=== PATIENT | male | born 1935 | race Caucasian/White ===

== ENCOUNTER 2017-05-13 08:59 | Outpatient (RCR) | payer MEDICARE, SELFPAY ==
[2017-04-30 11:07] LABS: Prothrombin Time (Protime)PT. 29.9 SECONDS (11.7-14.9)
[2017-05-07 09:01] LABS: International Normalized Ratio 4.1; Prothrombin Time (Protime)PT. 38.1 SECONDS (11.7-14.9)
[2017-05-13 09:30] LABS: Prothrombin Time (Protime)PT. 21.8 SECONDS (11.7-14.9)
== END 2017-05-13 09:15 | disposition home or self-care (01) ==
LOC: LAB 08:59
PROVIDERS: Family Provider Family Medicine; PCP Family Medicine; Visit Provider Internal Medicine Cardiovascular Disease
DX: I48.1 Persistent atrial fibrillation (principal); Z79.01 Long term (current) use of anticoagulants
CPT/HCPCS: 36415; 85610

== ENCOUNTER 2017-06-10 09:00 | Outpatient (RCR) | payer MEDICARE, SELFPAY ==
[2017-04-10 10:53] VITALS: BP 90/60; BMI 31.3
[2017-06-03 11:17] LABS: International Normalized Ratio 3.2; Prothrombin Time (Protime)PT. 31.6 SECONDS (11.7-14.9)
[2017-06-10 09:57] LABS: International Normalized Ratio 2.9; Prothrombin Time (Protime)PT. 28.9 SECONDS (11.7-14.9)
== END 2017-06-10 09:30 | disposition home or self-care (01) ==
LOC: LAB 09:00
PROVIDERS: Family Provider Family Medicine; PCP Family Medicine; Visit Provider Internal Medicine Cardiovascular Disease
DX: I48.91 Unspecified atrial fibrillation (principal); Z79.01 Long term (current) use of anticoagulants
CPT/HCPCS: 36415; 85610

== ENCOUNTER 2017-07-14 08:25 | Outpatient (RCR) | payer MEDICARE, SELFPAY ==
[2017-06-26 08:25] LABS: International Normalized Ratio 2.2; Prothrombin Time (Protime)PT. 24.8 SECONDS (11.7-14.9)
[2017-07-14 09:22] LABS: International Normalized Ratio 2.9; Prothrombin Time (Protime)PT. 30.6 SECONDS (11.7-14.9)
[2017-07-14 09:46] LABS: AST(SGOT) 29 U/L (15-37); Alanine Aminotransfer ALT/SGPT 25 U/L (16-61); Albumin, Serum 3.7 g/dL (3.2-5.0); Alkaline Phosphatase 117 U/L (45-117); Bilirubin, Direct 0.31 mg/dL (0.00-0.30); Cholesterol 137 mg/dL (200); Globulin 3.6 g/dL (2.2-4.2); High Density Lipoprotein 51 mg/dL; Protein, Total 7.3 g/dL (6.4-8.2); Triglycerides 113 mg/dL; Very Low Density Lipoprotein 23 mg/dL (5-40)
== END 2017-07-14 09:00 | disposition home or self-care (01) ==
LOC: LAB 08:25
PROVIDERS: Physician Assistant Medical; Family Provider Family Medicine; PCP Family Medicine; Visit Provider Internal Medicine Cardiovascular Disease
DX: I48.91 Unspecified atrial fibrillation (principal); Z79.01 Long term (current) use of anticoagulants; E78.5 Hyperlipidemia, unspecified; Z79.899 Other long term (current) drug therapy
CPT/HCPCS: 36415; 80061; 80076; 85610

== ENCOUNTER 2017-08-11 08:18 | Outpatient (RCR) | payer MEDICARE, SELFPAY ==
[2017-08-11 09:19] LABS: International Normalized Ratio 2.2; Prothrombin Time (Protime)PT. 24.2 SECONDS (11.7-14.9)
== END 2017-08-11 09:00 | disposition home or self-care (01) ==
LOC: LAB 08:18
PROVIDERS: Family Provider Family Medicine; PCP Family Medicine; Visit Provider Internal Medicine Cardiovascular Disease
DX: I48.91 Unspecified atrial fibrillation (principal); Z79.01 Long term (current) use of anticoagulants
CPT/HCPCS: 36415; 85610

== ENCOUNTER → 2017-08-20 11:54 | Outpatient (CLI) | payer MEDICARE, SELFPAY ==
--- NOTE | 2017-08-20 13:54 | NEURO ---
NCS and/or EMG Patient Report Ordering Doctor: Juan F Rich DATE OF SERVICE: 08/20/17 Roshan Ramos is an 81-year-old male presents for electrodiagnostic testing of the right lower limb. He has numbness and tingling between the hip and the knee. He also reports numbness in the right foot. Electrodiagnostic findings: Absent right common peroneal and tibial motor responses. Prolonged H reflex noted on the right side and unobtainable on the left side. Prolonged right superficial peroneal latency is noted. Absent right sural response. On needle EMG, all muscles tested in the right lower limb showed no evidence of denervation with normal motor unit action potentials. Electrodiagnostic impression: This is an abnormal study in the right lower limb. 1. Electrodiagnostic findings show unobtainable motor responses as well as an absent right sural response. 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 No isolated nerve lesion can be determined. Additionally, there is no electrodiagnostic evidence for lumbosacral radiculopathy. If there are any further questions, please do not hesitate to contact me.
== END ==
PROVIDERS: Family Provider Family Medicine; PCP Family Medicine; Visit Provider Nurse Practitioner Family
DX: G57.91 Unspecified mononeuropathy of right lower limb (principal)
CPT/HCPCS: 95886; 95909

== ENCOUNTER 2017-09-16 08:17 | Outpatient (RCR) | payer MEDICARE, SELFPAY ==
[2017-09-16 09:38] LABS: International Normalized Ratio 2.3; Prothrombin Time (Protime)PT. 25.1 SECONDS (11.7-14.9)
== END 2017-09-16 09:00 | disposition home or self-care (01) ==
LOC: LAB 08:17
PROVIDERS: Family Provider Family Medicine; PCP Family Medicine; Visit Provider Internal Medicine Cardiovascular Disease
DX: I48.91 Unspecified atrial fibrillation (principal); Z79.01 Long term (current) use of anticoagulants
CPT/HCPCS: 36415; 85610

== ENCOUNTER 2017-10-23 09:11 | Outpatient (RCR) | payer MEDICARE, SELFPAY ==
[2017-10-17 09:32] LABS: International Normalized Ratio 2.7; Prothrombin Time (Protime)PT. 28.5 SECONDS (11.7-14.9)
[2017-10-23 10:25] LABS: International Normalized Ratio 1.4; Prothrombin Time (Protime)PT. 17.3 SECONDS (11.7-14.9)
== END 2017-10-23 10:00 | disposition home or self-care (01) ==
LOC: LAB 09:11
PROVIDERS: Family Provider Family Medicine; PCP Family Medicine; Visit Provider Internal Medicine Cardiovascular Disease
DX: I48.91 Unspecified atrial fibrillation (principal); Z79.01 Long term (current) use of anticoagulants
CPT/HCPCS: 36415; 85610

== ENCOUNTER 2017-11-13 08:05 | Outpatient (RCR) | payer MEDICARE, SELFPAY ==
[2017-10-30 09:52] LABS: International Normalized Ratio 2.2; Prothrombin Time (Protime)PT. 24.2 SECONDS (11.7-14.9)
[2017-11-13 08:55] LABS: International Normalized Ratio 1.7; Prothrombin Time (Protime)PT. 19.7 SECONDS (11.7-14.9)
== END 2017-11-25 20:00 | disposition home or self-care (01) ==
LOC: LAB 08:05
PROVIDERS: Family Provider Family Medicine; PCP Family Medicine; Visit Provider Internal Medicine Cardiovascular Disease
DX: I48.91 Unspecified atrial fibrillation (principal); Z79.01 Long term (current) use of anticoagulants
CPT/HCPCS: 36415; 85610

== ENCOUNTER 2017-11-27 08:39 | Outpatient (RCR) | payer MEDICARE, SELFPAY ==
[2017-11-27 09:15] LABS: International Normalized Ratio 2.2; Prothrombin Time (Protime)PT. 24.6 SECONDS (11.7-14.9)
== END 2017-12-29 08:17 | disposition home or self-care (01) ==
LOC: LAB 08:39
PROVIDERS: Family Provider Family Medicine; PCP Family Medicine; Visit Provider Internal Medicine Cardiovascular Disease
DX: I48.91 Unspecified atrial fibrillation (principal); Z79.01 Long term (current) use of anticoagulants
CPT/HCPCS: 36415; 85610

== ENCOUNTER 2017-12-30 08:18 | Outpatient (RCR) | payer MEDICARE, SELFPAY ==
[2017-12-30 09:17] LABS: AST(SGOT) 26 U/L (15-37); Alanine Aminotransfer ALT/SGPT 28 U/L (16-61); Albumin, Serum 3.7 g/dL (3.2-5.0); Alkaline Phosphatase 103 U/L (45-117); Bilirubin, Direct 0.23 mg/dL (0.00-0.30); Cholesterol 164 mg/dL (200); Globulin 3.7 g/dL (2.2-4.2); High Density Lipoprotein 51 mg/dL; Protein, Total 7.4 g/dL (6.4-8.2); Triglycerides 127 mg/dL; Very Low Density Lipoprotein 25 mg/dL (5-40)
[2017-12-30 09:29] LABS: Prothrombin Time (Protime)PT. 22.4 SECONDS (11.7-14.9)
== END 2017-12-30 09:00 | disposition home or self-care (01) ==
LOC: LAB 08:18
PROVIDERS: Physician Assistant Medical; Family Provider Family Medicine; PCP Family Medicine; Visit Provider Internal Medicine Cardiovascular Disease
DX: I48.91 Unspecified atrial fibrillation (principal); E78.5 Hyperlipidemia, unspecified; Z79.01 Long term (current) use of anticoagulants; Z79.899 Other long term (current) drug therapy
CPT/HCPCS: 36415; 80061; 80076; 85610

== ENCOUNTER 2018-02-09 08:54 | Outpatient (RCR) | payer MEDICARE, SELFPAY ==
[2018-02-09 10:28] LABS: International Normalized Ratio 2.5; Prothrombin Time (Protime)PT. 27.3 SECONDS (11.7-14.9)
== END 2018-02-09 10:00 | disposition home or self-care (01) ==
LOC: LAB 08:54
PROVIDERS: Family Provider Family Medicine; PCP Family Medicine; Referring Provider Internal Medicine Cardiovascular Disease; Visit Provider Internal Medicine Cardiovascular Disease
DX: I48.91 Unspecified atrial fibrillation (principal); Z79.01 Long term (current) use of anticoagulants
CPT/HCPCS: 36415; 85610

== ENCOUNTER 2018-02-23 12:02 | Outpatient (RCR) | payer MEDICARE, SELFPAY ==
[2018-02-23 12:47] VITALS: BP 113/67; PULSE 75; RESP 16; TEMP 36.2; O2SAT 99; BMI 29.5
[2018-02-23 13:19] VITALS: BMI 29.5
--- NOTE | 2018-02-23 13:47 | PCM.WC.HP ---
(1) Pressure ulcer of left buttock, stage 3 Status: Chronic Current Visit: Yes Code(s): L89.323 - Pressure ulcer of left buttock, stage 3 (2) Gout Status: Chronic Current Visit: No Code(s): M10.9 - Gout, unspecified (3) Dilated cardiomyopathy Status: Chronic Current Visit: No Code(s): I42.0 - Dilated cardiomyopathy (4) Atherosclerotic heart disease of [place] coronary artery without angina pectoris Status: Chronic Current Visit: No Qualifiers: Code(s): I25.10 - Atherosclerotic heart disease of [place] coronary artery without angina pectoris Comment: Stent to Mid PDA and mid posterolateral branch of RCA 08/21/2005 @ [facility] per Dr. Sánchez (5) FPC current use of anticoagulant Status: Chronic Current Visit: No Code(s): Z79.01 - FPC (current) use of anticoagulants (6) Atrial fibrillation Status: Chronic Current Visit: No Qualifiers: Code(s): I48.91 - Unspecified atrial fibrillation (7) Benign hypertension Status: Chronic Current Visit: No Code(s): I10 - Essential (primary) hypertension (8) HLD (hyperlipidemia) Status: Chronic Current Visit: No Qualifiers: Code(s): E78.5 - Hyperlipidemia, unspecified (9) Pacemaker Status: Chronic Current Visit: No Code(s): Z95.0 - Presence of cardiac pacemaker Comment: Pacemaker implant November 2001; 05/02/08 Generator change of pacemaker; (10) S/P PTCA (percutaneous transluminal coronary angioplasty) Status: Chronic Current Visit: No Code(s): Z98.61 - Coronary angioplasty status Comment: Stent to Mid PDA and mid posterolateral branch of RCA 08/21/2005 @ [facility] per Dr. Sánchez (11) Cardiomyopathy, ischemic Status: Chronic Current Visit: No Code(s): I25.5 - Ischemic cardiomyopathy (12) ICD (implantable cardioverter-defibrillator), biventricular, in situ Status: Chronic Current Visit: No Code(s): Z95.810 - Presence of automatic (implantable) cardiac defibrillator Comment: Pacemaker Implant November 2001; Generator change of pacemaker 05/02/08; ICD gen change 09/15/14; (13) Degenerative joint disease of knee Status: Chronic Current Visit: No Code(s): M17.10 - Unilateral primary osteoarthritis, unspecified knee History of Present Illness Date of Service: 02/23/18 Chief Complaint: Stage III pressure ulceration of the left buttock History of Wound: Is an 82-year-old male who is generally functional and ambulatory, though with multiple pre-existing medical problems. The patient presents with a stage III pressure ulceration on the left buttock. He states it has been present for approximately 7 months. It is painful. He has been under the care of several other physicians in regard to this ulceration, and is currently using Silvadene topically. The patient is active, but uses a lift chair for assistance, due to degenerative joint disease of his knees. The lift chair itself is not well cushioned, and the patient feels as though this is the cause of his ulceration, either due to friction forces or pressure. Though painful, the patient has had no history of bleeding or infection at the site. He is continent of stool and urine. Past Medical History Past Medical History: Chronic Problems (Last Reviewed 07/22/17 @ 10:22 by Иван Guzman MD) Pressure ulcer of left buttock, stage 3 (Chronic) Gout (Chronic) Degenerative joint disease of knee (Chronic) Dilated cardiomyopathy (Chronic) Palpitations (Chronic) Atherosclerotic heart disease of [place] coronary artery without angina pectoris (Chronic) Stent to Mid PDA and mid posterolateral branch of RCA 08/21/2005 @ [facility] per Dr. 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 Sánchez Cardiomyopathy, ischemic (Chronic) ICD (implantable cardioverter-defibrillator), biventricular, in situ (Chronic) Pacemaker Implant November 2001; Generator change of pacemaker 05/02/08; ICD gen change 09/15/14; Past Medical History: Patient has a history of diabetes mellitus, hypertension, atrial fibrillation, hyperlipidemia, and gout. Also has a history of coronary artery disease, and has previously undergone placement of a pacemaker/defibrillator. Patient denies a history of other, pulmonary disease, renal disease, and thyroid disease. Surgical History: angioplasty, - - Biventricular ICD. 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 He also has had bilateral cataract surgery. Allergies/Adverse Reactions: Allergies rofecoxib [From Vioxx] Adverse Reaction (Verified 01/21/18 09:39) Other Home Medications: Ambulatory Orders Medication Instructions Recorded Aspirin [Aspirin, Baby] 81 mg PO DAILY@0800 12/02/13 Metformin HCl [Glucophage] 500 mg PO BIDCM 12/02/13 Allopurinol [Zyloprim] 100 mg PO DAILYCM 08/17/14 Nitroglycerin [Nitrostat] 0.4 mg SUBLINGUAL Q5M PRN #1 bottle 07/04/16 furosemide 40 mg tablet 40 mg PO DAILY #90 tab 04/10/17 carvedilol 6.25 mg tablet 6.25 mg PO BID 07/22/17 ramipril 2.5 mg capsule 2.5 mg PO QDAY #90 cap 07/22/17 simvastatin 40 mg tablet 40 mg PO QODAY #45 tab 10/24/17 warfarin 2 mg tablet 2 mg PO .COMPLEX #130 tab 01/06/18 warfarin 2.5 mg tablet 2.5 mg PO .COMPLEX #52 tab 01/06/18 - Family History Maternal Family History: Family History (Last Reviewed 07/22/17 @ 10:22 by Иван Guzman MD) Father Parkinsons disease Mother Heart disease Valvular heart disease No pertinent history Social History: 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 He denies use of alcohol and tobacco products. He is . Lives: Spouse/ Significant Other Smoking Status: Never smoker Tobacco Use: Non-smoker Alcohol: None Drugs: None Review of Systems Constitutional: Denies: Chills, Fever, Weight Change Eyes: Denies: Pain, Vision Change HEENT: Denies: Difficulty Hearing, Difficulty Swallowing, Sinus Congestion Cardiovascular: Denies: Chest Pain, Palpitations Respiratory: Denies: Cough, Shortness of Breath Gastrointestinal: Denies: Diarrhea, Nausea, Vomiting Genitourinary: Denies: Dysuria, Hematuria Endocrine: Denies: Heat/ Cold Intolerance, Polydipsia, Polyuria Hematologic/ Lymphatic: Denies: Easy Bruising, Easy Bleeding - Physical Exam Vital Signs Temp Pulse Resp BP Pulse Ox 97.1 F L 75 16 113/67 99 02/23/18 12:47 02/23/18 12:47 02/23/18 12:47 02/23/18 12:47 02/23/18 12:47 General: Alert, Oriented x3, Cooperative, No apparent distress, Well developed, Well nourished HEENT: Atraumatic, PERRLA, EOMI, Normocephalic Oral: Moist Mucosa, No Gingival or Mucosal Lesions/ Ulcerations Neck: Supple, No JVD, Negative Carotid Bruits, Negative Hepatojugular Reflux, No Nodes, No Nuchal Rigidity, Trachea Midline Lungs: Clear to auscultation, Normal air movement, No rhonchi, No wheeze, No rales Cardiovascular: Regular rate, Regular Rhythm, Normal S1, Normal S2, No murmurs Abdomen: Soft, Non Tender, Non-Distended Extremities: No clubbing, No cyanosis, No edema, No Calf Tenderness, - - The patient's left hand is absent, having been previously amputated at the level of the wrist. Skin: No rashes, - - Ulcerations noted on the left buttock. The base of the ulceration is somewhat fibrous. There is a small amount of bioburden. There is no sign of infection or cellulitis. Dimensions are documented elsewhere. Ulcer margins are reasonably well beveled. The ulceration appears to extend into the subcutaneous tissue. Wound Measurements and Assessment WC - Nurse 1 - General Ulcer Measurement Start: 02/23/18 12:44 Freq: Status: Active Protocol: Activity Type Activity Date Activity User E-Sign Co-Sign Detail Recorded Client Recorded Date Recorded By Document 02/23/18 13:34 OR [id number] 02/23/18 13:37 OR 02/23/18 13:34 Wound Center Nurse 1 [Ulcer Assessment] #1 left upper buttock -Combined with other wound No -Current Size (cm) - Length 1 -Current Size (cm) - Width 0.6 -Current Size (cm) - Depth 0.1 -Total Square Cm 0.6 -Date of Last Picture (Recall this 02/23/18 field) -Photo Taken Yes -Epithelialization Small 1-33% -Tunneling No -Undermining/Tunneling No -Circular Undermining No -Exudate Amt None Present (0 %) -Wound Margin Distinct, Outline Attached -Granulation Amt Medium (34-66%) -Granulation Quality Pale Finzel -Necrosis Amt Medium (34-66%) -Necrotic Tissue Type Adherent Slough -Texture (Nora-wound Skin Appearance) Assessed -Moisture (Nora-wound Skin Appearance Assessed ) Maceration -Color (Nora-wound Skin Appearance) Assessed -Temperature (Nora-wound Skin No Abnormality Appearance) (Pt Warm) -Tenderness on Palpation (Nora-wound No Skin Appearance) -Ulcer Cleansing Rinsed/ Irrigated with Saline -Foul Odor after Cleansing No -Anesthetic Used 5% Lidocaine Gel WC - Nurse 2 - General Ulcer CM Notes Start: 02/23/18 12:44 Freq: Status: Active Protocol: Activity Type Activity Date Activity User E-Sign Co-Sign Detail Recorded Client Recorded Date Recorded By Document 02/23/18 13:34 DV [id number] 02/23/18 13:43 DV 02/23/18 13:34 Wound Center Nurse 2 [Procedure/Treatment] #1 LEFT BUTTOCK -Time 13:35 -Correct Patient Yes -Correct Side, Site, Position Yes -Correct Procedure Yes -Procedure Performed Yes -Type of Procedure Debridement -Clinical Debridement Subcutaneous -Post Debridement Size (cm) - Length 1.0 -Post Debridement Size (cm) - Width 0.8 -Post Debridement Size (cm) - Depth 0.2 -Total Square Cm 0.80 -Wound/Ulcer Outcome Not Healed -Ulcer Cleansing Rinsed/ Irrigated with Saline -Foul Odor after Cleansing No -Bioengineered Tissue No -Bleeding Controlled with Pressure -Treatment Response Procedure Tolerated Well [See Physician Procedure note for Specifics] Pain Scale: 0-10 Numeric [Pain] -Is Patient Pain Free? Yes Musculoskeletal: No Muscle Wasting Neurological: Cranial nerves II-XII grossly intact, Neuro grossly intact Psych/Mental Status: Normal Affect, Appropriate, Alert and oriented to time, place, person, mood and affect Debridement Note Post-Debridement Measurements/Treatment WC - Nurse 2 - General Ulcer CM Notes Start: 02/23/18 12:44 Freq: Status: Active Protocol: Activity Type Activity Date Activity User E-Sign Co-Sign Detail Recorded Client Recorded Date Recorded By Document 02/23/18 13:34 DV [id number] 02/23/18 13:43 DV 02/23/18 13:34 Wound Center Nurse 2 #1 LEFT BUTTOCK -Time 13:35 -Correct Patient Yes -Correct Side, Site, Position Yes -Correct Procedure Yes -Procedure Performed Yes -Type of Procedure Debridement -Clinical Debridement Subcutaneous -Post Debridement Size (cm) - Length 1.0 -Post Debridement Size (cm) - Width 0.8 -Post Debridement Size (cm) - Depth 0.2 -Total Square Cm 0.80 -Wound/Ulcer Outcome Not Healed -Ulcer Cleansing Rinsed/ Irrigated with Saline -Foul Odor after Cleansing No -Bioengineered Tissue No -Bleeding Controlled with Pressure -Treatment Response Procedure Tolerated Well Pain Scale: 0-10 Numeric Is Patient Pain Free? Yes Laterality: Left - Rec Type of Debridement: Excisional debridement Anesthesia Used: 4% Lidocaine Solution Depth: Down to and including healthy tissue, in the subcutaneous layer Percentage of wound debrided: 100 Instrument Used: 7mm curette Severity: Fat Layer Exposed Amount of bleeding with debridement: Mild Bleeding Controlled with: Compression and gauze Patient tolerated procedure well Assessment/Plan Active Problems (Last Reviewed 07/22/17 @ 10:22 by Иван Guzman MD) Pressure ulcer of left buttock, stage 3 (Chronic) Assessment: This is an 82-year-old male who presents with a pressure ulceration of the left buttock. It has been present for approximately 7 months. It appears related to either pressure or friction forces. Patient uses a lift chair, suspected to be the cause of his presenting manifestations. He is, in general, active and functional. The pressure ulceration appears to represent a stage III ulceration. Plan: Offloading measures are to be initiated. A lengthy discussion has been undertaken with the patient as to the appropriate measures to be employed. He is to reposition himself frequently. He is to avoid pressure to the area. An effort will be made to obtain a Roho cushion or other similar offloading cushion. Optimization of the patient's diabetes mellitus is a goal. Optimal nutrition has also been recommended. We will obtain routine diagnostic laboratory studies, including a CBC, conference of metabolic profile, serum prealbumin, and hemoglobin A1c. Patient is to return in 1 week for reassessment. We will initiate the use of collagenase Santyl topically on a daily basis. Patient is to be instructed in its appropriate use. The patient's is to assist the patient in daily dressing changes. The patient is not a smoker. Influenza vaccine was not administered today. Patient weighs 230 pounds. He stands 6 feet 2 inches tall. His BMI is 29.5, which places him in an overweight category. Weight loss has been recommended, and collaboration with his primary care physician has been recommended.
--- NOTE | 2018-02-23 13:51 | HP.PCM_ITS ---
(1) Pressure ulcer of left buttock, stage 3 Status: Chronic Current Visit: Yes Code(s): L89.323 - Pressure ulcer of left buttock, stage 3 (2) Gout Status: Chronic Current Visit: No Code(s): M10.9 - Gout, unspecified (3) Dilated cardiomyopathy Status: Chronic Current Visit: No Code(s): I42.0 - Dilated cardiomyopathy (4) Atherosclerotic heart disease of [place] coronary artery without angina pectoris Status: Chronic Current Visit: No Qualifiers: Code(s): I25.10 - Atherosclerotic heart disease of [place] coronary artery without angina pectoris Comment: Stent to Mid PDA and mid posterolateral branch of RCA 08/21/2005 @ [facility] per Dr. Sánchez (5) care home current use of anticoagulant Status: Chronic Current Visit: No Code(s): Z79.01 - care home (current) use of anticoagulants (6) Atrial fibrillation Status: Chronic Current Visit: No Qualifiers: Code(s): I48.91 - Unspecified atrial fibrillation (7) Benign hypertension Status: Chronic Current Visit: No Code(s): I10 - Essential (primary) hypertension (8) HLD (hyperlipidemia) Status: Chronic Current Visit: No Qualifiers: Code(s): E78.5 - Hyperlipidemia, unspecified (9) Pacemaker Status: Chronic Current Visit: No Code(s): Z95.0 - Presence of cardiac pacemaker Comment: Pacemaker implant November 2001; 05/02/08 Generator change of pacemaker; (10) S/P PTCA (percutaneous transluminal coronary angioplasty) Status: Chronic Current Visit: No Code(s): Z98.61 - Coronary angioplasty status Comment: Stent to Mid PDA and mid posterolateral branch of RCA 08/21/2005 @ [facility] per Dr. Sánchez (11) Cardiomyopathy, ischemic Status: Chronic Current Visit: No Code(s): I25.5 - Ischemic cardiomyopathy (12) ICD (implantable cardioverter-defibrillator), biventricular, in situ Status: Chronic Current Visit: No Code(s): Z95.810 - Presence of automatic (implantable) cardiac defibrillator Comment: Pacemaker Implant November 2001; Generator change of pacemaker 05/02/08; ICD gen change 09/15/14; (13) Degenerative joint disease of knee Status: Chronic Current Visit: No Code(s): M17.10 - Unilateral primary osteoarthritis, unspecified knee History of Present Illness Date of Service: 02/23/18 Chief Complaint: Stage III pressure ulceration of the left buttock History of Wound: Is an 82-year-old male who is generally functional and ambulatory, though with multiple pre-existing medical problems. The patient presents with a stage III pressure ulceration on the left buttock. He states it has been present for approximately 7 months. It is painful. He has been under the care of several other physicians in regard to this ulceration, and is currently using Silvadene topically. The patient is active, but uses a lift chair for assistance, due to degenerative joint disease of his knees. The lift chair itself is not well cushioned, and the patient feels as though this is the cause of his ulceration, either due to friction forces or pressure. Though painful, the patient has had no history of bleeding or infection at the site. He is continent of stool and urine. Past Medical History Past Medical History: Chronic Problems (Last Reviewed 07/22/17 @ 10:22 by Иван Guzman MD) Pressure ulcer of left buttock, stage 3 (Chronic) Gout (Chronic) Degenerative joint disease of knee (Chronic) Dilated cardiomyopathy (Chronic) Palpitations (Chronic) Atherosclerotic heart disease of [place] coronary artery without angina pectoris (Chronic) Stent to Mid PDA and mid posterolateral branch of RCA 08/21/2005 @ [facility] per Dr. 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 Sánchez Cardiomyopathy, ischemic (Chronic) ICD (implantable cardioverter-defibrillator), biventricular, in situ (Chronic) Pacemaker Implant November 2001; Generator change of pacemaker 05/02/08; ICD gen change 09/15/14; Past Medical History: Patient has a history of diabetes mellitus, hypertension, atrial fibrillation, hyperlipidemia, and gout. Also has a history of coronary artery disease, and has previously undergone placement of a pacemaker/defibrillator. Patient denies a history of other, pulmonary disease, renal disease, and thyroid disease. Surgical History: angioplasty, - - Biventricular ICD. 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 He also has had bilateral cataract surgery. Allergies/Adverse Reactions: Allergies rofecoxib [From Vioxx] Adverse Reaction (Verified 01/21/18 09:39) Other Home Medications: Ambulatory Orders Medication Instructions Recorded Aspirin [Aspirin, Baby] 81 mg PO DAILY@0800 12/02/13 Metformin HCl [Glucophage] 500 mg PO BIDCM 12/02/13 Allopurinol [Zyloprim] 100 mg PO DAILYCM 08/17/14 Nitroglycerin [Nitrostat] 0.4 mg SUBLINGUAL Q5M PRN #1 bottle 07/04/16 furosemide 40 mg tablet 40 mg PO DAILY #90 tab 04/10/17 carvedilol 6.25 mg tablet 6.25 mg PO BID 07/22/17 ramipril 2.5 mg capsule 2.5 mg PO QDAY #90 cap 07/22/17 simvastatin 40 mg tablet 40 mg PO QODAY #45 tab 10/24/17 warfarin 2 mg tablet 2 mg PO .COMPLEX #130 tab 01/06/18 warfarin 2.5 mg tablet 2.5 mg PO .COMPLEX #52 tab 01/06/18 - Family History Maternal Family History: Family History (Last Reviewed 07/22/17 @ 10:22 by Иван Guzman MD) Father Parkinsons disease Mother Heart disease Valvular heart disease No pertinent history Social History: 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 He denies use of alcohol and tobacco products. He is . Lives: Spouse/ Significant Other Smoking Status: Never smoker Tobacco Use: Non-smoker Alcohol: None Drugs: None Review of Systems Constitutional: Denies: Chills, Fever, Weight Change Eyes: Denies: Pain, Vision Change HEENT: Denies: Difficulty Hearing, Difficulty Swallowing, Sinus Congestion Cardiovascular: Denies: Chest Pain, Palpitations Respiratory: Denies: Cough, Shortness of Breath Gastrointestinal: Denies: Diarrhea, Nausea, Vomiting Genitourinary: Denies: Dysuria, Hematuria Endocrine: Denies: Heat/ Cold Intolerance, Polydipsia, Polyuria Hematologic/ Lymphatic: Denies: Easy Bruising, Easy Bleeding - Physical Exam Vital Signs Temp Pulse Resp BP Pulse Ox 97.1 F L 75 16 113/67 99 02/23/18 12:47 02/23/18 12:47 02/23/18 12:47 02/23/18 12:47 02/23/18 12:47 General: Alert, Oriented x3, Cooperative, No apparent distress, Well developed, Well nourished HEENT: Atraumatic, PERRLA, EOMI, Normocephalic Oral: Moist Mucosa, No Gingival or Mucosal Lesions/ Ulcerations Neck: Supple, No JVD, Negative Carotid Bruits, Negative Hepatojugular Reflux, No Nodes, No Nuchal Rigidity, Trachea Midline Lungs: Clear to auscultation, Normal air movement, No rhonchi, No wheeze, No rales Cardiovascular: Regular rate, Regular Rhythm, Normal S1, Normal S2, No murmurs Abdomen: Soft, Non Tender, Non-Distended Extremities: No clubbing, No cyanosis, No edema, No Calf Tenderness, - - The patient's left hand is absent, having been previously amputated at the level of the wrist. Skin: No rashes, - - Ulcerations noted on the left buttock. The base of the ulceration is somewhat fibrous. There is a small amount of bioburden. There is no sign of infection or cellulitis. Dimensions are documented elsewhere. Ulcer margins are reasonably well beveled. The ulceration appears to extend into the subcutaneous tissue. Wound Measurements and Assessment WC - Nurse 1 - General Ulcer Measurement Start: 02/23/18 12:44 Freq: Status: Active Protocol: Activity Type Activity Date Activity User E-Sign Co-Sign Detail Recorded Client Recorded Date Recorded By Document 02/23/18 13:34 MS [id number] 02/23/18 13:37 MS 02/23/18 13:34 Wound Center Nurse 1 [Ulcer Assessment] #1 left upper buttock -Combined with other wound No -Current Size (cm) - Length 1 -Current Size (cm) - Width 0.6 -Current Size (cm) - Depth 0.1 -Total Square Cm 0.6 -Date of Last Picture (Recall this 02/23/18 field) -Photo Taken Yes -Epithelialization Small 1-33% -Tunneling No -Undermining/Tunneling No -Circular Undermining No -Exudate Amt None Present (0 %) -Wound Margin Distinct, Outline Attached -Granulation Amt Medium (34-66%) -Granulation Quality Pale [place] -Necrosis Amt Medium (34-66%) -Necrotic Tissue Type Adherent Slough -Texture (Nora-wound Skin Appearance) Assessed -Moisture (Nora-wound Skin Appearance Assessed ) Maceration -Color (Nora-wound Skin Appearance) Assessed -Temperature (Nora-wound Skin No Abnormality Appearance) (Pt Warm) -Tenderness on Palpation (Nora-wound No Skin Appearance) -Ulcer Cleansing Rinsed/ Irrigated with Saline -Foul Odor after Cleansing No -Anesthetic Used 5% Lidocaine Gel WC - Nurse 2 - General Ulcer CM Notes Start: 02/23/18 12:44 Freq: Status: Active Protocol: Activity Type Activity Date Activity User E-Sign Co-Sign Detail Recorded Client Recorded Date Recorded By Document 02/23/18 13:34 DV [id number] 02/23/18 13:43 DV 02/23/18 13:34 Wound Center Nurse 2 [Procedure/Treatment] #1 LEFT BUTTOCK -Time 13:35 -Correct Patient Yes -Correct Side, Site, Position Yes -Correct Procedure Yes -Procedure Performed Yes -Type of Procedure Debridement -Clinical Debridement Subcutaneous -Post Debridement Size (cm) - Length 1.0 -Post Debridement Size (cm) - Width 0.8 -Post Debridement Size (cm) - Depth 0.2 -Total Square Cm 0.80 -Wound/Ulcer Outcome Not Healed -Ulcer Cleansing Rinsed/ Irrigated with Saline -Foul Odor after Cleansing No -Bioengineered Tissue No -Bleeding Controlled with Pressure -Treatment Response Procedure Tolerated Well [See Physician Procedure note for Specifics] Pain Scale: 0-10 Numeric [Pain] -Is Patient Pain Free? Yes Musculoskeletal: No Muscle Wasting Neurological: Cranial nerves II-XII grossly intact, Neuro grossly intact Psych/Mental Status: Normal Affect, Appropriate, Alert and oriented to time, place, person, mood and affect Debridement Note Post-Debridement Measurements/Treatment WC - Nurse 2 - General Ulcer CM Notes Start: 02/23/18 12:44 Freq: Status: Active Protocol: Activity Type Activity Date Activity User E-Sign Co-Sign Detail Recorded Client Recorded Date Recorded By Document 02/23/18 13:34 DV [id number] 02/23/18 13:43 DV 02/23/18 13:34 Wound Center Nurse 2 #1 LEFT BUTTOCK -Time 13:35 -Correct Patient Yes -Correct Side, Site, Position Yes -Correct Procedure Yes -Procedure Performed Yes -Type of Procedure Debridement -Clinical Debridement Subcutaneous -Post Debridement Size (cm) - Length 1.0 -Post Debridement Size (cm) - Width 0.8 -Post Debridement Size (cm) - Depth 0.2 -Total Square Cm 0.80 -Wound/Ulcer Outcome Not Healed -Ulcer Cleansing Rinsed/ Irrigated with Saline -Foul Odor after Cleansing No -Bioengineered Tissue No -Bleeding Controlled with Pressure -Treatment Response Procedure Tolerated Well Pain Scale: 0-10 Numeric Is Patient Pain Free? Yes Laterality: Left - Rec Type of Debridement: Excisional debridement Anesthesia Used: 4% Lidocaine Solution Depth: Down to and including healthy tissue, in the subcutaneous layer Percentage of wound debrided: 100 Instrument Used: 7mm curette Severity: Fat Layer Exposed Amount of bleeding with debridement: Mild Bleeding Controlled with: Compression and gauze Patient tolerated procedure well Assessment/Plan Active Problems (Last Reviewed 07/22/17 @ 10:22 by Иван Guzman MD) Pressure ulcer of left buttock, stage 3 (Chronic) Assessment: This is an 82-year-old male who presents with a pressure ulceration of the left buttock. It has been present for approximately 7 months. It appears related to either pressure or friction forces. Patient uses a lift chair, suspected to be the cause of his presenting manifestations. He is, in general, active and functional. The pressure ulceration appears to represent a stage III ulceration. Plan: Offloading measures are to be initiated. A lengthy discussion has been undertaken with the patient as to the appropriate measures to be employed. He is to reposition himself frequently. He is to avoid pressure to the area. An effort will be made to obtain a Roho cushion or other similar offloading cushion. Optimization of the patient's diabetes mellitus is a goal. Optimal nutrition has also been recommended. We will obtain routine diagnostic laboratory studies, including a CBC, conference of metabolic profile, serum prealbumin, and hemoglobin A1c. Patient is to return in 1 week for reassessment. We will initiate the use of collagenase Santyl topically on a daily basis. Patient is to be instructed in its appropriate use. The patient's is to assist the patient in daily dressing changes. The patient is not a smoker. Influenza vaccine was not administered today. Patient weighs 230 pounds. He stands 6 feet 2 inches tall. His BMI is 29.5, which places him in an overweight category. Weight loss has been recommended, and collaboration with his primary care physician has been recommended.
[2018-02-23 13:56] VITALS: BMI 29.5
[2018-02-23 16:02] LABS: Hemoglobin 14.3 g/dl (13.0-16.5); Mean Corp Hgb Conc 33.3 g/gl (32-36); Mean Corpuscular Hgb 32.1 pg (27.0-32.0); Mean Corpuscular Volume 96.4 fL (80-94); Mean Platelet Vol. 11.3 fl (6.2-12.0); Platelet Count 160 K/mm3 (150-450); RBC Distribution Width CV 13.8 % (11.6-14.6); RBC Distribution Width SD 47.1 fl (35.1-43.9); Red Blood Count 4.46 M/mm3 (4.6-6.2); White Blood Count 5.8 K/mm3 (4.4-11.0)
[2018-02-23 16:08] LABS: Scan Indicated on CBC? Y/N NO
[2018-02-23 16:33] LABS: Hemoglobin A1c 6.4 % (4.2-6.3)
[2018-02-23 16:34] LABS: AST(SGOT) 22 U/L (15-37); Alanine Aminotransfer ALT/SGPT 26 U/L (16-61); Albumin, Serum 3.8 g/dL (3.2-5.0); Alkaline Phosphatase 120 U/L (45-117); Anion Gap 9 (5-15); BUN 27 mg/dL (7-18); BUN/Creat Ratio 23.9 RATIO (10-20); Calcium,Total 9.1 mg/dL (8.5-10.1); Chloride 103 mmol/L (98-107); Creatinine, Serum 1.13 mg/dL (0.70-1.30); EST Glomerular Filtration Rate 66 mL/min (>60); Est Glom Filt Rate - Afr Amer 80 mL/min (>60); Estimated Creatinine Clearance 57.59 ml/min; Globulin 3.9 g/dL (2.2-4.2); Glucose 105 mg/dL (74-106); Potassium 3.9 mmol/L (3.5-5.1); Prealbumin 26.1 mg/dL (20.0-40.0); Protein, Total 7.7 g/dL (6.4-8.2); Sodium Level 143 mmol/L (136-145)
== END 2018-02-25 23:59 ==
LOC: WC 12:02
PROVIDERS: Family Provider Family Medicine; PCP Family Medicine; Visit Provider Surgery
DX: E11.622 Type 2 diabetes mellitus with other skin ulcer (principal); L89.323 Pressure ulcer of left buttock, stage 3; M10.9 Gout, unspecified; I25.10 Atherosclerotic heart disease of native coronary artery without angina pectoris; I42.0 Dilated cardiomyopathy; Z79.01 Long term (current) use of anticoagulants; I48.2 Chronic atrial fibrillation; I10 Essential (primary) hypertension; E78.5 Hyperlipidemia, unspecified; Z95.5 Presence of coronary angioplasty implant and graft; M17.10 Unilateral primary osteoarthritis, unspecified knee; I25.5 Ischemic cardiomyopathy; Z95.810 Presence of automatic (implantable) cardiac defibrillator; Z79.84 Long term (current) use of oral hypoglycemic drugs; Z79.899 Other long term (current) drug therapy; Z79.82 Long term (current) use of aspirin
CPT/HCPCS: 11042; 80053; 83036; 84134; 85027; 99213; G0463

== ENCOUNTER → 2018-03-13 10:52 | Outpatient (CLI) | payer MEDICARE, SELFPAY ==
[2018-03-13 12:50] LABS: AST(SGOT) 27 U/L (15-37); Alanine Aminotransfer ALT/SGPT 28 U/L (16-61); Albumin, Serum 3.8 g/dL (3.2-5.0); Alkaline Phosphatase 127 U/L (45-117); Anion Gap 8 (5-15); BUN 23 mg/dL (7-18); BUN/Creat Ratio 23.2 RATIO (10-20); Bilirubin, Direct 0.29 mg/dL (0.00-0.30); Calcium,Total 8.5 mg/dL (8.5-10.1); Chloride 104 mmol/L (98-107); Cholesterol 152 mg/dL (200); Creatinine, Serum 0.99 mg/dL (0.70-1.30); EST Glomerular Filtration Rate 77 mL/min (>60); Est Glom Filt Rate - Afr Amer 93 mL/min (>60); Globulin 3.3 g/dL (2.2-4.2); Glucose 120 mg/dL (74-106); High Density Lipoprotein 51 mg/dL; PSA,Total - Annual Screen 4.44 ng/mL (0.00-4.00); Potassium 4.3 mmol/L (3.5-5.1); Protein, Total 7.1 g/dL (6.4-8.2); Sodium Level 142 mmol/L (136-145); Triglycerides 120 mg/dL; Very Low Density Lipoprotein 24 mg/dL (5-40)
== END ==
PROVIDERS: Family Provider Family Medicine; PCP Family Medicine; Referring Provider Family Medicine; Visit Provider Family Medicine
DX: Z00.00 Encounter for general adult medical examination without abnormal findings (principal); E11.9 Type 2 diabetes mellitus without complications; Z12.5 Encounter for screening for malignant neoplasm of prostate
CPT/HCPCS: 36415; 80048; 80061; 80076; 84153; G0103

== ENCOUNTER 2018-03-16 09:31 | Outpatient (RCR) | payer MEDICARE, SELFPAY ==
[2018-03-16 10:29] LABS: International Normalized Ratio 2.9; Prothrombin Time (Protime)PT. 30.8 SECONDS (11.7-14.9)
== END 2018-03-27 09:02 | disposition home or self-care (01) ==
LOC: LAB 09:31
PROVIDERS: Family Provider Family Medicine; PCP Family Medicine; Referring Provider Internal Medicine Cardiovascular Disease; Visit Provider Internal Medicine Cardiovascular Disease
DX: I48.91 Unspecified atrial fibrillation (principal); Z79.01 Long term (current) use of anticoagulants
CPT/HCPCS: 36415; 85610

== ENCOUNTER 2018-03-23 12:00 | Outpatient (RCR) | payer MEDICARE, SELFPAY ==
[2018-02-26 02:15] VITALS: BP 113/67; PULSE 75; RESP 16; TEMP 36.2; O2SAT 99
[2018-03-02 14:48] VITALS: BP 107/70; PULSE 83; RESP 16; TEMP 36.1
--- NOTE | 2018-03-02 15:09 | PCM.WC.HP ---
(1) Pressure ulcer of left buttock, stage 3 Status: Chronic Current Visit: Yes Code(s): L89.323 - Pressure ulcer of left buttock, stage 3 (2) Gout Status: Chronic Current Visit: No Code(s): M10.9 - Gout, unspecified (3) Degenerative joint disease of knee Status: Chronic Current Visit: No Code(s): M17.10 - Unilateral primary osteoarthritis, unspecified knee (4) Dilated cardiomyopathy Status: Chronic Current Visit: No Code(s): I42.0 - Dilated cardiomyopathy (5) Atrial flutter Status: Acute Current Visit: No Code(s): I48.92 - Unspecified atrial flutter (6) Sick sinus syndrome Status: Acute Current Visit: No Code(s): I49.5 - Sick sinus syndrome (7) Palpitations Status: Chronic Current Visit: No Code(s): R00.2 - Palpitations (8) Atherosclerotic heart disease of [place] coronary artery without angina pectoris Status: Chronic Current Visit: No Qualifiers: Code(s): I25.10 - Atherosclerotic heart disease of [place] coronary artery without angina pectoris Comment: Stent to Mid PDA and mid posterolateral branch of RCA 08/21/2005 @ [facility] per Dr. Sánchez (9) History of sick sinus syndrome Status: Chronic Current Visit: No Code(s): Z86.79 - Personal history of other diseases of the circulatory system (10) residential current use of anticoagulant Status: Chronic Current Visit: No Code(s): Z79.01 - residential (current) use of anticoagulants (11) Abnormal stress test Status: Ruled-out Current Visit: No (12) Atrial fibrillation Status: Chronic Current Visit: No Qualifiers: Code(s): I48.91 - Unspecified atrial fibrillation (13) Benign hypertension Status: Chronic Current Visit: No Code(s): I10 - Essential (primary) hypertension (14) Type II diabetes mellitus Status: Chronic Current Visit: No Qualifiers: Code(s): E11.9 - Type 2 diabetes mellitus without complications (15) HLD (hyperlipidemia) Status: Chronic Current Visit: No Qualifiers: Code(s): E78.5 - Hyperlipidemia, unspecified (16) Obesity Status: Chronic Current Visit: No Code(s): E66.9 - Obesity, unspecified (17) Chest pain Status: Resolved Current Visit: No Qualifiers: Code(s): R07.9 - Chest pain, unspecified (18) Pacemaker Status: Chronic Current Visit: No Code(s): Z95.0 - Presence of cardiac pacemaker Comment: Pacemaker implant November 2001; 05/02/08 Generator change of pacemaker; (19) S/P PTCA (percutaneous transluminal coronary angioplasty) Status: Chronic Current Visit: No Code(s): Z98.61 - Coronary angioplasty status Comment: Stent to Mid PDA and mid posterolateral branch of RCA 08/21/2005 @ [facility] per Dr. Sánchez (20) Cardiomyopathy, ischemic Status: Chronic Current Visit: No Code(s): I25.5 - Ischemic cardiomyopathy (21) ICD (implantable cardioverter-defibrillator), biventricular, in situ Status: Chronic Current Visit: No Code(s): Z95.810 - Presence of automatic (implantable) cardiac defibrillator Comment: Pacemaker Implant November 2001; Generator change of pacemaker 05/02/08; ICD gen change 09/15/14; History of Present Illness Chief Complaint: Stage III pressure ulceration of the left buttock History of Wound: Is an 82-year-old male who is generally functional and ambulatory, though with multiple pre-existing medical problems. The patient presented with a stage III pressure ulceration on the left buttock. He stated it had been present for approximately 7 months. It is painful. He has been under the care of several other physicians in regard to this ulceration, and is currently using Silvadene topically. The patient is active, but uses a lift chair for assistance, due to degenerative joint disease of his knees. The lift chair itself is not well cushioned, and the patient feels as though this is the cause of his ulceration, either due to friction forces or pressure. Though painful, the patient has had no history of bleeding or infection at the site. He is continent of stool and urine. Past Medical History Past Medical History: Chronic Problems (Last Reviewed 07/22/17 @ 10:22 by Иван Guzman MD) Pressure ulcer of left buttock, stage 3 (Chronic) Gout (Chronic) Degenerative joint disease of knee (Chronic) Dilated cardiomyopathy (Chronic) Palpitations (Chronic) Atherosclerotic heart disease of [place] coronary artery without angina pectoris (Chronic) Stent to Mid PDA and mid posterolateral branch of RCA 08/21/2005 @ [facility] per Dr. 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 Sánchez Cardiomyopathy, ischemic (Chronic) ICD (implantable cardioverter-defibrillator), biventricular, in situ (Chronic) Pacemaker Implant November 2001; Generator change of pacemaker 05/02/08; ICD gen change 09/15/14; Surgical History: angioplasty, - - Biventricular ICD. 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 He also has had bilateral cataract surgery. Allergies/Adverse Reactions: Allergies rofecoxib [From Vioxx] Adverse Reaction (Verified 01/21/18 09:39) Other Home Medications: Ambulatory Orders Medication Instructions Recorded Aspirin [Aspirin, Baby] 81 mg PO DAILY@0800 12/02/13 Metformin HCl [Glucophage] 500 mg PO BIDCM 12/02/13 Allopurinol [Zyloprim] 100 mg PO DAILYCM 08/17/14 Nitroglycerin [Nitrostat] 0.4 mg SUBLINGUAL Q5M PRN #1 bottle 07/04/16 carvedilol 6.25 mg tablet 6.25 mg PO BID 07/22/17 ramipril 2.5 mg capsule 2.5 mg PO QDAY #90 cap 07/22/17 simvastatin 40 mg tablet 40 mg PO QODAY #45 tab 10/24/17 warfarin 2 mg tablet 2 mg PO .COMPLEX #130 tab 01/06/18 warfarin 2.5 mg tablet 2.5 mg PO .COMPLEX #52 tab 01/06/18 Furosemide [Lasix] 20 mg PO DAILY 02/23/18 - Family History Maternal Family History: Family History (Last Reviewed 07/22/17 @ 10:22 by Иван Guzman MD) Father Parkinsons disease Mother Heart disease Valvular heart disease No pertinent history Smoking Status: Never smoker Tobacco Use: Non-smoker Review of Systems Constitutional: Denies: Chills, Fever, Weight Change Eyes: Denies: Pain, Vision Change HEENT: Denies: Difficulty Hearing, Difficulty Swallowing, Sinus Congestion Cardiovascular: Denies: Chest Pain, Palpitations Respiratory: Denies: Cough, Shortness of Breath Gastrointestinal: Denies: Diarrhea, Nausea, Vomiting Genitourinary: Denies: Dysuria, Hematuria Endocrine: Denies: Heat/ Cold Intolerance, Polydipsia, Polyuria Hematologic/ Lymphatic: Denies: Easy Bruising, Easy Bleeding - Physical Exam Vital Signs Temp Pulse Resp BP Pulse Ox 96.9 F L 83 16 107/70 99 03/02/18 14:48 03/02/18 14:48 03/02/18 14:48 03/02/18 14:48 02/26/18 02:15 General: Alert, Oriented x3, Cooperative, No apparent distress, Well developed, Well nourished HEENT: Atraumatic, PERRLA, EOMI, Normocephalic Oral: Moist Mucosa Neck: No JVD Lungs: Normal air movement Abdomen: Non-Distended Extremities: No clubbing, No cyanosis, No edema, No Calf Tenderness Skin: No rashes, - - Stage III pressure ulceration is present on the patient's right buttock. Dimensions are documented elsewhere. There is no sign of infection or cellulitis. There is a mild amount of bioburden. Wound Measurements and Assessment WC - Nurse 1 - General Ulcer Measurement Start: 03/02/18 14:48 Freq: Status: Active Protocol: Activity Type Activity Date Activity User E-Sign Co-Sign Detail Recorded Client Recorded Date Recorded By Document 03/02/18 14:48 [id number] 03/02/18 14:50 HERMINIO 03/02/18 14:48 Wound Center Nurse 1 [Ulcer Assessment] #1 LEFT BUTTOCK -Combined with other wound No -Current Size (cm) - Length 1.0 -Current Size (cm) - Width 0.8 -Current Size (cm) - Depth 0.2 -Total Square Cm 0.80 -Photo Taken No -Epithelialization Small 1-33% -Tunneling No -Undermining/Tunneling No -Circular Undermining No -Exudate Amt Small (1-33%) -Exudate Type Serosanguineous -Wound Margin Distinct, Outline Attached -Granulation Amt Small (1-33%) -Granulation Quality Pale [place] -Slough/Fibrin Yes -Necrosis Amt Large (67-100%) -Necrotic Tissue Type Adherent Slough -Texture (Nora-wound Skin Appearance) Assessed Scarring -Moisture (Nora-wound Skin Appearance No Abnormality ) Assessed -Color (Nora-wound Skin Appearance) No Abnormality Assessed -Temperature (Nora-wound Skin No Abnormality Appearance) (Pt Warm) -Tenderness on Palpation (Nora-wound No Skin Appearance) -Ulcer Cleansing Rinsed/ Irrigated with Saline -Foul Odor after Cleansing No -Anesthetic Used 4% Lidocaine Solution Neurological: Cranial nerves II-XII grossly intact, Neuro grossly intact Psych/Mental Status: Normal Affect, Appropriate, Alert and oriented to time, place, person, mood and affect Debridement Note Laterality: Right - Stage III buttock ulceration Type of Debridement: Excisional debridement Anesthesia Used: 5% Lidocaine Gel Depth: Down to and including healthy tissue, in the subcutaneous layer Percentage of wound debrided: 100 Instrument Used: 3mm curette Severity: Fat Layer Exposed Amount of bleeding with debridement: Mild Bleeding Controlled with: Compression and gauze Patient tolerated procedure well Assessment/Plan Active Problems (Last Reviewed 07/22/17 @ 10:22 by Иван Guzman MD) Pressure ulcer of left buttock, stage 3 (Chronic) Assessment: This is an 82-year-old male who presented with a pressure ulceration of the left buttock. It had been present for approximately 7 months. It appears related to either pressure or friction forces. Patient uses a lift chair, suspected to be the cause of his presenting manifestations. He is, in general, active and functional. The pressure ulceration appears to represent a stage III ulceration. Patient has undergone a battery of diagnostic laboratory tests, with results as follows: Hemoglobin A1c 6.4, glucose 105, BUN 27, creatinine 1.13, total protein 7.7, serum albumin 3.8, calcium 9.1, AST 22, alkaline phosphatase 120, ALT 26, sodium 143, potassium 3.9, chloride 103, serum prealbumin 26.1, white blood count 5.8, hemoglobin 14.3, hematocrit 43.0, platelets 160,000. Plan: Offloading measures are to be continued. A lengthy discussion has been undertaken with the patient as to the appropriate measures to be employed. He is to reposition himself frequently. He is to avoid pressure to the area. An effort will be made to obtain an offloading cushion. Optimization of the patient's diabetes mellitus is a goal. Maintaining optimal nutrition has also been recommended. We will continue the use of collagenase Santyl topically on a daily basis. OptiFoam will be used as a means of further offloading and protecting the area. Patient is to return in 1 week for reassessment. The patient's is to assist the patient in daily dressing changes. The patient is not a smoker. Influenza vaccine was not administered today. Patient weighs 230 pounds. He stands 6 feet 2 inches tall. His BMI is 29.5, which places him in an overweight category. Weight loss has been recommended, and collaboration with his primary care physician has been recommended.
--- NOTE | 2018-03-02 15:14 | HP.PCM_ITS ---
(1) Pressure ulcer of left buttock, stage 3 Status: Chronic Current Visit: Yes Code(s): L89.323 - Pressure ulcer of left buttock, stage 3 (2) Gout Status: Chronic Current Visit: No Code(s): M10.9 - Gout, unspecified (3) Degenerative joint disease of knee Status: Chronic Current Visit: No Code(s): M17.10 - Unilateral primary osteoarthritis, unspecified knee (4) Dilated cardiomyopathy Status: Chronic Current Visit: No Code(s): I42.0 - Dilated cardiomyopathy (5) Atrial flutter Status: Acute Current Visit: No Code(s): I48.92 - Unspecified atrial flutter (6) Sick sinus syndrome Status: Acute Current Visit: No Code(s): I49.5 - Sick sinus syndrome (7) Palpitations Status: Chronic Current Visit: No Code(s): R00.2 - Palpitations (8) Atherosclerotic heart disease of [place] coronary artery without angina pectoris Status: Chronic Current Visit: No Qualifiers: Code(s): I25.10 - Atherosclerotic heart disease of [place] coronary artery without angina pectoris Comment: Stent to Mid PDA and mid posterolateral branch of RCA 08/21/2005 @ [facility] per Dr. Sánchez (9) History of sick sinus syndrome Status: Chronic Current Visit: No Code(s): Z86.79 - Personal history of other diseases of the circulatory system (10) long-term current use of anticoagulant Status: Chronic Current Visit: No Code(s): Z79.01 - long-term (current) use of anticoagulants (11) Abnormal stress test Status: Ruled-out Current Visit: No (12) Atrial fibrillation Status: Chronic Current Visit: No Qualifiers: Code(s): I48.91 - Unspecified atrial fibrillation (13) Benign hypertension Status: Chronic Current Visit: No Code(s): I10 - Essential (primary) hypertension (14) Type II diabetes mellitus Status: Chronic Current Visit: No Qualifiers: Code(s): E11.9 - Type 2 diabetes mellitus without complications (15) HLD (hyperlipidemia) Status: Chronic Current Visit: No Qualifiers: Code(s): E78.5 - Hyperlipidemia, unspecified (16) Obesity Status: Chronic Current Visit: No Code(s): E66.9 - Obesity, unspecified (17) Chest pain Status: Resolved Current Visit: No Qualifiers: Code(s): R07.9 - Chest pain, unspecified (18) Pacemaker Status: Chronic Current Visit: No Code(s): Z95.0 - Presence of cardiac pacemaker Comment: Pacemaker implant November 2001; 05/02/08 Generator change of pacemaker; (19) S/P PTCA (percutaneous transluminal coronary angioplasty) Status: Chronic Current Visit: No Code(s): Z98.61 - Coronary angioplasty status Comment: Stent to Mid PDA and mid posterolateral branch of RCA 08/21/2005 @ [facility] per Dr. Sánchez (20) Cardiomyopathy, ischemic Status: Chronic Current Visit: No Code(s): I25.5 - Ischemic cardiomyopathy (21) ICD (implantable cardioverter-defibrillator), biventricular, in situ Status: Chronic Current Visit: No Code(s): Z95.810 - Presence of automatic (implantable) cardiac defibrillator Comment: Pacemaker Implant November 2001; Generator change of pacemaker 05/02/08; ICD gen change 09/15/14; History of Present Illness Chief Complaint: Stage III pressure ulceration of the left buttock History of Wound: Is an 82-year-old male who is generally functional and ambulatory, though with multiple pre-existing medical problems. The patient presented with a stage III pressure ulceration on the left buttock. He stated it had been present for approximately 7 months. It is painful. He has been under the care of several other physicians in regard to this ulceration, and is currently using Silvadene topically. The patient is active, but uses a lift chair for assistance, due to degenerative joint disease of his knees. The lift chair itself is not well cushioned, and the patient feels as though this is the cause of his ulceration, either due to friction forces or pressure. Though painful, the patient has had no history of bleeding or infection at the site. He is continent of stool and urine. Past Medical History Past Medical History: Chronic Problems (Last Reviewed 07/22/17 @ 10:22 by Иван Guzman MD) Pressure ulcer of left buttock, stage 3 (Chronic) Gout (Chronic) Degenerative joint disease of knee (Chronic) Dilated cardiomyopathy (Chronic) Palpitations (Chronic) Atherosclerotic heart disease of [place] coronary artery without angina pectoris (Chronic) Stent to Mid PDA and mid posterolateral branch of RCA 08/21/2005 @ [facility] per Dr. 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 Sánchez Cardiomyopathy, ischemic (Chronic) ICD (implantable cardioverter-defibrillator), biventricular, in situ (Chronic) Pacemaker Implant November 2001; Generator change of pacemaker 05/02/08; ICD gen change 09/15/14; Surgical History: angioplasty, - - Biventricular ICD. 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 He also has had bilateral cataract surgery. Allergies/Adverse Reactions: Allergies rofecoxib [From Vioxx] Adverse Reaction (Verified 01/21/18 09:39) Other Home Medications: Ambulatory Orders Medication Instructions Recorded Aspirin [Aspirin, Baby] 81 mg PO DAILY@0800 12/02/13 Metformin HCl [Glucophage] 500 mg PO BIDCM 12/02/13 Allopurinol [Zyloprim] 100 mg PO DAILYCM 08/17/14 Nitroglycerin [Nitrostat] 0.4 mg SUBLINGUAL Q5M PRN #1 bottle 07/04/16 carvedilol 6.25 mg tablet 6.25 mg PO BID 07/22/17 ramipril 2.5 mg capsule 2.5 mg PO QDAY #90 cap 07/22/17 simvastatin 40 mg tablet 40 mg PO QODAY #45 tab 10/24/17 warfarin 2 mg tablet 2 mg PO .COMPLEX #130 tab 01/06/18 warfarin 2.5 mg tablet 2.5 mg PO .COMPLEX #52 tab 01/06/18 Furosemide [Lasix] 20 mg PO DAILY 02/23/18 - Family History Maternal Family History: Family History (Last Reviewed 07/22/17 @ 10:22 by Иван Guzman MD) Father Parkinsons disease Mother Heart disease Valvular heart disease No pertinent history Smoking Status: Never smoker Tobacco Use: Non-smoker Review of Systems Constitutional: Denies: Chills, Fever, Weight Change Eyes: Denies: Pain, Vision Change HEENT: Denies: Difficulty Hearing, Difficulty Swallowing, Sinus Congestion Cardiovascular: Denies: Chest Pain, Palpitations Respiratory: Denies: Cough, Shortness of Breath Gastrointestinal: Denies: Diarrhea, Nausea, Vomiting Genitourinary: Denies: Dysuria, Hematuria Endocrine: Denies: Heat/ Cold Intolerance, Polydipsia, Polyuria Hematologic/ Lymphatic: Denies: Easy Bruising, Easy Bleeding - Physical Exam Vital Signs Temp Pulse Resp BP Pulse Ox 96.9 F L 83 16 107/70 99 03/02/18 14:48 03/02/18 14:48 03/02/18 14:48 03/02/18 14:48 02/26/18 02:15 General: Alert, Oriented x3, Cooperative, No apparent distress, Well developed, Well nourished HEENT: Atraumatic, PERRLA, EOMI, Normocephalic Oral: Moist Mucosa Neck: No JVD Lungs: Normal air movement Abdomen: Non-Distended Extremities: No clubbing, No cyanosis, No edema, No Calf Tenderness Skin: No rashes, - - Stage III pressure ulceration is present on the patient's right buttock. Dimensions are documented elsewhere. There is no sign of infection or cellulitis. There is a mild amount of bioburden. Wound Measurements and Assessment WC - Nurse 1 - General Ulcer Measurement Start: 03/02/18 14:48 Freq: Status: Active Protocol: Activity Type Activity Date Activity User E-Sign Co-Sign Detail Recorded Client Recorded Date Recorded By Document 03/02/18 14:48 [id number] 03/02/18 14:50 HERMINIO 03/02/18 14:48 Wound Center Nurse 1 [Ulcer Assessment] #1 LEFT BUTTOCK -Combined with other wound No -Current Size (cm) - Length 1.0 -Current Size (cm) - Width 0.8 -Current Size (cm) - Depth 0.2 -Total Square Cm 0.80 -Photo Taken No -Epithelialization Small 1-33% -Tunneling No -Undermining/Tunneling No -Circular Undermining No -Exudate Amt Small (1-33%) -Exudate Type Serosanguineous -Wound Margin Distinct, Outline Attached -Granulation Amt Small (1-33%) -Granulation Quality Pale [place] -Slough/Fibrin Yes -Necrosis Amt Large (67-100%) -Necrotic Tissue Type Adherent Slough -Texture (Nora-wound Skin Appearance) Assessed Scarring -Moisture (Nora-wound Skin Appearance No Abnormality ) Assessed -Color (Nora-wound Skin Appearance) No Abnormality Assessed -Temperature (Nora-wound Skin No Abnormality Appearance) (Pt Warm) -Tenderness on Palpation (Nora-wound No Skin Appearance) -Ulcer Cleansing Rinsed/ Irrigated with Saline -Foul Odor after Cleansing No -Anesthetic Used 4% Lidocaine Solution Neurological: Cranial nerves II-XII grossly intact, Neuro grossly intact Psych/Mental Status: Normal Affect, Appropriate, Alert and oriented to time, place, person, mood and affect Debridement Note Laterality: Right - Stage III buttock ulceration Type of Debridement: Excisional debridement Anesthesia Used: 5% Lidocaine Gel Depth: Down to and including healthy tissue, in the subcutaneous layer Percentage of wound debrided: 100 Instrument Used: 3mm curette Severity: Fat Layer Exposed Amount of bleeding with debridement: Mild Bleeding Controlled with: Compression and gauze Patient tolerated procedure well Assessment/Plan Active Problems (Last Reviewed 07/22/17 @ 10:22 by Иван Guzman MD) Pressure ulcer of left buttock, stage 3 (Chronic) Assessment: This is an 82-year-old male who presented with a pressure ulceration of the left buttock. It had been present for approximately 7 months. It appears related to either pressure or friction forces. Patient uses a lift chair, suspected to be the cause of his presenting manifestations. He is, in general, active and functional. The pressure ulceration appears to represent a stage III ulceration. Patient has undergone a battery of diagnostic laboratory tests, with results as follows: Hemoglobin A1c 6.4, glucose 105, BUN 27, creatinine 1.13, total protein 7.7, serum albumin 3.8, calcium 9.1, AST 22, alkaline phosphatase 120, ALT 26, sodium 143, potassium 3.9, chloride 103, serum prealbumin 26.1, white blood count 5.8, hemoglobin 14.3, hematocrit 43.0, platelets 160,000. Plan: Offloading measures are to be continued. A lengthy discussion has been undertaken with the patient as to the appropriate measures to be employed. He is to reposition himself frequently. He is to avoid pressure to the area. An effort will be made to obtain an offloading cushion. Optimization of the patient's diabetes mellitus is a goal. Maintaining optimal nutrition has also been recommended. We will continue the use of collagenase Santyl topically on a daily basis. OptiFoam will be used as a means of further offloading and protecting the area. Patient is to return in 1 week for reassessment. The patient's is to assist the patient in daily dressing changes. The patient is not a smoker. Influenza vaccine was not administered today. Patient weighs 230 pounds. He stands 6 feet 2 inches tall. His BMI is 29.5, which places him in an overweight category. Weight loss has been recommended, and collaboration with his primary care physician has been recommended.
[2018-03-09 13:06] VITALS: BP 133/83; PULSE 76; RESP 18; TEMP 35.9
--- NOTE | 2018-03-09 13:37 | PCM.WC.HP ---
(1) Pressure ulcer of left buttock, stage 3 Status: Chronic Current Visit: Yes Code(s): L89.323 - Pressure ulcer of left buttock, stage 3 (2) Gout Status: Chronic Current Visit: No Code(s): M10.9 - Gout, unspecified (3) Degenerative joint disease of knee Status: Chronic Current Visit: No Code(s): M17.10 - Unilateral primary osteoarthritis, unspecified knee (4) Dilated cardiomyopathy Status: Chronic Current Visit: No Code(s): I42.0 - Dilated cardiomyopathy (5) Atrial flutter Status: Acute Current Visit: No Code(s): I48.92 - Unspecified atrial flutter (6) Sick sinus syndrome Status: Acute Current Visit: No Code(s): I49.5 - Sick sinus syndrome (7) Palpitations Status: Chronic Current Visit: No Code(s): R00.2 - Palpitations (8) Atherosclerotic heart disease of [place] coronary artery without angina pectoris Status: Chronic Current Visit: No Qualifiers: Code(s): I25.10 - Atherosclerotic heart disease of [place] coronary artery without angina pectoris Comment: Stent to Mid PDA and mid posterolateral branch of RCA 08/21/2005 @ [facility] per Dr. 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 (11) Atrial fibrillation Status: Chronic Current Visit: No Qualifiers: Code(s): I48.91 - Unspecified atrial fibrillation (12) Benign hypertension Status: Chronic Current Visit: No Code(s): I10 - Essential (primary) hypertension (13) Type II diabetes mellitus Status: Chronic Current Visit: No Qualifiers: Code(s): E11.9 - Type 2 diabetes mellitus without complications (14) HLD (hyperlipidemia) Status: Chronic Current Visit: No Qualifiers: Code(s): E78.5 - Hyperlipidemia, unspecified (15) Obesity Status: Chronic Current Visit: No Code(s): E66.9 - Obesity, unspecified (16) Pacemaker Status: Chronic Current Visit: No Code(s): Z95.0 - Presence of cardiac pacemaker Comment: Pacemaker implant November 2001; 05/02/08 Generator change of pacemaker; (17) S/P PTCA (percutaneous transluminal coronary angioplasty) Status: Chronic Current Visit: No Code(s): Z98.61 - Coronary angioplasty status Comment: Stent to Mid PDA and mid posterolateral branch of RCA 08/21/2005 @ [facility] per Dr. Sánchez (18) Cardiomyopathy, ischemic Status: Chronic Current Visit: No Code(s): I25.5 - Ischemic cardiomyopathy (19) ICD (implantable cardioverter-defibrillator), biventricular, in situ Status: Chronic Current Visit: No Code(s): Z95.810 - Presence of automatic (implantable) cardiac defibrillator Comment: Pacemaker Implant November 2001; Generator change of pacemaker 05/02/08; ICD gen change 09/15/14; History of Present Illness Chief Complaint: Stage III pressure ulceration of the left buttock History of Wound: This is an 82-year-old male who is generally functional and ambulatory, though with multiple pre-existing medical problems. The patient presented with a stage III pressure ulceration on the left buttock. He stated it had been present for approximately 7 months. It is painful. He has been under the care of several other physicians in regard to this ulceration, and had been using Silvadene topically. The patient is active, but uses a lift chair for assistance, due to degenerative joint disease of his knees. The lift chair itself is not well cushioned, and the patient feels as though this is the cause of his ulceration, either due to friction forces or pressure. Though painful, the patient has had no history of bleeding or infection at the site. He is continent of stool and urine. Past Medical History Past Medical History: Chronic Problems (Last Reviewed 07/22/17 @ 10:22 by Иван Guzman MD) Pressure ulcer of left buttock, stage 3 (Chronic) Gout (Chronic) Degenerative joint disease of knee (Chronic) Dilated cardiomyopathy (Chronic) Palpitations (Chronic) Atherosclerotic heart disease of [place] coronary artery without angina pectoris (Chronic) Stent to Mid PDA and mid posterolateral branch of RCA 08/21/2005 @ [facility] per Dr. 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 Sánchez Cardiomyopathy, ischemic (Chronic) ICD (implantable cardioverter-defibrillator), biventricular, in situ (Chronic) Pacemaker Implant November 2001; Generator change of pacemaker 05/02/08; ICD gen change 09/15/14; Surgical History: angioplasty, - - Biventricular ICD. 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 He also has had bilateral cataract surgery. Allergies/Adverse Reactions: Allergies rofecoxib [From Vioxx] Adverse Reaction (Verified 01/21/18 09:39) Other Home Medications: Ambulatory Orders Medication Instructions Recorded Aspirin [Aspirin, Baby] 81 mg PO DAILY@0800 12/02/13 Metformin HCl [Glucophage] 500 mg PO BIDCM 12/02/13 Allopurinol [Zyloprim] 100 mg PO DAILYCM 08/17/14 Nitroglycerin [Nitrostat] 0.4 mg SUBLINGUAL Q5M PRN #1 bottle 07/04/16 carvedilol 6.25 mg tablet 6.25 mg PO BID 07/22/17 ramipril 2.5 mg capsule 2.5 mg PO QDAY #90 cap 07/22/17 simvastatin 40 mg tablet 40 mg PO QODAY #45 tab 10/24/17 warfarin 2 mg tablet 2 mg PO .COMPLEX #130 tab 01/06/18 warfarin 2.5 mg tablet 2.5 mg PO .COMPLEX #52 tab 01/06/18 Furosemide [Lasix] 20 mg PO DAILY 02/23/18 - Family History Maternal Family History: Family History (Last Reviewed 07/22/17 @ 10:22 by Иван Guzman MD) Father Parkinsons disease Mother Heart disease Valvular heart disease No pertinent history Smoking Status: Never smoker Tobacco Use: Non-smoker Review of Systems Constitutional: Denies: Chills, Fever, Weight Change Eyes: Denies: Pain, Vision Change HEENT: Denies: Difficulty Hearing, Difficulty Swallowing, Sinus Congestion Cardiovascular: Denies: Chest Pain, Palpitations Respiratory: Denies: Cough, Shortness of Breath Gastrointestinal: Denies: Diarrhea, Nausea, Vomiting Genitourinary: Denies: Dysuria, Hematuria Endocrine: Denies: Heat/ Cold Intolerance, Polydipsia, Polyuria Hematologic/ Lymphatic: Denies: Easy Bruising, Easy Bleeding - Physical Exam Vital Signs Temp Pulse Resp BP Pulse Ox 96.7 F L 76 18 133/83 H 99 03/09/18 13:06 03/09/18 13:06 03/09/18 13:06 03/09/18 13:06 02/26/18 02:15 General: Alert, Oriented x3, Cooperative, No apparent distress, Well developed, Well nourished HEENT: Atraumatic, PERRLA, EOMI, Normocephalic Oral: Moist Mucosa Neck: No JVD Lungs: Normal air movement Abdomen: Non-Distended Extremities: No clubbing, No cyanosis, No edema, No Calf Tenderness Skin: No rashes, - - The pressure ulceration of the left buttock is significantly improved. Dimensions have diminished. Current dimensions are documented elsewhere. There is no sign of infection or cellulitis. There is a small amount of bioburden. There is evidence of peripheral epithelialization. Wound Measurements and Assessment WC - Nurse 1 - General Ulcer Measurement Start: 03/02/18 14:48 Freq: Status: Active Protocol: Activity Type Activity Date Activity User E-Sign Co-Sign Detail Recorded Client Recorded Date Recorded By Document 03/09/18 13:06 [id number] 03/09/18 13:11 DL 03/09/18 13:06 Wound Center Nurse 1 [Ulcer Assessment] #1 LEFT BUTTOCK -Current Size (cm) - Length 0.3 -Current Size (cm) - Width 0.2 -Current Size (cm) - Depth 0.1 -Total Square Cm 0.06 -Photo Taken No -Exudate Amt None Present (0 %) -Wound Margin Distinct, Outline Attached -Granulation Amt None Present (0 %) -Necrosis Amt Small (1-33%) -Necrotic Tissue Type Eschar -Structure Exposed N/A -Texture (Nora-wound Skin Appearance) Scarring -Moisture (Nora-wound Skin Appearance Dry/Scaly ) -Color (Nora-wound Skin Appearance) Rubor -Temperature (Nora-wound Skin No Abnormality Appearance) (Pt Warm) -Tenderness on Palpation (Nora-wound No Skin Appearance) -Ulcer Cleansing Rinsed/ Irrigated with Saline -Foul Odor after Cleansing No -Anesthetic Used 4% Lidocaine Solution Neurological: Cranial nerves II-XII grossly intact, Neuro grossly intact Psych/Mental Status: Normal Affect, Appropriate, Alert and oriented to time, place, person, mood and affect Debridement Note Laterality: Left - Buttock Type of Debridement: Excisional debridement Anesthesia Used: 5% Lidocaine Gel Depth: Down to and including healthy tissue, in the subcutaneous layer Percentage of wound debrided: 100 Instrument Used: 3mm curette Severity: Fat Layer Exposed Amount of bleeding with debridement: Mild Bleeding Controlled with: Compression and gauze Patient tolerated procedure well Assessment/Plan Active Problems (Last Reviewed 07/22/17 @ 10:22 by Иван Guzman MD) Pressure ulcer of left buttock, stage 3 (Chronic) Assessment: This is an 82-year-old male who presented with a pressure ulceration of the left buttock. It had been present for approximately 7 months. It appears related to either pressure or friction forces. Patient uses a lift chair, suspected to be the cause of his presenting manifestations. He is, in general, active and functional. The pressure ulceration appears to represent a stage III ulceration. The patient has undergone a battery of diagnostic laboratory tests, with results as follows: Hemoglobin A1c 6.4, glucose 105, BUN 27, creatinine 1.13, total protein 7.7, serum albumin 3.8, calcium 9.1, AST 22, alkaline phosphatase 120, ALT 26, sodium 143, potassium 3.9, chloride 103, serum prealbumin 26.1, white blood count 5.8, hemoglobin 14.3, hematocrit 43.0, platelets 160,000. Plan: Offloading measures are to be continued. A lengthy discussion has been undertaken with the patient as to the appropriate measures to be employed. He is to reposition himself frequently. He is to avoid pressure to the area. An effort will be made to obtain an offloading cushion. Optimization of the patient's diabetes mellitus is a goal. Maintaining optimal nutrition has also been recommended. We will implement the use of collagen hydrogel topically, which will be applied on a daily basis. OptiFoam will be used as a means of further offloading and protecting the area. Patient is to return in 2 weeks for reassessment. The patient's is to assist the patient in daily dressing changes. The patient is not a smoker. Influenza vaccine was not administered today. Patient weighs 230 pounds. He stands 6 feet 2 inches tall. His BMI is 29.5, which places him in an overweight category. Weight loss has been recommended, and collaboration with his primary care physician has been recommended.
--- NOTE | 2018-03-09 13:42 | HP.PCM_ITS ---
(1) Pressure ulcer of left buttock, stage 3 Status: Chronic Current Visit: Yes Code(s): L89.323 - Pressure ulcer of left buttock, stage 3 (2) Gout Status: Chronic Current Visit: No Code(s): M10.9 - Gout, unspecified (3) Degenerative joint disease of knee Status: Chronic Current Visit: No Code(s): M17.10 - Unilateral primary osteoarthritis, unspecified knee (4) Dilated cardiomyopathy Status: Chronic Current Visit: No Code(s): I42.0 - Dilated cardiomyopathy (5) Atrial flutter Status: Acute Current Visit: No Code(s): I48.92 - Unspecified atrial flutter (6) Sick sinus syndrome Status: Acute Current Visit: No Code(s): I49.5 - Sick sinus syndrome (7) Palpitations Status: Chronic Current Visit: No Code(s): R00.2 - Palpitations (8) Atherosclerotic heart disease of [place] coronary artery without angina pectoris Status: Chronic Current Visit: No Qualifiers: Code(s): I25.10 - Atherosclerotic heart disease of [place] coronary artery without angina pectoris Comment: Stent to Mid PDA and mid posterolateral branch of RCA 08/21/2005 @ [facility] per Dr. 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 (11) Atrial fibrillation Status: Chronic Current Visit: No Qualifiers: Code(s): I48.91 - Unspecified atrial fibrillation (12) Benign hypertension Status: Chronic Current Visit: No Code(s): I10 - Essential (primary) hypertension (13) Type II diabetes mellitus Status: Chronic Current Visit: No Qualifiers: Code(s): E11.9 - Type 2 diabetes mellitus without complications (14) HLD (hyperlipidemia) Status: Chronic Current Visit: No Qualifiers: Code(s): E78.5 - Hyperlipidemia, unspecified (15) Obesity Status: Chronic Current Visit: No Code(s): E66.9 - Obesity, unspecified (16) Pacemaker Status: Chronic Current Visit: No Code(s): Z95.0 - Presence of cardiac pacemaker Comment: Pacemaker implant November 2001; 05/02/08 Generator change of pacemaker; (17) S/P PTCA (percutaneous transluminal coronary angioplasty) Status: Chronic Current Visit: No Code(s): Z98.61 - Coronary angioplasty status Comment: Stent to Mid PDA and mid posterolateral branch of RCA 08/21/2005 @ [facility] per Dr. Sánchez (18) Cardiomyopathy, ischemic Status: Chronic Current Visit: No Code(s): I25.5 - Ischemic cardiomyopathy (19) ICD (implantable cardioverter-defibrillator), biventricular, in situ Status: Chronic Current Visit: No Code(s): Z95.810 - Presence of automatic (implantable) cardiac defibrillator Comment: Pacemaker Implant November 2001; Generator change of pacemaker 05/02/08; ICD gen change 09/15/14; History of Present Illness Chief Complaint: Stage III pressure ulceration of the left buttock History of Wound: This is an 82-year-old male who is generally functional and ambulatory, though with multiple pre-existing medical problems. The patient presented with a stage III pressure ulceration on the left buttock. He stated it had been present for approximately 7 months. It is painful. He has been under the care of several other physicians in regard to this ulceration, and had been using Silvadene topically. The patient is active, but uses a lift chair for assistance, due to degenerative joint disease of his knees. The lift chair itself is not well cushioned, and the patient feels as though this is the cause of his ulceration, either due to friction forces or pressure. Though painful, the patient has had no history of bleeding or infection at the site. He is continent of stool and urine. Past Medical History Past Medical History: Chronic Problems (Last Reviewed 07/22/17 @ 10:22 by Иван Guzman MD) Pressure ulcer of left buttock, stage 3 (Chronic) Gout (Chronic) Degenerative joint disease of knee (Chronic) Dilated cardiomyopathy (Chronic) Palpitations (Chronic) Atherosclerotic heart disease of [place] coronary artery without angina pectoris (Chronic) Stent to Mid PDA and mid posterolateral branch of RCA 08/21/2005 @ [facility] per Dr. 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 Sánchez Cardiomyopathy, ischemic (Chronic) ICD (implantable cardioverter-defibrillator), biventricular, in situ (Chronic) Pacemaker Implant November 2001; Generator change of pacemaker 05/02/08; ICD gen change 09/15/14; Surgical History: angioplasty, - - Biventricular ICD. 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 He also has had bilateral cataract surgery. Allergies/Adverse Reactions: Allergies rofecoxib [From Vioxx] Adverse Reaction (Verified 01/21/18 09:39) Other Home Medications: Ambulatory Orders Medication Instructions Recorded Aspirin [Aspirin, Baby] 81 mg PO DAILY@0800 12/02/13 Metformin HCl [Glucophage] 500 mg PO BIDCM 12/02/13 Allopurinol [Zyloprim] 100 mg PO DAILYCM 08/17/14 Nitroglycerin [Nitrostat] 0.4 mg SUBLINGUAL Q5M PRN #1 bottle 07/04/16 carvedilol 6.25 mg tablet 6.25 mg PO BID 07/22/17 ramipril 2.5 mg capsule 2.5 mg PO QDAY #90 cap 07/22/17 simvastatin 40 mg tablet 40 mg PO QODAY #45 tab 10/24/17 warfarin 2 mg tablet 2 mg PO .COMPLEX #130 tab 01/06/18 warfarin 2.5 mg tablet 2.5 mg PO .COMPLEX #52 tab 01/06/18 Furosemide [Lasix] 20 mg PO DAILY 02/23/18 - Family History Maternal Family History: Family History (Last Reviewed 07/22/17 @ 10:22 by Иван Guzman MD) Father Parkinsons disease Mother Heart disease Valvular heart disease No pertinent history Smoking Status: Never smoker Tobacco Use: Non-smoker Review of Systems Constitutional: Denies: Chills, Fever, Weight Change Eyes: Denies: Pain, Vision Change HEENT: Denies: Difficulty Hearing, Difficulty Swallowing, Sinus Congestion Cardiovascular: Denies: Chest Pain, Palpitations Respiratory: Denies: Cough, Shortness of Breath Gastrointestinal: Denies: Diarrhea, Nausea, Vomiting Genitourinary: Denies: Dysuria, Hematuria Endocrine: Denies: Heat/ Cold Intolerance, Polydipsia, Polyuria Hematologic/ Lymphatic: Denies: Easy Bruising, Easy Bleeding - Physical Exam Vital Signs Temp Pulse Resp BP Pulse Ox 96.7 F L 76 18 133/83 H 99 03/09/18 13:06 03/09/18 13:06 03/09/18 13:06 03/09/18 13:06 02/26/18 02:15 General: Alert, Oriented x3, Cooperative, No apparent distress, Well developed, Well nourished HEENT: Atraumatic, PERRLA, EOMI, Normocephalic Oral: Moist Mucosa Neck: No JVD Lungs: Normal air movement Abdomen: Non-Distended Extremities: No clubbing, No cyanosis, No edema, No Calf Tenderness Skin: No rashes, - - The pressure ulceration of the left buttock is significantly improved. Dimensions have diminished. Current dimensions are documented elsewhere. There is no sign of infection or cellulitis. There is a small amount of bioburden. There is evidence of peripheral epithelialization. Wound Measurements and Assessment WC - Nurse 1 - General Ulcer Measurement Start: 03/02/18 14:48 Freq: Status: Active Protocol: Activity Type Activity Date Activity User E-Sign Co-Sign Detail Recorded Client Recorded Date Recorded By Document 03/09/18 13:06 [id number] 03/09/18 13:11 DL 03/09/18 13:06 Wound Center Nurse 1 [Ulcer Assessment] #1 LEFT BUTTOCK -Current Size (cm) - Length 0.3 -Current Size (cm) - Width 0.2 -Current Size (cm) - Depth 0.1 -Total Square Cm 0.06 -Photo Taken No -Exudate Amt None Present (0 %) -Wound Margin Distinct, Outline Attached -Granulation Amt None Present (0 %) -Necrosis Amt Small (1-33%) -Necrotic Tissue Type Eschar -Structure Exposed N/A -Texture (Nora-wound Skin Appearance) Scarring -Moisture (Nora-wound Skin Appearance Dry/Scaly ) -Color (Nora-wound Skin Appearance) Rubor -Temperature (Nora-wound Skin No Abnormality Appearance) (Pt Warm) -Tenderness on Palpation (Nora-wound No Skin Appearance) -Ulcer Cleansing Rinsed/ Irrigated with Saline -Foul Odor after Cleansing No -Anesthetic Used 4% Lidocaine Solution Neurological: Cranial nerves II-XII grossly intact, Neuro grossly intact Psych/Mental Status: Normal Affect, Appropriate, Alert and oriented to time, place, person, mood and affect Debridement Note Laterality: Left - Buttock Type of Debridement: Excisional debridement Anesthesia Used: 5% Lidocaine Gel Depth: Down to and including healthy tissue, in the subcutaneous layer Percentage of wound debrided: 100 Instrument Used: 3mm curette Severity: Fat Layer Exposed Amount of bleeding with debridement: Mild Bleeding Controlled with: Compression and gauze Patient tolerated procedure well Assessment/Plan Active Problems (Last Reviewed 07/22/17 @ 10:22 by Иван Guzman MD) Pressure ulcer of left buttock, stage 3 (Chronic) Assessment: This is an 82-year-old male who presented with a pressure ulceration of the left buttock. It had been present for approximately 7 months. It appears related to either pressure or friction forces. Patient uses a lift chair, suspected to be the cause of his presenting manifestations. [facility] and functional. The pressure ulceration appears to represent a stage III ulceration. The patient has undergone a battery of diagnostic laboratory tests, with results as follows: Hemoglobin A1c 6.4, glucose 105, BUN 27, creatinine 1.13, total protein 7.7, serum albumin 3.8, calcium 9.1, AST 22, alkaline phosphatase 120, ALT 26, sodium 143, potassium 3.9, chloride 103, serum prealbumin 26.1, white blood count 5.8, hemoglobin 14.3, hematocrit 43.0, platelets 160,000. Plan: Offloading measures are to be continued. A lengthy discussion has been undertaken with the patient as to the appropriate measures to be employed. He is to reposition himself frequently. He is to avoid pressure to the area. An effort will be made to obtain an offloading cushion. Optimization of the patient's diabetes mellitus is a goal. Maintaining optimal nutrition has also been recommended. We will implement the use of collagen hydrogel topically, which will be applied on a daily basis. OptiFoam will be used as a means of further offloading and protecting the area. Patient is to return in 2 weeks for reassessment. The patient's is to assist the patient in daily dressing changes. The patient is not a smoker. Influenza vaccine was not administered today. Patient weighs 230 pounds. He stands 6 feet 2 inches tall. His BMI is 29.5, which places him in an overweight category. Weight loss has been recommended, and collaboration with his primary care physician has been recommended.
[2018-03-23 12:51] VITALS: BP 114/68; PULSE 112; RESP 18; TEMP 37
--- NOTE | 2018-03-23 13:03 | PCM.WC.HP ---
(1) Pressure ulcer of left buttock, stage 3 Status: Chronic Current Visit: Yes Code(s): L89.323 - Pressure ulcer of left buttock, stage 3 (2) Gout Status: Chronic Current Visit: No Code(s): M10.9 - Gout, unspecified (3) Degenerative joint disease of knee Status: Chronic Current Visit: No Code(s): M17.10 - Unilateral primary osteoarthritis, unspecified knee (4) Dilated cardiomyopathy Status: Chronic Current Visit: No Code(s): I42.0 - Dilated cardiomyopathy (5) Atrial flutter Status: Acute Current Visit: No Code(s): I48.92 - Unspecified atrial flutter (6) Sick sinus syndrome Status: Acute Current Visit: No Code(s): I49.5 - Sick sinus syndrome (7) Palpitations Status: Chronic Current Visit: No Code(s): R00.2 - Palpitations (8) Atherosclerotic heart disease of [place] coronary artery without angina pectoris Status: Chronic Current Visit: No Qualifiers: Code(s): I25.10 - Atherosclerotic heart disease of [place] coronary artery without angina pectoris Comment: Stent to Mid PDA and mid posterolateral branch of RCA 08/21/2005 @ [facility] per Dr. Sánchez (9) History of sick sinus syndrome Status: Chronic Current Visit: No Code(s): Z86.79 - Personal history of other diseases of the circulatory system (10) care home current use of anticoagulant Status: Chronic Current Visit: No Code(s): Z79.01 - care home (current) use of anticoagulants (11) Atrial fibrillation Status: Chronic Current Visit: No Qualifiers: Code(s): I48.91 - Unspecified atrial fibrillation (12) Benign hypertension Status: Chronic Current Visit: No Code(s): I10 - Essential (primary) hypertension (13) Type II diabetes mellitus Status: Chronic Current Visit: No Qualifiers: Code(s): E11.9 - Type 2 diabetes mellitus without complications (14) HLD (hyperlipidemia) Status: Chronic Current Visit: No Qualifiers: Code(s): E78.5 - Hyperlipidemia, unspecified (15) Obesity Status: Chronic Current Visit: No Code(s): E66.9 - Obesity, unspecified (16) Pacemaker Status: Chronic Current Visit: No Code(s): Z95.0 - Presence of cardiac pacemaker Comment: Pacemaker implant November 2001; 05/02/08 Generator change of pacemaker; (17) S/P PTCA (percutaneous transluminal coronary angioplasty) Status: Chronic Current Visit: No Code(s): Z98.61 - Coronary angioplasty status Comment: Stent to Mid PDA and mid posterolateral branch of RCA 08/21/2005 @ [facility] per Dr. Sánchez (18) Cardiomyopathy, ischemic Status: Chronic Current Visit: No Code(s): I25.5 - Ischemic cardiomyopathy (19) ICD (implantable cardioverter-defibrillator), biventricular, in situ Status: Chronic Current Visit: No Code(s): Z95.810 - Presence of automatic (implantable) cardiac defibrillator Comment: Pacemaker Implant November 2001; Generator change of pacemaker 05/02/08; ICD gen change 09/15/14; History of Present Illness Chief Complaint: Stage III pressure ulceration of the left buttock History of Wound: This is an 82-year-old male who is generally functional and ambulatory, though with multiple pre-existing medical problems. The patient presented with a stage III pressure ulceration on the left buttock. He stated it had been present for approximately 7 months. It is painful. He has been under the care of several other physicians in regard to this ulceration, and had been using Silvadene topically. The patient is active, but uses a lift chair for assistance, due to degenerative joint disease of his knees. The lift chair itself is not well cushioned, and the patient feels as though this is the cause of his ulceration, either due to friction forces or pressure. Though painful, the patient has had no history of bleeding or infection at the site. He is continent of stool and urine. Past Medical History Past Medical History: Chronic Problems (Last Reviewed 07/22/17 @ 10:22 by Иван Guzman MD) Pressure ulcer of left buttock, stage 3 (Chronic) Gout (Chronic) Degenerative joint disease of knee (Chronic) Dilated cardiomyopathy (Chronic) Palpitations (Chronic) Atherosclerotic heart disease of [place] coronary artery without angina pectoris (Chronic) Stent to Mid PDA and mid posterolateral branch of RCA 08/21/2005 @ [facility] per Dr. 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 Sánchez Cardiomyopathy, ischemic (Chronic) ICD (implantable cardioverter-defibrillator), biventricular, in situ (Chronic) Pacemaker Implant November 2001; Generator change of pacemaker 05/02/08; ICD gen change 09/15/14; Surgical History: angioplasty, - - Biventricular ICD. 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 He also has had bilateral cataract surgery. Allergies/Adverse Reactions: Allergies rofecoxib [From Vioxx] Adverse Reaction (Verified 01/21/18 09:39) Other Home Medications: Ambulatory Orders Medication Instructions Recorded Aspirin [Aspirin, Baby] 81 mg PO DAILY@0800 12/02/13 Metformin HCl [Glucophage] 500 mg PO BIDCM 12/02/13 Allopurinol [Zyloprim] 100 mg PO DAILYCM 08/17/14 Nitroglycerin [Nitrostat] 0.4 mg SUBLINGUAL Q5M PRN #1 bottle 07/04/16 carvedilol 6.25 mg tablet 6.25 mg PO BID 07/22/17 ramipril 2.5 mg capsule 2.5 mg PO QDAY #90 cap 07/22/17 simvastatin 40 mg tablet 40 mg PO QODAY #45 tab 10/24/17 warfarin 2 mg tablet 2 mg PO .COMPLEX #130 tab 01/06/18 warfarin 2.5 mg tablet 2.5 mg PO .COMPLEX #52 tab 01/06/18 Furosemide [Lasix] 20 mg PO DAILY 02/23/18 - Family History Maternal Family History: Family History (Last Reviewed 07/22/17 @ 10:22 by Иван Guzman MD) Father Parkinsons disease Mother Heart disease Valvular heart disease No pertinent history Smoking Status: Never smoker Tobacco Use: Non-smoker Review of Systems Constitutional: Denies: Chills, Fever, Weight Change Eyes: Denies: Pain, Vision Change HEENT: Denies: Difficulty Hearing, Difficulty Swallowing, Sinus Congestion Cardiovascular: Denies: Chest Pain, Palpitations Respiratory: Denies: Cough, Shortness of Breath Gastrointestinal: Denies: Diarrhea, Nausea, Vomiting Genitourinary: Denies: Dysuria, Hematuria Endocrine: Denies: Heat/ Cold Intolerance, Polydipsia, Polyuria Hematologic/ Lymphatic: Denies: Easy Bruising, Easy Bleeding - Physical Exam Vital Signs Temp Pulse Resp BP Pulse Ox 98.6 F 112 H 18 114/68 99 03/23/18 12:51 03/23/18 12:51 03/23/18 12:51 03/23/18 12:51 02/26/18 02:15 General: Alert, Oriented x3, Cooperative, No apparent distress, Well developed, Well nourished HEENT: Atraumatic, PERRLA, EOMI, Normocephalic Oral: Moist Mucosa Neck: No JVD Lungs: Normal air movement Abdomen: Non-Distended Extremities: No clubbing, No cyanosis, No edema, No Calf Tenderness Skin: No rashes, No breakdown, - - The pressure ulceration of the left buttock is now completely healed and epithelialized. There is no sign of infection or cellulitis. Wound Measurements and Assessment WC - Nurse 1 - General Ulcer Measurement Start: 03/02/18 14:48 Freq: Status: Active Protocol: Activity Type Activity Date Activity User E-Sign Co-Sign Detail Recorded Client Recorded Date Recorded By Document 03/23/18 12:51 DV [id number] 03/23/18 12:59 DV 03/23/18 12:51 Wound Center Nurse 1 [Ulcer Assessment] #1 LEFT BUTTOCK -Combined with other wound No -Current Size (cm) - Length 0.1 -Current Size (cm) - Width 0.1 -Current Size (cm) - Depth 0.1 -Total Square Cm 0.01 -Photo Taken No -Epithelialization None Present -Tunneling No -Undermining/Tunneling No -Circular Undermining No -Classification - Thickness Full Thickness without Exposed Support Structure -Exudate Amt None Present (0 %) -Wound Margin Flat & Intact -Granulation Amt None Present (0 %) -Granulation Quality N/A -Slough/Fibrin Yes -Necrosis Amt None Present (0 %) -Necrotic Tissue Type Adherent Slough -Structure Exposed None/Limited to Skin Breakdown -Texture (Nora-wound Skin Appearance) No Abnormality Assessed -Moisture (Nora-wound Skin Appearance No Abnormality ) Assessed -Color (Nora-wound Skin Appearance) No Abnormality Assessed -Temperature (Nora-wound Skin No Abnormality Appearance) (Pt Warm) -Tenderness on Palpation (Nora-wound No Skin Appearance) -Ulcer Cleansing Rinsed/ Irrigated with Saline -Foul Odor after Cleansing No -Anesthetic Used 5% Lidocaine Gel Neurological: Cranial nerves II-XII grossly intact, Neuro grossly intact Psych/Mental Status: Normal Affect, Appropriate, Alert and oriented to time, place, person, mood and affect Debridement Note Post-Debridement Measurements/Treatment WC - Nurse 2 - General Ulcer CM Notes Start: 03/02/18 14:48 Freq: Status: Active Protocol: Activity Type Activity Date Activity User E-Sign Co-Sign Detail Recorded Client Recorded Date Recorded By Document 03/09/18 13:34 DV [id number] 03/09/18 13:37 DV 03/09/18 13:34 Wound Center Nurse 2 #1 LEFT BUTTOCK -Time 13:35 -Correct Patient Yes -Correct Side, Site, Position Yes -Correct Procedure Yes -Procedure Performed Yes -Type of Procedure Debridement -Clinical Debridement Subcutaneous -Post Debridement Size (cm) - Length 0.2 -Post Debridement Size (cm) - Width 0.1 -Post Debridement Size (cm) - Depth 0.1 -Total Square Cm 0.02 -Wound/Ulcer Outcome Not Healed -Ulcer Cleansing Rinsed/ Irrigated with Saline -Foul Odor after Cleansing No -Bioengineered Tissue No -Bleeding Controlled with Pressure -Treatment Response Procedure Tolerated Well Pain Scale: 0-10 Numeric Is Patient Pain Free? Yes No debridement was completed today Assessment/Plan Active Problems (Last Reviewed 07/22/17 @ 10:22 by Иван Guzman MD) Pressure ulcer of left buttock, stage 3 (Chronic) Assessment: This is an 82-year-old male who presented with a pressure ulceration of the left buttock. It had been present for approximately 7 months. It appears related to either pressure or friction forces. Patient uses a lift chair, suspected to be the cause of his presenting manifestations. He is, in general, active and functional. The pressure ulceration appears to represent a stage III ulceration. The patient has undergone a battery of diagnostic laboratory tests, with results as follows: Hemoglobin A1c 6.4, glucose 105, BUN 27, creatinine 1.13, total protein 7.7, serum albumin 3.8, calcium 9.1, AST 22, alkaline phosphatase 120, ALT 26, sodium 143, potassium 3.9, chloride 103, serum prealbumin 26.1, white blood count 5.8, hemoglobin 14.3, hematocrit 43.0, platelets 160,000. Plan: The ulceration of the left buttock is now completely healed and epithelialized. The patient is to be discharged. Offloading measures are to be continued. A lengthy discussion has been undertaken with the patient as to the appropriate measures to be employed. He is to reposition himself frequently. He is to avoid pressure to the area. The use of an offloading cushion is to be continued. Optimization of the patient's diabetes mellitus is a goal. Maintaining optimal nutrition has also been recommended. Patient will follow-up henceforth on an as-needed basis. The patient is not a smoker. Influenza vaccine was not administered today. Patient weighs 230 pounds. He stands 6 feet 2 inches tall. His BMI is 29.5, which places him in an overweight category. Weight loss has been recommended, and collaboration with his primary care physician has been recommended.
--- NOTE | 2018-03-23 13:06 | HP.PCM_ITS ---
(1) Pressure ulcer of left buttock, stage 3 Status: Chronic Current Visit: Yes Code(s): L89.323 - Pressure ulcer of left buttock, stage 3 (2) Gout Status: Chronic Current Visit: No Code(s): M10.9 - Gout, unspecified (3) Degenerative joint disease of knee Status: Chronic Current Visit: No Code(s): M17.10 - Unilateral primary osteoarthritis, unspecified knee (4) Dilated cardiomyopathy Status: Chronic Current Visit: No Code(s): I42.0 - Dilated cardiomyopathy (5) Atrial flutter Status: Acute Current Visit: No Code(s): I48.92 - Unspecified atrial flutter (6) Sick sinus syndrome Status: Acute Current Visit: No Code(s): I49.5 - Sick sinus syndrome (7) Palpitations Status: Chronic Current Visit: No Code(s): R00.2 - Palpitations (8) Atherosclerotic heart disease of [place] coronary artery without angina pectoris Status: Chronic Current Visit: No Qualifiers: Code(s): I25.10 - Atherosclerotic heart disease of [place] coronary artery without angina pectoris Comment: Stent to Mid PDA and mid posterolateral branch of RCA 08/21/2005 @ [facility] per Dr. Sánchez (9) History of sick sinus syndrome Status: Chronic Current Visit: No Code(s): Z86.79 - Personal history of other diseases of the circulatory system (10) alf current use of anticoagulant Status: Chronic Current Visit: No Code(s): Z79.01 - alf (current) use of anticoagulants (11) Atrial fibrillation Status: Chronic Current Visit: No Qualifiers: Code(s): I48.91 - Unspecified atrial fibrillation (12) Benign hypertension Status: Chronic Current Visit: No Code(s): I10 - Essential (primary) hypertension (13) Type II diabetes mellitus Status: Chronic Current Visit: No Qualifiers: Code(s): E11.9 - Type 2 diabetes mellitus without complications (14) HLD (hyperlipidemia) Status: Chronic Current Visit: No Qualifiers: Code(s): E78.5 - Hyperlipidemia, unspecified (15) Obesity Status: Chronic Current Visit: No Code(s): E66.9 - Obesity, unspecified (16) Pacemaker Status: Chronic Current Visit: No Code(s): Z95.0 - Presence of cardiac pacemaker Comment: Pacemaker implant November 2001; 05/02/08 Generator change of pacemaker; (17) S/P PTCA (percutaneous transluminal coronary angioplasty) Status: Chronic Current Visit: No Code(s): Z98.61 - Coronary angioplasty status Comment: Stent to Mid PDA and mid posterolateral branch of RCA 08/21/2005 @ [facility] per Dr. Sánchez (18) Cardiomyopathy, ischemic Status: Chronic Current Visit: No Code(s): I25.5 - Ischemic cardiomyopathy (19) ICD (implantable cardioverter-defibrillator), biventricular, in situ Status: Chronic Current Visit: No Code(s): Z95.810 - Presence of automatic (implantable) cardiac defibrillator Comment: Pacemaker Implant November 2001; Generator change of pacemaker 05/02/08; ICD gen change 09/15/14; History of Present Illness Chief Complaint: Stage III pressure ulceration of the left buttock History of Wound: This is an 82-year-old male who is generally functional and ambulatory, though with multiple pre-existing medical problems. The patient presented with a stage III pressure ulceration on the left buttock. He stated it had been present for approximately 7 months. It is painful. He has been under the care of several other physicians in regard to this ulceration, and had been using Silvadene topically. The patient is active, but uses a lift chair for assistance, due to degenerative joint disease of his knees. The lift chair itself is not well cushioned, and the patient feels as though this is the cause of his ulceration, either due to friction forces or pressure. Though painful, the patient has had no history of bleeding or infection at the site. He is continent of stool and urine. Past Medical History Past Medical History: Chronic Problems (Last Reviewed 07/22/17 @ 10:22 by Иван Guzman MD) Pressure ulcer of left buttock, stage 3 (Chronic) Gout (Chronic) Degenerative joint disease of knee (Chronic) Dilated cardiomyopathy (Chronic) Palpitations (Chronic) Atherosclerotic heart disease of [place] coronary artery without angina pectoris (Chronic) Stent to Mid PDA and mid posterolateral branch of RCA 08/21/2005 @ [facility] per Dr. 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 Sánchez Cardiomyopathy, ischemic (Chronic) ICD (implantable cardioverter-defibrillator), biventricular, in situ (Chronic) Pacemaker Implant November 2001; Generator change of pacemaker 05/02/08; ICD gen change 09/15/14; Surgical History: angioplasty, - - Biventricular ICD. 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 He also has had bilateral cataract surgery. Allergies/Adverse Reactions: Allergies rofecoxib [From Vioxx] Adverse Reaction (Verified 01/21/18 09:39) Other Home Medications: Ambulatory Orders Medication Instructions Recorded Aspirin [Aspirin, Baby] 81 mg PO DAILY@0800 12/02/13 Metformin HCl [Glucophage] 500 mg PO BIDCM 12/02/13 Allopurinol [Zyloprim] 100 mg PO DAILYCM 08/17/14 Nitroglycerin [Nitrostat] 0.4 mg SUBLINGUAL Q5M PRN #1 bottle 07/04/16 carvedilol 6.25 mg tablet 6.25 mg PO BID 07/22/17 ramipril 2.5 mg capsule 2.5 mg PO QDAY #90 cap 07/22/17 simvastatin 40 mg tablet 40 mg PO QODAY #45 tab 10/24/17 warfarin 2 mg tablet 2 mg PO .COMPLEX #130 tab 01/06/18 warfarin 2.5 mg tablet 2.5 mg PO .COMPLEX #52 tab 01/06/18 Furosemide [Lasix] 20 mg PO DAILY 02/23/18 - Family History Maternal Family History: Family History (Last Reviewed 07/22/17 @ 10:22 by Иван Guzman MD) Father Parkinsons disease Mother Heart disease Valvular heart disease No pertinent history Smoking Status: Never smoker Tobacco Use: Non-smoker Review of Systems Constitutional: Denies: Chills, Fever, Weight Change Eyes: Denies: Pain, Vision Change HEENT: Denies: Difficulty Hearing, Difficulty Swallowing, Sinus Congestion Cardiovascular: Denies: Chest Pain, Palpitations Respiratory: Denies: Cough, Shortness of Breath Gastrointestinal: Denies: Diarrhea, Nausea, Vomiting Genitourinary: Denies: Dysuria, Hematuria Endocrine: Denies: Heat/ Cold Intolerance, Polydipsia, Polyuria Hematologic/ Lymphatic: Denies: Easy Bruising, Easy Bleeding - Physical Exam Vital Signs Temp Pulse Resp BP Pulse Ox 98.6 F 112 H 18 114/68 99 03/23/18 12:51 03/23/18 12:51 03/23/18 12:51 03/23/18 12:51 02/26/18 02:15 General: Alert, Oriented x3, Cooperative, No apparent distress, Well developed, Well nourished HEENT: Atraumatic, PERRLA, EOMI, Normocephalic Oral: Moist Mucosa Neck: No JVD Lungs: Normal air movement Abdomen: Non-Distended Extremities: No clubbing, No cyanosis, No edema, No Calf Tenderness Skin: No rashes, No breakdown, - - The pressure ulceration of the left buttock is now completely healed and epithelialized. There is no sign of infection or cellulitis. Wound Measurements and Assessment WC - Nurse 1 - General Ulcer Measurement Start: 03/02/18 14:48 Freq: Status: Active Protocol: Activity Type Activity Date Activity User E-Sign Co-Sign Detail Recorded Client Recorded Date Recorded By Document 03/23/18 12:51 DV [id number] 03/23/18 12:59 DV 03/23/18 12:51 Wound Center Nurse 1 [Ulcer Assessment] #1 LEFT BUTTOCK -Combined with other wound No -Current Size (cm) - Length 0.1 -Current Size (cm) - Width 0.1 -Current Size (cm) - Depth 0.1 -Total Square Cm 0.01 -Photo Taken No -Epithelialization None Present -Tunneling No -Undermining/Tunneling No -Circular Undermining No -Classification - Thickness Full Thickness without Exposed Support Structure -Exudate Amt None Present (0 %) -Wound Margin Flat & Intact -Granulation Amt None Present (0 %) -Granulation Quality N/A -Slough/Fibrin Yes -Necrosis Amt None Present (0 %) -Necrotic Tissue Type Adherent Slough -Structure Exposed None/Limited to Skin Breakdown -Texture (Nora-wound Skin Appearance) No Abnormality Assessed -Moisture (Nora-wound Skin Appearance No Abnormality ) Assessed -Color (Nora-wound Skin Appearance) No Abnormality Assessed -Temperature (Nora-wound Skin No Abnormality Appearance) (Pt Warm) -Tenderness on Palpation (Nora-wound No Skin Appearance) -Ulcer Cleansing Rinsed/ Irrigated with Saline -Foul Odor after Cleansing No -Anesthetic Used 5% Lidocaine Gel Neurological: Cranial nerves II-XII grossly intact, Neuro grossly intact Psych/Mental Status: Normal Affect, Appropriate, Alert and oriented to time, place, person, mood and affect Debridement Note Post-Debridement Measurements/Treatment WC - Nurse 2 - General Ulcer CM Notes Start: 03/02/18 14:48 Freq: Status: Active Protocol: Activity Type Activity Date Activity User E-Sign Co-Sign Detail Recorded Client Recorded Date Recorded By Document 03/09/18 13:34 DV [id number] 03/09/18 13:37 DV 03/09/18 13:34 Wound Center Nurse 2 #1 LEFT BUTTOCK -Time 13:35 -Correct Patient Yes -Correct Side, Site, Position Yes -Correct Procedure Yes -Procedure Performed Yes -Type of Procedure Debridement -Clinical Debridement Subcutaneous -Post Debridement Size (cm) - Length 0.2 -Post Debridement Size (cm) - Width 0.1 -Post Debridement Size (cm) - Depth 0.1 -Total Square Cm 0.02 -Wound/Ulcer Outcome Not Healed -Ulcer Cleansing Rinsed/ Irrigated with Saline -Foul Odor after Cleansing No -Bioengineered Tissue No -Bleeding Controlled with Pressure -Treatment Response Procedure Tolerated Well Pain Scale: 0-10 Numeric Is Patient Pain Free? Yes No debridement was completed today Assessment/Plan Active Problems (Last Reviewed 07/22/17 @ 10:22 by Иван Guzman MD) Pressure ulcer of left buttock, stage 3 (Chronic) Assessment: This is an 82-year-old male who presented with a pressure ulceration of the left buttock. It had been present for approximately 7 months. It appears related to either pressure or friction forces. Patient uses a lift chair, suspected to be the cause of his presenting manifestations. He is, in general, active and functional. The pressure ulceration appears to represent a stage III ulceration. The patient has undergone a battery of diagnostic laboratory tests, with results as follows: Hemoglobin A1c 6.4, glucose 105, BUN 27, creatinine 1.13, total protein 7.7, serum albumin 3.8, calcium 9.1, AST 22, alkaline phosphatase 120, ALT 26, sodium 143, potassium 3.9, chloride 103, serum prealbumin 26.1, white blood count 5.8, hemoglobin 14.3, hematocrit 43.0, platelets 160,000. Plan: The ulceration of the left buttock is now completely healed and epithelialized. The patient is to be discharged. Offloading measures are to be continued. A lengthy discussion has been undertaken with the patient as to the appropriate measures to be employed. He is to reposition himself frequently. He is to avoid pressure to the area. The use of an offloading cushion is to be continued. Optimization of the patient's diabetes mellitus is a goal. Maintaining optimal nutrition has also been recommended. Patient will follow-up henceforth on an as-needed basis. The patient is not a smoker. Influenza vaccine was not administered today. Patient weighs 230 pounds. He stands 6 feet 2 inches tall. His BMI is 29.5, which places him in an overweight category. Weight loss has been recommended, and collaboration with his primary care physician has been recommended.
== END 2018-03-27 23:59 ==
LOC: WC 12:00
PROVIDERS: Family Provider Family Medicine; PCP Family Medicine; Visit Provider Surgery
DX: E11.622 Type 2 diabetes mellitus with other skin ulcer (principal); L89.323 Pressure ulcer of left buttock, stage 3; I25.5 Ischemic cardiomyopathy; Z95.5 Presence of coronary angioplasty implant and graft; I48.2 Chronic atrial fibrillation; E78.5 Hyperlipidemia, unspecified; I10 Essential (primary) hypertension; I25.10 Atherosclerotic heart disease of native coronary artery without angina pectoris; Z79.01 Long term (current) use of anticoagulants; M17.10 Unilateral primary osteoarthritis, unspecified knee; Z79.899 Other long term (current) drug therapy; Z79.84 Long term (current) use of oral hypoglycemic drugs; Z79.82 Long term (current) use of aspirin; Z95.810 Presence of automatic (implantable) cardiac defibrillator; I42.0 Dilated cardiomyopathy
CPT/HCPCS: 11042; 99213; G0463

== ENCOUNTER 2018-06-01 10:25 | Outpatient (RCR) | payer MEDICARE, SELFPAY ==
[2018-06-01 11:18] LABS: International Normalized Ratio 2.9; Prothrombin Time (Protime)PT. 30.6 SECONDS (11.7-14.9)
== END 2018-06-25 13:13 | disposition home or self-care (01) ==
LOC: LAB 10:25
PROVIDERS: Family Provider Family Medicine; PCP Family Medicine; Referring Provider Internal Medicine Cardiovascular Disease; Visit Provider Internal Medicine Cardiovascular Disease
DX: I49.5 Sick sinus syndrome (principal); I48.91 Unspecified atrial fibrillation; Z79.01 Long term (current) use of anticoagulants
CPT/HCPCS: 36415; 85610

== ENCOUNTER 2018-07-04 01:02 | Emergency (ER) | payer MEDICARE, SELFPAY ==
[2018-07-04 01:03] VITALS: BP 154/73; PULSE 69; RESP 16; TEMP 36.1; O2SAT 100; BMI 31.1
[2018-07-04 01:12] VITALS: BP 154/73; PULSE 70; RESP 13; O2SAT 98
[2018-07-04 02:35] LABS: International Normalized Ratio 3.1; Prothrombin Time (Protime)PT. 31.9 SECONDS (11.7-14.9)
--- NOTE | 2018-07-04 03:08 | ED.VISSUMM ---
- ER Visit Summary Date of Service: 07/04/18 Chief Complaint: Nosebleed History of Present Illness: The patient is a 82 M who presents with epistaxis. He began to bleed from the right nostril 3 hours before presentation. He tried holding pressure but was unable to control it. He is on warfarin for atrial fibrillation. His last INR was checked on June 15 and was 2.9 per the patient. He denies any chest pain shortness of breath lightheadedness dizziness. He did note that he took an Advil as well yesterday for knee pain. Physical Examination: Afebrile vitals unremarkable There is a tissue or cotton in the right nostril this was read removed and a large clot came with it he has mild active bleeding coming from the anterior nasal septum from some irritated mucosa he does not appear to have any posterior bleed Test Results: INR 3.1 Emergency Department Course and Treatment: Anterior 5.5 cm Rhino Rocket type packing placed and hemostasis achieved. Patient will follow up with ENT or return here for packing removal and was discharged home. Treatment Plan: [] Disposition: Discharge Impression: Epistaxis Anterior nasal packing This note was generated with [employer] dictation software. It may contain incorrect words, spelling, and punctuation that were not noted in review of the chart prior to signing ED Disposition - Plan for ED Patient: Referrals: Gurjit Salomon MD [Primary Care Provider] -
--- NOTE | 2018-07-04 03:09 | ED.DEP ---
ED Disposition - Plan for ED Patient: Instructions: Nosebleed Referrals: Gurjit Salomon MD [Primary Care Provider] - Taye Varma MD [STAFF PHYSICIAN] -
[2018-07-04 03:25] VITALS: BP 118/74; PULSE 72; RESP 22; O2SAT 99
--- NOTE | 2018-07-04 03:28 | ED.RN ---
THIS NURSE REVIEWED D/C INSTRUCTIONS WITH PT. PT VERBALIZED UNDERSTANDING OF INSTRUCTIONS. PT DENIES FURTHER NEEDS OR QUESTIONS AT THIS TIME. PT AMBULATES FROM ROOM ON OWN WITHOUT ASSISTANCE FROM STAFF
== END 2018-07-04 03:29 | disposition home or self-care (01) ==
PROVIDERS: Emergency Provider Emergency Medicine; Family Provider Family Medicine; PCP Family Medicine
DX: R04.0 Epistaxis (principal); I48.91 Unspecified atrial fibrillation; E11.9 Type 2 diabetes mellitus without complications; I10 Essential (primary) hypertension; E78.00 Pure hypercholesterolemia, unspecified; Z79.01 Long term (current) use of anticoagulants
CPT/HCPCS: 30901; 85610; 99282

== ENCOUNTER 2018-07-22 09:30 | Outpatient (RCR) | payer MEDICARE, SELFPAY ==
[2018-07-13 11:16] LABS: International Normalized Ratio 1.3; Prothrombin Time (Protime)PT. 15.9 SECONDS (11.7-14.9)
[2018-07-17 09:41] LABS: AST(SGOT) 19 U/L (15-37); Alanine Aminotransfer ALT/SGPT 20 U/L (16-61); Albumin, Serum 3.5 g/dL (3.2-5.0); Alkaline Phosphatase 129 U/L (45-117); Cholesterol 139 mg/dL (200); Globulin 3.7 g/dL (2.2-4.2); High Density Lipoprotein 47 mg/dL; Protein, Total 7.2 g/dL (6.4-8.2); Triglycerides 114 mg/dL; Very Low Density Lipoprotein 23 mg/dL (5-40)
[2018-07-17 09:42] LABS: International Normalized Ratio 1.2; Prothrombin Time (Protime)PT. 15.2 SECONDS (11.7-14.9)
[2018-07-22 11:12] LABS: International Normalized Ratio 1.5; Prothrombin Time (Protime)PT. 17.7 SECONDS (11.7-14.9)
== END 2018-07-24 09:18 | disposition home or self-care (01) ==
LOC: LAB 09:30
PROVIDERS: Physician Assistant Medical; Family Provider Family Medicine; PCP Family Medicine; Referring Provider Internal Medicine Cardiovascular Disease; Visit Provider Internal Medicine Cardiovascular Disease
DX: I49.5 Sick sinus syndrome (principal); I48.91 Unspecified atrial fibrillation; R00.2 Palpitations; I48.92 Unspecified atrial flutter; E78.5 Hyperlipidemia, unspecified; Z79.01 Long term (current) use of anticoagulants
CPT/HCPCS: 36415; 80061; 80076; 85610

== ENCOUNTER 2018-08-13 07:51 | Emergency (ER) | payer MEDICARE, SELFPAY ==
[2018-08-13 07:51] VITALS: BP 152/73; PULSE 70; RESP 20; TEMP 36.6; O2SAT 97; BMI 31.1
--- NOTE | 2018-08-13 07:54 | EKG12_ITS ---
Test Reason : GEN ILLNESS Blood Pressure : / mmHG Vent. Rate : 070 BPM Atrial Rate : 070 BPM P-R Int : 000 ms QRS Dur : 192 ms QT Int : 500 ms P-R-T Axes : 000 244 053 degrees QTc Int : 540 ms Ventricular-paced rhythm Biventricular pacemaker detected Abnormal ECG Confirmed by IVAN HARMAN, BONIFACIO ([id number]), editor & co founder FITO MADRIGAL ([id number]) on 08/17/2018 10:21:47 AM Referred By: Иван Guzman Confirmed By:BONIFACIO LOVE MD
--- NOTE | 2018-08-13 07:54 | RAD_ITS ---
STUDY: X-RAY CHEST REASON FOR EXAM: Male, 82 years old. Chest pain. Dizziness. TECHNIQUE: Single AP portable view of the chest. COMPARISON: Comparison is made with prior study dated March 27, 2017. FINDINGS: EKG electrodes are seen. The lungs are clear and expanded. There is no demonstrated pleural abnormality. There is mild cardiac enlargement. A left-sided dual-chamber pacemaker is present. Normal mediastinum and kole. Normal visualized pulmonary arteries. There is atherosclerotic calcification of the aortic arch with tortuosity. There are diffuse degenerative changes of the visualized thoracic spine. There is degenerative osteoarthritis of the bilateral shoulders. There is no demonstrated abnormality of the visualized soft tissue structures of the upper abdomen. RAD/Chest 1 View (Portable) IMPRESSION: Mild cardiomegaly. Electronically Signed: Spencer Montero, at 8:09 EDT , Service support ,
[2018-08-13 08:07] LABS: Absolute Lymphocyte Count 1.76 X10^3/ul (0.83-4.51); Absolute Neutrophil Count 4.1 X10^3/uL (2.0-7.7); Basophil# 0.02 X10^3/uL; Basophil% 0.3 % (0-1); Eosinophil# 0.31 X10^3/uL; Eosinophils% 4.5 % (0-5); Hematocrit 43.2 % (40-54); Hemoglobin 14.3 g/dl (13.0-16.5); Lymphocyte # 1.76 X10^3/ul (4.0); Lymphocyte % 25.6 % (19-41); Mean Corp Hgb Conc 33.1 g/gl (32-36); Mean Corpuscular Volume 93.7 fL (80-94); Mean Platelet Vol. 10.7 fl (6.2-12.0); Monocyte# 0.73 X10^3/uL; Monocyte% 10.6 % (0-10); Neutrophil # 4.05 X10^3/uL (2.7-7.7); Neutrophil % 58.9 % (47-70); Platelet Count 148 K/mm3 (150-450); RBC Distribution Width SD 46.3 fl (35.1-43.9); Red Blood Count 4.61 M/mm3 (4.6-6.2); White Blood Count 6.9 K/mm3 (4.4-11.0)
[2018-08-13 08:09] LABS: POSITIVE COUNT NO; POSITIVE DIFFERENTIAL NO; POSITIVE MORPHOLOGY NO
--- NOTE | 2018-08-13 08:10 | CT_ITS ---
STUDY: CT BRAIN WITHOUT CONTRAST REASON FOR EXAM: Male, 82 years old. Dizziness and headaches and vomiting. RADIATION DOSAGE (If Supplied By Facility): CTDIvol = ( 44.99 ) mGy, DLP = ( 846.73 ) mGycm TECHNIQUE: Transaxial CT imaging of the brain was performed without administration of intravenous contrast material. Individualized dose optimization techniques were used for this CT. COMPARISON: No relevant priors. FINDINGS: Normal soft tissue structures. Normal calvarium. There is mild cerebral atrophy with widening of the extra-axial spaces and ventricular dilatation. There are areas of decreased attenuation within the white matter tracts of the supratentorial brain, consistent with microvascular disease changes. There are small punctate calcifications of the basal ganglia which are seen in the aging brain as a normal variant. Normal brainstem. Normal cerebellum. There is no intracranial hemorrhage. There are no findings of an acute ischemic infarction. Atherosclerotic calcification of the vertebral arteries and cavernous portions of the internal carotid arteries bilaterally. Normal visualized paranasal sinuses. CT/Brain/Head without Contrast IMPRESSION: Chronic involutional changes of the brain. Electronically Signed: Spencer Montero, at 9:09 EDT , Service support ,
--- NOTE | 2018-08-13 08:11 | ED.VISSUMM ---
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 George at 9:00 today he came to the emergency room for evaluation. His review of systems are all otherwise unremarkable normal bowel bladder habits no fever no cough no exposures no new meds, His symptoms are resolved he has no complaints he is interested in keeping his 9:00 appointment with his engagement director Physical Examination: [] 170/80 afebrile resting complaint bed General, no distress resting comfortably HEENT is generally unremarkable The neck is supple no adenopathy Cardiovascular, regular rate and rhythm Lungs, clear bilateral Abdomen, soft nontender Extremities, no clubbing cyanosis or edema Neurologic, awake alert answering questions appropriately moving all 4 extremities cranial nerves are normal speech normal vision is normal, NIH 0 cannot reproduce his sense of dizziness with head movement there is no nystagmus Test Results: [] Emergency Department Course and Treatment: [] Patient did vomit once in CAT scan with immediate relief and flat he is back from CAT scan he has no symptoms again of any kind, no dizziness chest pain abdominal pain, screening labs and head CT are unremarkable EKG shows a paced rhythm, I discussed inpatient versus outpatient meds with the patient given all the above and the lack of clear etiology and the fact that he may have an underlying occult condition causing all the above, he did not wish to consider admission he wanted to go home he did agree to walk around the emergency department he took p.o. fluids and with ambulation and taking p.o. fluids he felt fine with no vomiting we spoke with Dr. Guzman who is happy to see him for scheduled appointment today and will be discharged to follow-up Dr. Guzman, his outpatient providers and return for change in symptoms Treatment Plan: [] Disposition: [] Stable declined admission Impression: [] intermittent dizziness with vomiting etiology unclear This note was generated with [employer] dictation software. It may contain incorrect words, spelling, and punctuation that were not noted in review of the chart prior to signing ED Disposition - Plan for ED Patient: Referrals: Gurjit Salomon MD [Primary Care Provider] -
[2018-08-13 08:14] VITALS: O2SAT 96
[2018-08-13 08:27] LABS: Lipase 105 U/L (73-393)
[2018-08-13 08:31] LABS: Anion Gap 6 (5-15); BUN 26 mg/dL (7-18); BUN/Creat Ratio 21.7 RATIO (10-20); Calcium,Total 8.9 mg/dL (8.5-10.1); Chloride 104 mmol/L (98-107); EST Glomerular Filtration Rate 61 mL/min (>60); Est Glom Filt Rate - Afr Amer 74 mL/min (>60); Estimated Creatinine Clearance 54.23 ml/min; Glucose 140 mg/dL (74-106); Potassium 4.4 mmol/L (3.5-5.1); Sodium Level 140 mmol/L (136-145)
[2018-08-13] MEDS: Ondansetron 4 MG/2 ML Vial IV (08:36)
[2018-08-13 08:37] LABS: AST(SGOT) 20 U/L (15-37); Alanine Aminotransfer ALT/SGPT 19 U/L (16-61); Albumin, Serum 3.7 g/dL (3.2-5.0); Alkaline Phosphatase 131 U/L (45-117); Bilirubin, Direct 0.27 mg/dL (0.00-0.30); Globulin 3.5 g/dL (2.2-4.2); Protein, Total 7.2 g/dL (6.4-8.2)
[2018-08-13 10:00] LABS: BNP,B-Type NATRIURETIC PEPTIDE 148.6 pg/mL (0-100)
[2018-08-13 10:34] VITALS: PULSE 70; RESP 22; O2SAT 93
[2018-08-13 10:46] VITALS: BP 131/66; PULSE 70; RESP 53; O2SAT 95
[2018-08-13 10:54] VITALS: BP 131/66; PULSE 70; RESP 16; O2SAT 92
--- NOTE | 2018-08-13 10:56 | ED.DEP ---
ED Disposition - Plan for ED Patient: Instructions: ED Dizziness [facility] Referrals: Gurjit Salomon MD [Primary Care Provider] -
== END 2018-08-13 11:20 | disposition home or self-care (01) ==
PROVIDERS: Emergency Provider Emergency Medicine; Family Provider Family Medicine; PCP Family Medicine
DX: R42 Dizziness and giddiness (principal); R11.10 Vomiting, unspecified; Z95.0 Presence of cardiac pacemaker; E11.9 Type 2 diabetes mellitus without complications; Z89.112 Acquired absence of left hand
CPT/HCPCS: 70450; 71045; 80048; 80076; 83690; 83880; 84484; 85025; 93005; 96374; 99285; A4216; J2405

== ENCOUNTER 2018-08-17 10:28 | Outpatient (RCR) | payer MEDICARE, SELFPAY ==
[2018-07-28 11:07] LABS: International Normalized Ratio 1.9; Prothrombin Time (Protime)PT. 21.6 SECONDS (11.7-14.9)
[2018-08-10 09:06] LABS: International Normalized Ratio 1.7; Prothrombin Time (Protime)PT. 20.1 SECONDS (11.7-14.9)
[2018-08-17 10:55] LABS: International Normalized Ratio 1.8
== END 2018-08-25 16:00 | disposition home or self-care (01) ==
LOC: LAB 10:28
PROVIDERS: Family Provider Family Medicine; PCP Family Medicine; Referring Provider Internal Medicine Cardiovascular Disease; Visit Provider Internal Medicine Cardiovascular Disease
DX: I49.5 Sick sinus syndrome (principal); I48.92 Unspecified atrial flutter; I48.91 Unspecified atrial fibrillation; R00.2 Palpitations; Z79.01 Long term (current) use of anticoagulants
CPT/HCPCS: 36415; 85610

== ENCOUNTER 2018-09-14 08:27 | Outpatient (RCR) | payer MEDICARE, SELFPAY ==
[2018-08-26 11:21] VITALS: BMI 31.1
[2018-08-31 12:31] LABS: International Normalized Ratio 1.8; Prothrombin Time (Protime)PT. 20.8 SECONDS (11.7-14.9)
[2018-09-14 10:04] LABS: International Normalized Ratio 2.1; Prothrombin Time (Protime)PT. 23.5 SECONDS (11.7-14.9)
== END 2018-09-26 07:26 | disposition home or self-care (01) ==
LOC: LAB 08:27
PROVIDERS: Family Provider Family Medicine; PCP Family Medicine; Referring Provider Internal Medicine Cardiovascular Disease; Visit Provider Internal Medicine Cardiovascular Disease
DX: I49.5 Sick sinus syndrome (principal); I48.92 Unspecified atrial flutter; I48.91 Unspecified atrial fibrillation; R00.2 Palpitations; Z79.01 Long term (current) use of anticoagulants
CPT/HCPCS: 36415; 85610

== ENCOUNTER 2018-10-12 08:15 | Outpatient (RCR) | payer MEDICARE, SELFPAY ==
[2018-09-15 09:26] VITALS: BMI 30.7
[2018-10-12 08:58] LABS: International Normalized Ratio 1.7
== END 2018-10-12 09:00 | disposition home or self-care (01) ==
LOC: LAB 08:15
PROVIDERS: Family Provider Family Medicine; PCP Family Medicine; Referring Provider Internal Medicine Cardiovascular Disease; Visit Provider Internal Medicine Cardiovascular Disease
DX: I49.5 Sick sinus syndrome (principal); I48.92 Unspecified atrial flutter; I48.91 Unspecified atrial fibrillation; R00.2 Palpitations; Z79.01 Long term (current) use of anticoagulants
CPT/HCPCS: 36415; 85610

== ENCOUNTER 2018-11-09 08:19 | Outpatient (RCR) | payer MEDICARE, SELFPAY ==
[2018-09-15 09:26] VITALS: BMI 30.7
[2018-10-26 09:07] LABS: Prothrombin Time (Protime)PT. 22.2 SECONDS (11.7-14.9)
[2018-11-09 08:59] LABS: International Normalized Ratio 2.1; Prothrombin Time (Protime)PT. 23.1 SECONDS (11.7-14.9)
== END 2018-11-25 17:27 | disposition home or self-care (01) ==
LOC: LAB 08:19
PROVIDERS: Family Provider Family Medicine; PCP Family Medicine; Referring Provider Internal Medicine Cardiovascular Disease; Visit Provider Internal Medicine Cardiovascular Disease
DX: I49.5 Sick sinus syndrome (principal); I48.92 Unspecified atrial flutter; I48.91 Unspecified atrial fibrillation; R00.2 Palpitations; Z79.01 Long term (current) use of anticoagulants
CPT/HCPCS: 36415; 85610

== ENCOUNTER 2018-12-14 09:02 | Outpatient (RCR) | payer MEDICARE, SELFPAY ==
[2018-09-15 09:26] VITALS: BMI 30.7
[2018-11-26 09:57] LABS: International Normalized Ratio 1.9; Prothrombin Time (Protime)PT. 21.7 SECONDS (11.7-14.9)
[2018-12-14 10:08] LABS: Prothrombin Time (Protime)PT. 22.5 SECONDS (11.7-14.9)
== END 2018-12-26 07:36 | disposition home or self-care (01) ==
LOC: LAB 09:02
PROVIDERS: Family Provider Family Medicine; PCP Family Medicine; Referring Provider Internal Medicine Cardiovascular Disease; Visit Provider Internal Medicine Cardiovascular Disease
DX: I49.5 Sick sinus syndrome (principal); I48.92 Unspecified atrial flutter; I48.91 Unspecified atrial fibrillation; R00.2 Palpitations; Z79.01 Long term (current) use of anticoagulants
CPT/HCPCS: 36415; 85610

== ENCOUNTER 2019-01-11 08:44 | Outpatient (RCR) | payer MEDICARE, SELFPAY ==
[2018-09-15 09:26] VITALS: BMI 30.7
[2019-01-11 10:11] LABS: Prothrombin Time (Protime)PT. 22.6 SECONDS (11.7-14.9)
== END 2019-01-11 10:00 | disposition home or self-care (01) ==
LOC: LAB 08:44
PROVIDERS: Family Provider Family Medicine; PCP Family Medicine; Referring Provider Internal Medicine Cardiovascular Disease; Visit Provider Internal Medicine Cardiovascular Disease
DX: I49.5 Sick sinus syndrome (principal); I48.92 Unspecified atrial flutter; I48.91 Unspecified atrial fibrillation; R00.2 Palpitations; Z79.01 Long term (current) use of anticoagulants
CPT/HCPCS: 36415; 85610

== ENCOUNTER 2019-03-02 09:08 | Outpatient (RCR) | payer MEDICARE, SELFPAY ==
[2018-09-15 09:26] VITALS: BMI 30.7
[2019-03-02 09:45] LABS: International Normalized Ratio 1.8; Prothrombin Time (Protime)PT. 21.2 SECONDS (11.7-14.9)
[2019-03-02 10:03] LABS: AST(SGOT) 20 U/L (15-37); Alanine Aminotransfer ALT/SGPT 22 U/L (16-61); Albumin, Serum 3.8 g/dL (3.2-5.0); Alkaline Phosphatase 118 U/L (45-117); Bilirubin, Direct 0.31 mg/dL (0.00-0.30); Cholesterol 137 mg/dL (200); Globulin 3.6 g/dL (2.2-4.2); High Density Lipoprotein 56 mg/dL; Protein, Total 7.4 g/dL (6.4-8.2); Triglycerides 98 mg/dL; Very Low Density Lipoprotein 20 mg/dL (5-40)
== END 2019-03-02 18:00 | disposition home or self-care (01) ==
LOC: LAB 09:08
PROVIDERS: Family Provider Family Medicine; PCP Family Medicine; Referring Provider Internal Medicine Cardiovascular Disease; Visit Provider Internal Medicine Cardiovascular Disease
DX: I48.92 Unspecified atrial flutter (principal); I49.5 Sick sinus syndrome; I48.91 Unspecified atrial fibrillation; R00.2 Palpitations; Z79.01 Long term (current) use of anticoagulants; I25.10 Atherosclerotic heart disease of native coronary artery without angina pectoris; E78.5 Hyperlipidemia, unspecified
CPT/HCPCS: 36415; 80061; 80076; 85610

== ENCOUNTER → 2019-03-04 09:23 | Outpatient (CLI) | payer MEDICARE, SELFPAY ==
[2018-09-15 09:26] VITALS: BMI 30.7
[2019-03-04 11:07] LABS: Anion Gap 9 (5-15); BUN 26 mg/dL (7-18); BUN/Creat Ratio 24.3 RATIO (10-20); Calcium,Total 8.8 mg/dL (8.5-10.1); Chloride 106 mmol/L (98-107); Cholesterol 134 mg/dL (200); Creatinine, Serum 1.07 mg/dL (0.70-1.30); EST Glomerular Filtration Rate 70 mL/min (>60); Est Glom Filt Rate - Afr Amer 85 mL/min (>60); Glucose 117 mg/dL (74-106); High Density Lipoprotein 54 mg/dL; Potassium 4.4 mmol/L (3.5-5.1); Sodium Level 142 mmol/L (136-145); Triglycerides 99 mg/dL; Very Low Density Lipoprotein 20 mg/dL (5-40)
== END ==
PROVIDERS: Family Provider Family Medicine; PCP Family Medicine; Referring Provider Family Medicine; Visit Provider Family Medicine
DX: I10 Essential (primary) hypertension (principal); E11.9 Type 2 diabetes mellitus without complications
CPT/HCPCS: 36415; 80048; 80061

== ENCOUNTER 2019-03-30 08:47 | Outpatient (RCR) | payer MEDICARE, SELFPAY ==
[2019-03-09 11:48] VITALS: BMI 31.0
[2019-03-30 09:29] LABS: International Normalized Ratio 2.5; Prothrombin Time (Protime)PT. 27.4 SECONDS (11.7-14.9)
== END 2019-03-30 18:00 | disposition home or self-care (01) ==
LOC: LAB 08:47
PROVIDERS: Family Provider Family Medicine; PCP Family Medicine; Referring Provider Internal Medicine Cardiovascular Disease; Visit Provider Internal Medicine Cardiovascular Disease
DX: I48.92 Unspecified atrial flutter (principal); I49.5 Sick sinus syndrome; I48.91 Unspecified atrial fibrillation; R00.2 Palpitations; Z79.01 Long term (current) use of anticoagulants; I25.10 Atherosclerotic heart disease of native coronary artery without angina pectoris
CPT/HCPCS: 36415; 85610

== ENCOUNTER 2019-04-29 08:54 | Outpatient (RCR) | payer MEDICARE, SELFPAY ==
[2019-03-09 11:48] VITALS: BMI 31.0
[2019-04-29 10:12] LABS: International Normalized Ratio 2.1; Prothrombin Time (Protime)PT. 23.6 SECONDS (11.7-14.9)
== END 2019-04-29 18:00 | disposition home or self-care (01) ==
LOC: LAB 08:54
PROVIDERS: Family Provider Family Medicine; PCP Family Medicine; Referring Provider Internal Medicine Cardiovascular Disease; Visit Provider Internal Medicine Cardiovascular Disease
DX: I48.92 Unspecified atrial flutter (principal); I49.5 Sick sinus syndrome; I48.91 Unspecified atrial fibrillation; R00.2 Palpitations; Z79.01 Long term (current) use of anticoagulants; I25.10 Atherosclerotic heart disease of native coronary artery without angina pectoris
CPT/HCPCS: 36415; 85610

== ENCOUNTER 2019-05-14 08:55 | Emergency (ER) | payer MEDICARE, SELFPAY ==
[2019-03-09 11:48] VITALS: BMI 31.0
[2019-05-14 08:56] VITALS: BP 138/71; PULSE 70; RESP 18; TEMP 36.5; O2SAT 96; BMI 33.1
--- NOTE | 2019-05-14 09:04 | CT_ITS ---
STUDY: CT BRAIN WITHOUT CONTRAST REASON FOR EXAM: Male, 83 years old. FALL RADIATION DOSAGE (If Supplied By Facility): CTDIvol = ( 44.99 ) mGy, DLP = ( 880.47 ) mGycm TECHNIQUE: Transaxial CT imaging of the brain was performed without administration of intravenous contrast material. Individualized dose optimization techniques were used for this CT. COMPARISON: Comparison is made with prior study dated August 13, 2018. FINDINGS: Normal soft tissue structures. Normal calvarium. There is mild cerebral atrophy with widening of the extra-axial spaces and ventricular dilatation. There are areas of decreased attenuation within the white matter tracts of the supratentorial brain, consistent with microvascular disease changes. There are small punctate calcifications of the basal ganglia which are seen in the aging brain as a normal variant. Normal brainstem. There is mild cerebellar atrophy. There is no intracranial hemorrhage. There are no findings of an acute ischemic infarction. Atherosclerotic calcification of the vertebral arteries and cavernous portions of the internal carotid arteries bilaterally. Normal visualized paranasal sinuses. CT/Brain/Head without Contrast IMPRESSION: Chronic involutional changes of the brain. Electronically Signed: Spencer Montero, at 9:55 EST , Service support ,
--- NOTE | 2019-05-14 09:05 | CT_ITS ---
STUDY: CT CERVICAL SPINE WITHOUT CONTRAST REASON FOR EXAM: Male, 83 years old. FALL RADIATION DOSAGE (If Supplied By Facility): CTDIvol = ( 23.84 ) mGy, DLP = ( 582.03 ) mGycm TECHNIQUE: High resolution transaxial imaging was performed without contrast material. Sagittal and coronal images were reconstructed. Individualized dose optimization techniques were used for this CT. COMPARISON: None FINDINGS: Normal craniovertebral junction. There are degenerative changes of the anterior atlantoaxial articulation. Normal odontoid process. There is straightening of the normal cervical lordosis. Normal vertebral bodies and posterior osseous elements. C2-3: Normal endplates. Normal disc height and morphology. Normal central canal and intervertebral neuroforamina. C3-4: Normal endplates. Normal disc height and morphology. Normal central canal and intervertebral neuroforamina. C4-5: Normal endplates. Normal disc height and morphology. Normal central canal and intervertebral neuroforamina. C5-6: Mild degree of disc space narrowing. Anterior spondylosis. Uncovertebral arthrosis. Moderate degree of bilateral neural foraminal stenosis worse on the right side. C6-7: Mild to moderate degree of disc space narrowing and spondylosis. Uncovertebral arthrosis. Mild degree of bilateral neural foraminal stenosis. C7-T1: Normal endplates. Normal disc height and morphology. Normal central canal and intervertebral neuroforamina. Atherosclerotic calcific plaques seen within the vertebral arteries as well as the carotid bifurcations bilaterally. CT/Spine Cervical without Contras IMPRESSION: Multilevel degenerative changes, as described above. Electronically Signed: Spencer Montero, at 9:57 EST , Service support ,
[2019-05-14 09:56] LABS: International Normalized Ratio 2.6; Prothrombin Time (Protime)PT. 27.5 SECONDS (11.7-14.9)
[2019-05-14] MEDS: Diphth,Pertuss(Acell),Tet Vac 0.5 ML Vial IM (10:15)
--- NOTE | 2019-05-14 10:18 | ED.VIS.GEN ---
History of Present Illness Chief Complaint: Fall Informant: Patient Onset: Today Current Severity: Mild Maximum Severity: Moderate Narrative: Patient presents after mechanical fall. He was walking into a local store and tripped on the rug, falling face forward onto the floor. He has a laceration to his forehead and some abrasions to both arms. He denies loss of consciousness. He is on Coumadin. 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 (7) Paroxysmal atrial fibrillation Status: Chronic (8) Paroxysmal atrial flutter Status: Chronic (9) Secondary pulmonary arterial hypertension Status: Chronic (10) Sick sinus syndrome Status: Chronic (11) History of coronary artery stent placement Status: Resolved Comment: PCI-RAQUEL-Mid RPDA and mid PLB w/ 2.5 x 12 mm Taxus x 2 08/21/2005 Past Medical History - Allergies and Home Meds Allergies/Adverse Reactions: Allergies rofecoxib [From Vioxx] Adverse Reaction (Verified 05/14/19 08:55) Other Primary Care Physician: Gurjit Salomon MD [Primary Care Provider] - Prior records reviewed: Yes Surgical History: angioplasty, - - Biventricular ICD. 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 He also has had bilateral cataract surgery. Lives: Spouse/ Significant Other Smoking Status: Never smoker - Family History Maternal Family History: Family History (Last Reviewed 03/09/19 @ 14:04 by Иван Guzman MD) Father Parkinsons disease Mother Heart disease Valvular heart disease Family History: Reports: No pertinent history Review of Systems General: Denies: Chills, Fever Eyes: Denies: Visual changes - bilaterally ENT: Denies: Bilateral ear pain Cardiovascular: Denies: Chest pain Respiratory: Denies: Dyspnea, Cough Gastrointestinal: Denies: Abdominal pain, Nausea, Vomiting Musculoskeletal: Denies: Extremity Pain Skin: Reports: Wounds Neurological: Reports: Headache Allergy: Denies: Uticaria Physical Exam Vital Signs/Narrative: Vital Signs Temp Pulse Resp BP Pulse Ox 05/14/19 08:56 97.7 F L 70 18 138/71 H 96 Inital Vital Signs reviewed: Yes General: Well nourished, Well developed Head: Normocephalic, - - Inverted Y-shaped laceration to the anterior forehead measuring approximately 2 cm in length. Mild bleeding noted. Eyes: Perrl, EOMI ENT: Moist mucous membranes Neck: - - No C-spine tenderness on palpation. Cardiovascular: Regular rate, Regular rhythm Respiratory: No distress, CTA bilaterally Abdomen: Soft, Nontender Extremities: - - Right forearm examination reveals 2 skin tears measuring approximately 2 cm in diameter. Left forearm reveals a 2 cm oblong skin tear near the elbow. There is a 1 cm linear skin tear near the left wrist. Skin: - - Skin changes as noted above. Neurological: Alert, Oriented x3, Normal Strength, Normal Sensation Psychological: Normal affect Diagnostic/Tx/Re-eval Impressions Brain CT 05/14/19 09:04 IMPRESSION: Chronic involutional changes of the brain. Electronically Signed: Spencer Montero, at 9:55 EST , Service support , Cervical Spine CT 05/14/19 09:05 IMPRESSION: Multilevel degenerative changes, as described above. Electronically Signed: Spencer Montero, at 9:57 EST , Service support , 05/14/19 09:04 CT Head [Brain/Head without Contrast] [CT] Stat 05/14/19 09:05 CT Cervical [Spine Cervical without Contras] [CT] Stat Laboratory Results 05/14/19 09:35 PT 27.5 H INR 2.6 - Medical Decision Making Tetanus update is provided. Tylenol was ordered for mild headache. Wounds are cleansed and dressed. Forehead laceration is anesthetized with 2 cc of 1% lidocaine. A total of 4 simple interrupted sutures are placed with 6-0 nylon. Bleeding is well controlled. Procedures - Lacerations No standard instances Length: 0.79 in Depth: Skin Shape: Y shaped Laceration repair: Lidocaine, Local Number of Sutures/Yessy: 4 - 6-0 nylon Suture Information: Simple ED Disposition - Plan for ED Patient: Disposition: Home or Assisted Living Diagnosis: Forehead laceration, Fall Instructions: FALL, Mechanical, LACERATION, Face (Suture or Tape) Referrals: Gurjit Salomon MD [Primary Care Provider] - 7 Days for suture removal
[2019-05-14] MEDS: Acetaminophen 325 MG Tablet 650 MG PO (10:20)
[2019-05-14 10:32] VITALS: BP 141/84; PULSE 70; RESP 18; O2SAT 97
== END 2019-05-14 10:34 | disposition home or self-care (01) ==
PROVIDERS: Emergency Provider Emergency Medicine; PCP Family Medicine
DX: S01.81XA Laceration without foreign body of other part of head, initial encounter (principal); W18.09XA Striking against other object with subsequent fall, initial encounter; Y93.01 Activity, walking, marching and hiking; Y92.512 Supermarket, store or market as the place of occurrence of the external cause; Y99.9 Unspecified external cause status; E78.5 Hyperlipidemia, unspecified; I10 Essential (primary) hypertension; I25.10 Atherosclerotic heart disease of native coronary artery without angina pectoris; I27.21 Secondary pulmonary arterial hypertension; I25.5 Ischemic cardiomyopathy; I48.0 Paroxysmal atrial fibrillation; Z79.01 Long term (current) use of anticoagulants; Z82.49 Family history of ischemic heart disease and other diseases of the circulatory system; Z95.5 Presence of coronary angioplasty implant and graft; Z95.810 Presence of automatic (implantable) cardiac defibrillator; Z23 Encounter for immunization
CPT/HCPCS: 12011; 70450; 72125; 85610; 90471; 90715; 99285

== ENCOUNTER 2019-06-01 08:57 | Outpatient (RCR) | payer MEDICARE, SELFPAY ==
[2019-06-01 10:57] LABS: International Normalized Ratio 2.3; Prothrombin Time (Protime)PT. 25.4 SECONDS (11.7-14.9)
== END 2019-06-01 18:00 | disposition home or self-care (01) ==
LOC: LAB 08:57
PROVIDERS: Family Provider Family Medicine; PCP Family Medicine; Referring Provider Internal Medicine Cardiovascular Disease; Visit Provider Internal Medicine Cardiovascular Disease
DX: I48.0 Paroxysmal atrial fibrillation (principal); I48.92 Unspecified atrial flutter; Z79.01 Long term (current) use of anticoagulants
CPT/HCPCS: 36415; 85610

== ENCOUNTER 2019-06-29 08:43 | Outpatient (RCR) | payer MEDICARE, SELFPAY ==
[2019-06-29 09:30] LABS: International Normalized Ratio 1.9; Prothrombin Time (Protime)PT. 21.8 SECONDS (11.7-14.9)
== END 2019-06-29 18:00 | disposition home or self-care (01) ==
LOC: LAB 08:43
PROVIDERS: Family Provider Family Medicine; PCP Family Medicine; Referring Provider Internal Medicine Cardiovascular Disease; Visit Provider Internal Medicine Cardiovascular Disease
DX: I48.0 Paroxysmal atrial fibrillation (principal); I48.92 Unspecified atrial flutter; Z79.01 Long term (current) use of anticoagulants
CPT/HCPCS: 36415; 85610

== ENCOUNTER 2019-08-02 07:51 | Outpatient (RCR) | payer MEDICARE, SELFPAY ==
[2019-08-02 08:18] LABS: International Normalized Ratio 1.9; Prothrombin Time (Protime)PT. 21.5 SECONDS (11.7-14.9)
== END 2019-08-26 18:00 | disposition home or self-care (01) ==
LOC: LAB 07:51
PROVIDERS: Family Provider Family Medicine; PCP Family Medicine; Referring Provider Internal Medicine Cardiovascular Disease; Visit Provider Internal Medicine Cardiovascular Disease
DX: I48.0 Paroxysmal atrial fibrillation (principal); I48.92 Unspecified atrial flutter; Z79.01 Long term (current) use of anticoagulants
CPT/HCPCS: 36415; 85610

== ENCOUNTER 2019-08-27 07:57 | Outpatient (RCR) | payer MEDICARE, SELFPAY ==
[2019-08-27 08:32] LABS: International Normalized Ratio 2.4; Prothrombin Time (Protime)PT. 25.4 SECONDS (11.7-14.9)
[2019-08-27 08:48] LABS: AST(SGOT) 24 U/L (15-37); Alanine Aminotransfer ALT/SGPT 25 U/L (16-61); Albumin, Serum 3.7 g/dL (3.2-5.0); Alkaline Phosphatase 114 U/L (45-117); Bilirubin, Direct 0.25 mg/dL (0.00-0.30); Cholesterol 157 mg/dL (200); Globulin 3.6 g/dL (2.2-4.2); High Density Lipoprotein 58 mg/dL; Protein, Total 7.3 g/dL (6.4-8.2); Triglycerides 116 mg/dL; Very Low Density Lipoprotein 23 mg/dL (5-40)
== END 2019-08-27 18:00 | disposition home or self-care (01) ==
LOC: LAB 07:57
PROVIDERS: Family Provider Family Medicine; PCP Family Medicine; Referring Provider Internal Medicine Cardiovascular Disease; Visit Provider Internal Medicine Cardiovascular Disease
DX: I48.0 Paroxysmal atrial fibrillation (principal); I48.92 Unspecified atrial flutter; Z79.01 Long term (current) use of anticoagulants; E78.00 Pure hypercholesterolemia, unspecified
CPT/HCPCS: 36415; 80061; 80076; 85610

== ENCOUNTER 2019-09-28 08:02 | Outpatient (RCR) | payer MEDICARE, SELFPAY ==
[2019-09-08 09:22] VITALS: BMI 33.1
[2019-09-28 08:41] LABS: International Normalized Ratio 2.2; Prothrombin Time (Protime)PT. 24.3 SECONDS (11.7-14.9)
== END 2019-09-28 18:00 | disposition home or self-care (01) ==
LOC: LAB 08:02
PROVIDERS: Family Provider Family Medicine; PCP Family Medicine; Referring Provider Internal Medicine Cardiovascular Disease; Visit Provider Internal Medicine Cardiovascular Disease
DX: I48.0 Paroxysmal atrial fibrillation (principal); I48.92 Unspecified atrial flutter; Z79.01 Long term (current) use of anticoagulants
CPT/HCPCS: 36415; 85610

== ENCOUNTER 2019-11-02 09:01 | Outpatient (RCR) | payer MEDICARE, SELFPAY ==
[2019-09-08 09:22] VITALS: BMI 33.1
[2019-11-02 09:45] LABS: International Normalized Ratio 2.6
== END 2019-11-02 18:00 | disposition home or self-care (01) ==
LOC: LAB 09:01
PROVIDERS: Family Provider Family Medicine; PCP Family Medicine; Referring Provider Internal Medicine Cardiovascular Disease; Visit Provider Internal Medicine Cardiovascular Disease
DX: I48.0 Paroxysmal atrial fibrillation (principal); I48.92 Unspecified atrial flutter; Z79.01 Long term (current) use of anticoagulants
CPT/HCPCS: 36415; 85610

== ENCOUNTER 2019-11-30 09:06 | Outpatient (RCR) | payer MEDICARE, SELFPAY ==
[2019-09-08 09:22] VITALS: BMI 33.1
[2019-11-30 10:17] LABS: International Normalized Ratio 2.4; Prothrombin Time (Protime)PT. 25.9 SECONDS (11.7-14.9)
== END 2019-12-27 18:00 | disposition home or self-care (01) ==
LOC: LAB 09:06
PROVIDERS: Family Provider Family Medicine; PCP Family Medicine; Referring Provider Internal Medicine Cardiovascular Disease; Visit Provider Internal Medicine Cardiovascular Disease
DX: I48.0 Paroxysmal atrial fibrillation (principal); I48.92 Unspecified atrial flutter; Z79.01 Long term (current) use of anticoagulants
CPT/HCPCS: 36415; 85610

== ENCOUNTER 2019-12-30 08:16 | Outpatient (RCR) | payer MEDICARE, SELFPAY ==
[2019-09-08 09:22] VITALS: BMI 33.1
[2019-12-30 09:08] LABS: International Normalized Ratio 2.6; Prothrombin Time (Protime)PT. 27.7 SECONDS (11.7-14.9)
== END 2019-12-30 18:00 | disposition home or self-care (01) ==
LOC: LAB 08:16
PROVIDERS: Family Provider Family Medicine; PCP Family Medicine; Referring Provider Internal Medicine Cardiovascular Disease; Visit Provider Internal Medicine Cardiovascular Disease
DX: I48.0 Paroxysmal atrial fibrillation (principal); I48.92 Unspecified atrial flutter; Z79.01 Long term (current) use of anticoagulants
CPT/HCPCS: 36415; 85610

== ENCOUNTER 2020-01-19 17:39 | Emergency (ER) | payer MEDICARE, SELFPAY ==
[2019-09-08 09:22] VITALS: BMI 33.1
[2020-01-19 17:41] VITALS: BP 109/68; PULSE 64; RESP 18; TEMP 36.2; O2SAT 98; BMI 28.8
--- NOTE | 2020-01-19 18:04 | ED.DCSUM_ITS ---
History of Present Illness Chief Complaint: Laceration Narrative: This patient is an 84-year-old male who presents with a skin tear to his left wrist. He caught it while closing the tailgate on a car. He is on warfarin for atrial fibrillation. He applied a dressing and has tried a few dressing changes today but continues to bleed and saturate the dressings. He denies pain. He has no other complaints. This occurred at about 9 AM about 9 hours before presentation here. Past Medical History - Allergies and Home Meds Allergies/Adverse Reactions: Allergies rofecoxib [From Vioxx] Adverse Reaction (Verified 01/19/20 17:43) Other Primary Care Physician: Gurjit Salomon MD [Primary Care Provider] - Past Medical History: - - Coronary artery disease, hypertension, atrial fibrill ation Surgical History: angioplasty, - - Biventricular ICD. 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 He also has had bilateral cataract surgery. Smoking Status: Never smoker - Family History Maternal Family History: Family History (Last Reviewed 09/08/19 @ 09:19 by Doron Hatch NP, [employer]) Father Parkinsons disease Mother Heart disease Valvular heart disease Family History: Reports: No pertinent history Review of Systems All systems negative except as indicated General: Denies: Fever Eyes: Denies: Visual changes - bilaterally Cardiovascular: Denies: Chest pain Respiratory: Denies: Dyspnea Gastrointestinal: Denies: Vomiting, Diarrhea Skin: Reports: - - Left wrist skin tear. Denies: Rash Neurological: Denies: Headache Physical Exam Vital Signs/Narrative: Vital Signs Temp Pulse Resp BP Pulse Ox 01/19/20 17:41 97.1 F L 64 18 109/68 98 General: Well nourished Head: Normocephalic Eyes: EOMI ENT: Moist mucous membranes Neck: Supple Cardiovascular: Regular rate Respiratory: No distress Extremities: - - Evidence of prior left hand amputation. There is a skin tear at the left wrist which continues to ooze and bleed no pulsatile bleeding Skin: Normal color Neurological: Alert Psychological: Normal affect Diagnostic/Tx/Re-eval - Medical Decision Making Surgifoam dressing was applied. We will check INR. INR is 2.4. On reevaluation dressing is saturated but does not obviously show continued bleeding. This dressing was taken down to check the wound. Patient still has some mild oozing. Repeat dressing was applied. Patient advised to monitor his symptoms I advised that we can to continue to watch this however he does not have significant bleeding distal some mild oozing. He would prefer to go home. He understands return for new or worsening symptoms. All questions answered at bedside. Patient discharged. ED Disposition - Plan for ED Patient: Disposition: Home or Assisted Living Diagnosis: Skin tear Instructions: ED AVULSION LACERATION Referrals: Gurjit Salomon MD [Primary Care Provider] -
[2020-01-19 19:08] LABS: International Normalized Ratio 2.4; Prothrombin Time (Protime)PT. 25.9 SECONDS (11.7-14.9)
[2020-01-19 20:09] VITALS: RESP 18
== END 2020-01-19 20:10 | disposition home or self-care (01) ==
PROVIDERS: Emergency Provider Emergency Medicine; PCP Family Medicine
DX: S61.512A Laceration without foreign body of left wrist, initial encounter (principal); V48.4XXA Person boarding or alighting a car injured in noncollision transport accident, initial encounter; Y93.9 Activity, unspecified; Y92.89 Other specified places as the place of occurrence of the external cause; Y99.9 Unspecified external cause status; I48.91 Unspecified atrial fibrillation; I10 Essential (primary) hypertension; I25.10 Atherosclerotic heart disease of native coronary artery without angina pectoris; Z82.49 Family history of ischemic heart disease and other diseases of the circulatory system; Z79.01 Long term (current) use of anticoagulants
CPT/HCPCS: 85610; 99282

== ENCOUNTER 2020-02-07 10:47 | Outpatient (RCR) | payer MEDICARE, SELFPAY ==
[2020-02-02 10:14] LABS: International Normalized Ratio 1.7; Prothrombin Time (Protime)PT. 19.4 SECONDS (11.7-14.9)
[2020-02-07 12:37] LABS: International Normalized Ratio 1.9; Prothrombin Time (Protime)PT. 21.6 SECONDS (11.7-14.9)
== END 2020-02-07 18:00 | disposition home or self-care (01) ==
LOC: LAB 10:47
PROVIDERS: Family Provider Family Medicine; PCP Family Medicine; Referring Provider Internal Medicine Cardiovascular Disease; Visit Provider Internal Medicine Cardiovascular Disease
DX: I48.0 Paroxysmal atrial fibrillation (principal); I48.92 Unspecified atrial flutter; Z79.01 Long term (current) use of anticoagulants
CPT/HCPCS: 36415; 85610

== ENCOUNTER 2020-03-21 13:47 | Outpatient (RCR) | payer MEDICARE, SELFPAY ==
[2020-02-28 09:34] LABS: AST(SGOT) 20 U/L (15-37); Alanine Aminotransfer ALT/SGPT 19 U/L (16-61); Albumin, Serum 3.7 g/dL (3.2-5.0); Alkaline Phosphatase 120 U/L (45-117); Bilirubin, Direct 0.27 mg/dL (0.00-0.30); Cholesterol 145 mg/dL (200); Globulin 3.9 g/dL (2.2-4.2); High Density Lipoprotein 61 mg/dL; Protein, Total 7.6 g/dL (6.4-8.2); Triglycerides 106 mg/dL; Very Low Density Lipoprotein 21 mg/dL (5-40)
[2020-02-28 09:37] LABS: International Normalized Ratio 2.2; Prothrombin Time (Protime)PT. 24.3 SECONDS (11.7-14.9)
[2020-02-28 15:59] LABS: Anion Gap 8 (5-15); BUN 26 mg/dL (7-18); BUN/Creat Ratio 21.7 RATIO (10-20); Calcium,Total 8.8 mg/dL (8.5-10.1); Chloride 103 mmol/L (98-107); EST Glomerular Filtration Rate 61 mL/min (>60); Est Glom Filt Rate - Afr Amer 74 mL/min (>60); Glucose 117 mg/dL (74-106); PSA,Total - Annual Screen 6.56 ng/mL (0.00-4.00); Potassium 3.9 mmol/L (3.5-5.1); Sodium Level 140 mmol/L (136-145)
[2020-03-21 14:08] LABS: International Normalized Ratio 2.1; Prothrombin Time (Protime)PT. 22.8 SECONDS (11.7-14.9)
== END 2020-03-21 18:00 | disposition home or self-care (01) ==
LOC: LAB 13:47
PROVIDERS: Family Provider Family Medicine; PCP Family Medicine; Referring Provider Internal Medicine Cardiovascular Disease; Visit Provider Internal Medicine Cardiovascular Disease
DX: I48.0 Paroxysmal atrial fibrillation (principal); I48.92 Unspecified atrial flutter; Z79.01 Long term (current) use of anticoagulants; N40.0 Benign prostatic hyperplasia without lower urinary tract symptoms; E78.00 Pure hypercholesterolemia, unspecified; I10 Essential (primary) hypertension; Z12.5 Encounter for screening for malignant neoplasm of prostate
CPT/HCPCS: 36415; 80048; 80061; 80076; 84153; 85610; G0103

== ENCOUNTER → 2020-04-03 08:41 | Outpatient (CLI) | payer MEDICARE, SELFPAY ==
[2020-03-21 15:01] VITALS: BMI 29.1
--- NOTE | 2020-04-03 08:46 | ECHOCS_ITS ---
Reason For Study: Afib/Flutter Procedure This was a 2D Doppler, Color Flow transthoracic echocardiogram. The study was technically difficult. Contrast injection was performed. Exam performed in department. Left Ventricle Normal LV size. The estimated ejection fraction is 35 %. Moderate segmental systolic dysfunction (see wall motion). Stage 2 diastolic dysfunction. Basal anteroseptal: Normal. Mid-anteroseptal : Normal. The rest of the wall segments are hypokinetic. [place] : Severely Hypokinetic. Right Ventricle Normal RV size. ICD or pacer leads identified within the right ventricle. Normal systolic function. Atria The left atrium is severely enlarged. The right atrium is moderately enlarged. Mitral Valve Mild (1+) eccentric mitral valve insufficiency. Tricuspid Valve Normal tricuspid valve. Mild tricuspid valve insufficiency. Pulmonary artery systolic pressure is 34 mmHg. Aortic Valve Trisinus/trileaflet aortic valve. Moderate focal aortic valve calcification. Mild (1+) eccentric aortic valve insufficiency. Pulmonic Valve Normal pulmonic valve. Mild (1+) pulmonic valve insufficiency. Great Vessels Normal aortic root. The pulmonary artery is normal size. Normal inferior vena cava. Pericardium/Pleural No pericardial effusion. Medication 22 gauge I.V. with prn adaptor inserted into right arm. Diluted definity 4ml given slow IV push to enhance endocardial definition. MMode/2D Measurements & Calculations LVIDd: 5.7 cm IVSd: 1.2 cm LVOT diam: 2.5 cm LVIDs: 4.1 cm LVPWd: 1.0 cm FS: 27.9 % LVOT area: 5.0 cm2 Ao root diam: 3.9 cm LAV(MOD-bp): 130.9 ml Aortic Valve Planimetry: 2.0 cm2 LA dimension: 5.1 cm LAV(MOD-bp) Indexed: 57.9 ml/m2 LAV(MOD-sp2): 100.1 ml LAV(MOD-sp4): 160.8 ml LA A4 area: 38.8 cm2 RA A4 area: 24.1 cm2 Time Measurements MV dec time: 0.22 sec Doppler Measurements & Calculations MV E max miguelito: 56.3 cm/sec Lat Peak E' Miguelito: 4.1 cm/sec Med Peak E' Miguelito: 6.2 cm/sec MV A max miguelito: 29.4 cm/sec E/E' lat: 13.7 E/E' med: 9.1 MV E/A: 1.9 MV V2 max: 58.9 cm/sec MV P1/2t max miguelito: 59.5 cm/sec Ao V2 max: 209.4 cm/sec MV max P.4 mmHg MV P1/2t: 103.3 msec Ao max P.6 mmHg MV V2 mean: 28.5 cm/sec MV dec slope: 168.8 cm/sec2 Ao V2 mean: 148.6 cm/sec MV mean P.39 mmHg Ao mean P.0 mmHg MV V2 VTI: 17.9 cm MVA(P1/2t): 2.1 cm2 Ao V2 VTI: 42.6 cm MVA(VTI): 4.2 cm2 ALVARO(I,D): 1.8 cm2 ALVARO(V,D): 1.9 cm2 AI max miguelito: 370.0 cm/sec LV V1 max: 79.2 cm/sec SV(LVOT): 76.1 ml AI max P.8 mmHg LV V1 max P.5 mmHg AI dec slope: 133.6 cm/sec2 LV V1 mean P.2 mmHg AI P1/2t: 811.3 msec LV V1 mean: 51.0 cm/sec LV V1 VTI: 15.2 cm PA V2 max: 71.3 cm/sec TR max miguelito: 269.2 cm/sec TR max P.0 mmHg Interpretation Summary Normal LV size. The estimated ejection fraction is 35 %. Moderate segmental systolic dysfunction (see wall motion). Stage 2 diastolic dysfunction. The left atrium is severely enlarged. Pulmonary artery systolic pressure is 34 mmHg. Contrast injection was performed. Compared to prior study, there is no significant change. Ordering Physician: Иван Guzman Referring Physician: Gurjit Salomon Performed By: Yinka Zimmer RCS
== END ==
PROVIDERS: PCP Family Medicine; Referring Provider Internal Medicine Cardiovascular Disease; Visit Provider Internal Medicine Cardiovascular Disease
DX: I25.10 Atherosclerotic heart disease of native coronary artery without angina pectoris (principal); I48.91 Unspecified atrial fibrillation; I48.92 Unspecified atrial flutter
CPT/HCPCS: 93306; Q9957; A4216; C8929

== ENCOUNTER 2020-05-01 08:20 | Outpatient (RCR) | payer MEDICARE, SELFPAY ==
[2020-03-21 15:01] VITALS: BMI 29.1
[2020-05-01 09:53] LABS: International Normalized Ratio 2.2; Prothrombin Time (Protime)PT. 23.6 SECONDS (11.7-14.9)
== END 2020-05-01 18:00 | disposition home or self-care (01) ==
LOC: LAB 08:20
PROVIDERS: Family Provider Family Medicine; PCP Family Medicine; Referring Provider Internal Medicine Cardiovascular Disease; Visit Provider Internal Medicine Cardiovascular Disease
DX: I48.0 Paroxysmal atrial fibrillation (principal); I48.92 Unspecified atrial flutter; Z79.01 Long term (current) use of anticoagulants
CPT/HCPCS: 36415; 85610

== ENCOUNTER 2020-05-02 04:32 | Emergency (ER) | payer MEDICARE, SELFPAY ==
[2020-03-21 15:01] VITALS: BMI 29.1
[2020-05-02 04:33] VITALS: BP 151/92; PULSE 66; RESP 16; TEMP 36.1; O2SAT 100; BMI 28.2
--- NOTE | 2020-05-02 04:41 | CT_ITS ---
HISTORY: RT BACK PAIN/CONSTIPATION. Hx of pacemaker/defibrillator, heart stents, afib, HLD, HTN and diabetes ADDITIONAL HISTORY: None provided. EXAMINATION/TECHNIQUE: CT Abdomen And Pelvis W/O Contrast Injection Enteric contrast was not given. Number of images including paperwork: [phone]. A radiation dose optimization technique was used for this scan. COMPARISON: None FINDINGS: Evaluation of the abdominopelvic organs is limited in the absence of contrast. LOWER THORAX: Enlarged heart. Cardiac device leads partially visible. Coronary calcification. Trace left pleural fluid. Right lower lobe granuloma. Mild basilar atelectasis. LIVER: No concerning focal lesion. GALLBLADDER: No radiopaque calculi. BILE DUCTS: No significant biliary dilatation. SPLEEN: Unremarkable. PANCREAS: Atrophic with multiple small calcifications. ADRENAL GLANDS: Unremarkable. KIDNEYS/URETERS: Bilateral renal cysts for which no follow-up is warranted per consensus guidelines. BOWEL: No bowel obstruction. No significant bowel wall thickening. No localized inflammation. Moderate amount of colonic stool. Duodenal diverticulum. APPENDIX: No evidence of appendicitis. FREE FLUID: No significant free fluid. FREE AIR: None. LYMPH NODES: No pathologic appearing adenopathy. PERITONEUM, RETROPERITONEUM AND MESENTERY: Otherwise unremarkable. VASCULATURE: Atherosclerotic calcification. Ectatic and renal abdominal aorta, 2.8 cm. 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 No evidence of rupture. ABDOMINAL WALL: Unremarkable. PELVIS: Unremarkable bladder. Enlarged prostate. OSSEOUS AND SOFT TISSUE STRUCTURES: No acute skeletal findings. Degenerative changes. CT/Abdomen/Pelvis without Cont IMPRESSION: No acute abdominopelvic abnormality. Chronic pancreatitis. Additional findings above. Individualized dose optimization techniques were used for this CT. at 0534 Reported and signed by: Kerri Valencia MD Electronically Signed: Kerri Valencia MD at 5:34 EST Tel , Service support ,
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
[2020-05-02 05:02] LABS: Absolute Lymphocyte Count 1.57 X10^3/uL (0.83-4.51); Absolute Neutrophil Count 4.1 X10^3/uL (2.0-7.7); Basophil# 0.03 X10^3/uL; Basophil% 0.5 % (0-1); Eosinophil# 0.27 X10^3/uL; Eosinophils% 4.1 % (0-5); Hematocrit 40.8 % (40-54); Hemoglobin 12.8 g/dL (13.0-16.5); Lymphocyte # 1.57 X10^3/ul (4.0); Lymphocyte % 23.9 % (19-41); Mean Corp Hgb Conc 31.4 g/dL (32-36); Mean Corpuscular Hgb 30.1 pg (27.0-32.0); Mean Platelet Vol. 10.8 fl (6.2-12.0); Monocyte% 9.1 % (0-10); NRBC Flagged by Analyzer 0 % (0-5); Neutrophil # 4.08 X10^3/uL (2.7-7.7); Neutrophil % 62.2 % (47-70); Platelet Count 134 K/mm3 (150-450); RBC Distribution Width CV 14.4 % (11.6-14.6); RBC Distribution Width SD 51.2 fl (35.1-43.9); Red Blood Count 4.25 M/mm3 (4.6-6.2); White Blood Count 6.6 K/mm3 (4.4-11.0)
[2020-05-02] MEDS: Ondansetron 4 MG/2 ML Vial IV (05:04)
[2020-05-02] MEDS: 0.9% Normal Saline 1,000 ML 1000 ML IV (05:04)
[2020-05-02] MEDS: Morphine 4 MG/ML Syringe IV (05:06)
[2020-05-02 05:19] LABS: ALB/GLOB Ratio 1.1 RATIO (0.9-2.4); AST(SGOT) 22 U/L (15-37); Alanine Aminotransfer ALT/SGPT 22 U/L (16-61); Albumin, Serum 3.8 g/dL (3.2-5.0); Alkaline Phosphatase 114 U/L (45-117); Anion Gap 6 (5-15); BUN 29 mg/dL (7-18); BUN/Creat Ratio 25.4 RATIO (10-20); Calcium,Total 8.8 mg/dL (8.5-10.1); Chloride 104 mmol/L (98-107); Creatinine, Serum 1.14 mg/dL (0.70-1.30); EST Glomerular Filtration Rate 65 mL/min (>60); Est Glom Filt Rate - Afr Amer 78 mL/min (>60); Estimated Creatinine Clearance 55.08 ml/min; Globulin 3.4 g/dL (2.2-4.2); Glucose 121 mg/dL (74-106); Lipase 90 U/L (73-393); Potassium 4.1 mmol/L (3.5-5.1); Protein, Total 7.2 g/dL (6.4-8.2); Sodium Level 141 mmol/L (136-145)
[2020-05-02 05:23] LABS: Lactic Acid 1.2 mmol/L (0.4-1.9)
[2020-05-02 06:05] VITALS: BP 112/65; PULSE 71; RESP 16; O2SAT 100
== END 2020-05-02 06:06 ==
PROVIDERS: Emergency Provider Emergency Medicine; PCP Family Medicine
DX: K59.00 Constipation, unspecified (principal); M54.9 Dorsalgia, unspecified; E11.9 Type 2 diabetes mellitus without complications; E78.5 Hyperlipidemia, unspecified; I10 Essential (primary) hypertension; I48.91 Unspecified atrial fibrillation; Z82.49 Family history of ischemic heart disease and other diseases of the circulatory system; Z95.0 Presence of cardiac pacemaker; Z95.5 Presence of coronary angioplasty implant and graft
CPT/HCPCS: 74176; 80053; 83605; 83690; 85025; J7030; A4216; J2405

== ENCOUNTER 2020-05-02 09:38 | Observation (INO) | payer MEDICARE, SELFPAY ==
[2020-05-02] VITALS (7 sets, daily range): BP systolic 115–136; BP diastolic 51–81; PULSE 70–79; RESP 17–24; TEMP 36.6–36.9; O2SAT 93–98; BMI 28.2; BMI 30.3; BMI 29.7; BMI 29.8
--- NOTE | 2020-05-02 10:00 | CT_ITS ---
STUDY: CT BRAIN WITHOUT CONTRAST REASON FOR EXAM: Male, 84 years old. FALL. HEAD INJURY, ON THINNERS. WEAKNESS. PT STATES RIGHT LEG KEEPS GIVING OUT. RADIATION DOSAGE (If Supplied By Facility): CTDIvol = ( 44.99 ) mGy, DLP = ( 846.73 ) mGycm TECHNIQUE: Transaxial CT imaging of the brain was performed without administration of intravenous contrast material. Individualized dose optimization techniques were used for this CT. COMPARISON: 05/14/2019 FINDINGS: Normal soft tissue structures. Normal calvarium. There is mild cerebral atrophy with widening of the extra-axial spaces and ventricular dilatation. There are areas of decreased attenuation within the white matter tracts of the supratentorial brain, consistent with microvascular disease changes. Normal basal ganglia and thalami. Normal brainstem. Normal cerebellum. There is no intracranial hemorrhage. There are no findings of an acute ischemic infarction. Normal visualized paranasal sinuses. CT/Brain/Head without Contrast IMPRESSION: Chronic involutional changes of the brain. Electronically Signed: Darien Fam MD at 11:11 EST Tel , Service support ,
--- NOTE | 2020-05-02 10:00 | EKG12_ITS ---
Test Reason : FALL Blood Pressure : / mmHG Vent. Rate : 073 BPM Atrial Rate : 057 BPM P-R Int : 000 ms QRS Dur : 196 ms QT Int : 512 ms P-R-T Axes : 000 238 058 degrees QTc Int : 564 ms Ventricular-paced rhythm with frequent Premature ventricular complexes Biventricular pacemaker detected Abnormal ECG Confirmed by IVAN HARMAN, BONIFACIO ([id number]), editorial project manager FITO MADRIGAL ([id number]) on 05/03/2020 9:34:04 AM Referred By: RUI Confirmed By:BONIFACIO LOVE MD
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
--- NOTE | 2020-05-02 10:01 | RAD_ITS ---
STUDY: X-RAY - RIGHT HAND REASON FOR EXAM: Male, 84 years old. fall, 5th digit pain TECHNIQUE: 3 view(s) of the hand. COMPARISON: None. FINDINGS: There is joint space narrowing of the radiocarpal articulation consistent with degenerative arthrosis. Normal distal radioulnar joint. Normal visualized carpal bones. Normal carpal articulations Normal carpometacarpal articulation of the thumb. Normal second through fifth carpometacarpal joints. Normal metacarpi. Normal metacarpophalangeal joint of the thumb. Normal interphalangeal joint of the thumb. Normal proximal and distal phalanges of the thumb. Normal metacarpophalangeal joints of the second through fifth fingers. Posterior dislocation of the fifth distal interphalangeal joint. Normal phalanges of the second through fifth fingers. The soft tissue structures are unremarkable. RAD/Hand Min 3 Views IMPRESSION: Posterior dislocation of the fifth distal interphalangeal joint. No obvious fracture. Electronically Signed: Darien Fam MD at 11:14 EST Tel , Service support ,
--- NOTE | 2020-05-02 10:01 | RAD_ITS ---
STUDY: X-RAY - LEFT WRIST REASON FOR EXAM: Male, 84 years old. left wrist pain after fall TECHNIQUE: 3 view(s) of the wrist were obtained. COMPARISON: None. FINDINGS: Normal visualized distal radius and ulna. Normal radiocarpal articulation. Normal distal radioulnar articulation. Normal carpal bones. Normal carpal articulations. Status post amputation of the hand.. The soft tissue structures are unremarkable. RAD/Wrist min 3 Views IMPRESSION: No acute fracture or dislocation. Electronically Signed: Darien Fam MD at 11:14 EST Tel , Service support ,
[2020-05-02 10:35] LABS: Absolute Lymphocyte Count 1.29 X10^3/uL (0.83-4.51); Absolute Neutrophil Count 4.6 X10^3/uL (2.0-7.7); Basophil# 0.03 X10^3/uL; Basophil% 0.5 % (0-1); Eosinophil# 0.15 X10^3/uL; Eosinophils% 2.3 % (0-5); Hematocrit 37.3 % (40-54); Hemoglobin 11.9 g/dL (13.0-16.5); Lymphocyte # 1.29 X10^3/ul (4.0); Lymphocyte % 19.5 % (19-41); Mean Corp Hgb Conc 31.9 g/dL (32-36); Mean Corpuscular Hgb 30.6 pg (27.0-32.0); Mean Corpuscular Volume 95.9 fL (80-94); Mean Platelet Vol. 11.2 fl (6.2-12.0); Monocyte# 0.53 X10^3/uL; NRBC Flagged by Analyzer 0 % (0-5); Neutrophil # 4.59 X10^3/uL (2.7-7.7); Neutrophil % 69.4 % (47-70); POSITIVE COUNT YES; Platelet Count 125 K/mm3 (150-450); RBC Distribution Width CV 14.5 % (11.6-14.6); RBC Distribution Width SD 50.3 fl (35.1-43.9); Red Blood Count 3.89 M/mm3 (4.6-6.2); White Blood Count 6.6 K/mm3 (4.4-11.0)
[2020-05-02 10:47] LABS: AST(SGOT) 23 U/L (15-37); Alanine Aminotransfer ALT/SGPT 21 U/L (16-61); Albumin, Serum 3.5 g/dL (3.2-5.0); Alkaline Phosphatase 95 U/L (45-117); Anion Gap 6 (5-15); BUN 27 mg/dL (7-18); BUN/Creat Ratio 22.5 RATIO (10-20); Calcium,Total 8.7 mg/dL (8.5-10.1); Chloride 106 mmol/L (98-107); EST Glomerular Filtration Rate 61 mL/min (>60); Est Glom Filt Rate - Afr Amer 74 mL/min (>60); Estimated Creatinine Clearance 52.33 ml/min; Globulin 3.4 g/dL (2.2-4.2); Glucose 142 mg/dL (74-106); International Normalized Ratio 1.9; Potassium 4.4 mmol/L (3.5-5.1); Protein, Total 6.9 g/dL (6.4-8.2); Prothrombin Time (Protime)PT. 21.5 SECONDS (11.7-14.9); Sodium Level 141 mmol/L (136-145)
--- NOTE | 2020-05-02 10:50 | RAD_ITS ---
STUDY: X-RAY CHEST REASON FOR EXAM: Male, 84 years old. weakness, fall at home TECHNIQUE: Single AP portable view of the chest. COMPARISON: 08/13/2018 FINDINGS: Left subclavian triple lead AICD which is unchanged. The lungs are clear and expanded. There is no demonstrated pleural abnormality. There is moderate cardiac enlargement. Normal mediastinum and kole. Normal visualized pulmonary arteries. Normal visualized aortic arch and descending thoracic aorta. Normal visualized thoracic spine. Healed fracture the right clavicle. There is no demonstrated abnormality of the visualized soft tissue structures of the upper abdomen. RAD/Chest 1 View (Portable) IMPRESSION: No active disease. Electronically Signed: Darien Fam MD at 11:14 EST Tel , Service support ,
[2020-05-02 11:42] LABS: Mucous, Urine 0 SEEN /hpf (<or=2+); Red Blood Cells-Urine 0 SEEN /hpf (0-5)
[2020-05-02 11:46] LABS: Color, Urine Yellow (Yellow); Glucose, Dipstick Normal (Normal); Ketone-Dipstick Negative (Negative); Leukocyte Esterase-Dipstick 500 /ul (Negative); Nitrite-Dipstick Negative (Negative); Occult Blood-Urine 25 /ul (Negative); Protein-Dipstick Negative (Negative); Specific Gravity, Urine 1.015 (1.002-1.030); Urine Bilirubin Dipstick Negative (Negative); Urine Clarity Sl. Cloudy (Clear); Urine Urobilinogen 1 mg/dl (Normal)
[2020-05-02 11:55] LABS: Bacteria 3+ /hpf (None Seen); Squamous Epithelial Cells - UA 0-5 SEEN /hpf (0-5); White Blood Cells 50-100 SEEN /hpf (0-5)
[2020-05-02] MEDS: Ceftriaxone 1 GM/50 ML BAG IV (12:42)
[2020-05-02] MEDS: Lidocaine 1% (20 ml mdv) 20 ML Vial 10 ML INFILT (13:21)
--- NOTE | 2020-05-02 13:25 | RAD_ITS ---
STUDY: X-RAY - RIGHT HAND REASON FOR EXAM: Male, 84 years old. post reduction TECHNIQUE: 3 view(s) of the hand. COMPARISON: 05/02/2020 FINDINGS: There is joint space narrowing of the radiocarpal articulation consistent with degenerative arthrosis. Normal distal radioulnar joint. Normal visualized carpal bones. Normal carpal articulations Normal carpometacarpal articulation of the thumb. Normal second through fifth carpometacarpal joints. Normal metacarpi. Normal metacarpophalangeal joint of the thumb. Normal interphalangeal joint of the thumb. Normal proximal and distal phalanges of the thumb. Normal metacarpophalangeal joints of the second through fifth fingers. Interval relocation of the fifth distal interphalangeal joint. No obvious fracture. Normal phalanges of the second through fifth fingers. The soft tissue structures are unremarkable. RAD/Hand Min 3 Views IMPRESSION: Interval relocation of the fifth distal interphalangeal joint. No obvious fracture Electronically Signed: Darien Fam MD at 13:44 EST Tel , Service support ,
--- NOTE | 2020-05-02 14:11 | NURSING ---
MED SURG OBS WEAKNESS, UTI DAVE
--- NOTE | 2020-05-02 14:19 | NURSING ---
MED SURG WEAKNESS, UTI OBS DAVE
--- NOTE | 2020-05-02 14:41 | HP.PCM_ITS ---
Problem List (1) Failure to thrive Status: Acute (2) Effusion, right knee Status: Acute (3) Back pain Status: Acute (4) Constipation Status: Acute (5) Biventricular ICD (implantable cardioverter-defibrillator) in place Status: Chronic Comment: Pacemaker Implant November 2001; Generator change of pacemaker 05/02/09; ICD gen change 09/15/14; (6) Atherosclerotic heart disease of [place] coronary artery without angina pectoris Status: Chronic Qualifiers: [place] vs. transplanted heart: [place] heart Qualified Code(s): I25.10 - Atherosclerotic heart disease of [place] coronary artery without angina pectoris (7) History of coronary artery stent placement Status: Resolved Comment: PCI-RAQUEL-Mid RPDA and mid RPLB w/ 2.5 x 12 mm Taxus x 2 08/21/2005 (8) Cardiomyopathy, ischemic Status: Chronic (9) Sick sinus syndrome Status: Chronic (10) Secondary pulmonary arterial hypertension Status: Chronic (11) Longstanding persistent atrial fibrillation Status: Chronic (12) Paroxysmal atrial flutter Status: Chronic (13) Essential (primary) hypertension Status: Chronic (14) HLD (hyperlipidemia) Status: Chronic Qualifiers: Hyperlipidemia type: unspecified Qualified Code(s): E78.5 - Hyperlipidemia, unspecified (15) [facility] current use of anticoagulant Status: Chronic History of Present Illness Date of Admission: 05/02/20 Chief Complaint: falls The patient is a 84 year old M presented earlier today with constipation and back pain that been ongoing for 4 to 5 days. Patient's earlier course was unremarkable and sent home as his back pain had resolved. Patient advised to take MiraLAX. Patient only returned after falling. Patient landed on his hand and dislocated his distal fifth interphalangeal joint. This was subsequently reduced by the emergency room physician. Patient states that his right leg is just weaker than his left. Is wearing a compression sleeve on his right knee. He denies any trauma to his legs. Patient was noted to have an effusion on his leg which she states is new. He states he does have a history of gout. [] Past Medical History Past Medical History (Chronic Problems): Chronic Problems (Last Reviewed 03/21/20 @ 15:[address] 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 Иван Guzman MD) Atherosclerotic heart disease of [place] coronary artery without angina pectoris (Chronic) I25.10 Cardiomyopathy, ischemic (Chronic) I25.5 Sick sinus syndrome (Chronic) I49.5 Secondary pulmonary arterial hypertension (Chronic) I27.21 Longstanding persistent atrial fibrillation (Chronic) I48.11 Paroxysmal atrial flutter (Chronic) I48.92 Essential (primary) hypertension (Chronic) I10 HLD (hyperlipidemia) (Chronic) E78.5 Gout M10.9 Type 2 diabetes mellitus E11.9 Syncope and collapse R55 Palpitations (Inactive) R00.2 Paroxysmal atrial fibrillation (Inactive) I48.0 Allergies rofecoxib [From Vioxx] Adverse Reaction (Verified 05/02/20 09:39) Other Home Medications: Ambulatory Orders Medication Instructions Recorded Aspirin [Aspirin, Baby] 81 mg PO DAILY@0800 12/02/13 metFORMIN HCl [Glucophage] 500 mg PO BIDCM 12/02/13 Nitroglycerin (INPATIENT USE) 0.4 mg SUBLINGUAL Q5M PRN #1 bottle 07/04/16 [Nitrostat] simvastatin 40 mg tablet 40 mg PO QODAY #45 tab 02/29/20 carvedilol 6.25 mg tablet 6.25 mg PO BID #180 tab 03/21/20 furosemide 40 mg tablet 40 mg PO DAILY #90 tab 03/21/20 ramipril 2.5 mg capsule 2.5 mg PO DAILY cap 03/21/20 tamsulosin 0.4 mg capsule 0.4 mg PO DAILY cap 03/21/20 Polyethylene Glycol 3350 [Miralax] 17 gm PO DAILY #5 packet 05/02/20 Warfarin Sodium 3 mg PO SA 05/02/20 Warfarin Sodium 4 mg PO SUMOTUWETHFR 05/02/20 Surgical History: Surgical History (Last Reviewed 03/21/20 @ 15:[address] Иван Guzman MD) Biventricular ICD (implantable cardioverter-defibrillator) in place (Chronic) Onset Date: 09/15/14 Z95.810 Pacemaker Implant November 2001; Generator change of pacemaker 05/02/09; ICD gen change 09/15/14; History of coronary artery stent placement (Resolved) Onset Date: 08/20/05 Z95.5 PCI-RAQUEL-Mid RPDA and mid RPLB w/ 2.5 x 12 mm Taxus x 2 08/21/2005 History of left heart catheterization Onset Date: 07/04/16 Z98.890 History of permanent cardiac pacemaker placement Onset Date: 2001 Z95.0 Surgical History: angioplasty, pacemaker implantation, - - Biventricular ICD. 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 He also has had bilateral cataract surgery. Lives: Spouse/ Significant Other Smoking Status: Never smoker Alcohol: None Drugs: None - *Family History Maternal Family History: Family History (Last Reviewed 03/21/20 @ 15:[address] Иван Guzman MD) Father Parkinsons disease Mother Heart disease Valvular heart disease History Items: No pertinent history Review of Systems Constitutional: Denies: Anorexia, Chills, Fever, Night Sweats Eyes: Denies: Blurred vision, Drainage HEENT: Denies: Head Aches, Sinus Congestion, Sinus Drainage Cardiovascular: Denies: Chest Pain, Palpitations Respiratory: Denies: Cough, Shortness of breath at rest, Sputum production Gastrointestinal: Denies: Abdominal Pain, Nausea, Vomiting Genitourinary: Denies: Dysuria Musculoskeletal: Denies: Joint Pain, Joint Tenderness Skin: Denies: Rash, Wounds Neurological: Denies: Numbness, Tingling, Focal weakness Psychiatric: Denies: Anxiety, Depression Hematologic/ Lymphatic: Denies: Easy Bruising, Easy Bleeding, Hx of blood clot Comment: All review of systems were negative except as mentioned above in the history of present illness and the other review of systems. VTE Information - Inpt Only VTE Present on Admission: No VTE Mechan Device Prophylaxis: None VTE Pharm Prophylaxis ordered?: No - Physical Exam Vitals/I&O's: Vital Signs Temp Pulse Resp BP Pulse Ox 36.6 C 72 24 H 128/76 H 98 05/02/20 09:40 05/02/20 12:37 05/02/20 12:37 05/02/20 12:37 05/02/20 09:40 Oxygen Delivery Method Room Air Weight: 107.3 kg Body Mass Index (BMI) 30.3 Intake and Output for Last 24 Hours 04/30/20 05/01/20 05/02/20 23:59 23:59 23:59 Intake Total 550 / 550 Balance 550 / 550 General: Alert, Cooperative, No apparent distress HEENT: Atraumatic, Normocephalic Oral: Moist Mucosa, No Gingival or Mucosal Lesions/ Ulcerations Neck: No Nodes, Thyroid Normal Size and Texture Lungs: Clear to auscultation, Normal air movement, No rhonchi, No wheeze, No rales Cardiovascular: Regular rate, Regular Rhythm, Normal S1, Normal S2, No murmurs Abdomen: Bowel Sounds Present, Soft, Non Tender, Non-Distended, No Hepato- splenomegaly Extremities: - - Right knee effusion slightly tender but not warm nor erythematous. Skin: No rashes, No breakdown Psych/Mental Status: Normal Affect, Appropriate Laboratory Results 05/02/20 10:10: WBC 6.6, RBC 3.89 L, Hgb 11.9 L, Hct 37.3 L, MCV 95.9 H, MCH 30.6, MCHC 31.9 L, RDW Std Deviation 50.3 H, RDW Coeff of [place] 14.5, Plt Count 125 L, MPV 11.2, Immature Gran % (Auto) 0.300, Neut % (Auto) 69.4, Lymph % (Auto) 19.5, [place] % (Auto) 8.0, Eos % (Auto) 2.3, Baso % (Auto) 0.5, Absolute Neuts (auto) 4.6, Absolute Lymphs (auto) 1.29, Nucleated RBC % 0 05/02/20 10:10: Sodium 141, Potassium 4.4, Chloride 106, Carbon Dioxide 29.0, Anion Gap 6, BUN 27 H, Creatinine 1.20, Estim Creat Clear Calc 52.33, Est GFR (MDRD) Af Amer 74, Est GFR (MDRD) Non-Af 61, BUN/Creatinine Ratio 22.5 H, Glucose 142 H, Calcium 8.7, Total Bilirubin 0.60, AST 23, ALT 21, Alkaline Phosphatase 95, Troponin I < 0.015, Total Protein 6.9, Albumin 3.5, Globulin 3.4, Albumin/Globulin Ratio 1.0 05/02/20 10:10: PT 21.5 H, INR 1.9 05/02/20 11:30: Urine Color Yellow, Urine Clarity Sl. Cloudy, Urine pH 6.0, Ur Specific [place] 1.015, Urine Protein Negative, Urine Glucose (UA) Normal, Urine Ketones Negative, Urine Occult Blood 25 H, Urine Nitrite Negative, Urine Bilirubin Negative, Urine Urobilinogen 1 H, Ur Leukocyte Esterase 500 H, Urine RBC 0 SEEN, Urine WBC 50-100 SEEN, Ur Squamous Epith Cells 0-5 SEEN, Urine Bacteria 3+, Urine Mucus 0 SEEN Assessment/Plan All Active Problems (Last Reviewed 03/21/20 @ 15:[address] Иван Guzman MD) Back pain (Acute) Constipation (Acute) Failure to thrive (Acute) Effusion, right knee (Acute) History of coronary artery stent placement (Resolved 08/20/05) Abnormal stress test (Resolved) Chest pain (Resolved) 1. Failure to thrive: Likely due to the patient's right knee effusion. Patient has baseline poor performance status which she does not easily get around well with a walker when he is feeling well. Plan is for PT OT evaluate alex and possible longterm facility upon discharge. This was expressed to the patient and he is understanding. 2. Right knee effusion: Mild effusion. It is not hot nor warm so the suspicion for septic arthritis is very low and will initiate treatment with prednisone in case this is gout. Will hold off on his aspirin and warfarin in case his knee does get worse where he would require an arthrocentesis but hopefully with medication and time that that would get better. 3. Atrial fibrillation: Continue with carvedilol. Warfarin on hold in case patient would require an arthrocentesis. 4. Diabetes mellitus type 2: Continue with Metformin. Sliding scale insulin. Blood sugars may become more uncontrolled while on the prednisone. 5. VTE prophylaxis: Low risk as patient is observation status at this time. OBSV E&M: [id number] Initial observation care L2
[2020-05-02] MEDS: predniSONE 20 MG Tablet 40 MG PO (16:36)
[2020-05-02 17:25] LABS: Bedside Glucose 127 mg/dL (70-110)
[2020-05-02] MEDS: metFORMIN HCl 500 MG Tablet PO (17:32)
[2020-05-02] MEDS: Carvedilol 6.25 MG Tablet PO (17:32)
[2020-05-02] MEDS: Atorvastatin Calcium 20 MG Tablet PO (21:38)
[2020-05-03 03:40] VITALS: BP 97/54; PULSE 68; RESP 18; TEMP 36.6; O2SAT 94
[2020-05-03 05:44] LABS: International Normalized Ratio 1.8; Prothrombin Time (Protime)PT. 20.3 SECONDS (11.7-14.9)
[2020-05-03 06:56] LABS: Bedside Glucose 144 mg/dL (70-110)
[2020-05-03 08:50] VITALS: BP 124/58; PULSE 69; RESP 18; TEMP 36.6; O2SAT 98
[2020-05-03] MEDS: Ramipril 2.5 MG Capsule PO (08:54)
[2020-05-03] MEDS: Furosemide 40 MG Tablet PO ×2 (08:54)
[2020-05-03] MEDS: Carvedilol 6.25 MG Tablet PO ×2 (08:54→17:51)
[2020-05-03] MEDS: Polyethylene Glycol 3350 17 GM PACKET PO (08:54)
[2020-05-03] MEDS: metFORMIN HCl 500 MG Tablet PO ×2 (08:54→17:51)
[2020-05-03] MEDS: predniSONE 20 MG Tablet 40 MG PO (09:43)
[2020-05-03] MEDS: Tamsulosin HCl 0.4 MG Capsule PO (09:43)
--- NOTE | 2020-05-03 11:30 | CASEMGMT ---
Addendum entered by Mary Lea 05/03/20 11:54: A list of local SNF's was offered to patient and his , but they declined. Mary HORVATH Original Note: Physician said patient's was asking about TCU. SW called Ayaka on referral line and she would have a bed for patient. SW went to patient's room. Introduced self and role at [facility]. They said if patient cannot go home then they would prefer TCU. SW told them TCU would have a bed for patient, but we would need to wait on insurance approval. Mary HORVATH
[2020-05-03 11:47] VITALS: O2SAT 98
[2020-05-03 12:01] LABS: Bedside Glucose 125 mg/dL (70-110)
--- NOTE | 2020-05-03 12:19 | TREXTCA.CO_ITS ---
- Diet 05/02/20 15:28 Diet: Cardiac - Heart Healthy Food consistency:: Regular Liquid Consistency:: Regular/Thin - Routine Orders/Code Status Enema Type: Fle[place] Enema Frequency: Daily PRN Suppository Type: Dulcolax 10mg Suppository Frequency: Daily PRN Routine Lab Work: - - Follow urine culture sensitivities at TCU Code Status: Full Code - Suggestions for Active Care Change Position every (hours): 2 Times a day to sit in chair: 3 - Therapies Physical Therapy: Eval and Treat Occupational Therapy: Eval and Treat - Problem/Diagnosis (1) Failure to thrive Status: Acute (2) Effusion, right knee Status: Acute (3) Biventricular ICD (implantable cardioverter-defibrillator) in place Status: Chronic Comment: Pacemaker Implant November 2001; Generator change of pacemaker 05/02/09; ICD gen change 09/15/14; (4) Atherosclerotic heart disease of [place] coronary artery without angina pectoris Status: Chronic (5) History of coronary artery stent placement Status: Resolved Comment: PCI-RAQUEL-Mid RPDA and mid RPLB w/ 2.5 x 12 mm Taxus x 2 08/21/2005 (6) Cardiomyopathy, ischemic Status: Chronic (7) Sick sinus syndrome Status: Chronic (8) Secondary pulmonary arterial hypertension Status: Chronic (9) Longstanding persistent atrial fibrillation Status: Chronic (10) Paroxysmal atrial flutter Status: Chronic (11) Essential (primary) hypertension Status: Chronic (12) HLD (hyperlipidemia) Status: Chronic (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 H&P will serve as current which was dated: 05/02/20 Day of Discharge: 05/03/20 - Follow Up Care Primary Care Physician: Gurjit Salomon MD [Primary Care Provider] - Please follow up with your Primary Care Physician in: 1 Week Please Follow Up With: [facility] When: Follow up if recurrent knee pain
--- NOTE | 2020-05-03 12:27 | DS.PCM_ITS ---
<Elle Hanna [employer] - Last Filed: 05/03/20 12:40> Discharge Date and Diagnosis - Problem List Patient Problems: Active and Suspected Problems (Last Reviewed 03/21/20 @ 15:[address] Иван Guzman MD) Failure to thrive (Acute) Effusion, right knee (Acute) Date of Admission: 05/02/20 Date of Discharge: 05/03/20 - Primary Discharge Diagnosis Acute Problems: Active Problems (Last Reviewed 03/21/20 @ 15:[address] Иван Guzman MD) 1. Debility, falls resulting in right knee effusion 2. Failure to thrive 3. Acute E. coli UTI 4. Paroxysmal atrial fibrillation 5. Ischemic cardiomyopathy/sick sinus syndrome status post ICD 6. Hypertension 7. Hyperlipidemia - Secondary Discharge Diagnosis Chronic Problems: Chronic Problems (Last Reviewed 03/21/20 @ 15:[address] 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 Electronically Signed: Darien Fam MD at 11:11 EST Tel , Service support , Wrist X-Ray 05/02/20 10:01 IMPRESSION: No acute fracture or dislocation. Electronically Signed: Darien Fam MD at 11:14 EST Tel , Service support , Chest X-Ray 05/02/20 10:50 IMPRESSION: No active disease. Electronically Signed: Darien Fam MD at 11:14 EST Tel , Service support , Hand X-Ray 05/02/20 13:25 IMPRESSION: Interval relocation of the fifth distal interphalangeal joint. No obvious fracture Electronically Signed: Darien Fam MD at 13:44 EST Tel , Service support , Operations: None Procedures: None Summary of Care Provided: The patient is a 84 year old M admitted 05/02/2020 due to falls. 1. Debility, falls resulting in right knee effusion-knee pain currently improved. Continue prednisone 40 mg daily for 5 days. PT/OT. As needed pain regimen. Ice elevate right lower extremity. TCU at discharge for rehab. 2. Failure to thrive-PT/OT. TCU at discharge for rehab. 3. Acute E. coli UTI-Keflex at discharge to complete course. Follow sensitivities follow culture sensitivities at TCU. 4. Paroxysmal atrial fibrillation-on Coumadin, INR subtherapeutic. Trend INR at TCU. 5. Ischemic cardiomyopathy/sick sinus syndrome status post ICD-stable. 6. Hypertension-stable, continue carvedilol, ramipril. 7. Hyperlipidemia-continue statin. Patient seen and examined prior to discharge. Physical assessment as noted below. Patient is stable for discharge with follow up recommendations as noted above. This patient was seen by RADHA Calderon under the supervision of Dr. Harris. Patient Problems: Active and Suspected Problems (Last Reviewed 03/21/20 @ 15:[address] Иван Guzman MD) Failure to thrive (Acute) Effusion, right knee (Acute) - Physical Exam Vitals/I&O's: Vital Signs Temp Pulse Resp BP Pulse Ox 97.9 F 69 18 124/58 H 98 05/03/20 08:50 05/03/20 08:50 05/03/20 08:50 05/03/20 08:50 05/03/20 11:47 Oxygen Delivery Method Room Air Weight: 232 lb 2.348 oz Body Mass Index (BMI) 29.7 Intake and Output for Last 24 Hours 05/01/20 05/02/20 05/03/20 23:59 23:59 23:59 Intake Total 970 / 970 Output Total 350 / 475 375 / 375 Balance 620 / 495 -375 / -375 General: Alert, Oriented x3, Cooperative HEENT: Atraumatic, PERRLA, EOMI, Normocephalic Neck: Supple, No JVD, Negative Carotid Bruits Lungs: Clear to auscultation, Normal air movement Cardiovascular: - - Paced rhythm Abdomen: Bowel Sounds Present, Soft, Non Tender, Non-Distended Extremities: No clubbing, No cyanosis, No edema, Capillary Refill Less than 3 Seconds Skin: No rashes, No breakdown Musculoskeletal: No Tenderness to Palpation of Joints or Extremities, - - Mild right knee swelling and redness Neurological: Cranial nerves II-XII grossly intact, Neuro grossly intact Psych/Mental Status: Normal Affect, Appropriate Microbiology Past 72 Hours 05/02/20 11:30 Urine, Clean Catch Urine Culture - Preliminary Presumptive E. coli Laboratory Results 05/02/20 17:22: POC Glucose 127 H 05/03/20 05:18: PT 20.3 H, INR 1.8 05/03/20 06:41: POC Glucose 144 H 05/03/20 11:53: POC Glucose 125 H Current Medications Acetaminophen (Acetaminophen 325 Mg Tablet) 650 mg PO Q6H PRN PRN PRN Reason: Pain Score 1-10/Temp > 100.7 F Atorvastatin Calcium (Atorvastatin Calcium 20 Mg Tablet) 20 mg PO QODAY@2200 [facility] Last Admin: 05/02/20 21:38 Dose: 20 mg Documented by: Carvedilol (Carvedilol 6.25 Mg Tablet) 6.25 mg PO BIDCM [facility] Last Admin: 05/03/20 08:54 Dose: 6.25 mg Documented by: Cephalexin (Cephalexin 500 Mg Capsule) 500 mg PO Q8 [facility] Dextrose (Dextrose 50%-Water 25 Gm/50 Ml Disp.Syrin) 0 gm IV X1 PRN; Protocol PRN Reason: Hypoglycemia Furosemide (Furosemide 40 Mg Tablet) 40 mg PO DAILY [facility] Last Admin: 05/03/20 08:54 Dose: 40 mg Documented by: Glucagon (Glucagon 1 Mg/Ml Syringe) 1 mg IM .X1 PRN PRN Reason: Hypoglycemia Sodium Chloride () 250 mls @ 15 mls/hr IV .[id number] PRN PRN Reason: Saline Flush Sodium Chloride () 250 mls @ 15 mls/hr IV .[id number] PRN PRN Reason: Additional IVPB Infusion Insulin Human Lispro (Insulin Lispro 100 Unit/Ml Insuln.Pen) 0 unit SC TIDAC [facility]; Protocol Last Admin: 05/03/20 06:47 Dose: Not Given Documented by: Metformin HCl (Metformin Hcl 500 Mg Tablet) [facility] Last Admin: 05/03/20 08:54 Dose: 500 mg Documented by: Nitroglycerin (Nitroglycerin (Inpatient Use) 0.4 Mg Tab.Subl) 0.4 mg SUBLINGUAL Q5M PRN PRN Reason: Chest Pain Oxycodone HCl (Oxycodone 5 Mg Tablet) 5 mg PO Q4H PRN PRN PRN Reason: Pain Score 6-10 Polyethylene Glycol (Polyethylene Glycol 3350 17 Gm Packet) 17 gm PO DAILY [facility] Last Admin: 05/03/20 08:54 Dose: 17 gm Documented by: Prednisone (Prednisone 20 Mg Tablet) 40 mg PO DAILY@0800 [facility] Last Admin: 05/03/20 09:43 Dose: 40 mg Documented by: Ramipril (Ramipril 2.5 Mg Capsule) 2.5 mg PO DAILY [facility] Last Admin: 05/03/20 08:54 Dose: 2.5 mg Documented by: Sodium Chloride (0.9% Saline Lock 10 Ml Syringe) 10 - 40 ml IV UD PRN PRN Reason: SALINE FLUSH Tamsulosin HCl (Tamsulosin Hcl 0.4 Mg Capsule) 0.4 mg PO DAILY [facility] Last Admin: 05/03/20 09:43 Dose: 0.4 mg Documented by: Home Medications: Medications to take at Discharge Aspirin [Aspirin, Baby] 81 mg PO DAILY@0800 12/02/13 metFORMIN HCl [Glucophage] 500 mg PO BIDCM 12/02/13 Nitroglycerin (INPATIENT USE) [Nitrostat] 0.4 mg SUBLINGUAL Q5M PRN #1 bottle 07/04/16 simvastatin 40 mg tablet 40 mg PO QODAY #45 tab 02/29/20 carvedilol 6.25 mg tablet 6.25 mg PO BID #180 tab 03/21/20 furosemide 40 mg tablet 40 mg PO DAILY #90 tab 03/21/20 ramipril 2.5 mg capsule 2.5 mg PO DAILY cap 03/21/20 tamsulosin 0.4 mg capsule 0.4 mg PO DAILY cap 03/21/20 Polyethylene Glycol 3350 [Miralax] 17 gm PO DAILY #5 packet 05/02/20 Warfarin Sodium 3 mg PO SA 05/02/20 Warfarin Sodium 4 mg PO SUMOTUWETHFR 05/02/20 Acetaminophen [Tylenol Tablet] 650 mg PO Q6H PRN PRN tab 05/03/20 Cephalexin [Keflex] 500 mg PO Q8 cap 05/03/20 predniSONE tablet 40 mg PO DAILY@0800 tab 05/03/20 Primary Care Physician: Gurjit Salomon MD [Primary Care Provider] - Please follow up with your Primary Care Physician in: 1 Week Please Follow Up With: [facility] When: Follow up if recurrent knee pain Disposition: Halfway facility Minutes spent on discharge:: 35 Patient Condition:: Stable Medical Necessity - Tobacco Use Smoking Status: Never smoker Meaningful Use Info Meaningful Use Diagnoses (Choose all that apply): None applicable <Pio Harris E - Last Filed: 05/03/20 12:56> Discharge Date and Diagnosis - Primary Discharge Diagnosis Acute Problems: Active Problems (Last Reviewed 03/21/20 @ 15:[address] Иван Guzman MD) Failure to thrive (Acute) Effusion, right knee (Acute) - Secondary Discharge Diagnosis Chronic Problems: Chronic Problems (Last Reviewed 03/21/20 @ 15:[address] 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 Patient presented to the emergency room because of fall due to debility and functional decline. He had extensive imaging studies that showed no acute fractures or dislocations but he was found to have posterior dislocation of the fifth distal interphalangeal joint without fractures and this was relocated appropriately in the ED. CT scan brain showed no acute findings. He had right knee swelling which could be 2 effusion, there was no evidence of warmth, erythema or tenderness. Septic arthritis unlikely. I do not think patient also has gout. Patient was started on prednisone. Today, he felt much better, right knee pain almost gone. Routine blood work was unremarkable. Urinalysis revealed cloudy urine, positive for leukocyte esterase, there was 50-100 WBCs and 3+ bacteria. Patient received IV Rocephin. Urine culture revealed presumptive E. coli. Patient discharged to long-term facility in a stable medical condition, discharged on Keflex 500 mg p.o. 3 times daily for 7 days, discharged on prednisone 40 mg p.o. daily for 5 days, continued on his previous home medications without any changes, recommended follow-up with PCP in 1 week. - Physical Exam General: Alert, Oriented x3, Cooperative, No apparent distress. HEENT: Atraumatic, PERRLA, EOMI. Neck: Supple, No JVD, Negative Carotid Bruits, Trachea Midline, Thyroid Normal. Lungs: Clear to auscultation, Normal air movement, No rhonchi, No wheeze, No rales. Cardiovascular: Irregular rate and rhythm, Normal S1, Normal S2, PMI Normal. Abdomen: Bowel Sounds Present, Soft, Non Tender, Non-Distended, No Hepato-splenomegaly. Extremities: Right knee swelling, no tenderness, no erythema or edema. No clubbing, No cyanosis, No edema Skin: No rashes, No breakdown Neurological: Cranial nerves are intact, neuro grossly intact Vital Signs are stable. This note was generated with [employer] dictation software. It may contain incorrect words, spelling, and punctuation that were not noted in checking the note before signing. - Physical Exam Vitals/I&O's: Vital Signs Temp Pulse Resp BP Pulse Ox 97.9 F 69 18 124/58 H 98 05/03/20 08:50 05/03/20 08:50 05/03/20 08:50 05/03/20 08:50 05/03/20 11:47 Oxygen Delivery Method Room Air Weight: 232 lb 2.348 oz Body Mass Index (BMI) 29.7 Intake and Output for Last 24 Hours 05/01/20 05/02/20 05/03/20 23:59 23:59 23:59 Intake Total 970 / 970 50 / 50 Output Total 350 / 475 375 / 375 Balance 620 / 495 -325 / -325 Microbiology Past 72 Hours 05/02/20 11:30 Urine, Clean Catch Urine Culture - Preliminary Presumptive E. coli Laboratory Results 05/02/20 17:22: POC Glucose 127 H 05/03/20 05:18: PT 20.3 H, INR 1.8 05/03/20 06:41: POC Glucose 144 H 05/03/20 11:53: POC Glucose 125 H Current Medications Acetaminophen (Acetaminophen 325 Mg Tablet) 650 mg PO Q6H PRN PRN PRN Reason: Pain Score 1-10/Temp > 100.7 F Atorvastatin Calcium (Atorvastatin Calcium 20 Mg Tablet) 20 mg PO QODAY@2200 [facility] Last Admin: 05/02/20 21:38 Dose: 20 mg Documented by: Carvedilol (Carvedilol 6.25 Mg Tablet) 6.25 mg [facility] Last Admin: 05/03/20 08:54 Dose: 6.25 mg Documented by: Cephalexin (Cephalexin 500 Mg Capsule) 500 mg PO Q8 [facility] Dextrose (Dextrose 50%-Water 25 Gm/50 Ml Disp.Syrin) 0 gm IV X1 PRN; Protocol PRN Reason: Hypoglycemia Furosemide (Furosemide 40 Mg Tablet) 40 mg PO DAILY [facility] Last Admin: 05/03/20 08:54 Dose: 40 mg Documented by: Glucagon (Glucagon 1 Mg/Ml Syringe) 1 mg IM .X1 PRN PRN Reason: Hypoglycemia Sodium Chloride () 250 mls @ 15 mls/hr IV .[id number] PRN PRN Reason: Saline Flush Sodium Chloride () 250 mls @ 15 mls/hr IV .[id number] PRN PRN Reason: Additional IVPB Infusion Insulin Human Lispro (Insulin Lispro 100 Unit/Ml Insuln.Pen) 0 unit SC TIDAC [facility]; Protocol Last Admin: 05/03/20 12:27 Dose: Not Given Documented by: Metformin HCl (Metformin Hcl 500 Mg Tablet) [facility] Last Admin: 05/03/20 08:54 Dose: 500 mg Documented by: Nitroglycerin (Nitroglycerin (Inpatient Use) 0.4 Mg Tab.Subl) 0.4 mg SUBLINGUAL Q5M PRN PRN Reason: Chest Pain Oxycodone HCl (Oxycodone 5 Mg Tablet) 5 mg PO Q4H PRN PRN PRN Reason: Pain Score 6-10 Polyethylene Glycol (Polyethylene Glycol 3350 17 Gm Packet) 17 gm PO DAILY [facility] Last Admin: 05/03/20 08:54 Dose: 17 gm Documented by: Prednisone (Prednisone 20 Mg Tablet) 40 mg PO DAILY@0800 [facility] Last Admin: 05/03/20 09:43 Dose: 40 mg Documented by: Ramipril (Ramipril 2.5 Mg Capsule) 2.5 mg PO DAILY [facility] Last Admin: 05/03/20 08:54 Dose: 2.5 mg Documented by: Sodium Chloride (0.9% Saline Lock 10 Ml Syringe) 10 - 40 ml IV UD PRN PRN Reason: SALINE FLUSH Tamsulosin HCl (Tamsulosin Hcl 0.4 Mg Capsule) 0.4 mg PO DAILY [facility] Last Admin: 05/03/20 09:43 Dose: 0.4 mg Documented by: Disposition: Halfway facility Minutes spent on discharge:: 27 Patient Condition:: Stable Meaningful Use Info Meaningful Use Diagnoses (Choose all that apply): None applicable OBSV E&M: [id number] Observation care discharge
--- NOTE | 2020-05-03 12:50 | CASEMGMT ---
NEETA went back to patient's room and he and his decided they do definitely want patient to go to TCU since he needs to go somewhere. NEETA told them he will likely go today if his insurance approves. NEETA told them NEETA will let them know as soon as NEETA hears anything. NEETA called Ayaka and asked her to start the pre-cert. Mary CULVER MSW
--- NOTE | 2020-05-03 13:03 | CASEMGMT ---
Patient's did ask about patient's coverage for [facility]. SW called [employer] and days 1-10 are covered at 100%, days 11-20 $25/day co-pay, and days 21-100 $50/day co-pay. SW will let patient's know this information. Mary CULVER MSW
[2020-05-03 14:50] VITALS: BP 108/86; PULSE 73; RESP 18; TEMP 36.2; O2SAT 97
--- NOTE | 2020-05-03 15:46 | PCM.PROGNOTE ---
<JacquesElle SOURCING ASSOCIATE - Last Filed: 05/03/20 15:48> Patient Problems: Active and Suspected Problems (Last Reviewed 03/21/20 @ 15:[address] Иван Guzman MD) Failure to thrive (Acute) Effusion, right knee (Acute) Subjective: Patient seen and examined. Reports right knee pain improved. Has not yet been out of bed today. Awaiting insurance approval to TCU. - Physical Exam Vitals/I&O's: Vital Signs Temp Pulse Resp BP Pulse Ox 97.9 F 69 18 124/58 H 98 05/03/20 08:50 05/03/20 08:50 05/03/20 08:50 05/03/20 08:50 05/03/20 11:47 Oxygen Delivery Method Room Air Weight: 232 lb 2.348 oz Body Mass Index (BMI) 29.7 Intake and Output for Last 24 Hours 05/01/20 05/02/20 05/03/20 23:59 23:59 23:59 Intake Total 970 / 970 50 / 50 Output Total 350 / 475 375 / 375 Balance 620 / 495 -325 / -325 General: Alert, Oriented x3, Cooperative HEENT: Atraumatic, PERRLA, EOMI, Normocephalic Neck: Supple, No JVD, Negative Carotid Bruits Lungs: Clear to auscultation, Normal air movement Cardiovascular: Regular rate, No murmurs Abdomen: Bowel Sounds Present, Soft, Non Tender, Non-Distended Extremities: No clubbing, No cyanosis, No edema Skin: No rashes, No breakdown Musculoskeletal: No Tenderness to Palpation of Joints or Extremities Neurological: Cranial nerves II-XII grossly intact, Neuro grossly intact Psych/Mental Status: Normal Affect, Appropriate Microbiology Past 72 Hours 05/03/20 12:55 Mucosa - Nose SARS-CoV-2 Antigen (Rapid) - Final 05/02/20 11:30 Urine, Clean Catch Urine Culture - Preliminary Presumptive E. coli Laboratory Results 05/02/20 17:22: POC Glucose 127 H 05/03/20 05:18: PT 20.3 H, INR 1.8 05/03/20 06:41: POC Glucose 144 H 05/03/20 11:53: POC Glucose 125 H Current Medications Acetaminophen (Acetaminophen 325 Mg Tablet) 650 mg PO Q6H PRN PRN PRN Reason: Pain Score 1-10/Temp > 100.7 F Atorvastatin Calcium (Atorvastatin Calcium 20 Mg Tablet) 20 mg PO QODAY@2200 [facility] Last Admin: 05/02/20 21:38 Dose: 20 mg Documented by: Carvedilol (Carvedilol 6.25 Mg Tablet) 6.25 mg PO BIDCM [facility] Last Admin: 05/03/20 08:54 Dose: 6.25 mg Documented by: Cephalexin (Cephalexin 500 Mg Capsule) 500 mg PO Q8 [facility] Dextrose (Dextrose 50%-Water 25 Gm/50 Ml Disp.Syrin) 0 gm IV X1 PRN; Protocol PRN Reason: Hypoglycemia Furosemide (Furosemide 40 Mg Tablet) 40 mg PO DAILY [facility] Last Admin: 05/03/20 08:54 Dose: 40 mg Documented by: Glucagon (Glucagon 1 Mg/Ml Syringe) 1 mg IM .X1 PRN PRN Reason: Hypoglycemia Sodium Chloride () 250 mls @ 15 mls/hr IV .[id number] PRN PRN Reason: Saline Flush Sodium Chloride () 250 mls @ 15 mls/hr IV .[id number] PRN PRN Reason: Additional IVPB Infusion Insulin Human Lispro (Insulin Lispro 100 Unit/Ml Insuln.Pen) 0 unit SC TIDAC [facility]; Protocol Last Admin: 05/03/20 12:27 Dose: Not Given Documented by: Metformin HCl (Metformin Hcl 500 Mg Tablet) 500 mg PO BIDCM [facility] Last Admin: 05/03/20 08:54 Dose: 500 mg Documented by: Nitroglycerin (Nitroglycerin (Inpatient Use) 0.4 Mg Tab.Subl) 0.4 mg SUBLINGUAL Q5M PRN PRN Reason: Chest Pain Oxycodone HCl (Oxycodone 5 Mg Tablet) 5 mg PO Q4H PRN PRN PRN Reason: Pain Score 6-10 Polyethylene Glycol (Polyethylene Glycol 3350 17 Gm Packet) 17 gm PO DAILY [facility] Last Admin: 05/03/20 08:54 Dose: 17 gm Documented by: Prednisone (Prednisone 20 Mg Tablet) 40 mg PO DAILY@0800 [facility] Last Admin: 05/03/20 09:43 Dose: 40 mg Documented by: Ramipril (Ramipril 2.5 Mg Capsule) 2.5 mg PO DAILY [facility] Last Admin: 05/03/20 08:54 Dose: 2.5 mg Documented by: Sodium Chloride (0.9% Saline Lock 10 Ml Syringe) 10 - 40 ml IV UD PRN PRN Reason: SALINE FLUSH Tamsulosin HCl (Tamsulosin Hcl 0.4 Mg Capsule) 0.4 mg PO DAILY [facility] Last Admin: 05/03/20 09:43 Dose: 0.4 mg Documented by: Medical Necessity - Tobacco Use Smoking Status: Never smoker Assessment/Plan All Active Problems (Last Reviewed 03/21/20 @ 15:[address] Иван Guzman MD) Failure to thrive (Acute) Effusion, right knee (Acute) 1. Debility, falls resulting in right knee effusion-knee pain currently improved. Continue prednisone 40 mg daily for 5 days. PT/OT. As needed pain regimen. Ice elevate right lower extremity. TCU at discharge for rehab. 2. Failure to thrive-PT/OT. TCU at discharge for rehab. 3. Acute E. coli UTI-Keflex at discharge to complete course. Follow sensitivities follow culture sensitivities at TCU. 4. Paroxysmal atrial fibrillation-on Coumadin, INR subtherapeutic. Trend INR at TCU. 5. Ischemic cardiomyopathy/sick sinus syndrome status post ICD-stable. 6. Hypertension-stable, continue carvedilol, ramipril. 7. Hyperlipidemia-continue statin. DVT prophylaxis-Coumadin This patient was seen by RADHA Calderon under the supervision of Dr. Harris. <Pio Harris E - Last Filed: 05/04/20 12:11> - Physical Exam Vitals/I&O's: Vital Signs Temp Pulse Resp BP Pulse Ox 98.1 F 70 18 112/60 95 05/04/20 09:39 05/04/20 09:39 05/04/20 09:39 05/04/20 09:39 05/04/20 09:39 Oxygen Delivery Method Room Air Weight: 232 lb 2.348 oz Body Mass Index (BMI) 29.7 Intake and Output for Last 24 Hours 05/02/20 05/03/20 05/04/20 23:59 23:59 23:59 Intake Total 970 / 970 810 / 910 100 / 100 Output Total 350 / 475 1675 / 2075 400 / 400 Balance 620 / 495 -865 / -1165 -300 / -300 Microbiology Past 72 Hours 05/02/20 11:30 Urine, Clean Catch Urine Culture - Final Presumptive E. coli 05/03/20 12:55 Mucosa - Nose SARS-CoV-2 Antigen (Rapid) - Final Laboratory Results 05/03/20 17:35: POC Glucose 227 H 05/04/20 06:36: POC Glucose 109 Current Medications Acetaminophen (Acetaminophen 325 Mg Tablet) 650 mg PO Q6H PRN PRN PRN Reason: Pain Score 1-10/Temp > 100.7 F Atorvastatin Calcium (Atorvastatin Calcium 20 Mg Tablet) 20 mg PO QODAY@2200 [facility] Last Admin: 05/02/20 21:38 Dose: 20 mg Documented by: Carvedilol (Carvedilol 6.25 Mg Tablet) 6.25 mg PO BIDCM [facility] Last Admin: 05/04/20 09:37 Dose: 6.25 mg Documented by: Cephalexin (Cephalexin 500 Mg Capsule) 500 mg PO Q8 [facility] Last Admin: 05/04/20 06:29 Dose: 500 mg Documented by: Dextrose (Dextrose 50%-Water 25 Gm/50 Ml Disp.Syrin) 0 gm IV X1 PRN; Protocol PRN Reason: Hypoglycemia Furosemide (Furosemide 40 Mg Tablet) 40 mg PO DAILY [facility] Last Admin: 05/04/20 09:37 Dose: 40 mg Documented by: Glucagon (Glucagon 1 Mg/Ml Syringe) 1 mg IM .X1 PRN PRN Reason: Hypoglycemia Sodium Chloride () 250 mls @ 15 mls/hr IV .[id number] PRN PRN Reason: Saline Flush Sodium Chloride () 250 mls @ 15 mls/hr IV .[id number] PRN PRN Reason: Additional IVPB Infusion Insulin Human Lispro (Insulin Lispro 100 Unit/Ml Insuln.Pen) 0 unit SC TIDAC [facility]; Protocol Last Admin: 05/04/20 06:36 Dose: Not Given Documented by: Metformin HCl (Metformin Hcl 500 Mg Tablet) 500 mg PO BIDCM [facility] Last Admin: 05/04/20 09:37 Dose: 500 mg Documented by: Nitroglycerin (Nitroglycerin (Inpatient Use) 0.4 Mg Tab.Subl) 0.4 mg SUBLINGUAL Q5M PRN PRN Reason: Chest Pain Oxycodone HCl (Oxycodone 5 Mg Tablet) 5 mg PO Q4H PRN PRN PRN Reason: Pain Score 6-10 Polyethylene Glycol (Polyethylene Glycol 3350 17 Gm Packet) 17 gm PO DAILY [facility] Last Admin: 05/04/20 09:36 Dose: 17 gm Documented by: Prednisone (Prednisone 20 Mg Tablet) 40 mg PO DAILY@0800 [facility] Last Admin: 05/04/20 09:37 Dose: 40 mg Documented by: Ramipril (Ramipril 2.5 Mg Capsule) 2.5 mg PO DAILY [facility] Last Admin: 05/04/20 09:37 Dose: 2.5 mg Documented by: Sodium Chloride (0.9% Saline Lock 10 Ml Syringe) 10 - 40 ml IV UD PRN PRN Reason: SALINE FLUSH Tamsulosin HCl (Tamsulosin Hcl 0.4 Mg Capsule) 0.4 mg PO DAILY [facility] Last Admin: 05/04/20 09:38 Dose: 0.4 mg Documented by: Warfarin Sodium (Warfarin 3 Mg Tablet) 3 mg PO Sa@1700 [facility] Warfarin Sodium (Warfarin 4 Mg Tablet) 4 mg PO SuMoTuWeThFr@1700 [facility] Last Admin: 05/03/20 17:50 Dose: 4 mg Documented by: Assessment/Plan This note is for follow-up visit on May 03, 2020. Discharge to TCU canceled because we are still waiting for the insurance approval. Hospitalist note: I am seeing this patient in conjunction with Elle Hanna. I independently seen and examined the patient. Progress note above, laboratory data and imaging studies reviewed and I concur with above treatment plan. Patient mentioned that the right knee pain is improving. No other complaints. His vital signs are stable. - Physical Exam General: Alert, Oriented x3, Cooperative, No apparent distress. HEENT: Atraumatic, PERRLA, EOMI. Neck: Supple, No JVD, Negative Carotid Bruits, Trachea Midline, Thyroid Normal. Lungs: Clear to auscultation, Normal air movement, No rhonchi, No wheeze, No rales. Cardiovascular: Regular rate, Regular Rhythm, Normal S1, Normal S2, PMI Normal. Abdomen: Bowel Sounds Present, Soft, Non Tender, Non-Distended, No Hepato-splenomegaly. Extremities: No clubbing, No cyanosis, No edema Skin: No rashes, No breakdown Neurological: Cranial nerves are intact, neuro grossly intact Vital Signs are stable. Assessment and plan: #1 physical debility/functional decline/fall: Due to age and multiple medical problems. Patient lives at home with his . Imaging study was unremarkable, no fractures except for the finger dislocation that was replaced. Plan for PT OT, placement to skilled facility, awaiting insurance approval. #2 right knee contusion/effusion: X-ray without fractures. Patient was started on prednisone for possible gout which is not very clear. Patient reported improvement of his symptoms, having less knee pain. Plan to continue prednisone, pain control. #3 posterior dislocation of the fifth distal interphalangeal joint: Status post manual reduction. Repeat x-ray revealed joint in place. Patient denies any current pain. #4 acute cystitis: Started on p.o. Keflex. #4 other chronic medical problems: Stable, continue current medications as above. This note was generated with [employer] dictation software. It may contain incorrect words, spelling, and punctuation that were not noted in checking the note before signing. Inpatient E&M: 71929 Subs Hosp L2
--- NOTE | 2020-05-03 15:52 | CASEMGMT ---
NEETA spoke with patient and his . SW gave them the coverage information for SNF. SW also wrote it down and gave it to them. They are aware if insurance approves today he will go today. They thanked NEETA for the information. Plan: TCU pending insurance approval. Mary HORVATH
--- NOTE | 2020-05-03 16:41 | CASEMGMT ---
This RN CM to room with TIDWELL form at this time, explanation done-pt voices understanding, and signs TIDWELL form at this time. Medicare IP vs OBS booklet provided to pt as he did not have one previously. Original TIDWELL to chart and copy to pt at this time. Pt voices no further questions/concerns/needs at this time. SStaten MARY ANN CM
[2020-05-03] MEDS: Insulin Lispro 100 UNIT/ML INSULN.PEN SC (17:51)
[2020-05-03 18:21] LABS: Bedside Glucose 227 mg/dL (70-110)
[2020-05-03 20:50] VITALS: BP 96/64; PULSE 77; RESP 18; TEMP 36.6; O2SAT 97
[2020-05-04 02:50] VITALS: BP 129/67; PULSE 66; RESP 18; TEMP 36.4; O2SAT 96
[2020-05-04] MEDS: Cephalexin 500 MG Capsule PO ×2 (06:29→14:02)
[2020-05-04 06:31] VITALS: BP 135/37; PULSE 70; RESP 18; TEMP 36.6; O2SAT 97
[2020-05-04 06:41] LABS: Bedside Glucose 109 mg/dL (70-110)
[2020-05-04] MEDS: Polyethylene Glycol 3350 17 GM PACKET PO (09:36)
[2020-05-04] MEDS: Carvedilol 6.25 MG Tablet PO ×2 (09:37→16:05)
[2020-05-04] MEDS: predniSONE 20 MG Tablet 40 MG PO (09:37)
[2020-05-04] MEDS: Ramipril 2.5 MG Capsule PO (09:37)
[2020-05-04] MEDS: Furosemide 40 MG Tablet PO (09:37)
[2020-05-04] MEDS: metFORMIN HCl 500 MG Tablet PO ×2 (09:37→16:05)
[2020-05-04] MEDS: Tamsulosin HCl 0.4 MG Capsule PO (09:38)
[2020-05-04 09:39] VITALS: BP 112/60; PULSE 70; RESP 18; TEMP 36.7; O2SAT 95
[2020-05-04 12:31] LABS: Bedside Glucose 148 mg/dL (70-110)
--- NOTE | 2020-05-04 14:49 | CASEMGMT ---
A message was received from patient's indicating she is confused with insurance. SW called her back and there was no answer and no option to leave a message. NEETA then talked with Ayaka from TCU and patient was approved. NEETA notified patient. He asked SW about the toilets and grab bars in TCU. 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 NEETA called TCU and spoke with NEETA Davis. She said they can get grab bars and higher toilet seat that go over top of the toilet. She will notify the RNs. NEETA let patient know this information. NEETA called patient's and let her know patient will be going to TCU today as his insurance approved him. She thanked NEETA for the phone call. She is going to bring a suitcase for patient and will take it to the main entrance. She is going to tell them that he is going to TCU. SW told her they should get it to him no problem. RN and secretary office clerk also notified of approval. Plan: [facility] TCU under skilled level of care. Mary CULVER MSW
[2020-05-04] MEDS: Insulin Lispro 100 UNIT/ML INSULN.PEN SC (16:05)
[2020-05-04 16:16] LABS: Bedside Glucose 178 mg/dL (70-110)
--- NOTE | 2020-05-04 17:20 | PCM.DC.SUM ---
Discharge Date and Diagnosis - Problem List Patient Problems: Active and Suspected Problems (Last Updated 05/04/20 @ 12:[address] Pio Harris MD) Effusion, right knee (Acute) Date of Admission: 05/02/20 Date of Discharge: 05/04/20 - Primary Discharge Diagnosis Acute Problems: Active Problems (Last Updated 05/04/20 @ 12:[address] Pio Harris MD) #1 physical debility/functional decline/falls. #2 right knee contusion/effusion. #3 posterior dislocation of the fifth distal interphalangeal joint, status post manual reduction. #4 E. coli acute cystitis: - Secondary Discharge Diagnosis Chronic Problems: Chronic Problems (Last Updated 05/04/20 @ 12:[address] 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 09/15/14) Pacemaker Implant November 2001; Generator change of pacemaker 05/02/09; ICD gen change 09/15/14; Atherosclerotic heart disease of [place] coronary artery without angina pectoris (Chronic) History of coronary artery stent placement (Chronic 08/20/05) PCI-RAQUEL-Mid RPDA and mid RPLB w/ 2.5 x 12 mm Taxus x 2 08/21/2005 Cardiomyopathy, ischemic (Chronic) Sick sinus syndrome (Chronic) Secondary pulmonary arterial hypertension (Chronic) Longstanding persistent atrial fibrillation (Chronic) Paroxysmal atrial flutter (Chronic) Essential (primary) hypertension (Chronic) HLD (hyperlipidemia) (Chronic) 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 Electronically Signed: Darien Fam MD at 11:11 EST Tel , Service support , Hand X-Ray 05/02/20 10:01 IMPRESSION: Posterior dislocation of the fifth distal interphalangeal joint. No obvious fracture. Electronically Signed: Darien Fam MD at 11:14 EST Tel , Service support , Wrist X-Ray 05/02/20 10:01 IMPRESSION: No acute fracture or dislocation. Electronically Signed: Darien Fam MD at 11:14 EST Tel , Service support , Chest X-Ray 05/02/20 10:50 IMPRESSION: No active disease. Electronically Signed: Darien Fam MD at 11:14 EST Tel , Service support , Hand X-Ray 05/02/20 13:25 IMPRESSION: Interval relocation of the fifth distal interphalangeal joint. No obvious fracture Electronically Signed: Darien Fam MD at 13:44 EST Tel , Service support , Operations: None Procedures: None Summary of Care Provided: Patient seen and examined on the day of discharge and appeared to be stable to be discharged to intermediate facility. Right knee pain improved. No other complaints. His vital signs were stable. The patient is a 84 year old M presented to the emergency room because of mechanical fall. CT scan brain showed no acute findings. Chest x-ray showed no acute infiltrate or consolidation. X-ray of the left wrist showed no acute fractures or dislocation. X-ray of the right hand revealed dislocation of the right fifth distal interphalangeal joint which was reduced by the ER physician. X-ray of of the right hand postreduction revealed irrigation of the fifth distal interphalangeal joint to the place, no fractures. Patient was treated with p.o. prednisone for the right knee contusion/effusion. Patient's routine blood work was unremarkable. He was found to have acute cystitis for which she was treated with p.o. Keflex. COVID-19 antigen was negative. Urine culture revealed presumptive E. coli. With treatment, right knee pain significantly improved. Patient remained afebrile and had no leukocytosis. Patient discharged to intermediate facility in a stable condition, discharged on prednisone 40 mg p.o. daily to complete 5 days of treatment, discharged on Keflex 3 times daily to complete total of 7 days of treatment, continued back on his previous home medications including Coumadin, recommended follow-up with PCP in 1 week. Patient Problems: Active and Suspected Problems (Last Updated 05/04/20 @ 12:[address] Pio Harris MD) Effusion, right knee (Acute) - Physical Exam Vitals/I&O's: Vital Signs Temp Pulse Resp BP Pulse Ox 98.1 F 70 18 112/60 95 05/04/20 09:39 05/04/20 09:39 05/04/20 09:39 05/04/20 09:39 05/04/20 09:39 Oxygen Delivery Method Room Air Weight: 232 lb 2.348 oz Body Mass Index (BMI) 29.7 Intake and Output for Last 24 Hours 05/02/20 05/03/20 05/04/20 23:59 23:59 23:59 Intake Total 970 / 970 810 / 910 500 / 500 Output Total 350 / 475 1675 / 2075 1050 / 1050 Balance 620 / 495 -865 / -1165 -550 / -550 General: Alert, Oriented x3, Cooperative HEENT: Atraumatic, PERRLA, EOMI, Normocephalic Oral: Moist Mucosa, No Gingival or Mucosal Lesions/ Ulcerations Neck: Supple, No JVD, Negative Carotid Bruits, Trachea Midline, Thyroid Normal Size and Texture Lungs: Clear to auscultation, No rhonchi, No wheeze, No rales Cardiovascular: Regular rate, Regular Rhythm, Normal S1, Normal S2, PMI Normal Abdomen: Bowel Sounds Present, Soft, Non Tender, Non-Distended, No Hepato-splenomegaly Extremities: No clubbing, No cyanosis, No edema Skin: No rashes, No breakdown Lymphatic: No Cervical, Supraclavicular, or Inguinal Adenopathy Neurological: Cranial nerves II-XII grossly intact, Neuro grossly intact Psych/Mental Status: Normal Affect, Appropriate Microbiology Past 72 Hours 05/02/20 11:30 Urine, Clean Catch Urine Culture - Final Presumptive E. coli 05/03/20 12:55 Mucosa - Nose SARS-CoV-2 Antigen (Rapid) - Final Laboratory Results 05/03/20 17:35: POC Glucose 227 H 05/04/20 06:36: POC Glucose 109 05/04/20 12:25: POC Glucose 148 H 05/04/20 16:02: POC Glucose 178 H Home Medications: Medications to take at Discharge Aspirin [Aspirin, Baby] 81 mg PO DAILY@0800 12/02/13 metFORMIN HCl [Glucophage] 500 mg PO BIDCM 12/02/13 Nitroglycerin (INPATIENT USE) [Nitrostat] 0.4 mg SUBLINGUAL Q5M PRN #1 bottle 07/04/16 ramipril 2.5 mg capsule 2.5 mg PO DAILY cap 03/21/20 tamsulosin 0.4 mg capsule 0.4 mg PO DAILY cap 03/21/20 Warfarin Sodium 3 mg PO SA 05/02/20 Warfarin Sodium 4 mg PO SUMOTUWETHFR 05/02/20 Acetaminophen [Tylenol Tablet] 650 mg PO Q6H PRN PRN tab 05/03/20 Carvedilol 6.25 mg PO BID 05/04/20 Cephalexin [Keflex] 500 mg PO Q8 05/04/20 Furosemide 40 mg PO DAILY 05/04/20 Polyethylene Glycol 3350 [Miralax] 17 gm PO DAILY 05/04/20 Simvastatin 40 mg PO QODAY 05/04/20 predniSONE tablet 40 mg PO DAILY@0800 05/04/20 Primary Care Physician: Gurjit Salomon MD [Primary Care Provider] - Please follow up with your Primary Care Physician in: 1 Week Please Follow Up With: [facility] When: Follow up if recurrent knee pain Disposition: Shelter facility Minutes spent on discharge:: 27 Patient Condition:: Stable Medical Necessity - Tobacco Use Smoking Status: Never smoker Meaningful Use Info Meaningful Use Diagnoses (Choose all that apply): None applicable OBSV E&M: 85155 Observation care discharge
== END 2020-05-04 16:34 | disposition skilled nursing facility (03) ==
LOC: ED 10:14 → PCU 15:11
PROVIDERS: Emergency Provider Student in an Organized Health Care Education/Training Program; PCP Family Medicine; Visit Provider Hospitalist
DX: N30.00 Acute cystitis without hematuria (principal); K59.00 Constipation, unspecified; E78.5 Hyperlipidemia, unspecified; I10 Essential (primary) hypertension; I25.5 Ischemic cardiomyopathy; S80.01XA Contusion of right knee, initial encounter; S63.296A Dislocation of distal interphalangeal joint of right little finger, initial encounter; B96.20 Unspecified Escherichia coli [E. coli] as the cause of diseases classified elsewhere; I25.10 Atherosclerotic heart disease of native coronary artery without angina pectoris; E86.0 Dehydration; I27.21 Secondary pulmonary arterial hypertension; I48.11 Longstanding persistent atrial fibrillation; I48.92 Unspecified atrial flutter; E11.9 Type 2 diabetes mellitus without complications; M54.9 Dorsalgia, unspecified; R62.7 Adult failure to thrive; W19.XXXA Unspecified fall, initial encounter; Y93.9 Activity, unspecified; Y92.9 Unspecified place or not applicable; Z79.899 Other long term (current) drug therapy; Z79.82 Long term (current) use of aspirin; Z79.84 Long term (current) use of oral hypoglycemic drugs; Z89.112 Acquired absence of left hand; Z79.01 Long term (current) use of anticoagulants; Z95.810 Presence of automatic (implantable) cardiac defibrillator; Z91.81 History of falling; Z95.5 Presence of coronary angioplasty implant and graft; Z82.49 Family history of ischemic heart disease and other diseases of the circulatory system
CPT/HCPCS: 26770; 70450; 71045; 73110; 73130; 74176; 80053; 81001; 82962; 83605; 83690; 84484; 85025; 85610; 87086; 87088; 87186; 87426; 93005; 96361; 96365; 96367; 96374; 96375; 97110; 97116; 97162; 97166; 99218; 99285; J7030; J7040; J7050; A4216; G0378; J0696; J2405

== ENCOUNTER 2020-05-04 16:46 | Inpatient (IN) | payer MEDICARE, SELFPAY ==
[2020-05-02 15:41] VITALS: BMI 29.7
[2020-05-04 16:57] VITALS: BMI 29.7
[2020-05-04 17:00] VITALS: BMI 29.8
[2020-05-04 17:11] VITALS: BP 142/73; PULSE 71; RESP 18; TEMP 36.3; O2SAT 93
--- NOTE | 2020-05-04 18:13 | NURSING ---
CALLED R' TO NOTIFY HER R' ON UNIT. DISCUSSED CODE STATUS WITH R' AND . THEY WANT TO DISCUSS CODE STATUS BEFORE SIGNING DNR. WILL LEAVE FULL CODE UNTIL DECISION IS DECIDED.
[2020-05-04] MEDS: Carvedilol 6.25 MG Tablet PO (18:33)
--- NOTE | 2020-05-04 20:05 | HP.PCM_ITS ---
Problem List (1) Debility Status: Acute (2) Multiple falls Status: Acute (3) Dislocation, finger, interphalangeal joint Status: Acute (4) Fecal impaction of colon Status: Acute (5) Back pain Status: Acute (6) Urinary tract infection Status: Acute (7) Coronary artery disease Status: Chronic (8) Hypertension Status: Chronic (9) Atrial fibrillation Status: Chronic (10) Diabetes mellitus Status: Chronic (11) BPH (benign prostatic hyperplasia) Status: Chronic (12) Failure to thrive Status: Chronic (13) Effusion, right knee Status: Acute (14) HLD (hyperlipidemia) Status: Chronic Qualifiers: History of Present Illness Date of Admission: 05/04/20 Chief Complaint: Here for rehabilitation, strengthening, prior to discharge home with . 05/02/2020 The patient is a 84 year old Male with below past medical history presented to [facility] Emergency Department with fall. 05/02/2020 CT brain chronic involutional changes of brain. 05/02/2020 EKG ventricular paced rhythm with frequent premature ventricular contractions, biventricular pacemaker detected. 05/02/2020 X-ray right hand, posterior dislocation of 5th DIP joint. 05/02/2020 X-ray left wrist negative. 05/02/2020 Chest X-ray negative. 05/02/2020 X-ray right hand relocation of 5th DIP joint. Legs gave out under him. Right 5th finger deformed, left wrist pain, hit head. Feels weak, nausea, unstable on feet. IV fluids given for dehydration. Diagnosed with urinary tract infection, Urine culture sent. Rocephin IV given. 05/02/2020 Admit to Hospital. PT/OT for [facility] Facility. Prednisone for right knee effusion. Hold warfarin in case of arthrocentesis. 05/03/2020 Right knee pain improved. Prednisone 40MG daily x 5 days. E. Coli urinary tract infection treated with Keflex, follow culture and sensitivity. 05/04/2020 Admit to TCU with debility, here for rehabilitation, strengthening, prior to discharge home with . Past Medical History Past Medical History (Chronic Problems): Chronic Problems (Last Updated 05/04/20 @ 12:[address] 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) Pacemaker Implant November 2001; Generator change of pacemaker 05/02/09; ICD gen change 09/15/14; Atherosclerotic heart disease of [place] coronary artery without angina pectoris (Chronic) History of coronary artery stent placement (Chronic 08/20/05) PCI-RAQUEL-Mid RPDA and mid RPLB w/ 2.5 x 12 mm Taxus x 2 08/21/2005 Cardiomyopathy, ischemic (Chronic) Sick sinus syndrome (Chronic) Secondary pulmonary arterial hypertension (Chronic) Longstanding persistent atrial fibrillation (Chronic) Paroxysmal atrial flutter (Chronic) Essential (primary) hypertension (Chronic) HLD (hyperlipidemia) (Chronic) 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 Pio Harris MD) Atherosclerotic heart disease of [place] coronary artery without angina pectoris (Chronic) I25.10 Cardiomyopathy, ischemic (Chronic) I25.5 Sick sinus syndrome (Chronic) I49.5 Secondary pulmonary arterial hypertension (Chronic) I27.21 Longstanding persistent atrial fibrillation (Chronic) I48.11 Paroxysmal atrial flutter (Chronic) I48.92 Essential (primary) hypertension (Chronic) I10 HLD (hyperlipidemia) (Chronic) E78.5 Gout M10.9 Type 2 diabetes mellitus E11.9 Syncope and collapse R55 Paroxysmal atrial fibrillation (Inactive) I48.0 Allergies rofecoxib [From Vioxx] Adverse Reaction (Verified 05/02/20 09:39) Other Home Medications: Ambulatory Orders Medication Instructions Recorded Aspirin [Aspirin, Baby] 81 mg PO DAILY@0800 12/02/13 metFORMIN HCl [Glucophage] 500 mg PO BIDCM 12/02/13 Nitroglycerin (INPATIENT USE) 0.4 mg SUBLINGUAL Q5M PRN #1 bottle 07/04/16 [Nitrostat] ramipril 2.5 mg capsule 2.5 mg PO DAILY cap 03/21/20 tamsulosin 0.4 mg capsule 0.4 mg PO DAILY cap 03/21/20 Warfarin Sodium 3 mg PO SA 05/02/20 Warfarin Sodium 4 mg PO SUMOTUWETHFR 05/02/20 Acetaminophen [Tylenol Tablet] 650 mg PO Q6H PRN PRN tab 05/03/20 Carvedilol 6.25 mg PO BID 05/04/20 Cephalexin [Keflex] 500 mg PO Q8 05/04/20 Furosemide 40 mg PO DAILY 05/04/20 Polyethylene Glycol 3350 [Miralax] 17 gm PO DAILY 05/04/20 Simvastatin 40 mg PO QODAY 05/04/20 predniSONE tablet 40 mg PO DAILY@0800 05/04/20 Surgical History: Surgical History (Last Updated 05/04/20 @ 12:[address] 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) Onset Date: 09/15/14 Z95.810 Pacemaker Implant November 2001; Generator change of pacemaker 05/02/09; ICD gen change 09/15/14; History of coronary artery stent placement (Chronic) Onset Date: 08/20/05 Z95.5 PCI-RAQUEL-Mid RPDA and mid RPLB w/ 2.5 x 12 mm Taxus x 2 08/21/2005 History of left heart catheterization Onset Date: 07/04/16 Z98.890 History of permanent cardiac pacemaker placement Onset Date: 2001 Z95.0 Surgical History: angioplasty, cataract - Bilateral., pacemaker implantation, - - Biventricular ICD. 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 Psychiatric History: No pertinent psych hx Lives: Spouse/ Significant Other Smoking Status: Never smoker Tobacco Use: Non-smoker Alcohol: None Drugs: None - *Family History Maternal Family History: Family History (Last Reviewed 03/21/20 @ 15:[address] Иван Guzman MD) Father Parkinsons disease Mother Heart disease Valvular heart disease History Items: No pertinent history Review of Systems Constitutional: Denies: Chills, Fever, Weight Change HEENT: Denies: Head Aches, Sinus Congestion, Sinus Drainage Cardiovascular: Denies: Chest Pain, Palpitations Respiratory: Denies: Cough, Shortness of breath at rest, Sputum production Gastrointestinal: Denies: Abdominal Pain, Nausea, Vomiting Genitourinary: Denies: Dysuria Musculoskeletal: Denies: Joint Pain, Joint Tenderness Skin: Denies: Rash, Wounds Neurological: Denies: Numbness, Tingling, Focal weakness Psychiatric: Denies: Anxiety, Depression, Homicidal Ideations, Suicidal Ideations Hematologic/ Lymphatic: Denies: Easy Bruising, Easy Bleeding VTE Information - Inpt Only VTE Present on Admission: No VTE Mechan Device Prophylaxis: Knee High QAMAR Hose VTE Pharm Prophylaxis ordered?: No Reason prophylaxis not ordered:: Treatment Not Indicated Patient Problems: Active and Suspected Problems (Last Updated 05/04/20 @ 12:[address] Pio Harris MD) Debility (Acute) Multiple falls (Acute) Dislocation, finger, interphalangeal joint (Acute) Fecal impaction of colon (Acute) Back pain (Acute) Urinary tract infection (Acute) Effusion, right knee (Acute) - Physical Exam Vitals/I&O's: Vital Signs Temp Pulse Resp BP Pulse Ox 97.3 F L 71 18 142/73 H 93 05/04/20 17:11 05/04/20 17:11 05/04/20 17:11 05/04/20 17:11 05/04/20 17:11 Oxygen Delivery Method Room Air Weight: 105.3 kg Body Mass Index (BMI) 29.7 Intake and Output for Last 24 Hours 05/02/20 05/03/20 05/04/20 23:59 23:59 23:59 Output Total 200 / 200 Balance -200 / -200 General: Alert, Oriented x3, Cooperative HEENT: Atraumatic, PERRLA, EOMI, Normocephalic Neck: Supple, No JVD, Negative Carotid Bruits Lungs: Clear to auscultation, Normal air movement Cardiovascular: Regular rate, No murmurs Abdomen: Bowel Sounds Present, Soft, Non Tender Extremities: No edema, Capillary Refill Less than 3 Seconds Skin: No rashes, No breakdown Musculoskeletal: No Tenderness to Palpation of Joints or Extremities Neurological: Cranial nerves II-XII grossly intact Psych/Mental Status: Normal Affect, Appropriate Current Medications Acetaminophen (Acetaminophen 325 Mg Tablet) 650 mg PO Q6H PRN PRN PRN Reason: Pain Score 1-10/Temp > 100.7 F Aspirin (Aspirin 81 Mg Tab.Chew) 81 mg PO DAILY@0800 TJ Atorvastatin Calcium (Atorvastatin Calcium 20 Mg Tablet) 20 mg PO QODAY@2200 [facility] Bisacodyl (Bisacodyl 10 Mg Suppository) 10 mg RECTAL DAILY PRN PRN Reason: CONSTIPATION Calamine/Phenol (Menthol/Lanolin/Calamine/Znox 113 Gm Tube) 1 applic TOPICAL BID@0600,2200 [facility]; Protocol Carvedilol (Carvedilol 6.25 Mg Tablet) 6.25 mg PO BID [facility] Last Admin: 05/04/20 18:33 Dose: 6.25 mg Documented by: Cephalexin (Cephalexin 500 Mg Capsule) 500 mg PO Q8 [facility] Stop: 05/11/20 14:01 Furosemide (Furosemide 40 Mg Tablet) 40 mg PO DAILY [facility] ([facility] Hcl 500 Mg Tablet[facility] Nitroglycerin (Nitroglycerin (Inpatient Use) 0.4 Mg Tab.Subl) 0.4 mg SUBLINGUAL Q5M PRN PRN Reason: Chest Pain Nystatin (Nystatin Powder 15gm Bottle) 1 applic TOPICAL BID@0600,2200 [facility]; Protocol Polyethylene Glycol (Polyethylene Glycol 3350 17 Gm Packet) 17 gm PO DAILY [facility] Prednisone (Prednisone 20 Mg Tablet) 40 mg PO DAILY@0800 [facility] Stop: 05/09/20 08:01 Ramipril (Ramipril 2.5 Mg Capsule) 2.5 mg PO DAILY [facility] Tamsulosin HCl (Tamsulosin Hcl 0.4 Mg Capsule) 0.4 mg PO DAILY@0830 [facility] Tuberculin PPD (Tuberculin,Purif.Prot.Deriv. 50 Tu/Ml Vial) 5 tu ID X1 ONE Stop: 05/05/20 10:01 Tuberculin PPD (Tuberculin,Purif.Prot.Deriv. 50 Tu/Ml Vial) 5 tu ID X1 ONE Stop: 05/12/20 10:01 Warfarin Sodium (Warfarin 3 Mg Tablet) 3 mg PO Sa@1700 [facility] Warfarin Sodium (Warfarin 4 Mg Tablet) 4 mg PO SuMoTuWeThFr@1700 [facility] Assessment/Plan All Active Problems (Last Updated 05/04/20 @ 12:[address] Pio Harris MD) Debility (Acute) Multiple falls (Acute) Dislocation, finger, interphalangeal joint (Acute) Fecal impaction of colon (Acute) Back pain (Acute) Urinary tract infection (Acute) Effusion, right knee (Acute) 84 year old male with below past medical history hospitalized for falls secondary to right knee pain, E. Coli urinary tract infection, admitted to TCU with debility, here for rehabilitation, strengthening, prior to discharge home with . * Debility - PT/OT. * Pain - Tylenol 1000MG Q6H PRN pain (1-10). * Bowel - Miralax 17GM daily, Senna/colace 2 tablets BID, MOM 30ML daily PRN, Dulcolax 10MG IN daily PRN, Magnesium Citrate 300ML PO x 1 bottle. * Adult immunization - Administer Prevnar 13, Pneumovax 23, Fluzone, COVID19 vaccine as appropriate. * DVT prophylaxis - Not necessary, already on warfarin. * Coronary Artery Disease - Coreg 6.25MG BID, Ramipril 2.5MG daily, Aspirin 81MG daily, NTG 0.4MG Q5M PRN. * Hyperlipidemia - Atorvastatin 20MG QHS. * E. Coli UTI - Keflex 500MG Q8H thru 05/11/2020. * Edema - Lasix 40MG daily. * Skin irritation - Calmoseptine topical BID. * Diabetes Mellitus II - Metformin 500MG BID. * Tinea Corporis - Nystatin powder topical BID. * Right knee effusion - Prednisone 40MG daily thru 05/09/2020. * BPH - Tamsulosin 0.4MG daily. * Atrial Fibrillation - Coreg 6.25MG BID, warfarin 4MG 5 days/week, 3MG 2 days/week, follow INR.
[2020-05-04] MEDS: Cephalexin 500 MG Capsule PO (21:17)
[2020-05-04] MEDS: Nystatin Powder 15gm Bottle 1 APPLIC TOPICAL (22:29)
[2020-05-04] MEDS: Menthol/Lanolin/Calamine/Znox 113 GM Tube 1 APPLIC TOPICAL (22:30)
[2020-05-04] MEDS: Atorvastatin Calcium 20 MG Tablet PO (22:31)
[2020-05-05 03:11] VITALS: BP 142/80; PULSE 69; RESP 18; TEMP 36.4; O2SAT 94
[2020-05-05 05:40] LABS: Absolute Lymphocyte Count 1.62 X10^3/uL (0.83-4.51); Absolute Neutrophil Count 7.9 X10^3/uL (2.0-7.7); Basophil# 0.02 X10^3/uL; Basophil% 0.2 % (0-1); Eosinophil# 0.06 X10^3/uL; Eosinophils% 0.6 % (0-5); Hematocrit 37.5 % (40-54); Hemoglobin 12.2 g/dL (13.0-16.5); Lymphocyte # 1.62 X10^3/ul (4.0); Lymphocyte % 15.7 % (19-41); Mean Corp Hgb Conc 32.5 g/dL (32-36); Mean Corpuscular Hgb 30.4 pg (27.0-32.0); Mean Corpuscular Volume 93.5 fL (80-94); Mean Platelet Vol. 11.2 fl (6.2-12.0); Monocyte# 0.69 X10^3/uL; Monocyte% 6.7 % (0-10); NRBC Flagged by Analyzer 0 % (0-5); Neutrophil # 7.86 X10^3/uL (2.7-7.7); Neutrophil % 76.3 % (47-70); Platelet Count 137 K/mm3 (150-450); RBC Distribution Width CV 14.1 % (11.6-14.6); RBC Distribution Width SD 48.2 fl (35.1-43.9); Red Blood Count 4.01 M/mm3 (4.6-6.2); White Blood Count 10.3 K/mm3 (4.4-11.0)
[2020-05-05 05:55] LABS: Anion Gap 6 (5-15); BUN 36 mg/dL (7-18); BUN/Creat Ratio 30.3 RATIO (10-20); Calcium,Total 8.6 mg/dL (8.5-10.1); Chloride 106 mmol/L (98-107); Creatinine, Serum 1.19 mg/dL (0.70-1.30); EST Glomerular Filtration Rate 62 mL/min (>60); Est Glom Filt Rate - Afr Amer 75 mL/min (>60); Estimated Creatinine Clearance 52.77 ml/min; Glucose 119 mg/dL (74-106); Potassium 3.9 mmol/L (3.5-5.1); Sodium Level 140 mmol/L (136-145)
[2020-05-05 05:59] LABS: International Normalized Ratio 1.7; Prothrombin Time (Protime)PT. 19.7 SECONDS (11.7-14.9)
[2020-05-05] MEDS: Ramipril 2.5 MG Capsule PO (06:56)
[2020-05-05] MEDS: Cephalexin 500 MG Capsule PO ×3 (06:56→21:04)
[2020-05-05] MEDS: Carvedilol 6.25 MG Tablet PO ×2 (06:56→17:02)
[2020-05-05] MEDS: Furosemide 40 MG Tablet PO (06:56)
[2020-05-05] MEDS: Menthol/Lanolin/Calamine/Znox 113 GM Tube 1 APPLIC TOPICAL ×2 (06:57→21:05)
[2020-05-05] MEDS: Nystatin Powder 15gm Bottle 1 APPLIC TOPICAL ×2 (06:57→21:05)
[2020-05-05] MEDS: predniSONE 20 MG Tablet 40 MG PO (08:22)
[2020-05-05] MEDS: metFORMIN HCl 500 MG Tablet PO ×2 (08:22→17:02)
[2020-05-05] MEDS: Tamsulosin HCl 0.4 MG Capsule PO (08:22)
[2020-05-05] MEDS: Aspirin 81 MG TAB.CHEW PO (08:22)
--- NOTE | 2020-05-05 09:58 | CASEMGMT ---
Social Work Discussed code status with pt. Pt confirmed full code. MOLST form reviewed, communication to , placed in chart. Susan Mccullough, FIELD SUPERVISOR PHOTOGRAPHIC PRINTER
[2020-05-05] MEDS: Tuberculin,Purif.prot.deriv. 50 TU/ML Vial 5 ML ID (10:46)
[2020-05-05 15:20] VITALS: BP 106/55; PULSE 71; RESP 16; TEMP 37; O2SAT 93
[2020-05-06 05:50] VITALS: BP 118/67; PULSE 72; RESP 18; TEMP 36.3; O2SAT 97
[2020-05-06] MEDS: Furosemide 40 MG Tablet PO (05:53)
[2020-05-06] MEDS: Ramipril 2.5 MG Capsule PO (05:53)
[2020-05-06] MEDS: Carvedilol 6.25 MG Tablet PO ×2 (05:53→17:26)
[2020-05-06] MEDS: Cephalexin 500 MG Capsule PO ×3 (05:53→21:58)
[2020-05-06] MEDS: Menthol/Lanolin/Calamine/Znox 113 GM Tube 1 APPLIC TOPICAL ×2 (05:54→21:58)
[2020-05-06] MEDS: Nystatin Powder 15gm Bottle 1 APPLIC TOPICAL ×2 (05:54→21:59)
[2020-05-06 08:12] LABS: International Normalized Ratio 1.7; Prothrombin Time (Protime)PT. 19.1 SECONDS (11.7-14.9)
[2020-05-06] MEDS: Aspirin 81 MG TAB.CHEW PO (08:23)
[2020-05-06] MEDS: metFORMIN HCl 500 MG Tablet PO ×2 (08:23→17:26)
[2020-05-06] MEDS: predniSONE 20 MG Tablet 40 MG PO (08:23)
[2020-05-06] MEDS: Tamsulosin HCl 0.4 MG Capsule PO (08:23)
[2020-05-06] MEDS: Acetaminophen 500 MG Tablet 1000 MG PO (09:51)
[2020-05-06 09:56] VITALS: BP 93/50; PULSE 62; RESP 18; TEMP 36.1; O2SAT 92
[2020-05-06 17:37] VITALS: PULSE 69; RESP 18; O2SAT 97
[2020-05-06 19:36] VITALS: BP 111/65; PULSE 93; RESP 20; TEMP 36.8; O2SAT 95
[2020-05-06] MEDS: Atorvastatin Calcium 20 MG Tablet PO (21:58)
[2020-05-07 06:34] VITALS: BP 131/69; PULSE 70; RESP 16; TEMP 36.2; O2SAT 98
[2020-05-07] MEDS: Carvedilol 6.25 MG Tablet PO ×2 (06:36→17:43)
[2020-05-07] MEDS: Cephalexin 500 MG Capsule PO ×3 (06:36→19:56)
[2020-05-07] MEDS: Ramipril 2.5 MG Capsule PO (06:36)
[2020-05-07] MEDS: Furosemide 40 MG Tablet PO (06:37)
[2020-05-07] MEDS: Nystatin Powder 15gm Bottle 1 APPLIC TOPICAL ×2 (06:37→19:57)
[2020-05-07] MEDS: Menthol/Lanolin/Calamine/Znox 113 GM Tube 1 APPLIC TOPICAL ×2 (06:38→19:58)
[2020-05-07 07:15] LABS: International Normalized Ratio 1.8; Prothrombin Time (Protime)PT. 20.7 SECONDS (11.7-14.9)
[2020-05-07] MEDS: Aspirin 81 MG TAB.CHEW PO (07:50)
[2020-05-07] MEDS: Tamsulosin HCl 0.4 MG Capsule PO (07:51)
[2020-05-07] MEDS: predniSONE 20 MG Tablet 40 MG PO (07:51)
[2020-05-07] MEDS: metFORMIN HCl 500 MG Tablet PO ×2 (07:51→17:43)
[2020-05-07 15:59] VITALS: BP 99/49; PULSE 70; RESP 16; TEMP 36.8; O2SAT 95
[2020-05-08 05:55] VITALS: BP 122/62; PULSE 70; RESP 16; TEMP 37; O2SAT 94
[2020-05-08 05:57] LABS: International Normalized Ratio 1.8; Prothrombin Time (Protime)PT. 20.4 SECONDS (11.7-14.9)
[2020-05-08] MEDS: Nystatin Powder 15gm Bottle 1 APPLIC TOPICAL ×2 (05:57→19:59)
[2020-05-08] MEDS: Carvedilol 6.25 MG Tablet PO ×2 (05:57→17:21)
[2020-05-08] MEDS: Cephalexin 500 MG Capsule PO ×3 (05:57→19:57)
[2020-05-08] MEDS: Furosemide 40 MG Tablet PO (05:58)
[2020-05-08] MEDS: Menthol/Lanolin/Calamine/Znox 113 GM Tube 1 APPLIC TOPICAL ×2 (05:59→19:59)
[2020-05-08] MEDS: Ramipril 2.5 MG Capsule PO (06:00)
[2020-05-08 06:35] LABS: Bedside Glucose 116 mg/dL (70-110)
[2020-05-08] MEDS: Tamsulosin HCl 0.4 MG Capsule PO (07:52)
[2020-05-08] MEDS: predniSONE 20 MG Tablet 40 MG PO (07:52)
[2020-05-08] MEDS: metFORMIN HCl 500 MG Tablet PO ×2 (07:52→17:19)
[2020-05-08] MEDS: Aspirin 81 MG TAB.CHEW PO (07:52)
--- NOTE | 2020-05-08 11:54 | PCM.PN.RX ---
<Makenna Patel - Last Filed: 05/08/20 11:54> Progress Note - Pharmacy Subjective: TCU Admission Objective: Allergies rofecoxib [From Vioxx] Adverse Reaction (Verified 05/02/20 09:39) Other Current Medications Generic Name Dose Route Start Last Admin Trade Name Freq PRN Reason Stop Dose Admin Acetaminophen 1,000 mg 05/04/20 20:28 05/06/20 09:51 Acetaminophen 500 Mg Tablet PO 1,000 mg Q6H PRN PRN Administration Pain Score 1-10 Aspirin 81 mg 05/05/20 08:00 05/08/20 07:52 Aspirin 81 Mg Tab.Chew PO 81 mg DAILY@0800 [facility] Administration Atorvastatin Calcium 20 mg 05/04/20 22:00 05/06/20 21:58 Atorvastatin Calcium 20 Mg Tablet PO 20 mg QODAY@2200 [facility] Administration Bisacodyl 10 mg 05/04/20 17:21 Bisacodyl 10 Mg Suppository RECTAL DAILY PRN CONSTIPATION Calamine/Phenol 1 applic 05/04/20 22:00 05/08/20 05:59 Menthol/Lanolin/Calamine/Znox 113 Gm Tube TOPICAL 1 applicatio BID@0600,2200 [facility] Administration Protocol Carvedilol 6.25 mg 05/04/20 18:00 05/08/20 05:57 Carvedilol 6.25 Mg Tablet PO 6.25 mg BID TJ Administration Cephalexin 500 mg 05/04/20 22:00 05/08/20 05:57 Cephalexin 500 Mg Capsule PO 05/11/20 14:01 500 mg Q8 TJ Administration Furosemide 40 mg 05/05/20 06:00 05/08/20 05:58 Furosemide 40 Mg Tablet PO 40 mg DAILY TJ Administration Magnesium Hydroxide 30 ml 05/04/20 20:27 Magnesium Hydroxide 30 Ml Udc PO DAILY PRN Constipation Metformin HCl 500 mg 05/05/20 08:00 05/08/20 07:52 Metformin Hcl 500 Mg Tablet PO 500 mg BIDCM [facility] Administration Nitroglycerin 0.4 mg 05/04/20 17:09 Nitroglycerin (Inpatient Use) 0.4 Mg Tab.Subl SUBLINGUAL Q5M PRN Chest Pain Nystatin 1 applic 05/04/20 22:00 05/08/20 05:57 Nystatin Powder 15gm Bottle TOPICAL 1 applicatio BID@0600,2200 [facility] Administration Protocol Polyethylene Glycol 17 gm 05/05/20 06:00 05/08/20 05:58 Polyethylene Glycol 3350 17 Gm Packet PO Not Given DAILY [facility] Prednisone 40 mg 05/05/20 08:00 05/08/20 07:52 Prednisone 20 Mg Tablet PO 05/09/20 08:01 40 mg DAILY@0800 [facility] Administration Ramipril 2.5 mg 05/05/20 06:00 05/08/20 06:00 Ramipril 2.5 Mg Capsule PO 2.5 mg DAILY [facility] Administration Senna/Docusate Sodium 2 tablet 05/05/20 06:00 05/08/20 05:58 Senna/Docusate Sodium 1 Tablet PO Not Given BID [facility] Tamsulosin HCl 0.4 mg 05/05/20 08:30 05/08/20 07:52 Tamsulosin Hcl 0.4 Mg Capsule PO 0.4 mg DAILY@0830 [facility] Administration Tuberculin PPD 5 tu 05/12/20 10:00 Tuberculin,Purif.Prot.Deriv. 50 Tu/Ml Vial ID 05/12/20 10:01 X1 ONE Warfarin Sodium 3 mg 05/06/20 17:00 05/06/20 17:26 Warfarin 3 Mg Tablet PO 3 mg Sa@1700 [facility] Administration Warfarin Sodium 4 mg 05/05/20 17:00 05/07/20 17:44 Warfarin 4 Mg Tablet PO 4 mg SuMoTuWeThFr@1700 [facility] Administration Problem List (Last Updated 05/04/20 @ 12:[address] Pio Harris MD) Debility (Acute) Multiple falls (Acute) Dislocation, finger, interphalangeal joint (Acute) Fecal impaction of colon (Acute) Back pain (Acute) Urinary tract infection (Acute) Coronary artery disease (Chronic) Hypertension (Chronic) Atrial fibrillation (Chronic) Diabetes mellitus (Chronic) BPH (benign prostatic hyperplasia) (Chronic) Failure to thrive (Chronic) Effusion, right knee (Acute) HLD (hyperlipidemia) (Chronic) Vital Signs Temp Pulse Resp BP Pulse Ox 98.6 F 70 16 122/62 H 94 05/08/20 05:55 05/08/20 05:55 05/08/20 05:55 05/08/20 05:55 05/08/20 05:55 Oxygen Delivery Method Room Air Weight: 105.3 kg Body Mass Index (BMI) 29.7 Sodium 140 mmol/L (136-145) 05/05/20 05:15 Potassium 3.9 mmol/L (3.5-5.1) 05/05/20 05:15 Chloride 106 mmol/L (98-107) 05/05/20 05:15 Carbon Dioxide 28.0 mmol/L (21.0-32.0) 05/05/20 05:15 Anion Gap 6 (5-15) 05/05/20 05:15 BUN 36 mg/dL (7-18) H 05/05/20 05:15 Creatinine 1.19 mg/dL (0.70-1.30) 05/05/20 05:15 Est GFR (MDRD) Af Amer 75 mL/min (>60) 05/05/20 05:15 Est GFR (MDRD) Non-Af 62 mL/min (>60) 05/05/20 05:15 BUN/Creatinine Ratio 30.3 RATIO (10-20) H 05/05/20 05:15 Glucose 119 mg/dL (74-106) H 05/05/20 05:15 Assessment/Plan: 1. Pain: acetaminophen 1000mg PO Q6H PRN pain 1-02/04. Please continue to monitor for increased pain and PRN usage. 2. E coli UTI: cephalexin 500mg PO Q8H thru 05/11/20. Please continue to monitor for S/S of infection, diarrhea, and renal function. 3. Right knee effusion: prednisone 40mg PO DAILYCM thru 05/09/20. Please continue to monitor for increased blood glucose, increased WBC, and insomnia. 4. CAD/atrial fibrillation: carvedilol 6.25mg PO BID, ramipril 2.5mg PO daily, aspirin 81mg PO DAILYCM, warfarin 3mg PO on Friday/4mg PO all other days, and nitroglycerin 0.4mg SL Q5M PRN chest pain. Please continue to monitor HR (last 70), BP (last 122/62), potassium (last 3.9 mmol/L), cough, renal function, S/S of bleeding, and daily INR (last 1.8). 5. Hyperlipidemia: atorvastatin 20mg PO every other day. Please continue to monitor lipid panel and for muscle pain. 6. Edema: furosemide 40mg PO daily. Please continue to monitor for edema, renal function and potassium. *7. Diabetes mellitus II: metformin 500mg PO BID. Please consider ordering a hemoglobin A1c. Last level was 6.4% from 01/2018. Thanks. Please continue to monitor renal function, S/S of hypoglycemia, and blood sugars. 8. BPH: tamsulosin 0.4mg PO daily. Please continue to monitor for hypotension and urine flow. Psychotropic Medications: None Unnecessary Medications: None *Bowel Regimen: Miralax 17gm PO daily, senna/docusate 2T PO BID, MOM 30mL PO daily PRN constipation, and bisacodyl 10mg SC daily PRN constipation. Patient has refused 4/4 doses of Miralax and 7/7 doses of senna/docusate. Please consider changing from scheduled to PRN. Please continue to monitor for constipation and PRN usage. Date of Note:: 05/08/20 - Provider Comments Provider responsibility: Provider responsible to enter orders to implement recommendations <Bao Arellano Chi - Last Filed: 05/08/20 12:54> Progress Note - Pharmacy Subjective: [] Objective: Allergies rofecoxib [From Vioxx] Adverse Reaction (Verified 05/02/20 09:39) Other Current Medications Generic Name Dose Route Start Last Admin Trade Name Freq PRN Reason Stop Dose Admin Acetaminophen 1,000 mg 05/04/20 20:28 05/06/20 09:51 Acetaminophen 500 Mg Tablet PO 1,000 mg Q6H PRN PRN Administration Pain Score 1-10 Aspirin 81 mg 05/05/20 08:00 05/08/20 07:52 Aspirin 81 Mg Tab.Chew PO 81 mg DAILY@0800 [facility] Administration Atorvastatin Calcium 20 mg 05/04/20 22:00 05/06/20 21:58 Atorvastatin Calcium 20 Mg Tablet PO 20 mg QODAY@2200 [facility] Administration Bisacodyl 10 mg 05/04/20 17:21 Bisacodyl 10 Mg Suppository RECTAL DAILY PRN CONSTIPATION Calamine/Phenol 1 applic 05/04/20 22:00 05/08/20 05:59 Menthol/Lanolin/Calamine/Znox 113 Gm Tube TOPICAL 1 applicatio BID@0600,2200 [facility] Administration Protocol Carvedilol 6.25 mg 05/04/20 18:00 05/08/20 05:57 Carvedilol 6.25 Mg Tablet PO 6.25 mg BID [facility] Administration Cephalexin 500 mg 05/04/20 22:00 05/08/20 05:57 Cephalexin 500 Mg Capsule PO 05/11/20 14:01 500 mg Q8 TJ Administration Furosemide 40 mg 05/05/20 06:00 05/08/20 05:58 Furosemide 40 Mg Tablet PO 40 mg DAILY TJ Administration Magnesium Hydroxide 30 ml 05/04/20 20:27 Magnesium Hydroxide 30 Ml Udc PO DAILY PRN Constipation Metformin HCl 500 mg 05/05/20 08:00 05/08/20 07:52 Metformin Hcl 500 Mg Tablet PO 500 mg BIDCM [facility] Administration Nitroglycerin 0.4 mg 05/04/20 17:09 Nitroglycerin (Inpatient Use) 0.4 Mg Tab.Subl SUBLINGUAL Q5M PRN Chest Pain Nystatin 1 applic 05/04/20 22:00 05/08/20 05:57 Nystatin Powder 15gm Bottle TOPICAL 1 applicatio BID@0600,2200 [facility] Administration Protocol Polyethylene Glycol 17 gm 05/05/20 06:00 05/08/20 05:58 Polyethylene Glycol 3350 17 Gm Packet PO Not Given DAILY [facility] Prednisone 40 mg 05/05/20 08:00 05/08/20 07:52 Prednisone 20 Mg Tablet PO 05/09/20 08:01 40 mg DAILY@0800 [facility] Administration Ramipril 2.5 mg 05/05/20 06:00 05/08/20 06:00 Ramipril 2.5 Mg Capsule PO 2.5 mg DAILY [facility] Administration Senna/Docusate Sodium 2 tablet 05/05/20 06:00 05/08/20 05:58 Senna/Docusate Sodium 1 Tablet PO Not Given BID [facility] Tamsulosin HCl 0.4 mg 05/05/20 08:30 05/08/20 07:52 Tamsulosin Hcl 0.4 Mg Capsule PO 0.4 mg DAILY@0830 [facility] Administration Tuberculin PPD 5 tu 05/12/20 10:00 Tuberculin,Purif.Prot.Deriv. 50 Tu/Ml Vial ID 05/12/20 10:01 X1 ONE Warfarin Sodium 3 mg 05/06/20 17:00 05/06/20 17:26 Warfarin 3 Mg Tablet PO 3 mg Sa@1700 [facility] Administration Warfarin Sodium 4 mg 05/05/20 17:00 05/07/20 17:44 Warfarin 4 Mg Tablet PO 4 mg SuMoTuWeThFr@1700 [facility] Administration Problem List (Last Updated 05/04/20 @ 12:[address] Pio Harris MD) Debility (Acute) Multiple falls (Acute) Dislocation, finger, interphalangeal joint (Acute) Fecal impaction of colon (Acute) Back pain (Acute) Urinary tract infection (Acute) Coronary artery disease (Chronic) Hypertension (Chronic) Atrial fibrillation (Chronic) Diabetes mellitus (Chronic) BPH (benign prostatic hyperplasia) (Chronic) Failure to thrive (Chronic) Effusion, right knee (Acute) HLD (hyperlipidemia) (Chronic) Vital Signs Temp Pulse Resp BP Pulse Ox 98.6 F 70 16 122/62 H 94 05/08/20 05:55 05/08/20 05:55 05/08/20 05:55 05/08/20 05:55 05/08/20 05:55 Oxygen Delivery Method Room Air Weight: 105.3 kg Body Mass Index (BMI) 29.7 Sodium 140 mmol/L (136-145) 05/05/20 05:15 Potassium 3.9 mmol/L (3.5-5.1) 05/05/20 05:15 Chloride 106 mmol/L (98-107) 05/05/20 05:15 Carbon Dioxide 28.0 mmol/L (21.0-32.0) 05/05/20 05:15 Anion Gap 6 (5-15) 05/05/20 05:15 BUN 36 mg/dL (7-18) H 05/05/20 05:15 Creatinine 1.19 mg/dL (0.70-1.30) 05/05/20 05:15 Est GFR (MDRD) Af Amer 75 mL/min (>60) 05/05/20 05:15 Est GFR (MDRD) Non-Af 62 mL/min (>60) 05/05/20 05:15 BUN/Creatinine Ratio 30.3 RATIO (10-20) H 05/05/20 05:15 Glucose 119 mg/dL (74-106) H 05/05/20 05:15 Assessment/Plan: Psychotropic Medications: Unnecessary Medications: Bowel Regimen: - Provider Comments Provider responsibility: Provider responsible to enter orders to implement recommendations Provider Comments to Recommendations by Pharmacy: Agree
[2020-05-08 14:37] VITALS: BP 88/57; PULSE 69; RESP 16; TEMP 36.3; O2SAT 96
[2020-05-08 17:23] VITALS: BP 110/55; PULSE 69
--- NOTE | 2020-05-08 18:15 | RAD_ITS ---
HISTORY: right knee pain after fall, swelling and bruising medially Technique: 4 views of the right knee Comparison: None available Findings: No acute fracture or dislocation. Tricompartment osteoarthritis is present. This disease manifested by loss of joint space, abutting cortical sclerosis, and osteophytes. A small knee effusion is present. Atherosclerosis is severe., No focal abnormality or radiopaque foreign body is seen in the surrounding soft tissues. RAD/Knee 4 or More Views IMPRESSION: Tricompartment osteoarthritis. Severe atherosclerosis at 2129 Reported and signed by: Eric Zaldivar MD Electronically Signed: Eric Zaldivar MD at 21:28 EST Tel , Service support ,
--- NOTE | 2020-05-08 18:35 | NURSING ---
pt c/o rt knee pain, 1-2+ edema. Bruise rt knee & states pain goes all the way down the leg & rt knee, keeps giving out. dr golden updated, new order for xray RT knee, doppler, medrol dose sonia started.
[2020-05-08] MEDS: Atorvastatin Calcium 20 MG Tablet PO (19:57)
[2020-05-08] MEDS: MethylPREDNISolone DosePak 4 MG BOX PO (19:58)
[2020-05-09 05:18] VITALS: BP 127/78; PULSE 66; RESP 16; TEMP 36.7; O2SAT 95
[2020-05-09] MEDS: Carvedilol 6.25 MG Tablet PO ×2 (05:19→17:55)
[2020-05-09] MEDS: Cephalexin 500 MG Capsule PO ×3 (05:19→21:31)
[2020-05-09] MEDS: Nystatin Powder 15gm Bottle 1 APPLIC TOPICAL ×2 (05:20→21:34)
[2020-05-09] MEDS: Menthol/Lanolin/Calamine/Znox 113 GM Tube 1 APPLIC TOPICAL ×2 (05:20→21:35)
[2020-05-09] MEDS: Furosemide 40 MG Tablet PO (05:21)
[2020-05-09] MEDS: Ramipril 2.5 MG Capsule PO (05:21)
[2020-05-09 05:54] LABS: International Normalized Ratio 1.9; Prothrombin Time (Protime)PT. 21.6 SECONDS (11.7-14.9)
[2020-05-09 06:15] LABS: Bedside Glucose 201 mg/dL (70-110)
[2020-05-09] MEDS: MethylPREDNISolone DosePak 4 MG BOX PO ×4 (07:58→21:31)
[2020-05-09] MEDS: metFORMIN HCl 500 MG Tablet PO ×2 (07:59→17:55)
[2020-05-09] MEDS: Tamsulosin HCl 0.4 MG Capsule PO (07:59)
[2020-05-09] MEDS: Aspirin 81 MG TAB.CHEW PO (07:59)
[2020-05-09] MEDS: predniSONE 20 MG Tablet 40 MG PO (07:59)
[2020-05-09 16:00] VITALS: BP 106/54; PULSE 68; RESP 18; TEMP 36.9; O2SAT 92
[2020-05-10 06:20] VITALS: BP 135/70; PULSE 68; RESP 18; TEMP 36.6; O2SAT 97
[2020-05-10 06:21] LABS: Bedside Glucose 154 mg/dL (70-110)
[2020-05-10] MEDS: Furosemide 40 MG Tablet PO (06:22)
[2020-05-10] MEDS: Carvedilol 6.25 MG Tablet PO ×2 (06:22→16:37)
[2020-05-10] MEDS: Ramipril 2.5 MG Capsule PO (06:22)
[2020-05-10] MEDS: Cephalexin 500 MG Capsule PO ×3 (06:22→21:28)
[2020-05-10] MEDS: Nystatin Powder 15gm Bottle 1 APPLIC TOPICAL ×2 (06:24→21:26)
[2020-05-10] MEDS: Menthol/Lanolin/Calamine/Znox 113 GM Tube 1 APPLIC TOPICAL ×2 (06:25→21:27)
[2020-05-10] MEDS: metFORMIN HCl 500 MG Tablet PO ×2 (08:17→16:37)
[2020-05-10] MEDS: MethylPREDNISolone DosePak 4 MG BOX PO ×4 (08:18→21:27)
[2020-05-10] MEDS: Tamsulosin HCl 0.4 MG Capsule PO (08:18)
[2020-05-10] MEDS: Aspirin 81 MG TAB.CHEW PO (08:18)
--- NOTE | 2020-05-10 10:08 | CASEMGMT ---
Social Work IDT met with patient and via conference call for care plan meeting. Discussed patient's progress in therapy. Pt is SBA for bed mobility, CGA for tx using lift seat for height, CGA for ambulating 80 ft with FWW. Pt is supervised for grooming, SBA for bathing, supervised for UE dressing, Nidia for LE dressing, CGA for toileting and uses urinal. Pt is CCD, SULEMA, good intake, weight stable. Pt is out of isolation 05/18. [facility] and continued stay is not guaranteed. The goal is for pt to return to [facility] with . needs pt to be independent to return. Pt requesting outpatient therapy at [facility] at [place]. SW to continue to follow for [place] plans and insurance outcome. Susan Mccullough, [employer] TRA[employer] SWEEPER DRIVER
[2020-05-10 13:45] VITALS: BP 104/47; PULSE 70; RESP 16; TEMP 36.3; O2SAT 100
[2020-05-10] MEDS: Atorvastatin Calcium 20 MG Tablet PO (21:27)
[2020-05-11 05:57] VITALS: BP 133/73; PULSE 72; RESP 16; TEMP 37.1; O2SAT 97
[2020-05-11] MEDS: Carvedilol 6.25 MG Tablet PO ×2 (05:59→16:11)
[2020-05-11] MEDS: Ramipril 2.5 MG Capsule PO (05:59)
[2020-05-11] MEDS: Cephalexin 500 MG Capsule PO ×2 (05:59→12:03)
[2020-05-11] MEDS: Furosemide 40 MG Tablet PO (05:59)
[2020-05-11] MEDS: Menthol/Lanolin/Calamine/Znox 113 GM Tube 1 APPLIC TOPICAL ×2 (06:00→21:47)
[2020-05-11] MEDS: Nystatin Powder 15gm Bottle 1 APPLIC TOPICAL ×2 (06:00→21:47)
[2020-05-11 06:25] LABS: Bedside Glucose 139 mg/dL (70-110)
[2020-05-11] MEDS: MethylPREDNISolone DosePak 4 MG BOX PO ×3 (07:49→21:46)
[2020-05-11] MEDS: Tamsulosin HCl 0.4 MG Capsule PO (07:49)
[2020-05-11] MEDS: metFORMIN HCl 500 MG Tablet PO ×2 (07:49→16:11)
[2020-05-11] MEDS: Aspirin 81 MG TAB.CHEW PO (07:49)
[2020-05-11 13:05] VITALS: BP 85/54; PULSE 65; RESP 17; TEMP 36.1; O2SAT 98
[2020-05-11 16:10] VITALS: BP 100/60; PULSE 70; O2SAT 98
[2020-05-12 06:02] VITALS: BP 144/74; PULSE 70; RESP 18; TEMP 36.6; O2SAT 98
[2020-05-12] MEDS: Carvedilol 6.25 MG Tablet PO ×2 (06:04→16:46)
[2020-05-12] MEDS: Menthol/Lanolin/Calamine/Znox 113 GM Tube 1 APPLIC TOPICAL ×2 (06:04→20:26)
[2020-05-12] MEDS: Nystatin Powder 15gm Bottle 1 APPLIC TOPICAL ×2 (06:04→20:25)
[2020-05-12] MEDS: Ramipril 2.5 MG Capsule PO (06:04)
[2020-05-12] MEDS: Furosemide 40 MG Tablet PO (06:04)
[2020-05-12 06:05] LABS: Absolute Lymphocyte Count 1.87 X10^3/uL (0.83-4.51); Absolute Neutrophil Count 6.4 X10^3/uL (2.0-7.7); Basophil# 0.01 X10^3/uL; Basophil% 0.1 % (0-1); Eosinophil# 0.08 X10^3/uL; Eosinophils% 0.9 % (0-5); Hematocrit 38.6 % (40-54); Hemoglobin 12.7 g/dL (13.0-16.5); Lymphocyte # 1.87 X10^3/ul (4.0); Lymphocyte % 20.4 % (19-41); Mean Corp Hgb Conc 32.9 g/dL (32-36); Mean Corpuscular Hgb 30.5 pg (27.0-32.0); Mean Corpuscular Volume 92.8 fL (80-94); Monocyte# 0.73 X10^3/uL; NRBC Flagged by Analyzer 0 % (0-5); Neutrophil % 69.8 % (47-70); Platelet Count 153 K/mm3 (150-450); RBC Distribution Width CV 14.4 % (11.6-14.6); RBC Distribution Width SD 48.7 fl (35.1-43.9); Red Blood Count 4.16 M/mm3 (4.6-6.2); White Blood Count 9.2 K/mm3 (4.4-11.0)
[2020-05-12 06:25] LABS: Bedside Glucose 149 mg/dL (70-110)
[2020-05-12 06:29] LABS: Anion Gap 4 (5-15); BUN 53 mg/dL (7-18); BUN/Creat Ratio 47.3 RATIO (10-20); Calcium,Total 8.7 mg/dL (8.5-10.1); Chloride 104 mmol/L (98-107); Creatinine, Serum 1.12 mg/dL (0.70-1.30); EST Glomerular Filtration Rate 66 mL/min (>60); Est Glom Filt Rate - Afr Amer 80 mL/min (>60); Estimated Creatinine Clearance 56.06 ml/min; Glucose 152 mg/dL (74-106); Potassium 4.4 mmol/L (3.5-5.1); Sodium Level 137 mmol/L (136-145)
[2020-05-12] MEDS: MethylPREDNISolone DosePak 4 MG BOX PO ×2 (08:19→20:25)
[2020-05-12] MEDS: Tamsulosin HCl 0.4 MG Capsule PO (08:20)
[2020-05-12] MEDS: Aspirin 81 MG TAB.CHEW PO (08:20)
[2020-05-12] MEDS: metFORMIN HCl 500 MG Tablet PO ×2 (08:20→16:46)
[2020-05-12] MEDS: Tuberculin,Purif.prot.deriv. 50 TU/ML Vial 5 ML ID (11:34)
[2020-05-12 13:54] VITALS: BP 116/61; PULSE 72; RESP 16; TEMP 36.2; O2SAT 95
--- NOTE | 2020-05-12 14:11 | CASEMGMT ---
Social Work Spoke with pt about requesting to DC 05/16. IDT agreeable. Pt requesting HHC vs OP due to weather and safety precautions. Pt agreeable to [facility]. Referral made for PT/OT. No DME needs. Pt to return to [facility] apartment with . Plan; DC home with to [facility], [facility] PT/OT YULIET MackW
--- NOTE | 2020-05-12 14:49 | DCINST_ITS ---
- Discharge Diagnoses Current Active Problems: Current Active and Chronic Problems (Last Updated 05/04/20 @ 12:[address] Pio Harris MD) Debility (Acute) Multiple falls (Acute) Dislocation, finger, interphalangeal joint (Acute) Fecal impaction of colon (Acute) Back pain (Acute) Urinary tract infection (Acute) Coronary artery disease (Chronic) Hypertension (Chronic) Atrial fibrillation (Chronic) Diabetes mellitus (Chronic) BPH (benign prostatic hyperplasia) (Chronic) Failure to thrive (Chronic) Effusion, right knee (Acute) HLD (hyperlipidemia) (Chronic) You will use the following diet at home:: No restrictions, Regular Your food should be the consistency of: Regular Your liquids should be the consistency of: Regular/Thin Discharge Activity: Return to Normal Activity, May Shower, Use Walker Weight Bearing Status: Weight bearing as tolerated Call your doctor if you observe: Fever of 101 or Higher, Inability to urinate, Inability to have a bowel movement, Shortness of breath, Chest pain, Uncontrolled pain Allergies/Adverse Reactions: Allergies rofecoxib [From Vioxx] Adverse Reaction (Verified 05/02/20 09:39) Other Medications to take at Discharge Aspirin [Aspirin, Baby] 81 mg PO DAILY@0800 12/02/13 metFORMIN HCl [Glucophage] 500 mg PO BIDCM 12/02/13 Nitroglycerin (INPATIENT USE) [Nitrostat] 0.4 mg SUBLINGUAL Q5M PRN #1 bottle 07/04/16 ramipril 2.5 mg capsule 2.5 mg PO DAILY cap 03/21/20 tamsulosin 0.4 mg capsule 0.4 mg PO DAILY cap 03/21/20 Warfarin Sodium 3 mg PO SA 05/02/20 Warfarin Sodium 4 mg PO SUMOTUWETHFR 05/02/20 Carvedilol 6.25 mg PO BID 05/04/20 Furosemide 40 mg PO DAILY 05/04/20 Simvastatin 40 mg PO QODAY 05/04/20 Acetaminophen [Tylenol] 1,000 mg PO Q6H PRN PRN tablet 05/12/20 Menthol/Lanolin/Calamine/Znox [Calmoseptine Ointment] 1 applic TOPICAL BID@0600,2200 tube 05/12/20 Nystatin Powder [Mycostatin Powder] 1 applic TOPICAL BID@0600,2200 bottle 05/12/20 Primary Care Physician: Gurjit Salomon MD [Primary Care Provider] - Please follow up with your Primary Care Physician in: 1 week. Test Results: Test results from this visit will be discussed in further detail at your follow- up appointment, if applicable. Please Follow Up With: Gurjit Salomon When: 1 week Please Follow Up With: [facility] When: F/U in recurrent knee pain Proposed Discharge Date: 05/16/20
--- NOTE | 2020-05-12 14:51 | DS.PCM_ITS ---
Discharge Date and Diagnosis - Problem List Patient Problems: Active and Suspected Problems (Last Updated 05/04/20 @ 12:[address] iPo Harris MD) Debility (Acute) Multiple falls (Acute) Dislocation, finger, interphalangeal joint (Acute) Fecal impaction of colon (Acute) Back pain (Acute) Urinary tract infection (Acute) Effusion, right knee (Acute) Date of Admission: 05/04/20 Date of Discharge: 05/16/20 - Primary Discharge Diagnosis Acute Problems: Active Problems (Last Updated 05/04/20 @ 12:[address] Pio Harris MD) Debility (Acute) Multiple falls (Acute) Dislocation, finger, interphalangeal joint (Acute) Fecal impaction of colon (Acute) Back pain (Acute) Urinary tract infection (Acute) Effusion, right knee (Acute) - Secondary Discharge Diagnosis Chronic Problems: Chronic Problems (Last Updated 05/04/20 @ 12:[address] 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) Pacemaker Implant November 2001; Generator change of pacemaker 05/02/09; ICD gen change 09/15/14; Atherosclerotic heart disease of [place] coronary artery without angina pectoris (Chronic) History of coronary artery stent placement (Chronic 08/20/05) PCI-RAQUEL-Mid RPDA and mid RPLB w/ 2.5 x 12 mm Taxus x 2 08/21/2005 Cardiomyopathy, ischemic (Chronic) Sick sinus syndrome (Chronic) Secondary pulmonary arterial hypertension (Chronic) Longstanding persistent atrial fibrillation (Chronic) Paroxysmal atrial flutter (Chronic) Essential (primary) hypertension (Chronic) HLD (hyperlipidemia) (Chronic) prison current use of anticoagulant (Chronic) Hospital Course and Treatment Imaging Results: 05/05/20 14:28 Diet: Carbohydrate Controlled Food consistency:: Regular Liquid Consistency:: Regular/Thin Dietary Modifications:: No Added Salt Is pt able to select menu?: Yes Clinical Impression(s) from Imaging Studies Knee X-Ray 05/08/20 18:15 IMPRESSION: Tricompartment osteoarthritis. Severe atherosclerosis at 2129 Reported and signed by: Eric Zaldivar MD Electronically Signed: Eric Zaldivar MD at 21:28 EST Tel , Service support , Labs (Last 48 Hours) 05/11/20 05/12/20 05/12/20 06:14 05:27 05:27 WBC 9.2 RBC 4.16 L Hgb 12.7 L Hct 38.6 L MCV 92.8 MCH 30.5 MCHC 32.9 RDW Std Deviation 48.7 H RDW Coeff of Dena 14.4 Plt Count 153 MPV 11.0 Immature Gran % (Auto) 0.800 Neut % (Auto) 69.8 Lymph % (Auto) 20.4 [place] % (Auto) 8.0 Eos % (Auto) 0.9 Baso % (Auto) 0.1 Absolute Neuts (auto) 6.4 Absolute Lymphs (auto) 1.87 Nucleated RBC % 0 Sodium 137 Potassium 4.4 Chloride 104 Carbon Dioxide 29.0 Anion Gap 4 L BUN 53 H Creatinine 1.12 Estim Creat Clear Calc 56.06 Est GFR (MDRD) Af Amer 80 Est GFR (MDRD) Non-Af 66 BUN/Creatinine Ratio 47.3 H Glucose 152 H Calcium 8.7 POC Glucose 139 H 05/12/20 06:13 WBC RBC Hgb Hct MCV MCH MCHC RDW Std Deviation RDW Coeff of Dena Plt Count MPV Immature Gran % (Auto) Neut % (Auto) Lymph % (Auto) [place] % (Auto) Eos % (Auto) Baso % (Auto) Absolute Neuts (auto) Absolute Lymphs (auto) Nucleated RBC % Sodium Potassium Chloride Carbon Dioxide Anion Gap BUN Creatinine Estim Creat Clear Calc Est GFR (MDRD) Af Amer Est GFR (MDRD) Non-Af BUN/Creatinine Ratio Glucose Calcium POC Glucose 149 H Operations: None Procedures: None Summary of Care Provided: The patient is a 84 year old Male with below past medical history hospitalized for falls secondary to right knee pain, E. Coli urinary tract infection, admitted to TCU with debility, here for rehabilitation, strengthening, prior to discharge home with . Discharge home with to [facility], [facility] PT/OT. Patient Problems: Active and Suspected Problems (Last Updated 05/04/20 @ 12:[address] Pio Harris MD) Debility (Acute) Multiple falls (Acute) Dislocation, finger, interphalangeal joint (Acute) Fecal impaction of colon (Acute) Back pain (Acute) Urinary tract infection (Acute) Effusion, right knee (Acute) - Physical Exam Vitals/I&O's: Vital Signs Temp Pulse Resp BP Pulse Ox 97.2 F L 72 16 116/61 95 05/12/20 13:54 05/12/20 13:54 05/12/20 13:54 05/12/20 13:54 05/12/20 13:54 Oxygen Delivery Method Room Air Weight: 105.3 kg Body Mass Index (BMI) 29.7 Intake and Output for Last 24 Hours 05/10/20 05/11/20 05/12/20 23:59 23:59 23:59 Intake Total 1140 / 1140 960 / 960 480 / 480 Output Total 400 / 400 500 / 500 Balance 740 / 740 460 / 460 480 / 480 Laboratory Results 05/12/20 05:27: WBC 9.2, RBC 4.16 L, Hgb 12.7 L, Hct 38.6 L, MCV 92.8, MCH 30.5, MCHC 32.9, RDW Std Deviation 48.7 H, RDW Coeff of Dena 14.4, Plt Count 153, MPV 11.0, Immature Gran % (Auto) 0.800, Neut % (Auto) 69.8, Lymph % (Auto) 20.4, [place] % (Auto) 8.0, Eos % (Auto) 0.9, Baso % (Auto) 0.1, Absolute Neuts (auto) 6.4, Absolute Lymphs (auto) 1.87, Nucleated RBC % 0 05/12/20 05:27: Sodium 137, Potassium 4.4, Chloride 104, Carbon Dioxide 29.0, Anion Gap 4 L, BUN 53 H, Creatinine 1.12, Estim Creat Clear Calc 56.06, Est GFR (MDRD) Af Amer 80, Est GFR (MDRD) Non-Af 66, BUN/Creatinine Ratio 47.3 H, Glucose 152 H, Calcium 8.7 05/12/20 06:13: POC Glucose 149 H Current Medications Acetaminophen (Acetaminophen 500 Mg Tablet) 1,000 mg PO Q6H PRN PRN PRN Reason: Pain Score 1-10 Last Admin: 05/06/20 09:51 Dose: 1,000 mg Documented by: Aspirin (Aspirin 81 Mg Tab.Chew) 81 mg PO DAILY@0800 [facility] Last Admin: 05/12/20 08:20 Dose: 81 mg Documented by: Atorvastatin Calcium (Atorvastatin Calcium 20 Mg Tablet) 20 mg PO QODAY@2199 [facility] Last Admin: 05/10/20 21:27 Dose: 20 mg Documented by: Bisacodyl (Bisacodyl 10 Mg Suppository) 10 mg RECTAL DAILY PRN PRN Reason: CONSTIPATION Calamine/Phenol (Menthol/Lanolin/Calamine/Znox 113 Gm Tube) 1 applic TOPICAL BID@0600,2199 [facility]; Protocol Last Admin: 05/12/20 06:04 Dose: 1 applicatio Documented by: Carvedilol (Carvedilol 6.25 Mg Tablet) 6.25 mg PO BID [facility] Last Admin: 05/12/20 06:04 Dose: 6.25 mg Documented by: Furosemide (Furosemide 40 Mg Tablet) 40 mg PO DAILY [facility] Last Admin: 05/12/20 06:04 Dose: 40 mg Documented by: Magnesium Hydroxide (Magnesium Hydroxide 30 Ml Udc) 30 ml PO DAILY PRN PRN Reason: Constipation Metformin [facility] ([facility] Hcl 500 Mg Tablet) [facility] Last Admin: 05/12/20 08:20 Dose: 500 mg Documented by: Methylprednisolone (Methylprednisolone Dosepak 4 Mg Box) 4 mg PO 799,2199 [facility]; Taper Stop: 05/13/20 08:59 Last Admin: 05/12/20 08:19 Dose: 4 mg Documented by: Nitroglycerin (Nitroglycerin (Inpatient Use) 0.4 Mg Tab.Subl) 0.4 mg SUBLINGUAL Q5M PRN PRN Reason: Chest Pain Nystatin (Nystatin Powder 15gm Bottle) 1 applic TOPICAL BID@0600,2200 [facility]; Protocol Last Admin: 05/12/20 06:04 Dose: 1 applicatio Documented by: Polyethylene Glycol (Polyethylene Glycol 3350 17 Gm Packet) 17 gm PO DAILY [facility] Last Admin: 05/12/20 06:04 Dose: Not Given Documented by: Ramipril (Ramipril 2.5 Mg Capsule) 2.5 mg PO DAILY [facility] Last Admin: 05/12/20 06:04 Dose: 2.5 mg Documented by: Senna/Docusate Sodium (Senna/Docusate Sodium 1 Tablet) 2 tablet PO BID [facility] Last Admin: 05/12/20 06:04 Dose: Not Given Documented by: Tamsulosin HCl (Tamsulosin Hcl 0.4 Mg Capsule) 0.4 mg PO DAILY@0830 [facility] Last Admin: 05/12/20 08:20 Dose: 0.4 mg Documented by: Warfarin Sodium (Warfarin 3 Mg Tablet) 3 mg PO Sa@1700 [facility] Last Admin: 05/06/20 17:26 Dose: 3 mg Documented by: Warfarin Sodium (Warfarin 4 Mg Tablet) 4 mg PO [id number]@170 [facility] Last Admin: 05/11/20 16:16 Dose: 4 mg Documented by: Discharge Diet: No Restrictions Discharge Activity: Return to Normal Activity, May Shower, Use Walker Weight Bearing Status: Weight bearing as tolerated Call your doctor if you observe: Fever of 101 or Higher, Inability to urinate, Inability to have a bowel movement, Shortness of breath, Chest pain, Uncontrolled pain Home Medications: Medications to take at Discharge Aspirin [Aspirin, Baby] 81 mg PO DAILY@0800 12/02/13 metFORMIN HCl [Glucophage] 500 mg PO BIDCM 12/02/13 Nitroglycerin (INPATIENT USE) [Nitrostat] 0.4 mg SUBLINGUAL Q5M PRN #1 bottle 07/04/16 ramipril 2.5 mg capsule 2.5 mg PO DAILY cap 03/21/20 tamsulosin 0.4 mg capsule 0.4 mg PO DAILY cap 03/21/20 Warfarin Sodium 3 mg PO SA 05/02/20 Warfarin Sodium 4 mg PO SUMOTUWETHFR 05/02/20 Carvedilol 6.25 mg PO BID 05/04/20 Furosemide 40 mg PO DAILY 05/04/20 Simvastatin 40 mg PO QODAY 05/04/20 Acetaminophen [Tylenol] 1,000 mg PO Q6H PRN PRN tablet 05/12/20 Menthol/Lanolin/Calamine/Znox [Calmoseptine Ointment] 1 applic TOPICAL BID@0600,2200 tube 05/12/20 Nystatin Powder [Mycostatin Powder] 1 applic TOPICAL BID@0600,2200 bottle 05/12/20 Primary Care Physician: Gurjit Salomon MD [Primary Care Provider] - Please follow up with your Primary Care Physician in: 1 week. Please Follow Up With: Gurjit Salomon When: 1 week Please Follow Up With: [facility] When: F/U in recurrent knee pain Disposition: Home with Home Health Minutes spent on discharge:: 35 Patient Condition:: Stable Medical Necessity - Tobacco Use Smoking Status: Never smoker Tobacco Use: Non-smoker Meaningful Use Info Meaningful Use Diagnoses (Choose all that apply): None applicable
[2020-05-12] MEDS: Atorvastatin Calcium 20 MG Tablet PO (20:25)
[2020-05-13 05:09] VITALS: BP 115/50; PULSE 70; RESP 18; TEMP 36.8; O2SAT 96
[2020-05-13] MEDS: Carvedilol 6.25 MG Tablet PO ×2 (05:11→17:42)
[2020-05-13] MEDS: Ramipril 2.5 MG Capsule PO (05:11)
[2020-05-13] MEDS: Menthol/Lanolin/Calamine/Znox 113 GM Tube 1 APPLIC TOPICAL ×2 (05:12→20:45)
[2020-05-13] MEDS: Furosemide 40 MG Tablet PO (05:12)
[2020-05-13] MEDS: Nystatin Powder 15gm Bottle 1 APPLIC TOPICAL ×2 (05:13→20:46)
[2020-05-13 06:21] LABS: Bedside Glucose 144 mg/dL (70-110)
[2020-05-13] MEDS: MethylPREDNISolone DosePak 4 MG BOX PO (07:40)
[2020-05-13] MEDS: metFORMIN HCl 500 MG Tablet PO ×2 (07:40→17:41)
[2020-05-13] MEDS: Tamsulosin HCl 0.4 MG Capsule PO (07:40)
[2020-05-13] MEDS: Aspirin 81 MG TAB.CHEW PO (07:40)
[2020-05-13 13:50] VITALS: BP 121/59; PULSE 68; RESP 16; TEMP 35.8; O2SAT 95
[2020-05-14 05:55] VITALS: BP 99/51; PULSE 70; RESP 18; TEMP 36.8; O2SAT 96
[2020-05-14] MEDS: Carvedilol 6.25 MG Tablet PO (05:58)
[2020-05-14] MEDS: Ramipril 2.5 MG Capsule PO (05:58)
[2020-05-14] MEDS: Furosemide 40 MG Tablet PO (05:58)
[2020-05-14] MEDS: Nystatin Powder 15gm Bottle 1 APPLIC TOPICAL ×2 (06:01→20:06)
[2020-05-14] MEDS: Menthol/Lanolin/Calamine/Znox 113 GM Tube 1 APPLIC TOPICAL ×2 (06:01→20:05)
[2020-05-14 06:21] LABS: Bedside Glucose 121 mg/dL (70-110)
[2020-05-14] MEDS: Aspirin 81 MG TAB.CHEW PO (07:49)
[2020-05-14] MEDS: Tamsulosin HCl 0.4 MG Capsule PO (07:49)
[2020-05-14] MEDS: metFORMIN HCl 500 MG Tablet PO ×2 (07:49→17:07)
[2020-05-14] MEDS: Acetaminophen 500 MG Tablet 1000 MG PO (07:51)
[2020-05-14 09:22] VITALS: BP 81/51; PULSE 70; RESP 18; TEMP 35.8; O2SAT 95
--- NOTE | 2020-05-14 09:33 | NURSING ---
Addendum entered by Vanessa Alvarado 05/14/20 10:01: dr golden updated, new order 1 liter NS bolus x1 Original Note: pt assisted to BSC c/o lightheaded, diaphoretic, BS 173. low BP, will update dr golden. pt stated feeling better with sitting and resting. assisted back to bed. call light in reach.
[2020-05-14] MEDS: 0.9% Normal Saline 1,000 ML 999 ML IV (10:39)
[2020-05-14 10:45] LABS: Bedside Glucose 173 mg/dL (70-110)
[2020-05-14 13:39] VITALS: BP 91/43; PULSE 52; RESP 15; TEMP 36.3; O2SAT 91
[2020-05-14 15:22] VITALS: BP 106/52; PULSE 71
[2020-05-14 20:03] VITALS: BP 109/52
[2020-05-14] MEDS: Atorvastatin Calcium 20 MG Tablet PO (20:05)
[2020-05-15 06:02] VITALS: BP 97/58; PULSE 71; RESP 16; TEMP 36.4; O2SAT 98
[2020-05-15] MEDS: Nystatin Powder 15gm Bottle 1 APPLIC TOPICAL ×2 (06:06→21:55)
[2020-05-15] MEDS: Menthol/Lanolin/Calamine/Znox 113 GM Tube 1 APPLIC TOPICAL ×2 (06:06→21:55)
[2020-05-15 06:15] LABS: Bedside Glucose 122 mg/dL (70-110)
--- NOTE | 2020-05-15 07:35 | NURSING ---
Pt BP 97/[address] Arellano made aware and held Blood pressure meds this am.
[2020-05-15] MEDS: Tamsulosin HCl 0.4 MG Capsule PO (08:18)
[2020-05-15] MEDS: Aspirin 81 MG TAB.CHEW PO (08:18)
[2020-05-15] MEDS: metFORMIN HCl 500 MG Tablet PO ×2 (08:18→17:38)
--- NOTE | 2020-05-15 09:01 | MDS.RN ---
Information for the mds was obtained from review of the clinical record, interview of resident, staff, and direct observation of resident's care.
[2020-05-15] MEDS: 0.9% Saline Lock 10 ML Syringe IV (12:22)
[2020-05-15 12:25] VITALS: RESP 18
[2020-05-15 15:08] VITALS: BP 95/59; PULSE 71; RESP 15; TEMP 36.4; O2SAT 94
--- NOTE | 2020-05-15 17:01 | NURSING ---
Pt BP 95/[address] Arellano updated would like this nurse to still administer Coreg.
[2020-05-15] MEDS: Carvedilol 6.25 MG Tablet PO (17:38)
[2020-05-15 18:45] LABS: International Normalized Ratio 2.3; Prothrombin Time (Protime)PT. 25.1 SECONDS (11.7-14.9)
[2020-05-16 05:58] VITALS: BP 100/68; PULSE 70; RESP 17; TEMP 36.4; O2SAT 97
[2020-05-16] MEDS: Ramipril 2.5 MG Capsule PO (06:00)
[2020-05-16] MEDS: Carvedilol 6.25 MG Tablet PO (06:00)
[2020-05-16] MEDS: Nystatin Powder 15gm Bottle 1 APPLIC TOPICAL (06:00)
[2020-05-16] MEDS: Menthol/Lanolin/Calamine/Znox 113 GM Tube 1 APPLIC TOPICAL (06:00)
[2020-05-16] MEDS: Furosemide 40 MG Tablet PO (06:00)
[2020-05-16 06:20] LABS: Bedside Glucose 128 mg/dL (70-110)
[2020-05-16] MEDS: Aspirin 81 MG TAB.CHEW PO (07:49)
[2020-05-16] MEDS: Tamsulosin HCl 0.4 MG Capsule PO (07:50)
[2020-05-16] MEDS: metFORMIN HCl 500 MG Tablet PO (07:50)
[2020-05-16 08:45] VITALS: BP 110/53; PULSE 73; RESP 18; TEMP 36.3; O2SAT 93
[2020-05-16 08:47] VITALS: RESP 18; O2SAT 93
== END 2020-05-16 11:00 | disposition home health service (06) | DRG 690 ==
PROVIDERS: Admitting Provider Family Medicine Geriatric Medicine; PCP Family Medicine; Visit Provider Family Medicine Geriatric Medicine
DX: N39.0 Urinary tract infection, site not specified (principal); I48.11 Longstanding persistent atrial fibrillation; I48.92 Unspecified atrial flutter; B96.20 Unspecified Escherichia coli [E. coli] as the cause of diseases classified elsewhere; S63.279D Dislocation of unspecified interphalangeal joint of unspecified finger, subsequent encounter; W19.XXXD Unspecified fall, subsequent encounter; I10 Essential (primary) hypertension; N40.0 Benign prostatic hyperplasia without lower urinary tract symptoms; E11.9 Type 2 diabetes mellitus without complications; I25.10 Atherosclerotic heart disease of native coronary artery without angina pectoris; E78.5 Hyperlipidemia, unspecified; M25.532 Pain in left wrist; M25.461 Effusion, right knee; I27.21 Secondary pulmonary arterial hypertension; B35.4 Tinea corporis; Z95.810 Presence of automatic (implantable) cardiac defibrillator
CPT/HCPCS: 36415; 73564; 80048; 82962; 85025; 85610; 87426; 87635; 97110; 97116; 97162; 97166; 97530; 97535; 97802; J7030; U0005; A4216; U0003

== ENCOUNTER → 2020-05-09 08:51 | Outpatient (CLI) | payer MEDICARE, SELFPAY ==
[2020-05-04 16:57] VITALS: BMI 29.7
--- NOTE | 2020-05-09 09:06 | VDLE_ITS ---
Reason For Study: Right leg sweling RIGHT GSV is normal. CFV is compressible, spontaneous, phasic, competent and demonstrates normal augmentation. FV is compressible, spontaneous, phasic, competent and demonstrates normal augmentation. POP V is compressible, spontaneous, phasic, competent and demonstrates normal augmentation. T/P Trunk is compressible. PTV is compressible. RT PerV is compressible. Large nonvascularized structure noted in the right popliteal fossa measuring approximently 0.93 x 4.75 cm. Procedure This is a venous duplex using B-mode, color flow and spectral Doppler. Exam performed portable in patient room. A preliminary report was called and/or faxed to TCU. Interpretation Summary Deep veins of the right lower extremity are patent and compressible segmentally. There is no evidence of right lower extremity deep vein thrombosis. Valvular competence appears intact within the proximal deep venous system on the right . The right great saphenous vein appears patent and compressible segmentally. A non-vascular, heterogeneous structure is noted in the right popliteal space, measuring 0.93 cm x 4.75 cm. This may represent a popliteal cyst. Clinical correlation is advised. Ordering Physician: Bao Arellano Referring Physician: Gurjit Salomon Performed By: Agnes Law RVT
== END ==
PROVIDERS: PCP Family Medicine; Referring Provider Family Medicine Geriatric Medicine; Visit Provider Family Medicine Geriatric Medicine
DX: M79.89 Other specified soft tissue disorders (principal)
CPT/HCPCS: 93971

== ENCOUNTER → 2020-06-26 11:50 | Outpatient (CLI) | payer MEDICARE, SELFPAY ==
--- NOTE | 2020-06-26 11:52 | RAD_ITS ---
STUDY: X-RAY - LEFT SHOULDER REASON FOR EXAM: Left shoulder pain after fall in April. TECHNIQUE: 4 view(s) of the shoulder. COMPARISON: None. FINDINGS: There is mild glenohumeral arthrosis with small marginal osteophytes of the humeral head and mild joint space narrowing. There is acromioclavicular arthrosis with undersurface osteophytes. Normal acromion. Normal humeral head and visualized proximal humerus. There is a small focus of calcific tendinitis on the external rotation view. Normal visualized pulmonary apex. RAD/Shoulder min 2 Views IMPRESSION: Mild glenohumeral arthrosis. Acromioclavicular arthrosis. Small focus of calcific tendinitis. Electronically Signed: Yves Chung MD at 12:53 EST Tel , Service support ,
== END ==
PROVIDERS: PCP Family Medicine; Referring Provider Family Medicine; Visit Provider Family Medicine
DX: M25.512 Pain in left shoulder (principal)
CPT/HCPCS: 73030

== ENCOUNTER 2020-07-17 08:36 | Outpatient (RCR) | payer MEDICARE, SELFPAY ==
[2020-07-06 10:15] LABS: International Normalized Ratio 1.7; Prothrombin Time (Protime)PT. 19.6 SECONDS (11.7-14.9)
[2020-07-17 09:00] LABS: International Normalized Ratio 1.8; Prothrombin Time (Protime)PT. 20.2 SECONDS (11.7-14.9)
== END 2020-07-17 18:00 | disposition home or self-care (01) ==
LOC: LAB 08:36
PROVIDERS: Family Provider Family Medicine; PCP Family Medicine; Referring Provider Internal Medicine Cardiovascular Disease; Visit Provider Internal Medicine Cardiovascular Disease
DX: I48.0 Paroxysmal atrial fibrillation (principal); I48.92 Unspecified atrial flutter; Z79.01 Long term (current) use of anticoagulants
CPT/HCPCS: 36415; 85610

== ENCOUNTER 2020-08-14 09:01 | Outpatient (RCR) | payer MEDICARE, SELFPAY ==
[2020-07-31 10:53] LABS: International Normalized Ratio 2.1; Prothrombin Time (Protime)PT. 22.6 SECONDS (11.7-14.9)
[2020-08-14 10:03] LABS: International Normalized Ratio 2.6; Prothrombin Time (Protime)PT. 27.1 SECONDS (11.7-14.9)
== END 2020-08-14 18:00 | disposition home or self-care (01) ==
LOC: LAB 09:01
PROVIDERS: Family Provider Family Medicine; PCP Family Medicine; Referring Provider Internal Medicine Cardiovascular Disease; Visit Provider Internal Medicine Cardiovascular Disease
DX: I48.11 Longstanding persistent atrial fibrillation (principal); Z79.01 Long term (current) use of anticoagulants
CPT/HCPCS: 36415; 85610

== ENCOUNTER 2020-09-04 08:25 | Outpatient (RCR) | payer MEDICARE, SELFPAY ==
[2020-09-04 09:10] LABS: International Normalized Ratio 2.1; Prothrombin Time (Protime)PT. 22.6 SECONDS (11.7-14.9)
[2020-09-04 09:46] LABS: AST(SGOT) 19 U/L (15-37); Alanine Aminotransfer ALT/SGPT 21 U/L (16-61); Albumin, Serum 3.7 g/dL (3.2-5.0); Alkaline Phosphatase 101 U/L (45-117); Bilirubin, Direct 0.27 mg/dL (0.00-0.30); Cholesterol 157 mg/dL (200); Globulin 3.4 g/dL (2.2-4.2); High Density Lipoprotein 72 mg/dL; Protein, Total 7.1 g/dL (6.4-8.2); Triglycerides 80 mg/dL; Very Low Density Lipoprotein 16 mg/dL (5-40)
== END 2020-09-04 18:00 | disposition home or self-care (01) ==
LOC: LAB 08:25
PROVIDERS: Family Provider Family Medicine; PCP Family Medicine; Referring Provider Internal Medicine Cardiovascular Disease; Visit Provider Internal Medicine Cardiovascular Disease
DX: I48.91 Unspecified atrial fibrillation (principal); E78.00 Pure hypercholesterolemia, unspecified
CPT/HCPCS: 36415; 80061; 80076; 85610

== ENCOUNTER 2020-10-09 08:54 | Outpatient (RCR) | payer MEDICARE, SELFPAY ==
[2020-09-19 08:37] VITALS: BMI 29.7
[2020-10-09 10:28] LABS: International Normalized Ratio 2.2; Prothrombin Time (Protime)PT. 23.4 SECONDS (11.7-14.9)
== END 2020-10-09 18:00 | disposition home or self-care (01) ==
LOC: LAB 08:54
PROVIDERS: Family Provider Family Medicine; PCP Family Medicine; Referring Provider Internal Medicine Cardiovascular Disease; Visit Provider Internal Medicine Cardiovascular Disease
DX: I48.11 Longstanding persistent atrial fibrillation (principal)
CPT/HCPCS: 36415; 85610

== ENCOUNTER 2020-11-13 09:23 | Outpatient (RCR) | payer MEDICARE, SELFPAY ==
[2020-09-19 08:37] VITALS: BMI 29.7
[2020-11-13 10:53] LABS: International Normalized Ratio 2.4
== END 2020-11-13 18:00 | disposition home or self-care (01) ==
LOC: LAB 09:23
PROVIDERS: Family Provider Family Medicine; PCP Family Medicine; Referring Provider Internal Medicine Cardiovascular Disease; Visit Provider Internal Medicine Cardiovascular Disease
DX: I48.11 Longstanding persistent atrial fibrillation (principal)
CPT/HCPCS: 36415; 85610

== ENCOUNTER 2021-01-15 09:54 | Outpatient (RCR) | payer MEDICARE, SELFPAY ==
[2020-09-19 08:37] VITALS: BMI 29.7
[2021-01-15 10:37] LABS: International Normalized Ratio 2.3; Prothrombin Time (Protime)PT. 24.5 SECONDS (11.7-14.9)
== END 2021-01-15 18:00 | disposition home or self-care (01) ==
LOC: LAB 09:54
PROVIDERS: Family Provider Family Medicine; PCP Family Medicine; Referring Provider Internal Medicine Cardiovascular Disease; Visit Provider Internal Medicine Cardiovascular Disease
DX: I48.11 Longstanding persistent atrial fibrillation (principal)
CPT/HCPCS: 36415; 85610

== ENCOUNTER 2021-01-23 23:57 | Emergency (ER) | payer MEDICARE, SELFPAY ==
[2021-01-23 23:58] VITALS: BP 129/67; PULSE 71; RESP 16; TEMP 37.2; O2SAT 98; BMI 29.7
--- NOTE | 2021-01-24 00:17 | RAD_ITS ---
STUDY: X-RAY CHEST REASON FOR EXAM: Male, 85 years old. chest pain TECHNIQUE: Single AP portable view of the chest. COMPARISON: 05/02/2020 FINDINGS: Left chest wall pacing device is noted The lungs are clear and expanded. There is no demonstrated pleural abnormality. There is mild cardiac enlargement. Normal mediastinum and kole. Normal visualized pulmonary arteries. Normal visualized aortic arch and descending thoracic aorta. Normal visualized thoracic spine. Normal visualized ribs, clavicles, and shoulders. There is no demonstrated abnormality of the visualized soft tissue structures of the upper abdomen. RAD/Chest 1 View (Portable) IMPRESSION: Normal x-ray examination of the chest. Electronically Signed: Mani Frausto DO at 0:43 EDT Tel , Service support ,
--- NOTE | 2021-01-24 00:17 | EKG12_ITS ---
Test Reason : CP Blood Pressure : / mmHG Vent. Rate : 070 BPM Atrial Rate : 056 BPM P-R Int : 000 ms QRS Dur : 190 ms QT Int : 506 ms P-R-T Axes : 000 253 054 degrees QTc Int : 546 ms Ventricular-paced rhythm with occasional PVC's Biventricular pacemaker detected Abnormal ECG Confirmed by IVAN HARMAN, BONIFACIO ([id number]), metropolitan editor FITO MADRIGAL ([id number]) on 01/25/2021 8:47:49 AM Referred By: PL Confirmed By:BONIFACIO LOVE MD
[2021-01-24] MEDS: Aspirin 81 MG TAB.CHEW 324 MG PO (00:24)
--- NOTE | 2021-01-24 00:30 | EDS_ITS ---
HPI History of Present Illness Chief Complaint: Chest Other Informant: patient Narrative Narrative: Patient presents with episode of epigastric/lower chest pain. He states it felt sort like somebody just hit him in that area. He had no associated nausea vomiting diaphoresis weakness lightheadedness or shortness of breath. This lasted for a couple hours. It seemed to get better when he took Tylenol PM but mostly he was dozing off to sleep. When he woke up a couple hours later was still there but is now gone. He thinks it might be related to his dinner. He had tomato soup, a cheese sandwich and then had ice cream which he states he is not supposed to have. He does have a history of stents about 15 years ago his last cath was about 4 years ago that did not show significant progression. He does have an ICD defibrillator placed. He is on Coumadin for intermittent atrial fibrillation. He also takes his aspirin. Nothing specifically made his symptoms better or worse. [facility] Medical History Atherosclerotic heart disease of [place] coronary artery without angina pectoris Back pain BPH (benign prostatic hyperplasia) Cardiomyopathy, ischemic Debility Essential (primary) hypertension Gout HLD (hyperlipidemia) Longstanding persistent atrial fibrillation Paroxysmal atrial fibrillation Paroxysmal atrial flutter Secondary pulmonary arterial hypertension Sick sinus syndrome Syncope and collapse Type 2 diabetes mellitus Home Medications aspirin 81 mg PO DAILY@0800 12/02/13 [History Last Taken 05/02/20] metformin 500 mg PO BIDCM 12/02/13 [History Last Taken 05/02/20] nitroglycerin 0.4 mg SUBLINGUAL Q5M PRN #1 bottle 07/04/16 [Rx Last Taken Unknown] tamsulosin 0.4 mg capsule 0.4 mg PO DAILY cap 03/21/20 [History Last Taken 05/01/20] carvedilol 6.25 mg PO BID 05/04/20 [History Last Taken Unknown] furosemide 40 mg PO DAILY 05/04/20 [History Last Taken Unknown] menthol-zinc oxide 1 applic TOPICAL BID@0600,2200 tube 05/12/20 [Rx Last Taken Unknown] ramipril 2.5 mg capsule 2.5 mg PO DAILY #90 cap 05/22/20 [Rx Last Taken Unknown] simvastatin 40 mg tablet 40 mg PO QODAY #45 tab 01/16/21 [Rx Last Taken Unknown] allopurinol 100 mg PO DAILY 01/24/21 [History Last Taken Unknown] warfarin 4 mg PO SUMOTUWE 01/24/21 [History Last Taken Unknown] Allergy/AdvReac Type Severity Reaction Status Date / Time rofecoxib [From Vioxx] AdvReac Other Verified 01/24/21 00:02 Family History Father , age85 Parkinsons disease Mother Heart disease Valvular heart disease Surgical History Biventricular ICD (implantable cardioverter-defibrillator) in place (09/15/14) History of coronary artery stent placement (08/20/05) History of left heart catheterization (07/04/16) History of permanent cardiac pacemaker placement (2001) Social History Smoking Status: Never smoker alcohol intake: never ROS ROS ED Constitutional Constitutional ED: Denies chills or fever(s) Eyes Eyes: Denies blurry vision or change in vision ENT ENT ED: Denies sore throat Cardiovascular Cardiovascular: Reports as per HPI; Denies palpitations or racing heartbeat Respiratory/Chest Respiratory/Chest: Denies cough, dyspnea, dyspnea on exertion or sputum Gastrointestinal Gastrointestinal: Denies nausea or vomiting Genitourinary Genitourinary ED: Denies dysuria Musculoskeletal Musculoskeletal: Denies back pain or neck pain Integumentary Denies rash Neurologic Neurologic: Denies paresthesias or weakness Endocrine Endocrinology: Denies polydipsia or polyuria Hematologic/Lymphatic Hematologic/Lymphatic: Reports easy bleeding and easy bruising Allergic/Immunologic Allergic/Immunologic ED: Denies urticaria EXAM Physical Exam Const Vital Signs: 01/23/21 23:58 01/24/21 00:27 01/24/21 02:19 Temperature 98.9 F Temperature Source Oral Pulse Rate 71 70 Respiratory Rate 16 24 H Respiratory Effort Normal Non-Labored Respiratory Pattern Normal Blood Pressure 129/67 H 120/68 Blood Pressure Mean 87 85 Pulse Ox 98 98 Oxygen Delivery Method Room Air Room Air Positive well nourished and well developed General Appearance ED: well developed and NAD; Negative for pallor HEENT normocephalic and atraumatic Eyes General Eye ED: Negative for scleral icterus Chest Wall inspection of chest normal and palpation of chest normal Chest Narrative: Patient does have pacer/ICD in left upper chest. Nontender. No redness. Resp normal respiratory effort and clear to auscultation bilaterally Resp Narrative: No pain with a deep breath. Effort and Inspection: Negative for respiratory distress Auscultation: Negative for rales, rhonchi or wheezes Cardio regular rate, regular rhythm and S1 normal heart sound Rate: other Other Details: Patient is paced on the monitor with typical bundle pattern. GI normal to inspection, nondistended, normoactive bowel sounds and soft to palpation Extremity normal to inspection General Extremety ED: Negative for edema, pulses abnormal or tenderness General Extremity: Negative for edema or pulses abnormal Neuro Sensorium / Orientation: awake Psych mental status grossly normal Skin no rashes or lesions noted General Skin Exam: Negative for jaundice or pallor MDM MDM MDM Narrative Medical decision making narrative: Patient felt that this was likely GI related because of what he ate. He did have symptoms that want on for some hours. He would prefer not to stay in the hospital. Patient's heart score is high but there is questions if this is actually related to his heart. We did agree to at least keep him here long enough to recheck his enzymes. His troponin did not change at all. His EKG is unchanged. He will follow up with Dr. Guzman. We discussed that he should have a low threshold for return if he gets recurrent symptoms. Lab Data Attestation: I reviewed the patient's lab results. Labs: Laboratory Results - last 24 hr 01/24/21 01/24/21 01/24/21 00:01 00:01 00:17 WBC 7.3 RBC 4.08 L Hgb 12.7 L Hct 39.1 L MCV 95.8 H MCH 31.1 MCHC 32.5 RDW Std Deviation 50.2 H RDW Coeff of Dena 14.2 Plt Count 157 MPV 10.8 Immature Gran % (Auto) 0.300 Neut % (Auto) 61.9 Lymph % (Auto) 19.2 [place] % (Auto) 13.0 H Eos % (Auto) 5.2 H Baso % (Auto) 0.4 Absolute Neuts (auto) 4.5 Absolute Lymphs (auto) 1.39 Nucleated RBC % 0 PT 24.1 H INR 2.2 Sodium 140 Potassium 4.1 Chloride 103 Carbon Dioxide 28.0 Anion Gap 9 BUN 32 H Creatinine 1.01 Estim Creat Clear Calc 61.04 Est GFR (MDRD) Af Amer 90 Est GFR (MDRD) Non-Af 74 BUN/Creatinine Ratio 31.7 H Glucose 127 H Calcium 9.2 Troponin I High Sens 13 01/24/21 02:05 WBC RBC Hgb Hct MCV MCH MCHC RDW Std Deviation RDW Coeff of Dena Plt Count MPV Immature Gran % (Auto) Neut % (Auto) Lymph % (Auto) [place] % (Auto) Eos % (Auto) Baso % (Auto) Absolute Neuts (auto) Absolute Lymphs (auto) Nucleated RBC % PT INR Sodium Potassium Chloride Carbon Dioxide Anion Gap BUN Creatinine Estim Creat Clear Calc Est GFR (MDRD) Af Amer Est GFR (MDRD) Non-Af BUN/Creatinine Ratio Glucose Calcium Troponin I High Sens 13 Radiography Diagnostic Testing: Radiology Impression Chest X-Ray 01/24/21 00:17 IMPRESSION: Normal x-ray examination of the chest. Electronically Signed: Mani Frausto DO at 0:43 EDT Tel , Service support , EKG Initial EKG: Comments: EKG done for history of chest pain read by me shows a paced rhythm with typical bundle pattern. This is an AV sequential paced. No ST elevation or depression that would be consistent with RI. QRS duration and QTc long. Overall similar to squad EKG. also similar to 02 May 2020. Discharge Plan Triage Chief Complaint: Chest Other ED Provider: Howard Erickson Dx/Rx/DC Orders Clinical Impression: Chest pain, Epigastric pain Instructions: ED Chest Pain, Uncertain Cause Prescriptions: No Action tamsulosin 0.4 mg capsule 0.4 mg PO DAILY RF: 0 metformin 500 MG tablet 500 mg PO BIDCM RF: 0 aspirin 81 MG tablet,chewable 81 mg PO DAILY@0800 RF: 0 nitroglycerin 0.4 MG tablet 0.4 mg SUBLINGUAL Q5M PRN (Reason: Chest Pain) Qty: 1 RF: 0 furosemide 40 MG tablet 40 mg PO DAILY RF: 0 carvedilol 6.25 MG tablet 6.25 mg PO BID RF: 0 menthol-zinc oxide 1 APPLIC ointment 1 applic TOPICAL BID@0600,2200 RF: 0 allopurinol 100 mg tablet 100 mg PO DAILY RF: 0 warfarin 4 mg tablet 4 mg PO SUMOTUWE RF: 0 ramipril 2.5 mg capsule 2.5 mg PO DAILY Qty: 90 RF: 3 simvastatin 40 mg tablet 40 mg PO QODAY Qty: 45 RF: 3 Primary Care Provider: Gurjit Salomon Referrals: Иван Guzman MD [STAFF PHYSICIAN] - As soon as possible Gurjit Salomon MD [Primary Care Provider] - Disposition Disposition: Home, Self Care
[2021-01-24 00:35] LABS: Absolute Lymphocyte Count 1.39 X10^3/uL (0.83-4.51); Absolute Neutrophil Count 4.5 X10^3/uL (2.0-7.7); Basophil# 0.03 X10^3/uL; Basophil% 0.4 % (0-1); Eosinophil# 0.38 X10^3/uL; Eosinophils% 5.2 % (0-5); Hematocrit 39.1 % (40-54); Hemoglobin 12.7 g/dL (13.0-16.5); Lymphocyte # 1.39 X10^3/ul (0.83-4.51); Lymphocyte % 19.2 % (19-41); Mean Corp Hgb Conc 32.5 g/dL (32-36); Mean Corpuscular Hgb 31.1 pg (27.0-32.0); Mean Corpuscular Volume 95.8 fL (80-94); Mean Platelet Vol. 10.8 fl (6.2-12.0); Monocyte# 0.94 X10^3/uL; NRBC Flagged by Analyzer 0 % (0-5); Neutrophil # 4.49 X10^3/uL (2.7-7.7); Neutrophil % 61.9 % (47-70); Platelet Count 157 K/mm3 (150-450); RBC Distribution Width CV 14.2 % (11.6-14.6); RBC Distribution Width SD 50.2 fl (35.1-43.9); Red Blood Count 4.08 M/mm3 (4.6-6.2); White Blood Count 7.3 K/mm3 (4.4-11.0)
[2021-01-24 00:46] LABS: International Normalized Ratio 2.2; Prothrombin Time (Protime)PT. 24.1 SECONDS (11.7-14.9)
[2021-01-24 00:58] LABS: Anion Gap 9 (5-15); BUN 32 mg/dL (7-18); BUN/Creat Ratio 31.7 RATIO (10-20); Calcium,Total 9.2 mg/dL (8.5-10.1); Chloride 103 mmol/L (98-107); Creatinine, Serum 1.01 mg/dL (0.70-1.30); EST Glomerular Filtration Rate 74 mL/min (>60); Est Glom Filt Rate - Afr Amer 90 mL/min (>60); Estimated Creatinine Clearance 61.04 ml/min; Glucose 127 mg/dL (74-106); Potassium 4.1 mmol/L (3.5-5.1); Sodium Level 140 mmol/L (136-145); Troponin-I HS 13 pg/mL (3.0-78.0)
--- NOTE | 2021-01-24 01:55 | EKG12_ITS ---
Test Reason : REPEAT CP Blood Pressure : / mmHG Vent. Rate : 070 BPM Atrial Rate : 060 BPM P-R Int : 000 ms QRS Dur : 198 ms QT Int : 508 ms P-R-T Axes : 000 248 055 degrees QTc Int : 548 ms Ventricular-paced rhythm Biventricular pacemaker detected Abnormal ECG Confirmed by IVAN HARMAN, BONIFACIO ([id number]), editor publications FITO MADRIGAL ([id number]) on 01/25/2021 8:48:00 AM Referred By: PL Confirmed By:BONIFACIO LOVE MD
[2021-01-24 02:19] VITALS: BP 120/68; PULSE 70; RESP 24; O2SAT 98
[2021-01-24 02:34] LABS: Troponin-I HS 13 pg/mL (3.0-78.0)
[2021-01-24 03:14] VITALS: BP 116/82; PULSE 79; RESP 16; O2SAT 97
--- NOTE | 2021-01-24 03:15 | ED.RN ---
ATTEMPTED TO CALL REPORT BACK. NO ANSWER. VOICEMAIL LEFT
== END 2021-01-24 03:17 | disposition home or self-care (01) ==
PROVIDERS: Emergency Provider Emergency Medicine; PCP Family Medicine
DX: R07.9 Chest pain, unspecified (principal); R10.13 Epigastric pain; E11.9 Type 2 diabetes mellitus without complications; E78.5 Hyperlipidemia, unspecified; I48.19 Other persistent atrial fibrillation; I10 Essential (primary) hypertension; I25.10 Atherosclerotic heart disease of native coronary artery without angina pectoris; I25.5 Ischemic cardiomyopathy; I27.21 Secondary pulmonary arterial hypertension; I48.0 Paroxysmal atrial fibrillation; M10.9 Gout, unspecified; N40.0 Benign prostatic hyperplasia without lower urinary tract symptoms; Z79.01 Long term (current) use of anticoagulants; Z79.82 Long term (current) use of aspirin; Z79.84 Long term (current) use of oral hypoglycemic drugs
CPT/HCPCS: 71045; 80048; 84484; 85025; 85610; 93005; 99285; A4216

== ENCOUNTER 2021-02-26 10:05 | Outpatient (RCR) | payer MEDICARE, SELFPAY ==
[2021-01-25 18:13] VITALS: BMI 29.7
[2021-02-26 10:47] LABS: International Normalized Ratio 2.6; Prothrombin Time (Protime)PT. 27.2 SECONDS (11.7-14.9)
== END 2021-03-27 18:00 | disposition home or self-care (01) ==
LOC: LAB 10:05
PROVIDERS: Family Provider Family Medicine; PCP Family Medicine; Referring Provider Internal Medicine Cardiovascular Disease; Visit Provider Internal Medicine Cardiovascular Disease
DX: I48.11 Longstanding persistent atrial fibrillation (principal)
CPT/HCPCS: 36415; 85610

== ENCOUNTER → 2021-03-28 12:10 | Outpatient (CLI) | payer MEDICARE, SELFPAY ==
[2021-03-28 15:25] LABS: Anion Gap 8 (5-15); BUN 31 mg/dL (7-18); BUN/Creat Ratio 27.7 RATIO (10-20); Calcium,Total 8.8 mg/dL (8.5-10.1); Chloride 103 mmol/L (98-107); Creatinine, Serum 1.12 mg/dL (0.70-1.30); EST Glomerular Filtration Rate 66 mL/min (>60); Est Glom Filt Rate - Afr Amer 80 mL/min (>60); Glucose 117 mg/dL (74-106); PSA,Total- Diagnostic 5.89 ng/mL (0.0-4.0); Potassium 4.1 mmol/L (3.5-5.1); Sodium Level 139 mmol/L (136-145)
== END ==
PROVIDERS: PCP Family Medicine; Referring Provider Family Medicine; Visit Provider Family Medicine
DX: N40.0 Benign prostatic hyperplasia without lower urinary tract symptoms (principal)
CPT/HCPCS: 36415; 80048; 84153

== ENCOUNTER 2021-03-29 08:37 | Outpatient (RCR) | payer MEDICARE, SELFPAY ==
[2021-03-28 01:12] VITALS: BMI 29.7
[2021-03-29 09:45] LABS: International Normalized Ratio 2.6; Prothrombin Time (Protime)PT. 27.2 SECONDS (11.7-14.9)
== END 2021-04-28 18:49 | disposition home or self-care (01) ==
LOC: LAB 08:37
PROVIDERS: Family Provider Family Medicine; PCP Family Medicine; Referring Provider Internal Medicine Cardiovascular Disease; Visit Provider Internal Medicine Cardiovascular Disease
DX: I48.11 Longstanding persistent atrial fibrillation (principal)
CPT/HCPCS: 36415; 85610

== ENCOUNTER 2021-06-22 12:41 | Outpatient (RCR) | payer MEDICARE, SELFPAY ==
[2021-04-28 18:50] VITALS: BMI 29.7
[2021-06-04 09:31] LABS: International Normalized Ratio 3.2; Prothrombin Time (Protime)PT. 31.9 SECONDS (11.7-14.9)
[2021-06-04 09:57] LABS: AST(SGOT) 21 U/L (15-37); Alanine Aminotransfer ALT/SGPT 20 U/L (16-61); Albumin, Serum 3.4 g/dL (3.2-5.0); Alkaline Phosphatase 162 U/L (45-117); Bilirubin, Direct 0.36 mg/dL (0.00-0.30); Cholesterol 132 mg/dL (200); High Density Lipoprotein 53 mg/dL; Protein, Total 7.4 g/dL (6.4-8.2); Triglycerides 85 mg/dL; Very Low Density Lipoprotein 17 mg/dL (5-40)
[2021-06-18 09:25] LABS: International Normalized Ratio 3.9; Prothrombin Time (Protime)PT. 37.3 SECONDS (11.7-14.9)
[2021-06-22 14:00] LABS: International Normalized Ratio 3.2; Prothrombin Time (Protime)PT. 31.8 SECONDS (11.7-14.9)
[2021-06-29 10:57] LABS: International Normalized Ratio 2.8; Prothrombin Time (Protime)PT. 28.8 SECONDS (11.7-14.9)
== END 2021-06-22 18:00 | disposition home or self-care (01) ==
LOC: LAB 12:41
PROVIDERS: Family Provider Family Medicine; PCP Family Medicine; Referring Provider Internal Medicine Cardiovascular Disease; Visit Provider Internal Medicine Cardiovascular Disease
DX: E78.00 Pure hypercholesterolemia, unspecified (principal); I48.11 Longstanding persistent atrial fibrillation; E78.5 Hyperlipidemia, unspecified
CPT/HCPCS: 36415; 80061; 80076; 85610

== ENCOUNTER 2021-07-10 13:34 | Outpatient (RCR) | payer MEDICARE, SELFPAY ==
[2021-06-26 08:41] VITALS: BMI 29.7
[2021-07-10 14:46] LABS: International Normalized Ratio 2.5; Prothrombin Time (Protime)PT. 26.6 SECONDS (11.7-14.9)
== END 2021-07-26 18:00 | disposition home or self-care (01) ==
LOC: LAB 13:34
PROVIDERS: Family Provider Family Medicine; PCP Family Medicine; Referring Provider Internal Medicine Cardiovascular Disease; Visit Provider Internal Medicine Cardiovascular Disease
DX: I48.11 Longstanding persistent atrial fibrillation (principal); Z79.01 Long term (current) use of anticoagulants
CPT/HCPCS: 36415; 85610

== ENCOUNTER 2021-07-26 13:38 | Outpatient (CLI) | payer MEDICARE, SELFPAY ==
--- NOTE | 2021-07-26 13:46 | RAD_ITS ---
STUDY: X-RAY - LUMBAR SPINE REASON FOR EXAM: Male, 85 years old. Back pain Back Pain TECHNIQUE: XR Spine Lumbar Min 4 Views COMPARISON: None FINDINGS: Normal lumbar lordosis. There is no substantial scoliosis. There is a normal alignment of the vertebrae. There is multilevel endplate spondylosis of the lumbar vertebrae. There is multi-level degenerative disc disease with multi-level disc space narrowing. There are atherosclerotic vascular calcifications. The soft tissue structures are unremarkable. RAD/L/S Spine Min 4 Views IMPRESSION: Degenerative changes of the spine, as detailed above. Electronically Signed: Dov Graf MD at 16:58 EDT ,
== END 2021-07-26 23:59 | disposition home or self-care (01) ==
PROVIDERS: PCP Family Medicine; Referring Provider Family Medicine; Visit Provider Family Medicine
DX: M54.50 Low back pain, unspecified (principal)
CPT/HCPCS: 72110

== ENCOUNTER 2021-08-03 10:19 | Outpatient (RCR) | payer MEDICARE, SELFPAY ==
[2021-07-27 00:28] VITALS: BMI 29.7
[2021-08-03 11:04] LABS: International Normalized Ratio 2.9; Prothrombin Time (Protime)PT. 29.2 SECONDS (11.7-14.9)
== END 2021-08-03 18:00 | disposition home or self-care (01) ==
LOC: LAB 10:19
PROVIDERS: Family Provider Family Medicine; PCP Family Medicine; Referring Provider Internal Medicine Cardiovascular Disease; Visit Provider Internal Medicine Cardiovascular Disease
DX: I48.11 Longstanding persistent atrial fibrillation (principal); Z79.01 Long term (current) use of anticoagulants
CPT/HCPCS: 36415; 85610

== ENCOUNTER 2021-08-27 10:10 | Outpatient (RCR) | payer MEDICARE, SELFPAY ==
[2021-08-26 01:02] VITALS: BMI 29.7
[2021-08-27 11:47] LABS: International Normalized Ratio 2.7; Prothrombin Time (Protime)PT. 28.2 SECONDS (11.7-14.9)
== END 2021-08-27 18:00 | disposition home or self-care (01) ==
LOC: LAB 10:10
PROVIDERS: Family Provider Family Medicine; PCP Family Medicine; Referring Provider Internal Medicine Cardiovascular Disease; Visit Provider Internal Medicine Cardiovascular Disease
DX: I48.11 Longstanding persistent atrial fibrillation (principal); Z79.01 Long term (current) use of anticoagulants
CPT/HCPCS: 36415; 85610

== ENCOUNTER 2021-09-05 11:30 | Outpatient (RCR) | payer MEDICARE, SELFPAY ==
--- NOTE | 2021-08-01 13:12 | HP.PTEVAL_ITS ---
Patient's Visit Information NANETTE RIVERA is a 85 year old M referred to Physical Therapy by Dr. Gurjit Salomon MD with a diagnosis of BACK PAIN. Date of Evaluation: 08/01/21 Physical Therapist: Dave Perez, PT, Cert MDT, OCS - Visit Plan Frequency: 2x /Week Duration: 4 Weeks Plan: LEFT HAND AMPUTEE. PT INTERVETIONS DLS ,POSTURAL EX'S ,BLE STRENGTHNEING ,FUNCTIONAL STRENGTHENING AND BALANCE PROGRAM - Subjective This 85 y/o male presents to physical therapy with back pain. Patient has had back pain for ~ 4weeks . Patient has been falling x2 past ~ 1week slipping out bed and while in closet without using rollator which aggravated back . Patient pain located symmetrical lumbar left > right. Seen DR boles muscle relaxer . Patient had x-rays showed DDD. Aggravating factors walking, standing ,bending lifting. Alleviating factors rest sitting. Denies paresthesia/tingling. Coughing/sneezing -. Bowel/bladder -. Patient sleeping good at night. Patient has difficulty with ADLS'. Patient able to bath/dress self. Patient spouse does cooking . Patient lives in group home I living. Handicapped assessable . Elevated toilet seat ,grab bars. Patient goals to walk and less pain. SOCAIL: . VOCATION: retired - Pain Bilateral Back Pain Intensity (Out of 10): 2 Pain Intensity Range: 10 - Objective POSTURE: forward posture hips/knees flexed varus knee. GAIT: reciprocal pattern with hips/knees flexed with rollator slow ryan. BALANCE: fair + with rollator. SYMMTRIES: align. LUMBAR ROM: flexion mod loss ,extension severe loss with decrease curve reversal. MMT ( [place]): quads 12.5 left ,right 17.4,hamstring 11.2 left ,right 13.7,hip flexion left 9.8,right 12.3. FLEXABLITY: hamstrings mild - Special Tests L/S Slump test left side: Negative L/S Slump test right side: Negative L/S Left Straight Leg Raise: Negative L/S Right Straight Leg Raise: Negative - Balance/Special Test Scores CATSIB Score (Max score 120 seconds): 50 Oswestry Low Back Score: 35 TUG Test Time Seconds: 15.3 - Goals Goal 1:: Patient to be I with HEP with spouse assists Goal Time Frame: 4-6 Weeks Goal 2:: Patient to demonstrate 50% improvement with improve function and decrease back pain. Goal Time Frame: 4-6 Weeks Goal 3:: Patient to improve lumbar ROM for function of recovery to put on shoes Goal Time Frame: 4-6 Weeks Goal 4:: Patient increase strength BLE peak force by 5-10 to improve sit-stand transfers Goal Time Frame: 4-6 Weeks Goal 5:: Patient to improve back oswestry score by 5 points to improve QOL and function Goal Time Frame: 4-6 Weeks Goal 6:: Patient to improve CATSIB BY 5-10 POINTS to improve balance. Goal Time Frame: 4-6 Weeks - Rehabilitation Potential Physical Therapy Diagnosis: This patient has back pain with weakness in bilateral legs, decrease ROM lumbar with balance deficits thus will need skilled PT Rehabilitation Potential: Good - Anticipated Interventions Patient/Client Instruction: Educate patient on: Condition, Plan of Care For the Purpose of:: To decrease pain, To increase ROM, To improve muscle performance and motor function, To increase tolerance to activity/condition/position, To improve ability of physical actions for home/community/work/leisure, To improve gait and locomotor functions, To improve health of tissue, To decrease soft tissue restriction, To increase flexibility/ROM, To improve tolerance to ADL's Therapeutic Exercise to Include: Strength training, Endurance training, Balance training, Body mechanics, Postural training, Flexibilty training, Dynamic Lumbar Stabilization For the Purpose of:: To decrease pain, To improve muscle performance and motor function, To increase tolerance to activity/condition/position, To improve performance and independence with ADL's, To improve ability of physical actions for home/community/work/leisure, To improve gait and locomotor functions, To improve health of tissue, To decrease soft tissue restriction, To increase flexibility/ROM, To improve endurance, To improve safety with gait, To improve tolerance to ADL's Thank you for the opportunity to evaluate your patient. For Medicare and Medicare HMO plans, please review the plan of care and approve it. It will need to be FAXED BACK to us at [phone] for Medicare purposes. For Medicare only, by signing this I certify the plan of care. Please let me know if there are questions or concerns regarding this plan of care. Physician Signatur e: Date:
--- NOTE | 2022-01-30 08:53 | HP.PT.NRP ---
NANETTE RIVERA was seen in my office for initial evaluation on 08/01/21. The following Plan of Care was established for this patient: Initial Frequency: 2x /Week Initial Duration: 4 Weeks Patient/Client Instruction: Educate patient on: Condition, Plan of Care For the Purpose of:: To decrease pain, To increase ROM, To improve muscle performance and motor function, To increase tolerance to activity/condition/position, To improve ability of physical actions for home/community/work/leisure, To improve gait and locomotor functions, To improve health of tissue, To decrease soft tissue restriction, To increase flexibility/ROM, To improve tolerance to ADL's Therapeutic Exercise to Include: Strength training, Endurance training, Balance training, Body mechanics, Postural training, Flexibilty training, Dynamic Lumbar Stabilization For the Purpose of:: To decrease pain, To improve muscle performance and motor function, To increase tolerance to activity/condition/position, To improve performance and independence with ADL's, To improve ability of physical actions for home/community/work/leisure, To improve gait and locomotor functions, To improve health of tissue, To decrease soft tissue restriction, To increase flexibility/ROM, To improve endurance, To improve safety with gait, To improve tolerance to ADL's This patient was last seen in our office . Pertinent comments regarding their Physical therapy will appear below: Patient seen for PT for DLS abd/back and postural ex's doing well thus d/c . At this point I will be discontinuing this patient from physical therapy. I would be happy to see this patient again in the future if found appropriate by the physician. Thank you! Dave Perez, PT, Cert MDT, OCS Balance/Gait/Functional tests - Balance/Special Test Scores CATSIB Score (Max score 120 seconds): 50 Oswestry Low Back Score: 0 TUG Test Time Seconds: 15.3 Tug Test: <20 sec.=mostly independent
== END 2021-09-05 19:00 | disposition home or self-care (01) ==
LOC: PT 11:30
PROVIDERS: PCP Family Medicine; Referring Provider Family Medicine; Visit Provider Family Medicine
DX: M54.9 Dorsalgia, unspecified (principal)
CPT/HCPCS: 97110; 97162

== ENCOUNTER → 2021-09-05 | Outpatient (CLI) | payer MEDICARE, SELFPAY ==
[2021-09-05 12:43] LABS: Microalbumin,Random Urine 32.5 mg/L (NO RANGE EST.); Microalbumin:Creatinine Ratio 55.7 mg/g CRE (<30 mg/g CRE)
[2021-09-05 13:09] LABS: Anion Gap 7 (5-15); BUN 59 mg/dL (7-18); BUN/Creat Ratio 28.6 RATIO (10-20); Calcium,Total 9.5 mg/dL (8.5-10.1); Chloride 102 mmol/L (98-107); Cholesterol 123 mg/dL (200); Creatinine, Serum 2.06 mg/dL (0.70-1.30); EST Glomerular Filtration Rate 33 mL/min (>60); Est Glom Filt Rate - Afr Amer 40 mL/min (>60); Glucose 145 mg/dL (74-106); High Density Lipoprotein 46 mg/dL; Potassium 4.5 mmol/L (3.5-5.1); Sodium Level 137 mmol/L (136-145); Triglycerides 112 mg/dL; Very Low Density Lipoprotein 22 mg/dL (5-40)
== END | disposition home or self-care (01) ==
PROVIDERS: PCP Family Medicine; Visit Provider Family Medicine
DX: E11.9 Type 2 diabetes mellitus without complications (principal)
CPT/HCPCS: 36415; 80048; 80061; 82043; 82570

== ENCOUNTER 2021-09-25 10:14 | Emergency (ER) | payer MEDICARE, SELFPAY ==
[2021-09-25 10:15] VITALS: BP 114/65; PULSE 70; RESP 16; TEMP 36.2; O2SAT 98; BMI 27.6
--- NOTE | 2021-09-25 10:39 | CT_ITS ---
EXAM: CT LUMBAR SPINE WITHOUT INTRAVENOUS CONTRAST CLINICAL INDICATION: pain, fall TECHNIQUE: Helically acquired images were obtained of the lumbar spine without intravenous contrast. 2D reformats were reviewed. This CT exam was performed using one or more of the following dose reduction techniques: automated exposure control, adjustment of the mA and/or kV according to patient size, and/or use of iterative reconstruction technique. This report was created using [employer] report generation technology. RADIATION DOSE: CTDIvol = 16.99 mGy, DLP = 493.80 mGy-cm COMPARISON: Abdomen/pelvis CT 05/02/2020. FINDINGS: VERTEBRAE: Mild compression of T12 more than L2 involving the inferior endplates with adjacent trabecular compression/increased density. No traumatic subluxation. Normal alignment. DISCS/SPINAL CANAL/NEURAL FORAMINA: Vacuum disc phenomenon at L3-L4 more than L2-L3. Broad posterior disc bulging, ligamentum flavum hypertrophy and facet arthropathy at multiple levels with resulting canal narrowing most severe at L3-L4 and L4-L5. Moderate bilateral foraminal narrowing at L3-L4 and L4-L5. VASCULATURE: Visualized abdominal aorta is not dilated. LYMPH NODES: Unremarkable. No retroperitoneal adenopathy. TUBES, LINES AND DEVICES: Cardiac conduction device is partially visualized. CT/Spine Lumbar without Contrast IMPRESSION: 1. Mild compression of T12 more than L2 involving the inferior endplates with adjacent trabecular compression/increased density. New since prior CT. 2. Multilevel degenerative changes with canal narrowing most conspicuous at L3-L4 and L4-L5. Electronically Signed: Bora Cali MD ([place]) at 11:30 EDT Reading Location ID and State: / [place] , Service support ,
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
[2021-09-25] MEDS: oxyCODONE 5 MG Tablet PO (10:46)
[2021-09-25] MEDS: Diphth,Pertuss(Acell),Tet Vac 0.5 ML Vial IM (10:55)
[2021-09-25 11:10] LABS: Basophil# 0.04 X10^3/uL; Basophil% 0.6 % (0-1); Eosinophil# 0.68 X10^3/uL; Eosinophils% 9.8 % (0-5); Hematocrit 39.3 % (40-54); Hemoglobin 12.8 g/dL (13.0-16.5); Lymphocyte % 21.6 % (19-41); Mean Corp Hgb Conc 32.6 g/dL (32-36); Mean Corpuscular Hgb 30.7 pg (27.0-32.0); Mean Corpuscular Volume 94.2 fL (80-94); Mean Platelet Vol. 10.3 fl (6.2-12.0); Monocyte# 0.75 X10^3/uL; Monocyte% 10.8 % (0-10); NRBC Flagged by Analyzer 0 % (0-5); Neutrophil # 3.95 X10^3/uL (2.7-7.7); Neutrophil % 56.9 % (47-70); Platelet Count 159 K/mm3 (150-450); RBC Distribution Width CV 15.8 % (11.6-14.6); RBC Distribution Width SD 53.7 fl (35.1-43.9); Red Blood Count 4.17 M/mm3 (4.6-6.2); White Blood Count 6.9 K/mm3 (4.4-11.0)
[2021-09-25 11:23] LABS: Anion Gap 7 (5-15); BUN 44 mg/dL (7-18); BUN/Creat Ratio 21.4 RATIO (10-20); Calcium,Total 9.3 mg/dL (8.5-10.1); Chloride 100 mmol/L (98-107); Creatinine, Serum 2.06 mg/dL (0.70-1.30); EST Glomerular Filtration Rate 33 mL/min (>60); Est Glom Filt Rate - Afr Amer 40 mL/min (>60); Estimated Creatinine Clearance 29.37 ml/min; Glucose 146 mg/dL (74-106); International Normalized Ratio 2.8; Potassium 4.4 mmol/L (3.5-5.1); Prothrombin Time (Protime)PT. 29.4 SECONDS (11.7-14.9); Sodium Level 138 mmol/L (136-145)
--- NOTE | 2021-09-25 12:40 | CM.ED ---
Addendum entered by Agnes Eagle 09/25/21 14:06: SW received call from Eden with [facility] stating the earliest they could see pt would be Friday but that she will try to move things around on the schedule to see if they can see pt before Friday. Original Note: Social Work Note SW updated that pt may need Rehab Unit or SNF. NEETA reviewed chart. Pt has [employer], would need a pre-cert for Rehab/SNF. NEETA and Nichelle ROWLEY in to speak with pt and pt's Sofy. Pt was provided a list of SNF in pt's area. Physician in to speak with pt and pt was told he can attempt to ambulate in the ED and discharge disposition will depend on if pt is able to ambulate. NEETA updated that pt was able to ambulate, will discharge home. NEETA and Nichelle ROWLEY in to speak with pt and Sofy. Pt and Sofy agreeable to pt returning home with [facility]. Pt was provided list of C agencies. Pt and Sofy states that pt has had HHC before in the past through [facility] and is agreeable to referral being made for HHC through [facility] again but for PT only. NEETA placed a call to [facility] and left message for Eden regarding referral. Order for [facility] PT was placed. Plan: Home with [facility] for PT Agnes HORVATH, [employer]GAN TEACHER
== END 2021-09-25 12:49 | disposition home or self-care (01) ==
PROVIDERS: Emergency Provider Emergency Medicine; PCP Family Medicine; Visit Provider Emergency Medicine
DX: S22.080A Wedge compression fracture of T11-T12 vertebra, initial encounter for closed fracture (principal); S32.020A Wedge compression fracture of second lumbar vertebra, initial encounter for closed fracture; I42.9 Cardiomyopathy, unspecified; E11.22 Type 2 diabetes mellitus with diabetic chronic kidney disease; I48.0 Paroxysmal atrial fibrillation; S51.812A Laceration without foreign body of left forearm, initial encounter; N18.9 Chronic kidney disease, unspecified; I25.10 Atherosclerotic heart disease of native coronary artery without angina pectoris; E78.5 Hyperlipidemia, unspecified; I12.9 Hypertensive chronic kidney disease with stage 1 through stage 4 chronic kidney disease, or unspecified chronic kidney disease; N40.0 Benign prostatic hyperplasia without lower urinary tract symptoms; Z79.01 Long term (current) use of anticoagulants; Z95.810 Presence of automatic (implantable) cardiac defibrillator; Z79.82 Long term (current) use of aspirin; Z79.84 Long term (current) use of oral hypoglycemic drugs; Z95.5 Presence of coronary angioplasty implant and graft; Z23 Encounter for immunization; W19.XXXA Unspecified fall, initial encounter
CPT/HCPCS: 72131; 80048; 85025; 85610; 90715; 99284; A4216

== ENCOUNTER 2021-09-28 22:47 | Inpatient (IN) | payer MEDICARE, SELFPAY ==
[2021-09-28 22:48] VITALS: BP 119/78; PULSE 77; RESP 15; TEMP 36.8; O2SAT 97; BMI 27.3
--- NOTE | 2021-09-28 23:03 | CT_ITS ---
EXAM: CT HEAD WITHOUT INTRAVENOUS CONTRAST CLINICAL INDICATION: trauma TECHNIQUE: Multiple axial images were obtained of the head without intravenous contrast. CTDIvol = ( 44.99 ) mGy, DLP = ( 914.22 ) mGycm This CT exam was performed using one or more of the following dose reduction techniques: automated exposure control, adjustment of the mA and/or kV according to patient size, and/or use of iterative reconstruction technique. This report was created using [employer] report generation technology. COMPARISON: None. FINDINGS: BRAIN AND EXTRA-AXIAL SPACES: No acute intracranial hemorrhage, mass effect or edema. No evidence of acute cortical stroke. Periventricular small vessel ischemic change. No midline shift or hydrocephalus. Diffuse parenchymal atrophy. Posterior fossa structures are unremarkable. Basal cisterns are patent. BONES/JOINTS: Unremarkable. No discrete lytic or blastic abnormalities. VASCULATURE: Atherosclerotic calcifications of the carotid siphons and vertebrobasilar arteries. SINUSES: Mild scattered paranasal sinus mucosal thickening. MASTOID AIR CELLS: Unremarkable. ORBITS: Visualized globes, extraocular muscles, optic nerves and retrobulbar fat appear unremarkable. CT/Brain/Head without Contrast IMPRESSION: 1. No evidence of acute intracranial pathology. 2. Diffuse involutional changes and chronic ischemic small vessel white matter disease. , Electronically Signed: Josemanuel Burnett MD at 23:57 EDT ,
--- NOTE | 2021-09-28 23:03 | RAD_ITS ---
ACR Level 3 findings have been noted. An addendum which confirms receipt of the report will follow. EXAM: XR PELVIS, 1 OR 2 VIEWS CLINICAL INDICATION: pain/injury TECHNIQUE: Frontal view of the pelvis. This report was created using [employer] report generation technology. COMPARISON: None. FINDINGS: BONES/JOINTS: Lucency along the right intertrochanteric region is suspicious for an acute nondisplaced fracture; recommend CT for definitive diagnosis and for further characterization. No other definite acute or healing fracture or malalignment. Degenerative changes of the lower lumbar spine and SI joints. Degenerative changes of the bilateral joints. No widening of the pubic symphysis. SOFT TISSUES: No focal soft tissue abnormalities of concern. No soft tissue swelling or gas. VASCULATURE: Extensive atherosclerotic calcifications involving the iliac arteries and visualized femoral arteries. RAD/Pelvis 1 or 2 Views IMPRESSION: Lucency along the right intertrochanteric region is suspicious for an acute nondisplaced fracture; recommend CT for definitive diagnosis and for further characterization. Electronically Signed: Josemanuel Burnett MD at 0:17 EDT ,
--- NOTE | 2021-09-28 23:03 | RAD_ITS ---
EXAM: XR RIGHT FEMUR, 2 VIEWS CLINICAL INDICATION: pain/injury TECHNIQUE: Frontal and lateral views of the right femur. This report was created using [employer] report generation technology. COMPARISON: None. FINDINGS: Lucency along the base of the femoral neck/intertrochanteric region is suspicious for an acute nondisplaced fracture. Extensive peripheral vascular calcifications. Multicompartment osteoarthrosis involving the knee with at least a moderate size suprapatellar joint effusion. Moderate osteoarthrosis involving the right hip joint. RAD/Femur Min 2 Views IMPRESSION: Lucency along the base of the femoral neck/intertrochanteric region is suspicious for an acute nondisplaced fracture. Electronically Signed: Josemanuel Burnett MD at 0:20 EDT ,
--- NOTE | 2021-09-28 23:13 | ED.VIS.FALL ---
HPI HPI - Fall History of Present Illness Chief Complaint: Fall Informant: patient and EMS Occured/Mechanism Occurred: Today (JPTA) Mechanism/Context: Yes same level fall Usually ambulates: Walker Pain/Injury Pain Location: head and lower extremity (R hip/thigh) Quality of Pain: Aching Current Severity: Mild Maximum Severity: Severe Worsened by: moving RLE Relieved by: remaining still Associated Symptoms Associated Symptoms: Positive for Inability to ambulate; Negative for Parasthesias, Weakness, Loss of consciousness and Amnesia Narrative Narrative: Patient was in his home walking with his Rollator, he was backing up after getting up off the couch watching TV to go from one room to the next, lost his balance in the process and fell. No prodromal symptoms including dizziness. No recent illness. States he fell to his buttocks, bumped his head on a dresser without loss of consciousness, headache, major injury there, but states upon trying to get up his right thigh and hip were hurting severely. He states if he rests the right leg, he does not have any pain. He is on warfarin. He has chronic low back pain, he states it is no different now after falling and only hurts when he moves. [facility] Medical History Atherosclerotic heart disease of [place] coronary artery without angina pectoris Back pain BPH (benign prostatic hyperplasia) Cardiomyopathy, ischemic Debility Essential (primary) hypertension Gout HLD (hyperlipidemia) Longstanding persistent atrial fibrillation Paroxysmal atrial fibrillation Paroxysmal atrial flutter Secondary pulmonary arterial hypertension Sick sinus syndrome Syncope and collapse Type 2 diabetes mellitus Home Medications aspirin 81 mg PO DAILY@0800 12/02/13 [History Last Taken 09/28/21] metformin 500 mg PO BIDCM 12/02/13 [History Last Taken 09/28/21] tamsulosin 0.4 mg capsule 0.4 mg PO DAILY cap 03/21/20 [History Last Taken 09/28/21] carvedilol 6.25 mg tablet 6.25 mg PO BID #180 tab 04/23/21 [Rx Last Taken 09/28/21] furosemide 40 mg tablet 40 mg PO DAILY #90 tab 06/06/21 [Rx Last Taken 09/28/21] oxycodone-acetaminophen [Percocet] 1 tab PO Q6H PRN 3 Days #12 tab 09/25/21 [Rx Last Taken 09/28/21] simvastatin 40 mg PO DAILY 09/25/21 [History Last Taken 09/27/21] warfarin 3 mg PO DAILY 09/25/21 [History Last Taken 09/28/21] allopurinol 100 mg PO DAILY 09/28/21 [History Last Taken 09/28/21] docusate sodium [Colace] 100 mg PO DAILY 09/28/21 [History Last Taken 09/28/21] Allergy/AdvReac Type Severity Reaction Status Date / Time rofecoxib [From Vioxx] AdvReac Other Verified 09/28/21 22:52 Family History Father , age85 Parkinsons disease Mother Heart disease Valvular heart disease Surgical History Biventricular ICD (implantable cardioverter-defibrillator) in place (09/15/14) History of coronary artery stent placement (08/20/05) History of left heart catheterization (07/04/16) 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 Social History Smoking Status: Never smoker alcohol intake: never substance use type: does not use caffeine: Yes Type: carbonated beverages ROS ROS ED Constitutional Constitutional ED: Denies chills or fever(s) Eyes Eyes: Denies change in vision or diplopia ENT ENT ED: Denies ear pain, epistaxis, facial pain or rhinorrhea Cardiovascular Cardiovascular: Denies chest pain or palpitations Respiratory/Chest Respiratory/Chest: Denies cough or dyspnea Gastrointestinal Gastrointestinal: Denies abdominal pain, diarrhea, melena, nausea or vomiting Genitourinary Genitourinary ED: Denies dysuria or hematuria Musculoskeletal Musculoskeletal: Reports as per HPI, back pain and extremity pain; Denies neck pain Integumentary Denies abscess, Abrasions, laceration or rash Neurologic Neurologic: Denies confusion, headache(s), paresthesias or weakness EXAM Physical Exam Const Vital Signs: 09/28/21 22:48 09/28/21 22:59 Temperature 98.3 F Temperature Source Temporal Pulse Rate 77 Respiratory Rate 15 Respiratory Effort Normal Non-Labored Respiratory Depth Normal Respiratory Pattern Normal Blood Pressure 119/78 Blood Pressure Mean 91 Pulse Ox 97 Oxygen Delivery Method Room Air Room Air Positive well nourished and well developed General Appearance ED: well developed and NAD HEENT Reports TM's clear and nasal mucous membranes and turbinates normal atraumatic Face and Sinus: Negative for facial tenderness Tympanic Membrane ED: Yes TM's clear Eyes PERRL and EOMs intact bilaterally Visual Acuity: other Other Details: no entrapment or pain with extraocular movements Neck full ROM and supple General: Negative for tenderness Chest Wall inspection of chest normal and palpation of chest normal Chest: symmetrical chest wall rise; Negative for crepitus or tenderness Resp normal respiratory effort and clear to auscultation bilaterally Percussion: other equal BS bilat Cardio Cardio Narrative: Irregularly irregular without tachycardia, mild systolic ejection murmur GI normal to inspection, nondistended, normoactive bowel sounds, soft to palpation and non-tender Back/Spine normal ROM Cervical Spine: Negative for cervical spine tenderness Thoracic Spine / Upper Back: Negative for thoracic spinal tenderness Lumbar Spine / Lower Back: Negative for lumbar spinal tenderness Extremity normal to inspection and full ROM Extremity Narrative: Status post left upper extremity hand amputation, surgical incisions well-healed. Nontender right hip, but severe pain with mild logroll passively. Not shortened. Other three extremities full range of motion without tenderness. General Extremety ED: Negative for tenderness Neuro oriented x3, CN's II-XII intact bilaterally, moves all extremities, no focal motor deficits and no sensory deficits noted Jim Coma Scale: document GCS findings Spontaneous Obeys Commands Oriented 15 Sensorium / Orientation: awake and alert Psych mental status grossly normal and thought process normal Skin no wounds Lesions: no lesions Rashes: no rashes MDM MDM MDM Narrative Medical decision making narrative: 2 view pelvis x-ray and 4 view right femur x-rays on my interpretation are consistent with a nondisplaced right intertrochanteric fracture, radiology is in agreement. His exam is consistent with this. CT of the head is negative for anything acute. His INR is 3.1, he last took his warfarin about 2 hours ago, prior to his fall. Other than renal insufficiency is labs are unremarkable. Discussed with Dr. Chapman, he will see him in the hospital tomorrow, will admit to medical surgical floor. Patient was offered analgesics and declined right now since as long as he does not move he is not in pain. Lab Data Attestation: I reviewed the patient's lab results. Labs: Laboratory Results - last 24 hr 09/28/21 09/28/21 09/28/21 23:10 23:10 23:10 WBC 7.5 RBC 3.93 L Hgb 12.1 L Hct 36.4 L MCV 92.6 MCH 30.8 MCHC 33.2 RDW Std Deviation 52.2 H RDW Coeff of Dena 15.4 H Plt Count 172 MPV 10.5 Immature Gran % (Auto) 1.500 H Neut % (Auto) 60.8 Lymph % (Auto) 13.8 L [place] % (Auto) 13.8 H Eos % (Auto) 9.4 H Baso % (Auto) 0.7 Absolute Neuts (auto) 4.6 Absolute Lymphs (auto) 1.03 Nucleated RBC % 0 PT 31.9 H INR 3.1 Sodium 135 L Potassium 4.5 Chloride 100 Carbon Dioxide 28.0 Anion Gap 7 BUN 51 H Creatinine 1.85 H Estim Creat Clear Calc 32.71 Est GFR (MDRD) Af Amer 45 L Est GFR (MDRD) Non-Af 37 L BUN/Creatinine Ratio 27.6 H Glucose 157 H Calcium 8.7 Radiography Diagnostic Testing: Clinical Impression(s) from Imaging Studies Brain CT 09/28/21 23:03 IMPRESSION: 1. No evidence of acute intracranial pathology. 2. Diffuse involutional changes and chronic ischemic small vessel white matter disease. , Electronically Signed: Josemanuel Burnett MD at 23:57 EDT , Femur X-Ray 09/28/21 23:03 IMPRESSION: Lucency along the base of the femoral neck/intertrochanteric region is suspicious for an acute nondisplaced fracture. Electronically Signed: Josemanuel Burnett MD at 0:20 EDT , Pelvis X-Ray 09/28/21 23:03 IMPRESSION: Lucency along the right intertrochanteric region is suspicious for an acute nondisplaced fracture; recommend CT for definitive diagnosis and for further characterization. Electronically Signed: Josemanuel Burnett MD at 0:17 EDT , ADDENDUM: 09/29/21 0029 IMPRESSION: Lucency along the right intertrochanteric region is suspicious for an acute nondisplaced fracture; recommend CT for definitive diagnosis and for further characterization. N.B. : Zen De La Torre RN, confirmed on 09/29/2021 00:22:38 (ET) that the healthcare facility has received the radiology report. Electronically Signed: Josemanuel Burnett MD at 0:17 EDT , Discharge Plan Dx/Rx/DC Orders Clinical Impression: Closed intertrochanteric fracture of right hip, Closed head injury without concussion, Fall from slip, trip, or stumble, Warfarin-induced coagulopathy Disposition Disposition: Acute Care [facility]
[2021-09-28 23:26] LABS: International Normalized Ratio 3.1; Prothrombin Time (Protime)PT. 31.9 SECONDS (11.7-14.9)
[2021-09-28 23:32] LABS: Anion Gap 7 (5-15); BUN 51 mg/dL (7-18); BUN/Creat Ratio 27.6 RATIO (10-20); Calcium,Total 8.7 mg/dL (8.5-10.1); Chloride 100 mmol/L (98-107); Creatinine, Serum 1.85 mg/dL (0.70-1.30); EST Glomerular Filtration Rate 37 mL/min (>60); Est Glom Filt Rate - Afr Amer 45 mL/min (>60); Estimated Creatinine Clearance 32.71 ml/min; Glucose 157 mg/dL (74-106); Potassium 4.5 mmol/L (3.5-5.1); Sodium Level 135 mmol/L (136-145)
[2021-09-28 23:36] LABS: Absolute Lymphocyte Count 1.03 X10^3/uL (0.83-4.51); Absolute Neutrophil Count 4.6 X10^3/uL (2.0-7.7); Basophil# 0.05 X10^3/uL; Basophil% 0.7 % (0-1); Eosinophils% 9.4 % (0-5); Hematocrit 36.4 % (40-54); Hemoglobin 12.1 g/dL (13.0-16.5); Lymphocyte # 1.03 X10^3/ul (0.83-4.51); Lymphocyte % 13.8 % (19-41); Mean Corp Hgb Conc 33.2 g/dL (32-36); Mean Corpuscular Hgb 30.8 pg (27.0-32.0); Mean Corpuscular Volume 92.6 fL (80-94); Mean Platelet Vol. 10.5 fl (6.2-12.0); Monocyte# 1.03 X10^3/uL; Monocyte% 13.8 % (0-10); NRBC Flagged by Analyzer 0 % (0-5); Neutrophil # 4.56 X10^3/uL (2.7-7.7); Neutrophil % 60.8 % (47-70); Platelet Count 172 K/mm3 (150-450); RBC Distribution Width CV 15.4 % (11.6-14.6); RBC Distribution Width SD 52.2 fl (35.1-43.9); Red Blood Count 3.93 M/mm3 (4.6-6.2); White Blood Count 7.5 K/mm3 (4.4-11.0)
[2021-09-29] VITALS (12 sets, daily range): BP systolic 96–118; BP diastolic 52–77; PULSE 69–83; RESP 16–20; TEMP 36.4–36.7; O2SAT 91–96; BMI 26.7
--- NOTE | 2021-09-29 00:44 | HP.PCM.HOS_ITS ---
HPI - General General Date of Admission: 09/29/21 Date of Service: 09/29/21 Chief Complaint: Fall, R hip pain, external rotation. HPI Narrative The patient is an 86 y/o M w/ PMHx: CKD stage II, BPH, Chronic normocytic anemia, Sick sinus syndrome s/p pacemaker placement, HTN, HLD, CAD s/p PCI, Ischemic cardiomyopathy s/p AICD, PAF, BPH, Gout, Diabetes mellitus type II who presents to the [facility] ED on 09/29/21 with history of mechanical fall while using his Rollator noted to been backing up after getting off the couch while watching TV unfortunately losing his balance and falling with no prodrome prior to this landing on his buttocks and bumping his head on the dresser with no loss of consciousness nor any residual headache with significant right thigh and hip pain upon attempted movement prompting ED evaluation. He notes at rest with no movement pain 0-1/10 but with any movement pain 9/10. Work-up in the ED included T98.3, heart 77, BP 119/70, respiratory rate 15, 97% on room air, CBC with WC 7.5, hemoglobin 12.1, platelet 172 with increased immature granulocytes, coags with INR 3.1, BMP with sodium 135, BUN/creat 51/1.85, glucose 157, CT of the brain with no acute evidence of intracranial pathology, diffuse involutional changes and chronic ischemic small vessel white matter disease, plain film of the right femur with lucency along the base of the femoral neck/intertrochanteric region suspicious for acute nondisplaced fracture with plain film of the pelvis with similar findings with clinical evidence of fracture. FOR[facility]LY [facility] Medical History Atherosclerotic heart disease of [place] coronary artery without angina pectoris Back pain BPH (benign prostatic hyperplasia) Cardiomyopathy, ischemic Debility Essential (primary) hypertension Gout HLD (hyperlipidemia) Longstanding persistent atrial fibrillation Paroxysmal atrial fibrillation Paroxysmal atrial flutter Secondary pulmonary arterial hypertension Sick sinus syndrome Syncope and collapse Type 2 diabetes mellitus Home Medications aspirin 81 mg PO DAILY@0800 12/02/13 [History Last Taken 09/28/21] metformin 500 mg PO BIDCM 12/02/13 [History Last Taken 09/28/21] tamsulosin 0.4 mg capsule 0.4 mg PO DAILY cap 03/21/20 [History Last Taken 09/28/21] carvedilol 6.25 mg tablet 6.25 mg PO BID #180 tab 04/23/21 [Rx Last Taken 09/28/21] furosemide 40 mg tablet 40 mg PO DAILY #90 tab 06/06/21 [Rx Last Taken 09/28/21] oxycodone-acetaminophen [Percocet] 1 tab PO Q6H PRN 3 Days #12 tab 09/25/21 [Rx Last Taken 09/28/21] simvastatin 40 mg PO DAILY 09/25/21 [History Last Taken 09/27/21] warfarin 3 mg PO DAILY 09/25/21 [History Last Taken 09/28/21] allopurinol 100 mg PO DAILY 09/28/21 [History Last Taken 09/28/21] docusate sodium [Colace] 100 mg PO DAILY 09/28/21 [History Last Taken 09/28/21] Allergy/AdvReac Type Severity Reaction Status Date / Time rofecoxib [From Vioxx] AdvReac Other Verified 09/28/21 22:52 Family History Father , age85 Parkinsons disease Mother Heart disease Valvular heart disease Surgical History Biventricular ICD (implantable cardioverter-defibrillator) in place (09/15/14) History of coronary artery stent placement (08/20/05) History of left heart catheterization (07/04/16) 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 Social History (Updated 09/29/21 @ 01:[address] Meri Shirley MD) household members: spouse Smoking Status: Never smoker alcohol intake: never substance use type: does not use caffeine: Yes Type: carbonated beverages ROS ROS Narrative Admission Review of Systems: CONSTITUTIONAL: No weight loss, fever, chills, + weakness or fatigue. HEENT: Eyes: No visual loss, blurred vision, double vision or yellow sclerae. Ears, Nose, Throat: No hearing loss, sneezing, congestion, runny nose or sore throat. SKIN: + Very staged ecchymoses, occasional abrasion. CARDIOVASCULAR: No chest pain, chest pressure or chest discomfort, palpitations, edema, orthopnea, syncopal events. RESPIRATORY: No shortness of breath, cough or sputum, wheezing, hemoptysis. GASTROINTESTINAL: No anorexia, nausea, vomiting or diarrhea, abdominal pain, melena, BRBPR. GENITOURINARY: No dysuria, frequency, urgency or retention. NEUROLOGICAL: + Frequent falls. No headache, dizziness, syncope, paralysis, ataxia, numbness or tingling in the extremities, focal weakness, change in bowel or bladder control, seizure. MUSCULOSKELETAL: + muscle, back pain, joint pain or stiffness. HEMATOLOGIC: + anemia, bleeding or bruising. LYMPHATICS: No enlarged nodes. No history of splenectomy. PSYCHIATRIC: No history of depression or anxiety. ENDOCRINOLOGIC: No reports of sweating, cold or heat intolerance. No polyuria or polydipsia. ALLERGIES: No history of asthma, hives, eczema or rhinitis. Vital Signs Vital Signs Vital Signs: 09/28/21 22:48 09/28/21 22:59 09/29/21 00:40 Temperature 98.3 F 98.1 F Temperature Source Temporal Temporal Pulse Rate 77 70 Respiratory Rate 15 20 H Respiratory Effort Normal Non-Labored Respiratory Depth Normal Respiratory Pattern Normal Blood Pressure 119/78 113/61 Blood Pressure Mean 91 78 Pulse Ox 97 93 Oxygen Delivery Method Room Air Room Air Room Air Weight Weight: 212 lb 8.41 oz Body Mass Index (BMI) 27.3 Physical Exam Narrative Physical Examination: General: Awake, alert, oriented x 3 and cooperative, laying in the ED bed, notes he does not move TI 0-1 out of 10 pain to the right hip. Skin: Normal color, normal turgor, no icterus, no cyanosis except occasional staged ecchymoses, abrasions. HEENT: AT/NC, EOMI, PERRLA, mildly dry MM, no carotid bruits or JVD noted. Lungs: Mild diminished, greater bases, appropriate effort, no rales, ronchi or wheezing. Heart: Currently paced/regular rate and rhythm; no gallop, rub audible. Abdomen: Soft, NTTP, ND, distant normal BS, no HSM. Extremities: No cyanosis, no clubbing, mild bilateral ankle nonpitting edema, peripheral pulses intact, right lower extremity externally rotated. Neurological: Patient awake, alert, oriented as noted, cognitive function intact; pupils equally reactive to light and accommodation, cranial nerves II- XII grossly normal, moving all 4 extremities however expected limitation right lower extremity given fall with right hip fracture, strength accordingly severely global decreased. Psychiatric: Affect appears fatigued otherwise normal, no acute evidence of depressive or anxiety feelings. Results Lab / Micro Data Result Diagrams: 09/28/21 23:10 09/28/21 23:10 Labs: Laboratory Results - last 24 hr 09/28/21 23:10: WBC 7.5, RBC 3.93 L, Hgb 12.1 L, Hct 36.4 L, MCV 92.6, MCH 30.8, MCHC 33.2, RDW Std Deviation 52.2 H, RDW Coeff of Dena 15.4 H, Plt Count 172, MPV 10.5, Immature Gran % (Auto) 1.500 H, Neut % (Auto) 60.8, Lymph % (Auto) 13.8 L, [place] % (Auto) 13.8 H, Eos % (Auto) 9.4 H, Baso % (Auto) 0.7, Absolute Neuts (auto) 4.6, Absolute Lymphs (auto) 1.03, Nucleated RBC % 0 09/28/21 23:10: PT 31.9 H, INR 3.1 09/28/21 23:10: Sodium 135 L, Potassium 4.5, Chloride 100, Carbon Dioxide 28.0, Anion Gap 7, BUN 51 H, Creatinine 1.85 H, Estim Creat Clear Calc 32.71, Est GFR (MDRD) Af Amer 45 L, Est GFR (MDRD) Non-Af 37 L, BUN/Creatinine Ratio 27.6 H, Glucose 157 H, Calcium 8.[address] 09/28/21 23:03 IMPRESSION: 1. No evidence of acute intracranial pathology. 2. Diffuse involutional changes and chronic ischemic small vessel white matter disease. , Electronically Signed: Josemanuel Burnett MD at 23:57 EDT , Femur X-Ray 09/28/21 23:03 IMPRESSION: Lucency along the base of the femoral neck/intertrochanteric region is suspicious for an acute nondisplaced fracture. Electronically Signed: Josemanuel Burnett MD at 0:20 EDT , Pelvis X-Ray 09/28/21 23:03 IMPRESSION: Lucency along the right intertrochanteric region is suspicious for an acute nondisplaced fracture; recommend CT for definitive diagnosis and for further characterization. Electronically Signed: Josemanuel Burnett MD at 0:17 EDT , ADDENDUM: 09/29/21 0029 IMPRESSION: Lucency along the right intertrochanteric region is suspicious for an acute nondisplaced fracture; recommend CT for definitive diagnosis and for further characterization. N.B. : Zen De La Torre RN, confirmed on 09/29/2021 00:22:38 (ET) that the healthcare facility has received the radiology report. Electronically Signed: Josemanuel Burnett MD at 0:17 EDT , Assessment & Plan Assessment/Plan (1) Multiple falls: (2) Closed intertrochanteric fracture of right hip: QUALIFIERS: Encounter type: initial encounter Fracture alignment: nondisplaced Qualified Code(s): S72.144A - Nondisplaced intertrochanteric fracture of right femur, initial encounter for closed fracture PLAN: The patient is an 86 y/o M w/ PMHx: CKD stage II, BPH, Chronic normocytic anemia, Sick sinus syndrome s/p pacemaker placement, HTN, HLD, CAD s/p PCI, Ischemic cardiomyopathy s/p AICD, PAF, BPH, Gout, Diabetes mellitus t ype II who presents to the [facility] ED on 09/29/21 with history of mechanical fall while using his Rollator noted to been backing up after getting off the couch while watching TV unfortunately losing his balance and falling with no prodrome prior to this landing on his buttocks and bumping his head on the dresser with no loss of consciousness nor any residual headache with significant right thigh and hip pain upon attempted movement prompting ED evaluation. #1. General debility, R hip pain s/p mechanical fall w/ suspected R Acute Nondisplaced femoral neck/intertrochanteric fracture: Orthopedic surgery consulted from ED. Will admit to PCU given notable cardiac history, allow diet given surgery will be delayed with INR therapeutic and patient needs Cardiology evaluation, plan prior to OR only mendoza placement, monitor I/Os, frequent positioning, fall precautions, pain, anti-emetic regimen. Would plan for PT/OT following operative intervention. CM consulted for discharge planning. NSQIP given patient's advanced age, recent acute kidney injury, underlying significant comorbidities including notable cardiac disease with elevated risk for perioperative events including cardiac events therefore will request cardiology consultation for preoperative clearance. EKG obtained in the ED and noted to be paced, will obtain echocardiogram although will defer to cardiology if felt repeat not necessary although last noted 04/03/2020, maintain on telemetry to be cautious. We will hold Coumadin as noted and let it trend down, trend INR however will avoid reversal until cardiology clearance has been obtained. #2. Acute kidney injury on CKD stage II: Admission BUN/creatinine 51/1.85, of note patient with increased creatinine 09/05/2021 noted to be 2.06 and repeat similar on 09/25/2021, prior to this patient baseline had been 1.1-1.2, unclear why this has risen since 03/2021, will judiciously hydrate given underlying cardiac disease with ischemic cardiomyopathy and reduced EF, will obtain FeNa and renal US as well as UA. We will hold nephrotoxic medications temporarily and very judiciously hydrate. Discussed with patient and his and they note that he has an appointment for his acute kidney injury but this has been delayed until December therefore will request consultation while inpatient. #3. CAD: Status post PCI, currently on Coumadin therapy with therapeutic INR, given mechanical fall with hip fracture we will plan to hold with INR trending, continue aspirin therapy, statin therapy, Coreg, not on RUDY inhibitor/ARB but given renal function would not be appropriate. #4. Ischemic cardiomyopathy: Currently on Coumadin as noted without therapeutic INR, given mechanical fall with hip fracture we will plan to hold with INR trending, continue aspirin therapy, statin therapy, Coreg, temporarily holding Lasix given renal function, not on RUDY inhibitor or ARB, 04/03/2020 echocardiogram with normal LV size, EF 35%, moderate segmental systolic dys function, stage II diastolic dysfunction, severely enlarged LA, PASP 34 mmHg with no significant change noted since prior echocardiogram of note. ECHO requested but will defer to Cardiology if felt not necessary. Device interrogation also requested. #5. Hypertension: Continue home regimen including Coreg, temporarily hold patient Lasix given BERTA, judiciously hydrating with repeat renal function in a.m. with resumption of diuresis once appropriate, PRN hydralazine. #6. Hyperlipidemia: We will continue patient on statin therapy. #7. History of sick sinus syndrome: Status post pacemaker/AICD placement, interrogation requested. #8. Recent Fall prior to current presentation w/ Closed wedge compression fracture of T12 vertebra: Had been set-up with outpatient therapies, PCP follow- up and Dr. Lee evaluation per review of records. #9. Chronic normocytic anemia: Admission globin 12.1, baseline 11-12, stable, trend. #10. Diabetes mellitus type II: Hold oral home regimen, ADA diet, accu checks w/ ISS. #11. BPH: We will continue Flomax home regimen. #12. Gout: We will continue patient on allopurinol regimen. #13. DVT prophylaxis: SCDs, holding Coumadin with INR trending. Will defer reversal until Cardiology clearance obtained, suspect earliest OR date would be Friday. #14. CODE status: Patient YURIDIA is his who is present and living will is currently in place. Discussed CODE status at length including difference between FULL code, DNR-CCA and DNR-CC status. Following discussions about the differences in these status, requested DNR-CCA, no intubation. Advanced Care Planning Face to Face Time: 16 minutes. Charges/Coding Visit Charges Inpatient E&M: 99616 Init Hosp L3 Procedures Hospitalists Procedures: 53991 Advncd Care Plan 30 Min
--- NOTE | 2021-09-29 01:26 | EKG12_ITS ---
Test Reason : DYSRHYTHMIA Blood Pressure : / mmHG Vent. Rate : 071 BPM Atrial Rate : 326 BPM P-R Int : 000 ms QRS Dur : 198 ms QT Int : 508 ms P-R-T Axes : 000 224 060 degrees QTc Int : 552 ms Ventricular-paced rhythm with occasional supraventricular complexes and with occasional Premature aron tricular complexes Biventricular pacemaker detected Abnormal ECG Confirmed by IVAN HARMAN, BONIFACIO ([id number]), society editor FITO MADRIGAL ([id number]) on 10/03/2021 8:56:40 AM Referred By: Meri Shirley Confirmed By:BONIFACIO LOVE MD
--- NOTE | 2021-09-29 01:39 | ECHOCS_ITS ---
Version 2 Reason For Study: CHF Procedure This was a 2D Doppler, Color Flow transthoracic echocardiogram. Contrast injection was performed. Exam performed portable in patient room. Left Ventricle Moderately dilated left ventricle. The estimated ejection fraction is 35 %. Moderately severe segmental systolic dysfunction (see wall motion). Mid-Posterior: Hypokinetic. Mid-Anterior : Normal. Basal inferoseptal: Normal. Lateral-Basal: Normal. Anterio-Basal: Normal. Right Ventricle Normal RV size. ICD or pacer leads identified within the right ventricle. Normal systolic function. Atria The left atrium is severely enlarged. The right atrium is mildly enlarged. Mitral Valve Bileaflet diffuse mitral valve thickening. Mild-Moderate (1-2+) eccentric mitral valve insufficiency. Tricuspid Valve Normal tricuspid valve. Moderate (2+) tricuspid valve insufficiency. Pulmonary artery systolic pressure is 60 mmHg. Aortic Valve Trisinus/trileaflet aortic valve. Moderate diffuse aortic valve thickening. Mild-Moderate (1-2+) eccentric aortic valve insufficiency. Pulmonic Valve Normal pulmonic valve. Mild (1+) pulmonic valve insufficiency. Great Vessels Normal aortic root. The pulmonary artery is normal size. Normal inferior vena cava. Pericardium/Pleural No pericardial effusion. Medication Diluted definity 3ml given slow IV push to enhance endocardial definition. MMode/2D Measurements & Calculations LVIDd: 6.1 cm IVSd: 1.2 cm LVOT diam: 2.3 cm LVIDs: 5.2 cm LVPWd: 1.0 cm RVDd: 4.8 cm FS: 14.8 % LVOT area: 4.0 cm2 Ao root diam: 3.2 cm LAV(MOD-bp): 156.3 ml LA A4 area: 38.6 cm2 ACS: 1.6 cm LAV(MOD-bp) Indexed: 70.3 ml/m2 LAV(MOD-sp2): 143.3 ml LAV(MOD-sp4): 151.0 ml LA dimension(2D): 4.8 cm RA A4 area: 24.2 cm2 Doppler Measurements & Calculations MV E max miguelito: 61.4 cm/sec Lat Peak E' Miguelito: 7.7 cm/sec Med Peak E' Miguelito: 5.5 cm/sec E/E' lat: 8.0 E/E' med: 11.3 Ao V2 max: 271.7 cm/sec AI max miguelito: 378.7 cm/sec LV V1 max: 108.7 cm/sec Ao max P.5 mmHg AI max P.4 mmHg LV V1 max P.8 mmHg Ao V2 mean: 188.1 cm/sec AI dec slope: 150.8 cm/sec2 LV V1 mean P.7 mmHg Ao mean P.7 mmHg AI P1/2t: 735.7 msec LV V1 mean: 76.4 cm/sec Ao V2 VTI: 49.9 cm LV V1 VTI: 19.9 cm ALVARO(I,D): 1.6 cm2 ALVARO(V,D): 1.6 cm2 SV(LVOT): 80.3 ml PA V2 max: 67.1 cm/sec PI end-d miguelito: 162.4 cm/sec TR max miguelito: 371.7 cm/sec TR max P.3 mmHg ECHO/Echo Complete W/ Contrast Interpretation Summary The estimated ejection fraction is 35 %. Moderately severe segmental systolic dysfunction (see wall motion). ICD or pacer leads identified within the right ventricle. The left atrium is severely enlarged. Mild-Moderate (1-2+) eccentric mitral valve insufficiency. Pulmonary artery systolic pressure is 60 mmHg. Mild-Moderate (1-2+) eccentric aortic valve insufficiency. Moderately dilated left ventricle. Compared to previous study, the left ventricular systolic function is the same. . Ordering Physician: Meri Shirley Referring Physician: Gurjit Salomon Performed By: Li Hatch, CECIL, RVT
[2021-09-29] MEDS: 0.9% Normal Saline 1,000 ML 75 ML IV ×2 (02:00→15:12)
[2021-09-29 02:38] LABS: Mucous, Urine 0 SEEN /hpf (<or=2+)
[2021-09-29 02:40] LABS: Color, Urine Yellow (Yellow); Glucose, Dipstick Normal (Normal); Ketone-Dipstick Negative (Negative); Leukocyte Esterase-Dipstick Negative /ul (Negative); Nitrite-Dipstick Negative (Negative); Occult Blood-Urine 50 /ul (Negative); Protein-Dipstick 15 mg/dl (Negative); Specific Gravity, Urine 1.015 (1.002-1.030); Urine Bilirubin Dipstick Negative (Negative); Urine Clarity Clear (Clear); Urine Urobilinogen Normal (Normal)
[2021-09-29 02:48] LABS: Bacteria RARE /hpf (None Seen); Red Blood Cells-Urine 5-10 SEEN /hpf (0-5); Squamous Epithelial Cells - UA 0-5 SEEN /hpf (0-5); White Blood Cells 0-5 SEEN /hpf (0-5)
[2021-09-29 02:49] LABS: Urine Sodium 32 mmol/L (Not Establ.)
[2021-09-29] MEDS: Morphine 4 MG/ML Syringe IV ×3 (04:04→11:37)
[2021-09-29] MEDS: 0.9% Saline Lock 10 ML Syringe IV (04:05)
[2021-09-29 05:08] LABS: ALB/GLOB Ratio 0.9 RATIO (0.9-2.4); AST(SGOT) 23 U/L (15-37); Alanine Aminotransfer ALT/SGPT 23 U/L (16-61); Albumin, Serum 3.1 g/dL (3.2-5.0); Alkaline Phosphatase 174 U/L (45-117); Anion Gap 7 (5-15); BUN 51 mg/dL (7-18); BUN/Creat Ratio 28.2 RATIO (10-20); Calcium,Total 8.8 mg/dL (8.5-10.1); Chloride 99 mmol/L (98-107); Creatinine, Serum 1.81 mg/dL (0.70-1.30); EST Glomerular Filtration Rate 38 mL/min (>60); Est Glom Filt Rate - Afr Amer 46 mL/min (>60); Estimated Creatinine Clearance 33.43 ml/min; Globulin 3.5 g/dL (2.2-4.2); Glucose 146 mg/dL (74-106); Potassium 4.7 mmol/L (3.5-5.1); Protein, Total 6.6 g/dL (6.4-8.2); Sodium Level 134 mmol/L (136-145)
--- NOTE | 2021-09-29 05:55 | US_ITS ---
STUDY: RENAL ULTRASOUND - COMPLETE REASON FOR EXAM: Male, 86 years old. BERTA on CKD TECHNIQUE: Ultrasound evaluation of the kidneys was performed with real-time and static thorpe-scale imaging. COMPARISON: None. FINDINGS: RIGHT KIDNEY: Normal location of the right kidney, which is normal in size. The right kidney measures 11 x 4.7 x 5.2 cm. There is a normal cortex of the right kidney. The renal cortex measures 1.5 cm. There are 2 cysts in the right kidney, one measures about 2.5 cm and the other measures about 2 cm. There are no right renal calculi. There is no right hydronephrosis. DISTAL RIGHT URETER: There is non-visualization of the distal right ureter. There is no demonstrated right ureterovesical junction calculus. There is no demonstrated right ureteral jet. LEFT KIDNEY: Normal location of the left kidney, which is normal in size. The left kidney measures 10.4 x 5 x 7 cm. There is a normal cortex of the left kidney. The renal cortex measures 1.3 cm. There are multiple cysts in the left kidney, the largest measures about 2.4 and 2 cm. There are no left renal calculi. There is mild to moderate left hydronephrosis and left hydroureter. DISTAL LEFT URETER: There is non-visualization of the distal left ureter. There is no demonstrated left ureterovesical junction calculus. There is no demonstrated left ureteral jet. BLADDER: The distended urinary bladder has a volume of 77 ml. HERRERA catheter is seen in the bladder. US/Kidney and Bladder IMPRESSION: 1. Mild to moderate left hydronephrosis and hydroureter. 2. Bilateral renal cysts. Electronically Signed: Oneal Ghotra MD at 12:21 EDT ,
--- NOTE | 2021-09-29 06:33 | CT_ITS ---
STUDY: CT RIGHT HIP WITHOUT CONTRAST REASON FOR EXAM: Male, 86 years old. History of fracture of the right hip. RADIATION DOSAGE (If Supplied By Facility): CTDIvol = ( 37.34 ) mGy, DLP = ( 1436.19 ) mGycm TECHNIQUE: Transaxial imaging of the right hip were obtained without contrast. Sagittal and coronal reconstruction images were obtained. Individualized dose optimization techniques were used for this CT. COMPARISON: Radiographs of the pelvis of 09/28/2021. FINDINGS: There is an impacted and angulated fracture of the base of the right hip and intertrochanteric region. There is a small fracture of the lesser trochanter. There is no evidence of dislocation. Soft tissue swelling lateral to the right hip. Extensive vascular calcifications. Small right inguinal hernia containing CT/Extremity Lower without Contra IMPRESSION: Fracture of the right hip as described above. Electronically Signed: Oneal Ghotra MD at 8:42 EDT ,
[2021-09-29] MEDS: Insulin Lispro 100 UNIT/ML INSULN.PEN SC ×4 (06:54→21:34)
[2021-09-29 07:00] LABS: Bedside Glucose 152 mg/dL (74-106)
[2021-09-29] MEDS: proCHLORPERazine 10 MG/2 ML Vial 5 MG IV (07:53)
[2021-09-29 08:11] LABS: International Normalized Ratio 3.3; Prothrombin Time (Protime)PT. 33.4 SECONDS (11.7-14.9)
--- NOTE | 2021-09-29 08:14 | PN.HOSP_ITS ---
Subjective Subjective Follow-up for right hip fracture with multiple medical comorbidities. Perioperative medical optimization. Objective Data Objective Data Vital Signs: Vital Signs Temp Pulse Resp BP Pulse Ox 98.1 F 69 16 110/52 L 91 09/29/21 07:45 09/29/21 07:45 09/29/21 07:45 09/29/21 07:45 09/29/21 07:45 Oxygen Delivery Method Room Air Weight: 208 lb 1.862 oz Body Mass Index (BMI) 26.7 Intake & Output: Intake and Output for Last 24 Hours 09/27/21 09/28/21 09/29/21 23:59 23:59 23:59 Intake Total 0 / 0 Output Total 450 / 450 Balance -450 / -450 Lab / Micro Data Result Diagrams: 09/28/21 23:10 09/29/21 11:15 Labs: Laboratory Results - last 24 hr 09/28/21 23:10: WBC 7.5, RBC 3.93 L, Hgb 12.1 L, Hct 36.4 L, MCV 92.6, MCH 30.8, MCHC 33.2, RDW Std Deviation 52.2 H, RDW Coeff of Dena 15.4 H, Plt Count 172, MPV 10.5, Immature Gran % (Auto) 1.500 H, Neut % (Auto) 60.8, Lymph % (Auto) 13.8 L, Clinch % (Auto) 13.8 H, Eos % (Auto) 9.4 H, Baso % (Auto) 0.7, Absolute Neuts (auto) 4.6, Absolute Lymphs (auto) 1.03, Nucleated RBC % 0 09/28/21 23:10: PT 31.9 H, INR 3.1 09/28/21 23:10: Sodium 135 L, Potassium 4.5, Chloride 100, Carbon Dioxide 28.0, Anion Gap 7, BUN 51 H, Creatinine 1.85 H, Estim Creat Clear Calc 32.71, Est GFR (MDRD) Af Amer 45 L, Est GFR (MDRD) Non-Af 37 L, BUN/Creatinine Ratio 27.6 H, Glucose 157 H, Calcium 8.7 09/29/21 02:30: Urine Color Yellow, Urine Clarity Clear, Urine pH 6.0, Ur Specific [place] 1.015, Urine Protein 15 H, Urine Glucose (UA) Normal, Urine Ketones Negative, Urine Occult Blood 50 H, Urine Nitrite Negative, Urine Bilirubin Negative, Urine Urobilinogen Normal, Ur Leukocyte Esterase Negative, Urine RBC 5-10 SEEN, Urine WBC 0-5 SEEN, Ur Squamous Epith Cells 0-5 SEEN, Urine Bacteria RARE, Urine Mucus 0 SEEN 09/29/21 02:30: Ur Random Sodium 32, Urine Creatinine 72.50 09/29/21 04:10: Sodium 134 L, Potassium 4.7, Chloride 99, Carbon Dioxide 28.0, Anion Gap 7, BUN 51 H, Creatinine 1.81 H, Estim Creat Clear Calc 33.43, Est GFR (MDRD) Af Amer 46 L, Est GFR (MDRD) Non-Af 38 L, BUN/Creatinine Ratio 28.2 H, Glucose 146 H, Calcium 8.8, Total Bilirubin 0.80, AST 23, ALT 23, Alkaline Phosphatase 174 H, Total Protein 6.6, Albumin 3.1 L, Globulin 3.5, Albumin/Globulin Ratio 0.9 09/29/21 04:10: Blood Type A POSITIVE, Antibody Screen NEGATIVE 09/29/21 06:48: POC Glucose 152 H 09/29/21 07:15: PT 33.4 H, INR 3.3 Radiography Diagnostic Testing: Radiology Impression Brain CT 09/28/21 23:03 IMPRESSION: 1. No evidence of acute intracranial pathology. 2. Diffuse involutional changes and chronic ischemic small vessel white matter disease. , Femur X-Ray 09/28/21 23:03 IMPRESSION: Lucency along the base of the femoral neck/intertrochanteric region is suspicious for an acute nondisplaced fracture. Pelvis X-Ray 09/28/21 23:03 IMPRESSION: Lucency along the right intertrochanteric region is suspicious for an acute nondisplaced fracture; recommend CT for definitive diagnosis and for further characterization. Physical Exam Narrative Complain of mild pain over right hip. Not able to move her right hip. Patient has history of coronary artery status post 2 stents, sick sinus syndrome status status post defibrillator, paroxysmal A. fib type II hypertension other comorbidities. Denies history of stroke. Denies any recent chest pain or angina but has chronic mild shortness of breath on exertion. Physical exam General: Alert, Oriented x3, Cooperative HEENT: Atraumatic, PERRLA, EOMI, Normocephalic Oral: No Gingival or Mucosal Lesions/ Ulcerations Neck: Supple, No JVD, Negative Carotid Bruits Lungs: Air entry diminished in bilateral lung bases. No crepitation/rhonchi Cardiovascular: Regular rate, Regular Rhythm, Normal S1, Normal S2, early diastolic murmur over right second ICS. Left subclavicular AICD Abdomen: Bowel Sounds Present, Soft, Non Tender, Non-Distended : No renal angle tenderness. No suprapubic tenderness. Extremities: No edema, Capillary Refill Less than 3 Seconds Skin: No rashes, No breakdown Musculoskeletal: Tenderness over right groin and ischial region. ROM severely restricted and painful and tender, not attempted. RLE externally rotated Neurological: Cranial nerves II-XII grossly intact, DTR 2+/4 Psych/Mental Status: Normal Affect, Appropriate. Assessment & Plan Assessment/Plan (1) Multiple falls: (2) Closed intertrochanteric fracture of right hip: QUALIFIERS: Encounter type: initial encounter Fracture alignment: nondisplaced Qualified Code(s): S72.144A - Nondisplaced intertrochanteric fracture of right femur, initial encounter for closed fracture PLAN: The patient is an 86 y/o M with multiple comorbidities along with decreased functional activity, on Rollator, lost balance and fell down. No prodrome prior to fall. No loss of consciousness. On further imaging patient was found right nondisplaced intertrochanteric fracture. #1. Right acute Nondisplaced femoral neck/intertrochanteric fracture most li natty due to osteoporosis as fracture after fall from standing height: Patient is admitted MedSurg floor. Perioperative medical optimization. NSQIP risk was high based on cardiac history and other comorbidities therefore client relationship consultant was consulted. Discussed with client relationship consultant. EF 25 to 30% unchanged from the previous echo with segmental wall motion abnormalities. Unrestrictive IV fluid administration. Continue cardiac medications. On last ICD interrogation no evidence of defibrillator discharge and unremarkable. Twelve-lead EKG shows paced rhythm. #2. 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 Creatinine was 1.12 on 03/2021. BUN/creatinine decreasing/improving #3. CAD: Status post PCI, currently on Coumadin therapy with therapeutic INR, given mechanical fall with hip fracture we will plan to hold with INR trending, continue aspirin therapy, statin therapy, Coreg, not on RUDY inhibitor/ARB but given renal function would not be appropriate. #4. Chronic systolic heart failure status post AICD: Patient on INR, warfarin held due to elevated INR and patient going for surgery. Low-dose vitamin K 2.5 mg given and expect to be normal tomorrow prior to surgery. continue aspirin therapy, statin therapy, Coreg. Lasix temporarily held but can be resumed if fluid overload or change in hemodynamics. Patient also not on RUDY and ARB suspected due to CKD. 04/03/2020 echocardiogram with normal LV size, EF 35%, moderate segmental systolic dysfunction, stage II diastolic dysfunction, severely enlarged LA, PASP 34 mmHg with no significant change noted since prior echocardiogram of note. #5. Hypertension: Blood pressure is on lower side therefore antihypertensive medication with holding parameters #6. Hyperlipidemia: continue patient on statin therapy. #7. History of sick sinus syndrome: Status post pacemaker/AICD placement #8. Recent Fall prior to current presentation with closed wedge compression fracture of T12 vertebra: Had been set-up with outpatient therapies, PCP follow- up and Dr. Lee evaluation per review of records. #9. Chronic normocytic anemia: Admission globin 12.1, baseline 11-12, stable, trend. #10. Diabetes mellitus type II: Hold oral home regimen, ADA diet, accu checks w/ ISS. #11. BPH: We will continue Flomax home regimen. #12. Gout: We will continue patient on allopurinol regimen. #13. DVT prophylaxis: SCDs, holding Coumadin with INR trending. Will defer reversal until Cardiology clearance obtained, suspect earliest OR date would be Friday. #14. CODE status: Patient YURIDIA is his who is present and living will is currently in place. Discussed CODE status at length including difference between FULL code, DNR-CCA and DNR-CC status. Following discussions about the differences in these status, requested DNR-CCA, no intubation Charges/Coding Visit Charges Inpatient E&M: 57747 Subs Hosp L2
--- NOTE | 2021-09-29 10:25 | CON.PCM.OR_ITS ---
HPI Consult Data Date of Consult: 09/29/21 HPI Narrative HPI Narrative: NANETTE RIVERA, is a 86 M who presents to [facility] after a mechanical fall from standing height while using his Rollator. He lost his balance landing on his right side and hitting his head on a dresser without loss of consciousness. X-rays of the right femur and pelvis obtained in the emergency department revealed suspected nondisplaced right intertrochanteric proximal femur fracture. CT scan of his brain was negative for acute pathology. Denies any antecedent right hip or groin pain. Community ambulator typically with a Rollator, but states he has been walking less because of his low back which has been hurting approximately 6 weeks. He states he normally works out at [employer] but has been inactive over the last 6 weeks. Of note, patient also had a fall 09/25/2021 and was diagnosed with compression fractures of his T12 and L2 vertebrae. He states his back's been feeling better over the last few days. [facility] Medical History Atherosclerotic heart disease of [place] coronary artery without angina pectoris Back pain BPH (benign prostatic hyperplasia) Cardiomyopathy, ischemic Debility Essential (primary) hypertension Gout HLD (hyperlipidemia) Longstanding persistent atrial fibrillation Paroxysmal atrial fibrillation Paroxysmal atrial flutter Secondary pulmonary arterial hypertension Sick sinus syndrome Syncope and collapse Type 2 diabetes mellitus Home Medications aspirin 81 mg PO DAILY@0800 12/02/13 [History Last Taken 09/28/21] metformin 500 mg PO BIDCM 12/02/13 [History Last Taken 09/28/21] tamsulosin 0.4 mg capsule 0.4 mg PO DAILY cap 03/21/20 [History Last Taken 09/28/21] carvedilol 6.25 mg tablet 6.25 mg PO BID #180 tab 04/23/21 [Rx Last Taken 09/28/21] oxycodone-acetaminophen [Percocet] 1 tab PO Q6H PRN 3 Days #12 tab 09/25/21 [Rx Last Taken 09/28/21] simvastatin 40 mg PO QODAY 09/25/21 [History Last Taken 09/28/21] warfarin 3 mg PO DAILY 09/25/21 [History Last Taken 09/28/21] allopurinol 100 mg PO DAILY 09/28/21 [History Last Taken 09/28/21] docusate sodium [Colace] 100 mg PO DAILY 09/28/21 [History Last Taken 09/28/21] furosemide 20 mg PO DAILY 09/29/21 [History Last Taken 09/28/21] Allergy/AdvReac Type Severity Reaction Status Date / Time rofecoxib [From Vioxx] AdvReac Other Verified 09/28/21 22:52 Family History Father , age85 Parkinsons disease Mother Heart disease Valvular heart disease Surgical History Biventricular ICD (implantable cardioverter-defibrillator) in place (09/15/14) History of coronary artery stent placement (08/20/05) History of left heart catheterization (07/04/16) 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 Social History (Updated 09/29/21 @ 01:[address] Meri Shirley MD) household members: spouse Smoking Status: Never smoker alcohol intake: never substance use type: does not use caffeine: Yes Type: carbonated beverages ROS ROS Narrative 12 point review of systems obtained, negative less otherwise noted in HPI. Vital Signs Vital Signs Vital Signs: 09/28/21 22:48 09/28/21 22:59 09/29/21 00:40 Temperature 98.3 F 98.1 F Temperature Source Temporal Temporal Pulse Rate 77 70 Respiratory Rate 15 20 H Respiratory Effort Normal Non-Labored Respiratory Depth Normal Respiratory Pattern Normal Blood Pressure 119/78 113/61 Blood Pressure Mean 91 78 Blood Pressure Source Blood Pressure Position Blood Pressure Location Pulse Ox 97 93 Oxygen Delivery Method Room Air Room Air Room Air 09/29/21 01:44 09/29/21 05:48 09/29/21 07:39 Temperature 97.7 F L Temperature Source Oral Pulse Rate 71 70 73 Respiratory Rate 20 H Respiratory Effort Respiratory Depth Respiratory Pattern Blood Pressure 118/70 Blood Pressure Mean 86 Blood Pressure Source Monitor Blood Pressure Position Semi-Fowlers Blood Pressure Location Right Arm Pulse Ox 96 Oxygen Delivery Method Room Air 09/29/21 07:45 09/29/21 09:36 Temperature 98.1 F Temperature Source Oral Pulse Rate 69 73 Respiratory Rate 16 Respiratory Effort Respiratory Depth Respiratory Pattern Blood Pressure 110/52 L Blood Pressure Mean 71 Blood Pressure Source Monitor Blood Pressure Position Semi-Fowlers Blood Pressure Location Right Arm Pulse Ox 91 Oxygen Delivery Method Room Air Weight Weight: 208 lb 1.862 oz Body Mass Index (BMI) 26.7 Physical Exam Narrative General -A&Ox3, NAD, appears stated age. Vital signs stable, afebrile. Respiratory -normal work of breathing, no intercostal retractions. CV -pulses regular, brisk capillary refill ?4 limbs. Abdomen-soft, nontender, nondistended. No guarding, rigidity, rebound tenderness. Musculoskeletal/neurologic -full range of motion nontender throughout bilateral upper extremities, left lower extremity with full sensation and strength in all dermatomes and myotomes. No midline cervical tenderness. Right lower extremity- no obvious deformity. Pain with logroll of the right lower extremity. Nontender throughout the right knee femoral shaft, tibial shaft and right foot/ankle. Brisk capillary refill. Sensation intact light touch L3-S1 dermatomes. DF, PF, EHL intact. DP, PT 2+. Pelvis is stable, nontender. Skin is intact without lacerations, abrasions. No ecchymosis noted. Lab / Micro Data Result Diagrams: 09/28/21 23:10 09/29/21 04:10 Labs: Laboratory Results - last 24 hr 09/28/21 23:10: WBC 7.5, RBC 3.93 L, Hgb 12.1 L, Hct 36.4 L, MCV 92.6, MCH 30.8, MCHC 33.2, RDW Std Deviation 52.2 H, RDW Coeff of Dena 15.4 H, Plt Count 172, MPV 10.5, Immature Gran % (Auto) 1.500 H, Neut % (Auto) 60.8, Lymph % (Auto) 13.8 L, [place] % (Auto) 13.8 H, Eos % (Auto) 9.4 H, Baso % (Auto) 0.7, Absolute Neuts (auto) 4.6, Absolute Lymphs (auto) 1.03, Nucleated RBC % 0 09/28/21 23:10: PT 31.9 H, INR 3.1 09/28/21 23:10: Sodium 135 L, Potassium 4.5, Chloride 100, Carbon Dioxide 28.0, Anion Gap 7, BUN 51 H, Creatinine 1.85 H, Estim Creat Clear Calc 32.71, Est GFR (MDRD) Af Amer 45 L, Est GFR (MDRD) Non-Af 37 L, BUN/Creatinine Ratio 27.6 H, Glucose 157 H, Calcium 8.7 09/29/21 02:30: Urine Color Yellow, Urine Clarity Clear, Urine pH 6.0, Ur Specific [place] 1.015, Urine Protein 15 H, Urine Glucose (UA) Normal, Urine Ketones Negative, Urine Occult Blood 50 H, Urine Nitrite Negative, Urine Bilirubin Negative, Urine Urobilinogen Normal, Ur Leukocyte Esterase Negative, Urine RBC 5-10 SEEN, Urine WBC 0-5 SEEN, Ur Squamous Epith Cells 0-5 SEEN, Urine Bacteria RARE, Urine Mucus 0 SEEN 09/29/21 02:30: Ur Random Sodium 32, Urine Creatinine 72.50 09/29/21 04:10: Sodium 134 L, Potassium 4.7, Chloride 99, Carbon Dioxide 28.0, Anion Gap 7, BUN 51 H, Creatinine 1.81 H, Estim Creat Clear Calc 33.43, Est GFR (MDRD) Af Amer 46 L, Est GFR (MDRD) Non-Af 38 L, BUN/Creatinine Ratio 28.2 H, Gl ucose 146 H, Calcium 8.8, Total Bilirubin 0.80, AST 23, ALT 23, Alkaline Phos phatase 174 H, Total Protein 6.6, Albumin 3.1 L, Globulin 3.5, Albumin/Globulin Ratio 0.9 09/29/21 04:10: Blood Type A POSITIVE, Antibody Screen NEGATIVE 09/29/21 06:48: POC Glucose 152 H 09/29/21 07:15: PT 33.4 H, INR 3.[address] 09/28/21 23:03 IMPRESSION: 1. No evidence of acute intracranial pathology. 2. Diffuse involutional changes and chronic ischemic small vessel white matter disease. , Electronically Signed: Josemanuel Burnett MD at 23:57 EDT , Femur X-Ray 09/28/21 23:03 IMPRESSION: Lucency along the base of the femoral neck/intertrochanteric region is suspicious for an acute nondisplaced fracture. Electronically Signed: Josemanuel Burnett MD at 0:20 EDT , Pelvis X-Ray 09/28/21 23:03 IMPRESSION: Lucency along the right intertrochanteric region is suspicious for an acute nondisplaced fracture; recommend CT for definitive diagnosis and for further characterization. Electronically Signed: Josemanuel Burnett MD at 0:17 EDT , ADDENDUM: 09/29/21 0029 IMPRESSION: Lucency along the right intertrochanteric region is suspicious for an acute nondisplaced fracture; recommend CT for definitive diagnosis and for further characterization. N.B. : Zen De La Torre RN, confirmed on 09/29/2021 00:22:38 (ET) that the healthcare facility has received the radiology report. Electronically Signed: Josemanuel Burnett MD at 0:17 EDT , Lower Extremity CT 09/29/21 06:33 IMPRESSION: Fracture of the right hip as described above. Electronically Signed: Oneal Ghotra MD at 8:42 EDT , Assessment & Plan Assessment/Plan (1) Closed intertrochanteric fracture of right hip: QUALIFIERS: Encounter type: initial encounter Fracture alignment: nondisplaced Qualified Code(s): S72.144A - Nondisplaced intertrochanteric fracture of right femur, initial encounter for closed fracture PLAN: Patient sustained a right intertrochanteric proximal femur fracture. -Closed, neurovascularly intact -Recommending surgical intervention in the form of right femur cephalomedullary nailing -I discussed the procedure-its risks, benefits and alternative. Risks include but are not limited to bleeding, infection, loss of life or limb, risk of anesthesia, persistent pain or disability, need for additional surgery, nonunion, malunion, failure of orthopedic hardware, neurovascular injury, DVT or PE. Patient expressed understanding these risks and wished proceed with surgery. -Maintenance IV fluids, NPO after midnight -Type and screen -2 g Ancef on-call to the OR -Bedrest, heel protectors -Awaiting cardiac clearance. Coumadin will need reversed after cardiac clearance obtained ideally with an INR less than 1.7 with plans to restart anticoagulant postoperative day #1, unless otherwise advised by cardiology. Thank you for this consultation. (2) Closed wedge compression fracture of T12 vertebra: PLAN: Recommend continue with nonoperative management, mobilization with PT/OT following surgery (3) Closed compression fracture of L2 vertebra: PLAN: Recommend continue with nonoperative management, mobilization with PT/OT following surgery
[2021-09-29] MEDS: Tamsulosin HCl 0.4 MG Capsule PO (11:30)
[2021-09-29] MEDS: Allopurinol 100 MG Tablet PO (11:30)
[2021-09-29] MEDS: Aspirin 81 MG TAB.CHEW PO (11:30)
[2021-09-29] MEDS: Docusate Sodium 100 MG Capsule PO (11:30)
[2021-09-29] MEDS: Carvedilol 6.25 MG Tablet PO (11:30)
[2021-09-29] MEDS: Senna/Docusate Sodium 1 Tablet 2 TABLET PO ×2 (11:31→21:34)
[2021-09-29] MEDS: Cefazolin 2 GM in 0.9% Normal Saline 100 ML IV (11:37)
[2021-09-29 11:44] LABS: ALB/GLOB Ratio 0.8 RATIO (0.9-2.4); AST(SGOT) 22 U/L (15-37); Alanine Aminotransfer ALT/SGPT 23 U/L (16-61); Alkaline Phosphatase 175 U/L (45-117); Anion Gap 6 (5-15); BUN 48 mg/dL (7-18); BUN/Creat Ratio 27.3 RATIO (10-20); Calcium,Total 8.8 mg/dL (8.5-10.1); Chloride 100 mmol/L (98-107); Creatinine, Serum 1.76 mg/dL (0.70-1.30); EST Glomerular Filtration Rate 39 mL/min (>60); Est Glom Filt Rate - Afr Amer 47 mL/min (>60); Estimated Creatinine Clearance 34.38 ml/min; Globulin 3.6 g/dL (2.2-4.2); Glucose 190 mg/dL (74-106); Potassium 4.5 mmol/L (3.5-5.1); Protein, Total 6.6 g/dL (6.4-8.2); Sodium Level 136 mmol/L (136-145)
[2021-09-29 11:45] LABS: Bedside Glucose 156 mg/dL (74-106)
--- NOTE | 2021-09-29 12:39 | CASEMGMT ---
Social Work Assessment Reason for Referral: Hip Fracture Referral Source: NBA SANTACRUZ met with pt to complete initial assessment. Pt's Sofy present in room. Pt gave permission for this worker to speak to him in front of his . Sofy states that pt was given pain medication. Pt is alert and orientated but did appear tired as evidenced by falling asleep during parts of the assessment. Sofy assisted with answering some questions. Living Arrangements: Pt states that he lives in a triplex and it is one story. Sofy states that they live at [facility]. Sofy states that it is one story. Pt states that there is one little step to enter and there are railings by the steps. DME: Pt states that he has a rollator, grab bars in shower, and walk in tub. ADLs: Pt states he was previously independent with ADLs, states he still drives. Advanced Directives: Pt states he has completed both HCPOA and LW. Sofy states that she is the HCPOA. PCP: Keven Salomon Pharmacy: [facility] SNF: [facility]: [facility] Substance Abuse Hx: None Mental Health Hx: Pt states not really. NEETA explained that typically after pt has hip fracture, a pt will need to go to SNF for skilled therapy. Patient was provided a list of SNF providers including quality and resource use data and consistent with the patient?s preferred geographic region, medical needs, and insurance network. Sofy states to try [facility] as first choice and also mentioned possibly [facility] or [facility]. NEETA informed Sofy that this worker will make referral to TCU today and should have determination by Friday if they can accept. Sofy states understanding. NEETA placed a call to [facility] with TCU and provided referal. Plan: SNF pending acceptance and pre-cert Agnes Eagle CORPORATE DIRECTOR, NURSE CASE MANAGER
--- NOTE | 2021-09-29 12:47 | CON.PCM.RE_ITS ---
Assessment & Plan Assessment/Plan (1) Acute kidney injury: PLAN: baseline creatinine 1.1 eGFR 28cc/min based on age, wt in March 2021. Creatinine 2.0 on admit improved to 1.8 with iv fluids likely prerenal event from diuretics, NSAIDs, poor dietary intake, cardiorenal syndrome. Agree with iv fluids, discontinue metformin. Avoid NSAIDs, iv contrast exposure. Mendoza to CD with good urine output. Await renal us report (2) CKD (chronic kidney disease) stage 4, GFR 15-29 ml/min: PLAN: based on age, weight pt at CKD stage 4. UA with trace protein. Underlying diabetic, hypertensive nephropathy. (3) Closed intertrochanteric fracture of right hip: QUALIFIERS: Encounter type: initial encounter Fracture alignment: nondisplaced Qualified Code(s): S72.144A - Nondisplaced intertrochanteric fracture of right femur, initial encounter for closed fracture PLAN: ortho mgmt (4) Closed wedge compression fracture of T12 vertebra: PLAN: ortho mgmt (5) Fall: (6) Essential (primary) hypertension: PLAN: stable (7) Type 2 diabetes mellitus with diabetic chronic kidney disease: PLAN: avoid metformin (8) Biventricular ICD (implantable cardioverter-defibrillator) in place: PLAN: cardio mgmt (9) Cardiomyopathy, ischemic: PLAN: cardio mgmt (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 Denies urinary complaints HPI Consult Data Date of Consult: 09/30/21 HPI Narrative Reason for Consultation: BERTA HPI Narrative: NANETTE RIVERA, is a 86 M who presents on 09/29/21 for mechanical fall at home s/p right hip fracture. He lost his balance going to bed last night. Denied syncope, lightheadedness, dizziness. He has chronic weakness using a Rollator at home. Fell about a month ago and sustained compression fracture of T12, L2 with chronic back pain. Complains right hip pain. Creatinine on admit 2.0 improved to 1.8 with iv hydration. Baseline creatinine 1.0 to 1,12 in December,March 2021. He is on lasix for history of CHF, LVEF 35% with pacemaker. He had poor dietary intake. Admits to taking ibuprofen daily for pain at home along with tylenol. He is on metformin at home for diabetes. Denied urinary complaints. Hx BPH. No edema, SOB or chest pain. No nausea, v omiting, diarrhea. No recent CT with iv contrast exposure. He is on anticoagulation pending surgery. [facility] Medical History Atherosclerotic heart disease of [place] coronary artery without angina pectoris Back pain BPH (benign prostatic hyperplasia) Cardiomyopathy, ischemic Debility Essential (primary) hypertension Gout HLD (hyperlipidemia) Longstanding persistent atrial fibrillation Paroxysmal atrial fibrillation Paroxysmal atrial flutter Secondary pulmonary arterial hypertension Sick sinus syndrome Syncope and collapse Type 2 diabetes mellitus Home Medications aspirin 81 mg PO DAILY@0800 12/02/13 [History Last Taken 09/28/21] metformin 500 mg PO BIDCM 12/02/13 [History Last Taken 09/28/21] tamsulosin 0.4 mg capsule 0.4 mg PO DAILY cap 03/21/20 [History Last Taken 09/28/21] carvedilol 6.25 mg tablet 6.25 mg PO BID #180 tab 04/23/21 [Rx Last Taken 09/28/21] oxycodone-acetaminophen [Percocet] 1 tab PO Q6H PRN 3 Days #12 tab 09/25/21 [Rx Last Taken 09/28/21] simvastatin 40 mg PO QODAY 09/25/21 [History Last Taken 09/28/21] warfarin 3 mg PO DAILY 09/25/21 [History Last Taken 09/28/21] allopurinol 100 mg PO DAILY 09/28/21 [History Last Taken 09/28/21] docusate sodium [Colace] 100 mg PO DAILY 09/28/21 [History Last Taken 09/28/21] furosemide 20 mg PO DAILY 09/29/21 [History Last Taken 09/28/21] Allergy/AdvReac Type Severity Reaction Status Date / Time rofecoxib [From Vioxx] AdvReac Other Verified 09/28/21 22:52 Family History Father , age85 Parkinsons disease Mother Heart disease Valvular heart disease Surgical History Biventricular ICD (implantable cardioverter-defibrillator) in place (09/15/14) History of coronary artery stent placement (08/20/05) History of left heart catheterization (07/04/16) 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 Social History household members: spouse Smoking Status: Never smoker alcohol intake: never substance use type: does not use caffeine: Yes Type: carbonated beverages ROS Constitutional Constitutional: Reports weakness; Denies chills or fever(s) Eyes Eyes: Denies change in vision ENT HEENT: Denies epistaxis Cardiovascular Cardiovascular: Denies chest pain, edema or syncope Respiratory/Chest Respiratory/Chest: Denies shortness of breath at rest Gastrointestinal Gastrointestinal: Denies diarrhea, nausea or vomiting Genitourinary Genitourinary: Denies difficulty urinating Musculoskeletal Musculoskeletal: Reports abnormal gait, arthralgias and other Details: back pain, right hip pain Neurologic Neurologic: Denies confusion or focal weakness Psychiatric Psychiatric: Denies anxiety Endocrine Endocrinology: Reports other Details: on metformin for diabetes Hematologic/Lymphatic Hematologic/Lymphatic: Reports easy bruising and other Details: on anticoagulation Physical Exam Const alert, oriented x3 and average body habitus HEENT Head and Scalp: normocephalic Mouth: dry mucous membranes Resp clear to auscultation bilaterally Cardio regular rate Cardio Narrative: pacemaker GI non-tender and non-distended Palpation: soft Narrative: bloody sediment due to mendoza trauma, hx BPH Bladder / Kidney Exam: catheter in place Back/Spine Back/Spine Narrative: lying in bed, right hip pain with motion Skin Skin Narrative: ecchymosis right foot Neuro Sensorium / Orientation: awake and alert Psych cooperative Lab / Micro Data Result Diagrams: 09/30/21 06:30 09/30/21 06:30 Labs: Laboratory Results - last 24 hr 09/28/21 23:10: WBC 7.5, RBC 3.93 L, Hgb 12.1 L, Hct 36.4 L, MCV 92.6, MCH 30.8, MCHC 33.2, RDW Std Deviation 52.2 H, RDW Coeff of Dena 15.4 H, Plt Count 172, MPV 10.5, Immature Gran % (Auto) 1.500 H, Neut % (Auto) 60.8, Lymph % (Auto) 13.8 L, [place] % (Auto) 13.8 H, Eos % (Auto) 9.4 H, Baso % (Auto) 0.7, Absolute Neuts (auto) 4.6, Absolute Lymphs (auto) 1.03, Nucleated RBC % 0 09/28/21 23:10: PT 31.9 H, INR 3.1 09/28/21 23:10: Sodium 135 L, Potassium 4.5, Chloride 100, Carbon Dioxide 28.0, Anion Gap 7, BUN 51 H, Creatinine 1.85 H, Estim Creat Clear Calc 32.71, Est GFR (MDRD) Af Amer 45 L, Est GFR (MDRD) Non-Af 37 L, BUN/Creatinine Ratio 27.6 H, Glucose 157 H, Calcium 8.7 09/29/21 02:30: Urine Color Yellow, Urine Clarity Clear, Urine pH 6.0, Ur Specific [place] 1.015, Urine Protein 15 H, Urine Glucose (UA) Normal, Urine Ketones Negative, Urine Occult Blood 50 H, Urine Nitrite Negative, Urine Dane irubin Negative, Urine Urobilinogen Normal, Ur Leukocyte Esterase Negative, Urine RBC 5-10 SEEN, Urine WBC 0-5 SEEN, Ur Squamous Epith Cells 0-5 SEEN, Urine Bacteria RARE, Urine Mucus 0 SEEN 09/29/21 02:30: Ur Random Sodium 32, Urine Creatinine 72.50 09/29/21 04:10: Sodium 134 L, Potassium 4.7, Chloride 99, Carbon Dioxide 28.0, A nion Gap 7, BUN 51 H, Creatinine 1.81 H, Estim Creat Clear Calc 33.43, Est GFR (MDRD) Af Amer 46 L, Est GFR (MDRD) Non-Af 38 L, BUN/Creatinine Ratio 28.2 H, Glucose 146 H, Calcium 8.8, Total Bilirubin 0.80, AST 23, ALT 23, Alkaline Phosphatase 174 H, Total Protein 6.6, Albumin 3.1 L, Globulin 3.5, Albumin/Globulin Ratio 0.9 09/29/21 04:10: Blood Type A POSITIVE, Antibody Screen NEGATIVE 09/29/21 06:48: POC Glucose 152 H 09/29/21 07:15: PT 33.4 H, INR 3.3 09/29/21 11:15: Sodium 136, Potassium 4.5, Chloride 100, Carbon Dioxide 30.0, Anion Gap 6, BUN 48 H, Creatinine 1.76 H, Estim Creat Clear Calc 34.38, Est GFR (MDRD) Af Amer 47 L, Est GFR (MDRD) Non-Af 39 L, BUN/Creatinine Ratio 27.3 H, Glucose 190 H, Calcium 8.8, Total Bilirubin 1.00, AST 22, ALT 23, Alkaline Phosphatase 175 H, Total Protein 6.6, Albumin 3.0 L, Globulin 3.6, Albumin/Globulin Ratio 0.8 L 09/29/21 11:33: POC Glucose 156 H Radiology Impression Brain CT 09/28/21 23:03 IMPRESSION: 1. No evidence of acute intracranial pathology. 2. Diffuse involutional changes and chronic ischemic small vessel white matter disease. , Electronically Signed: Josemanuel Burnett MD at 23:57 EDT , Femur X-Ray 09/28/21 23:03 IMPRESSION: Lucency along the base of the femoral neck/intertrochanteric region is suspicious for an acute nondisplaced fracture. Electronically Signed: Josemanuel Burnett MD at 0:20 EDT , Pelvis X-Ray 09/28/21 23:03 IMPRESSION: Lucency along the right intertrochanteric region is suspicious for an acute nondisplaced fracture; recommend CT for definitive diagnosis and for further characterization. Electronically Signed: Josemanuel Burnett MD at 0:17 EDT , ADDENDUM: 09/29/21 0029 IMPRESSION: Lucency along the right intertrochanteric region is suspicious for an acute nondisplaced fracture; recommend CT for definitive diagnosis and for further characterization. N.B. : Zen De La Torre RN, confirmed on 09/29/2021 00:22:38 (ET) that the healthcare facility has received the radiology report. Electronically Signed: Josemanuel Burnett MD at 0:17 EDT , Renal Ultrasound 09/29/21 05:55 IMPRESSION: 1. Mild to moderate left hydronephrosis and hydroureter. 2. Bilateral renal cysts. Electronically Signed: Oneal Ghotra MD at 12:21 EDT , Lower Extremity CT 09/29/21 06:33 IMPRESSION: Fracture of the right hip as described above. Electronically Signed: Oneal Ghotra MD at 8:42 EDT ,
--- NOTE | 2021-09-29 13:11 | CON.PCM.CA_ITS ---
Assessment & Plan Assessment/Plan (1) Preop cardiovascular exam: PLAN: In terms of preoperative cardiovascular exam he appears to be fairly well optimized. He does have evidence of left ventricular systolic dysfunction which is unchanged from the previous echocardiogram estimated at 25 to 30% with segmental wall motion abnormalities. I would recommend cautious fluid administration. He should continue all his medications up to and including the day of surgery. (2) Biventricular ICD (implantable cardioverter-defibrillator) in place: PLAN: He does have a biventricular ICD in place there is no evidence of defibrillator discharge. His last ICD interrogations and checks have been unremarkable. (3) History of coronary artery stent placement: PLAN: He is status post previous angioplasty and stenting as noted above. He has had no angina. I would recommend that we continue him on the current medical therapy unlike nitrates to make any changes. (4) Cardiomyopathy, ischemic: PLAN: He does have evidence of ischemic cardiomyopathy. It does not appear that this is changed on his guideline directed medical therapy. We will continue the same with no changes. Cautious fluid administration as he appears to be fairly prerenal at this time. (5) Longstanding persistent atrial fibrillation: PLAN: He has longstanding atrial fibrillation and is anticoagulated. This of course will be held in preparation for his upcoming surgery (6) Essential (primary) hypertension: PLAN: His blood pressure appears to be under good control at this time I would not recommend that we make any changes. Thank you for allowing me to participate in the care of your patient. Please don't hesitate to call if any issues arise. HPI Consult Data Date of Consult: 09/29/21 HPI Narrative HPI Narrative: NANETTE RIVERA, is a 86 M who presents to the emergency room after suffering a fall and sustaining a fracture of his right hip. He does have a history of coronary artery disease with angioplasty and stenting of the posterior lateral and posterior descending of the RCA. He also has a history of ischemic cardiomyopathy and atrial fibrillation. He has Bi-VICD with HEAT SET OPERATOR for atrial fibrillation and sick sinus syndrome. His estimated ejection fraction at rest has been in the range of approximately 35% with segmental wall motion abnormalities present. He was apparently doing well and he said he missed a step and fell and fractured his hip. There was no evidence of defibrillator discharge. There was no loss of consciousness noted. He denies chest, arm, jaw, or neck discomfort. He denies symptoms of shortness of breath with exertion, shortness of breath at rest, orthopnea, PND, sudden weight gain, or bilateral lower extremity edema. He denies chronic cough. He denies palpitations, lightheadedness, dizziness, near syncope, or syncopal episodes. He denies claudication issues. He denies fever or chills. He denies blood in urine, blood in stool, or epistaxis. He denies myalgia. He denies unexplainable fatigue. His exercise tolerance is stable. [facility] Medical History Atherosclerotic heart disease of [place] coronary artery without angina pectoris Back pain BPH (benign prostatic hyperplasia) Cardiomyopathy, ischemic Debility Essential (primary) hypertension Gout HLD (hyperlipidemia) Longstanding persistent atrial fibrillation Paroxysmal atrial fibrillation Paroxysmal atrial flutter Secondary pulmonary arterial hypertension Sick sinus syndrome Syncope and collapse Type 2 diabetes mellitus Home Medications aspirin 81 mg PO DAILY@0800 12/02/13 [History Last Taken 09/28/21] metformin 500 mg PO BIDCM 12/02/13 [History Last Taken 09/28/21] tamsulosin 0.4 mg capsule 0.4 mg PO DAILY cap 03/21/20 [History Last Taken 09/28/21] carvedilol 6.25 mg tablet 6.25 mg PO BID #180 tab 04/23/21 [Rx Last Taken 09/28/21] oxycodone-acetaminophen [Percocet] 1 tab PO Q6H PRN 3 Days #12 tab 09/25/21 [Rx Last Taken 09/28/21] simvastatin 40 mg PO QODAY 09/25/21 [History Last Taken 09/28/21] warfarin 3 mg PO DAILY 09/25/21 [History Last Taken 09/28/21] allopurinol 100 mg PO DAILY 09/28/21 [History Last Taken 09/28/21] docusate sodium [Colace] 100 mg PO DAILY 09/28/21 [History Last Taken 09/28/21] furosemide 20 mg PO DAILY 09/29/21 [History Last Taken 09/28/21] Allergy/AdvReac Type Severity Reaction Status Date / Time rofecoxib [From Vioxx] AdvReac Other Verified 09/28/21 22:52 Family History Father , age85 Parkinsons disease Mother Heart disease Valvular heart disease Surgical History Biventricular ICD (implantable cardioverter-defibrillator) in place (09/15/14) History of coronary artery stent placement (08/20/05) History of left heart catheterization (07/04/16) 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 Social History household members: spouse Smoking Status: Never smoker alcohol intake: never substance use type: does not use caffeine: Yes Type: carbonated beverages ROS Constitutional Constitutional: Denies fever(s) or weight loss Eyes Eyes: Reports systems reviewed and no addt'l complaints, except as documented ENT HEENT: Reports systems reviewed and no addt'l complaints, except as documented Cardiovascular Cardiovascular: Denies chest pain at rest, chest pain with activity, dyspnea at rest, dyspnea on exertion, edema, palpitations or paroxysmal nocturnal dyspnea Respiratory/Chest Respiratory/Chest: Denies dyspnea on exertion, productive cough, shortness of breath at rest or shortness of breath with exertion Gastrointestinal Gastrointestinal: Denies change in bowel habits, nausea, vomiting or weight changes Genitourinary Genitourinary: Denies difficulty urinating Musculoskeletal Musculoskeletal: Denies joint stiffness or muscle weakness Integumentary Integumentary: Denies lesions Neurologic Neurologic: Denies dizziness or syncope Psychiatric Psychiatric: Denies anxiety Endocrine Endocrinology: Denies excessive sweating or fatigue Hematologic/Lymphatic Hematologic/Lymphatic: Denies anemia Allergic/Immunologic Allergic/Immunologic: Denies seasonal rhinorrhea Physical Exam Const alert, oriented x3 and no apparent distress General Appearance: cooperative HEENT hearing grossly normal bilaterally Head and Scalp: atraumatic Eyes EOMs intact bilaterally Neck General: normal visual inspection Chest inspection of chest normal and palpation of chest normal Resp normal respiratory effort Auscultation: clear to auscultation bilaterally Cardio regular rate, regular rhythm, S1 normal heart sound and S2 normal heart sound Jugular Venous Distention: JVD GI normal to inspection, nondistended, normoactive bowel sounds Extremity normal capillary refill and no pedal edema Peripheral Pulses: Yes pulses 2+ throughout and femoral pulses present Skin no rashes or lesions noted Neuro oriented x3 and CN's II-XII intact bilaterally Psych Appearance: grossly normal and appropriate Risk Stratification Risk Stratification Applicable: No Objective Data Vital Signs: Vital Signs Temp Pulse Resp BP Pulse Ox 98.1 F 72 16 108/68 92 09/29/21 10:00 09/29/21 12:43 09/29/21 10:00 09/29/21 10:00 09/29/21 10:00 Oxygen Delivery Method Room Air Weight: 208 lb 1.862 oz Body Mass Index (BMI) 26.7 Intake & Output: Intake and Output for Last 24 Hours 09/27/21 09/28/21 09/29/21 23:59 23:59 23:59 Intake Total 300 / 300 Output Total 950 / 950 Balance -650 / -650 Lab / Micro Data Result Diagrams: 09/28/21 23:10 09/29/21 11:15 Labs: Laboratory Results - last 24 hr 09/28/21 23:10: WBC 7.5, RBC 3.93 L, Hgb 12.1 L, Hct 36.4 L, MCV 92.6, MCH 30.8, MCHC 33.2, RDW Std Deviation 52.2 H, RDW Coeff of Dena 15.4 H, Plt Count 172, MPV 10.5, Immature Gran % (Auto) 1.500 H, Neut % (Auto) 60.8, Lymph % (Auto) 13.8 L, [place] % (Auto) 13.8 H, Eos % (Auto) 9.4 H, Baso % (Auto) 0.7, Absolute Neuts (auto) 4.6, Absolute Lymphs (auto) 1.03, Nucleated RBC % 0 09/28/21 23:10: PT 31.9 H, INR 3.1 09/28/21 23:10: Sodium 135 L, Potassium 4.5, Chloride 100, Carbon Dioxide 28.0, Anion Gap 7, BUN 51 H, Creatinine 1.85 H, Estim Creat Clear Calc 32.71, Est GFR (MDRD) Af Amer 45 L, Est GFR (MDRD) Non-Af 37 L, BUN/Creatinine Ratio 27.6 H, Glucose 157 H, Calcium 8.7 09/29/21 02:30: Urine Color Yellow, Urine Clarity Clear, Urine pH 6.0, Ur Specific [place] 1.015, Urine Protein 15 H, Urine Glucose (UA) Normal, Urine Ketones Negative, Urine Occult Blood 50 H, Urine Nitrite Negative, Urine Bilirubin Negative, Urine Urobilinogen Normal, Ur Leukocyte Esterase Negative, Urine RBC 5-10 SEEN, Urine WBC 0-5 SEEN, Ur Squamous Epith Cells 0-5 SEEN, Urine Bacteria RARE, Urine Mucus 0 SEEN 09/29/21 02:30: Ur Random Sodium 32, Urine Creatinine 72.50 09/29/21 04:10: Sodium 134 L, Potassium 4.7, Chloride 99, Carbon Dioxide 28.0, Anion Gap 7, BUN 51 H, Creatinine 1.81 H, Estim Creat Clear Calc 33.43, Est GFR (MDRD) Af Amer 46 L, Est GFR (MDRD) Non-Af 38 L, BUN/Creatinine Ratio 28.2 H, Glucose 146 H, Calcium 8.8, Total Bilirubin 0.80, AST 23, ALT 23, Alkaline Phosphatase 174 H, Total Protein 6.6, Albumin 3.1 L, Globulin 3.5, Albumin/Globulin Ratio 0.9 09/29/21 04:10: Blood Type A POSITIVE, Antibody Screen NEGATIVE 09/29/21 06:48: POC Glucose 152 H 09/29/21 07:15: PT 33.4 H, INR 3.3 09/29/21 11:15: Sodium 136, Potassium 4.5, Chloride 100, Carbon Dioxide 30.0, Anion Gap 6, BUN 48 H, Creatinine 1.76 H, Estim Creat Clear Calc 34.38, Est GFR (MDRD) Af Amer 47 L, Est GFR (MDRD) Non-Af 39 L, BUN/Creatinine Ratio 27.3 H, Glucose 190 H, Calcium 8.8, Total Bilirubin 1.00, AST 22, ALT 23, Alkaline Phosphatase 175 H, Total Protein 6.6, Albumin 3.0 L, Globulin 3.6, Albumin/Globulin Ratio 0.8 L 09/29/21 11:33: POC Glucose 156 H Cardiology Labs/Tests 09/28/21 23:10: WBC 7.5, RBC 3.93 L, Hgb 12.1 L, Hct 36.4 L, MCV 92.6, MCH 30.8, MCHC 33.2, Plt Count 172, MPV 10.5, Immature Gran % (Auto) 1.500 H, Neut % (Auto) 60.8, Lymph % (Auto) 13.8 L, [place] % (Auto) 13.8 H, Eos % (Auto) 9.4 H, Baso % (Auto) 0.7, Absolute Neuts (auto) 4.6, Nucleated RBC % 0 09/28/21 23:10: PT 31.9 H, INR 3.1 09/28/21 23:10: Sodium 135 L, Potassium 4.5, Chloride 100, Carbon Dioxide 28.0, Anion Gap 7, BUN 51 H, Creatinine 1.85 H, Est GFR (MDRD) Af Amer 45 L, Est GFR (MDRD) Non-Af 37 L, BUN/Creatinine Ratio 27.6 H, Glucose 157 H, Calcium 8.7 09/29/21 02:30: Urine Color Yellow, Urine Clarity Clear, Urine pH 6.0, Ur Speci fic [place] 1.015, Urine Protein 15 H, Urine Glucose (UA) Normal, Urine Ketones Negative, Urine Occult Blood 50 H, Urine Nitrite Negative, Urine Bilirubin Negative, Urine Urobilinogen Normal, Ur Leukocyte Esterase Negative, Urine RBC 5-10 SEEN, Urine WBC 0-5 SEEN 09/29/21 04:10: Sodium 134 L, Potassium 4.7, Chloride 99, Carbon Dioxide 28.0, Anion Gap 7, BUN 51 H, Creatinine 1.81 H, Est GFR (MDRD) Af Amer 46 L, Est GFR (MDRD) Non-Af 38 L, BUN/Creatinine Ratio 28.2 H, Glucose 146 H, Calcium 8.8, Total Bilirubin 0.80 09/29/21 07:15: PT 33.4 H, INR 3.3 09/29/21 11:15: Sodium 136, Potassium 4.5, Chloride 100, Carbon Dioxide 30.0, Anion Gap 6, BUN 48 H, Creatinine 1.76 H, Est GFR (MDRD) Af Amer 47 L, Est GFR (MDRD) Non-Af 39 L, BUN/Creatinine Ratio 27.3 H, Glucose 190 H, Calcium 8.8, Total Bilirubin 1.00 Rhythm: EKG: ECHO: Stress Test: Cardiac Cath: PCI: CT Surgery: Holter monitor: EPS: PPM: CXR: Chest CT Scan: Radiography Diagnostic Testing: Radiology Impression Brain CT 09/28/21 23:03 IMPRESSION: 1. No evidence of acute intracranial pathology. 2. Diffuse involutional changes and chronic ischemic small vessel white matter disease. , Electronically Signed: Josemanuel Burnett MD at 23:57 EDT , Femur X-Ray 09/28/21 23:03 IMPRESSION: Lucency along the base of the femoral neck/intertrochanteric region is suspicious for an acute nondisplaced fracture. Electronically Signed: Josemanuel Burnett MD at 0:20 EDT Reading Location ID and State: [id number] / [place] Tel , Service support , Pelvis X-Ray 09/28/21 23:03 IMPRESSION: Lucency along the right intertrochanteric region is suspicious for an acute nondisplaced fracture; recommend CT for definitive diagnosis and for further characterization. Electronically Signed: Josemanuel Burnett MD at 0:17 EDT , ADDENDUM: 09/29/21 0029 IMPRESSION: Lucency along the right intertrochanteric region is suspicious for an acute nondisplaced fracture; recommend CT for definitive diagnosis and for further characterization. N.B. : Zen De La Torre RN, confirmed on 09/29/2021 00:22:38 (ET) that the healthcare facility has received the radiology report. Electronically Signed: Josemanuel Burnett MD at 0:17 EDT , Echocardiogram 09/29/21 01:39 Interpretation Summary The estimated ejection fraction is 35 %. Moderately severe segmental systolic dysfunction (see wall motion). ICD or pacer leads identified within the right ventricle. The left atrium is severely enlarged. Mild-Moderate (1-2+) eccentric mitral valve insufficiency. Pulmonary artery systolic pressure is 60 mmHg. Mild-Moderate (1-2+) eccentric aortic valve insufficiency. Moderately dilated left ventricle. Compared to previous study, the left ventricular systolic function is the same.. Ordering Physician: Meri Shirley Referring Physician: Gurjit Salomon Performed By: Li Hatch RDCS, RVT Renal Ultrasound 09/29/21 05:55 IMPRESSION: 1. Mild to moderate left hydronephrosis and hydroureter. 2. Bilateral renal cysts. Electronically Signed: Oneal Ghotra MD at 12:21 EDT , Lower Extremity CT 09/29/21 06:33 IMPRESSION: Fracture of the right hip as described above. Electronically Signed: Oneal Ghotra MD at 8:42 EDT ,
[2021-09-29] MEDS: Phytonadione (Vit K1) 5 MG TABLET 2.5 MG PO (15:10)
[2021-09-29 17:25] LABS: Bedside Glucose 222 mg/dL (74-106)
[2021-09-29 21:55] LABS: Bedside Glucose 222 mg/dL (74-106)
[2021-09-30] VITALS (10 sets, daily range): BP systolic 101–122; BP diastolic 67–94; PULSE 67–79; RESP 16–18; TEMP 36.4–36.8; O2SAT 92–99
[2021-09-30] MEDS: Morphine 4 MG/ML Syringe IV (04:02)
[2021-09-30] MEDS: 0.9% Normal Saline 1,000 ML 75 ML IV ×2 (04:02→23:52)
[2021-09-30] MEDS: Insulin Lispro 100 UNIT/ML INSULN.PEN SC ×3 (06:26→17:37)
[2021-09-30 06:31] LABS: Bedside Glucose 166 mg/dL (74-106)
[2021-09-30 07:00] LABS: Absolute Lymphocyte Count 1.17 X10^3/uL (0.83-4.51); Absolute Neutrophil Count 7.5 X10^3/uL (2.0-7.7); Basophil# 0.03 X10^3/uL; Basophil% 0.3 % (0-1); Eosinophil# 0.57 X10^3/uL; Eosinophils% 5.4 % (0-5); Hematocrit 34.5 % (40-54); Hemoglobin 11.2 g/dL (13.0-16.5); Lymphocyte # 1.17 X10^3/ul (0.83-4.51); Lymphocyte % 11.1 % (19-41); Mean Corp Hgb Conc 32.5 g/dL (32-36); Mean Corpuscular Hgb 30.9 pg (27.0-32.0); Mean Platelet Vol. 10.6 fl (6.2-12.0); Monocyte# 1.25 X10^3/uL; Monocyte% 11.8 % (0-10); NRBC Flagged by Analyzer 0 % (0-5); Neutrophil # 7.48 X10^3/uL (2.7-7.7); Neutrophil % 70.9 % (47-70); Platelet Count 147 K/mm3 (150-450); RBC Distribution Width CV 15.6 % (11.6-14.6); RBC Distribution Width SD 54.1 fl (35.1-43.9); Red Blood Count 3.63 M/mm3 (4.6-6.2); White Blood Count 10.6 K/mm3 (4.4-11.0)
[2021-09-30 07:17] LABS: International Normalized Ratio 3.3; Prothrombin Time (Protime)PT. 33.4 SECONDS (11.7-14.9)
[2021-09-30 07:46] LABS: Anion Gap 8 (5-15); BUN 45 mg/dL (7-18); Calcium,Total 8.4 mg/dL (8.5-10.1); Chloride 100 mmol/L (98-107); Creatinine, Serum 1.55 mg/dL (0.70-1.30); EST Glomerular Filtration Rate 45 mL/min (>60); Est Glom Filt Rate - Afr Amer 55 mL/min (>60); Estimated Creatinine Clearance 39.04 ml/min; Glucose 164 mg/dL (74-106); Potassium 4.8 mmol/L (3.5-5.1); Sodium Level 135 mmol/L (136-145)
[2021-09-30 09:24] LABS: Hemoglobin A1c 6.8 % (3.8-5.6)
[2021-09-30] MEDS: Allopurinol 100 MG Tablet PO (09:30)
[2021-09-30] MEDS: Tamsulosin HCl 0.4 MG Capsule PO (09:30)
[2021-09-30] MEDS: Senna/Docusate Sodium 1 Tablet 2 TABLET PO ×2 (09:30→21:41)
[2021-09-30] MEDS: Atorvastatin Calcium 20 MG Tablet PO (09:30)
[2021-09-30] MEDS: Docusate Sodium 100 MG Capsule PO (09:31)
[2021-09-30] MEDS: Aspirin 81 MG TAB.CHEW PO (09:31)
[2021-09-30] MEDS: Carvedilol 6.25 MG Tablet PO ×2 (09:31→21:41)
--- NOTE | 2021-09-30 11:40 | PN.HOSP_ITS ---
Subjective Subjective Follow-up for right hip fracture. Pain is controlled. INR still high at 3.3 therefore surgery postponed for tomorrow a.m. Objective Data Objective Data Vital Signs: Vital Signs Temp Pulse Resp BP Pulse Ox 97.6 F L 79 18 117/67 92 09/30/21 07:49 09/30/21 08:44 09/30/21 07:49 09/30/21 07:49 09/30/21 07:49 Oxygen Flow Rate (L/min) 2 Oxygen Delivery Method Nasal Cannula Weight: 207 lb 3.752 oz Body Mass Index (BMI) 26.7 Intake & Output: Intake and Output for Last 24 Hours 09/28/21 09/29/21 09/30/21 23:59 23:59 23:59 Intake Total 1800 / 1800 1013.0 / 1013.0 Output Total 1650 / 1850 600 / 600 Balance 150 / -50 413.0 / 413.0 Lab / Micro Data Result Diagrams: 09/30/21 06:30 09/30/21 06:30 Labs: Laboratory Results - last 24 hr 09/29/21 11:15: Sodium 136, Potassium 4.5, Chloride 100, Carbon Dioxide 30.0, Anion Gap 6, BUN 48 H, Creatinine 1.76 H, Estim Creat Clear Calc 34.38, Est GFR (MDRD) Af Amer 47 L, Est GFR (MDRD) Non-Af 39 L, BUN/Creatinine Ratio 27.3 H, Glucose 190 H, Calcium 8.8, Total Bilirubin 1.00, AST 22, ALT 23, Alkaline Phosphatase 175 H, Total Protein 6.6, Albumin 3.0 L, Globulin 3.6, Albumin/Globulin Ratio 0.8 L 09/29/21 11:33: POC Glucose 156 H 09/29/21 16:45: POC Glucose 222 H 09/29/21 21:33: POC Glucose 222 H 09/30/21 06:23: POC Glucose 166 H 09/30/21 06:30: Hemoglobin A1c 6.8 H 09/30/21 06:30: WBC 10.6, RBC 3.63 L, Hgb 11.2 L, Hct 34.5 L, MCV 95.0 H, MCH 30.9, MCHC 32.5, RDW Std Deviation 54.1 H, RDW Coeff of Dena 15.6 H, Plt Count 147 L, MPV 10.6, Immature Gran % (Auto) 0.500, Neut % (Auto) 70.9 H, Lymph % (Auto) 11.1 L, Maries % (Auto) 11.8 H, Eos % (Auto) 5.4 H, Baso % (Auto) 0.3, Absolute Neuts (auto) 7.5, Absolute Lymphs (auto) 1.17, Nucleated RBC % 0 09/30/21 06:30: PT 33.4 H, INR 3.3 09/30/21 06:30: Sodium 135 L, Potassium 4.8, Chloride 100, Carbon Dioxide 27.0, Anion Gap 8, BUN 45 H, Creatinine 1.55 H, Estim Creat Clear Calc 39.04, Est GFR (MDRD) Af Amer 55 L, Est GFR (MDRD) Non-Af 45 L, BUN/Creatinine Ratio 29.0 H, Glucose 164 H, Calcium 8.4 L Radiography Diagnostic Testing: Radiology Impression Echocardiogram 09/29/21 01:39 Interpretation Summary The estimated ejection fraction is 35 %. Moderately severe segmental systolic dysfunction (see wall motion). ICD or pacer leads identified within the right ventricle. The left atrium is severely enlarged. Mild-Moderate (1-2+) eccentric mitral valve insufficiency. Pulmonary artery systolic pressure is 60 mmHg. Mild-Moderate (1-2+) eccentric aortic valve insufficiency. Moderately dilated left ventricle. Compared to previous study, the left ventricular systolic function is the same.. Ordering Physician: Meri Shirley Referring Physician: Gurjit Salomon Performed By: Li Hatch, RDCS, RVT Renal Ultrasound 09/29/21 05:55 IMPRESSION: 1. Mild to moderate left hydronephrosis and hydroureter. 2. Bilateral renal cysts. Electronically Signed: Oneal Ghotra MD at 12:21 EDT , Physical Exam Narrative Physical exam General: Alert, Oriented x3, Cooperative HEENT: Atraumatic, PERRLA, EOMI, Normocephalic Oral: No Gingival or Mucosal Lesions/ Ulcerations Neck: Supple, No JVD, Negative Carotid Bruits Lungs: Air entry diminished in bilateral lung bases. No crepitation/rhonchi Cardiovascular: Regular rate, Regular Rhythm, Normal S1, Normal S2, early diastolic murmur over right second ICS. Left subclavicular AICD Abdomen: Bowel Sounds Present, Soft, Non Tender, Non-Distended : No renal angle tenderness. No suprapubic tenderness. Extremities: No edema, Capillary Refill Less than 3 Seconds Skin: No rashes, No breakdown Musculoskeletal: Mild tenderness over right groin and ischial region. ROM severely restricted and painful and tender. RLE externally rotated Neurological: Cranial nerves II-XII grossly intact, DTR 2+/4 Psych/Mental Status: Normal Affect, Appropriate. Assessment & Plan Assessment/Plan (1) Multiple falls: (2) Closed intertrochanteric fracture of right hip: QUALIFIERS: Encounter type: initial encounter Fracture alignment: nondisplaced Qualified Code(s): S72.144A - Nondisplaced intertrochanteric fracture of right femur, initial encounter for closed fracture PLAN: The patient is an 86 y/o M with multiple comorbidities along with decreased functional activity, on Rollator, lost balance and fell down. No prodrome prior to fall. No loss of consciousness. On further imaging patient was found right nondisplaced intertrochanteric fracture. #1. Right acute Nondisplaced femoral neck/intertrochanteric fracture most likely due to osteoporosis as fracture after fall from standing height: Patient is admitted MedSurg floor. Perioperative medical optimization. NSQIP risk was high based on cardiac history and other comorbidities therefore shock absorber installer was consulted. Discussed with shock absorber installer. EF 25 to 30% unchanged from the previous echo with segmental wall motion abnormalities. Unrestrictive IV fluid administration. Continue cardiac medications. On last ICD interrogation no evidence of defibrillator discharge and unremarkable. Twelve-lead EKG shows paced rhythm. 09/30: INR 3.3. Vitamin K 5 mg IV given. Yesterday he had vitamin K 2.5 oral but he still INR elevated. Discussed with the surgeon. #2. 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 Creatinine was 1.12 on 03/2021. BUN/creatinine decreasing/improving 09/30: Creatinine 1.55 that is baseline. Stop after the completion of IV fluid bag. Monitor kidney function daily #3. CAD: Status post PCI, currently on Coumadin therapy with therapeutic INR, given mechanical fall with hip fracture we will plan to hold with INR trending, continue aspirin therapy, statin therapy, Coreg, not on RUDY inhibitor/ARB but given renal function would not be appropriate. #4. Chronic systolic heart failure status post AICD: Patient on INR, warfarin held due to elevated INR and patient going for surgery. 09/30: Repeat echo shows EF 35%, moderately severe segmental systolic dysfunction. LA severely enlarged, mild to moderate eccentric MR, AR with moderately dilated LV. RVSP 60 mmHg. No significant change in LV function from previous echo. continue aspirin therapy, statin therapy, Coreg. Lasix temporarily held but can be resumed if fluid overload or change in hemodynamics. Patient also not on RUDY and ARB suspected due to CKD. 04/03/2020 echocardiogram with normal LV size, EF 35%, moderate segmental systolic dysfunction, stage II diastolic dysfunction, severely enlarged LA, PASP 34 mmHg with no significant change noted since prior echocardiogram of note. #5. Hypertension: Blood pressure is on lower side therefore antihypertensive medication with holding parameters #6. Hyperlipidemia: continue patient on statin therapy. #7. History of sick sinus syndrome: Status post pacemaker/AICD placement #8. Recent Fall prior to current presentation with closed wedge compression fracture of T12 vertebra: Had been set-up with outpatient therapies, PCP follow-up and Dr. Lee evaluation per review of records. #9. Chronic normocytic anemia: Admission globin 12.1, baseline 11-12, 03/28: Hemoglobin 11.2 mildly decreased probably due to hemodilution. #10. Diabetes mellitus type II: Hold oral home regimen, ADA diet, accu checks w/ ISS. #11. BPH: We will continue Flomax home regimen. #12. Gout: We will continue patient on allopurinol regimen. #13. DVT prophylaxis: SCDs, holding Coumadin with INR trending. Will defer reversal until Cardiology clearance obtained, suspect earliest OR date would be Friday. #14. CODE status: Patient YURIDIA is his who is present and living will is currently in place. Discussed CODE status at length including difference between FULL code, DNR-CCA and DNR-CC status. Following discussions about the differences in these status, requested DNR-CCA, no intubation Charges/Coding Visit Charges Inpatient E&M: 68152 Subs Hosp L2
[2021-09-30 11:45] LABS: Bedside Glucose 175 mg/dL (74-106)
--- NOTE | 2021-09-30 16:05 | PCM.PN.BLA ---
Progress Note INR 3.3 this AM. Surgery postponed until tomorrow. D/w nursing and hospitalist. Pt to recieve addition Vit K today, recheck INR tomorrow AM. Plan for surgery tomrrow afternoon if INR at safe level for surgery.
[2021-09-30 16:11] LABS: Bedside Glucose 176 mg/dL (74-106)
[2021-09-30 21:51] LABS: Bedside Glucose 146 mg/dL (74-106)
--- NOTE | 2021-09-30 21:55 | NURSING ---
spoke to pt if he wanted to sign consent for sx states he will sign consent when is around.
[2021-10-01] VITALS (20 sets, daily range): BP systolic 71–120; BP diastolic 43–93; PULSE 69–97; RESP 16–22; TEMP 36.1–36.7; O2SAT 88–98; BMI 26.5
[2021-10-01 06:08] LABS: Absolute Lymphocyte Count 1.01 X10^3/uL (0.83-4.51); Absolute Neutrophil Count 7.1 X10^3/uL (2.0-7.7); Basophil# 0.04 X10^3/uL; Basophil% 0.4 % (0-1); Hemoglobin 10.8 g/dL (13.0-16.5); Lymphocyte # 1.01 X10^3/ul (0.83-4.51); Mean Corp Hgb Conc 32.7 g/dL (32-36); Mean Corpuscular Hgb 30.6 pg (27.0-32.0); Mean Corpuscular Volume 93.5 fL (80-94); Mean Platelet Vol. 10.4 fl (6.2-12.0); Monocyte# 1.48 X10^3/uL; Monocyte% 14.7 % (0-10); NRBC Flagged by Analyzer 0 % (0-5); Neutrophil # 7.12 X10^3/uL (2.7-7.7); Neutrophil % 70.5 % (47-70); Platelet Count 132 K/mm3 (150-450); RBC Distribution Width CV 15.6 % (11.6-14.6); RBC Distribution Width SD 53.1 fl (35.1-43.9); Red Blood Count 3.53 M/mm3 (4.6-6.2); White Blood Count 10.1 K/mm3 (4.4-11.0)
[2021-10-01] MEDS: Insulin Lispro 100 UNIT/ML INSULN.PEN SC (06:25)
[2021-10-01 06:35] LABS: Bedside Glucose 166 mg/dL (74-106)
[2021-10-01 06:38] LABS: International Normalized Ratio 1.7; Prothrombin Time (Protime)PT. 19.9 SECONDS (11.7-14.9)
--- NOTE | 2021-10-01 06:38 | RAD_ITS ---
STUDY: INTRAOPERATIVE FLUOROSCOPY TECHNIQUE: The examination was performed with referring physician in attendance. Under fluoroscopic observation, fluoroscopic images were obtained. Radiologist was not present for the study. Radiologist did not perform the procedure. This dictation is for documentation of the radiation dosage only. There is no interpretation of the images. TOTAL NUMBER OF IMAGES: 1 COMPARISON: None RADIATION DOSE: 23.9 mGy FLUOROSCOPY TIME: 91 seconds REASON FOR EXAM: ORIF, HIP, GAMMA NAIL Male, 86 years old. FINDINGS: IM nail in place. Intramedullary petr in place. RAD/Hip 1 view with Pelvis IMPRESSION: Fluoroscopic assistance images were obtained. Dictation for documentation purposes only. Electronically Signed: Dov Graf MD at 15:44 EDT ,
[2021-10-01 06:47] LABS: Anion Gap 7 (5-15); BUN 44 mg/dL (7-18); BUN/Creat Ratio 26.8 RATIO (10-20); Calcium,Total 8.6 mg/dL (8.5-10.1); Chloride 103 mmol/L (98-107); Creatinine, Serum 1.64 mg/dL (0.70-1.30); EST Glomerular Filtration Rate 42 mL/min (>60); Est Glom Filt Rate - Afr Amer 51 mL/min (>60); Glucose 170 mg/dL (74-106); Potassium 4.4 mmol/L (3.5-5.1); Sodium Level 135 mmol/L (136-145)
[2021-10-01 08:00] LABS: Vitamin D,25 Hydroxy 16.2 ng/mL
[2021-10-01] MEDS: Carvedilol 6.25 MG Tablet PO ×2 (08:28→21:19)
--- NOTE | 2021-10-01 10:10 | NURSING ---
Patient off unit to OR at this time.
--- NOTE | 2021-10-01 10:22 | PN.RENAL_ITS ---
Subjective Subjective denies CP, SOB, edema. rt hip pain under control. Scheduled for ORIF today. Spoke with at bedside. Objective Data Objective Data Vital Signs: Vital Signs Temp Pulse Resp BP Pulse Ox 98 F 72 20 H 111/59 L 92 10/01/21 08:24 10/01/21 08:24 10/01/21 08:24 10/01/21 08:24 10/01/21 08:24 Oxygen Flow Rate (L/min) 2 Oxygen Delivery Method Room Air Weight: 93.8 kg Body Mass Index (BMI) 26.5 Intake & Output: Intake and Output for Last 24 Hours 09/29/21 09/30/21 10/01/21 23:59 23:59 23:59 Intake Total 1800 / 1800 1876.75 / 1876.75 Output Total 1650 / 1850 1280 / 1280 200 / 200 Balance 150 / -50 596.75 / 596.75 -200 / -200 Lab / Micro Data Result Diagrams: 10/01/21 05:45 10/01/21 05:45 Labs: Laboratory Results - last 24 hr 09/29/21 11:15: Vitamin D 25-Hydroxy 16.2 09/30/21 11:38: POC Glucose 175 H 09/30/21 16:06: POC Glucose 176 H 09/30/21 21:40: POC Glucose 146 H 10/01/21 05:45: WBC 10.1, RBC 3.53 L, Hgb 10.8 L, Hct 33.0 L, MCV 93.5, MCH 30.6, MCHC 32.7, RDW Std Deviation 53.1 H, RDW Coeff of Dena 15.6 H, Plt Count 132 L, MPV 10.4, Immature Gran % (Auto) 0.400, Neut % (Auto) 70.5 H, Lymph % (Auto) 10.0 L, [place] % (Auto) 14.7 H, Eos % (Auto) 4.0, Baso % (Auto) 0.4, Absolute Neuts (auto) 7.1, Absolute Lymphs (auto) 1.01, Nucleated RBC % 0 10/01/21 05:45: PT 19.9 H, INR 1.7 10/01/21 05:45: Sodium 135 L, Potassium 4.4, Chloride 103, Carbon Dioxide 25.0, Anion Gap 7, BUN 44 H, Creatinine 1.64 H, Estim Creat Clear Calc 36.90, Est GFR (MDRD) Af Amer 51 L, Est GFR (MDRD) Non-Af 42 L, BUN/Creatinine Ratio 26.8 H, Glucose 170 H, Calcium 8.6 10/01/21 05:45: Blood Type A POSITIVE, Antibody Screen NEGATIVE 10/01/21 06:23: POC Glucose 166 H Physical Exam Const alert and no apparent distress Resp clear to auscultation bilaterally Cardio regular rate Cardio Narrative: ectopy GI non-tender and non-distended Palpation: soft Extremity no clubbing, cyanosis or edema Assessment & Plan Assessment/Plan (1) Acute kidney injury: PLAN: baseline creatinine 1.1 eGFR 28cc/min based on age, wt in March 2021. Creatinine 2.0 on admit improved to 1.64 today with iv fluids. Continue iv fluids while NPO. Renal us bilateral renal cysts (2) CKD (chronic kidney disease) stage 4, GFR 15-29 ml/min: PLAN: based on age, weight pt at CKD stage 4. UA with trace protein. Underlying diabetic, hypertensive nephropathy. (3) Closed intertrochanteric fracture of right hip: QUALIFIERS: Encounter type: initial encounter Fracture alignment: nondisplaced Qualified Code(s): S72.144A - Nondisplaced intertrochanteric fracture of right femur, initial encounter for closed fracture PLAN: ortho mgmt (4) Closed wedge compression fracture of T12 vertebra: PLAN: ortho mgmt (5) Fall: (6) Essential (primary) hypertension: PLAN: stable (7) Type 2 diabetes mellitus with diabetic chronic kidney disease: PLAN: avoid metformin (8) Cardiomyopathy, ischemic: PLAN: cardio mgmt
--- NOTE | 2021-10-01 11:12 | CASEMGMT ---
Addendum entered by Agnes Eagle 10/01/21 14:26: SW spoke with RN, pt is still off floor. SW to update pt and pt's family as time allows. Plan: TCU pending pre-cert Original Note: Social Work Note SW received message from Anju with TCU stating TCU is able to accept pt. SW reviewed chart. Pt is to have surgery today. SW placed a call to Anju with TCU and left message updating her that pt is having surgery today, pre-cert to be started tomorrow. SW attempted to update pt and pt's Sofy. Pt is currently off floor. SW will update pt and Sofy as time allows. Plan: TCU pending pre-cert Agnes Eagle DIRECTOR LEARNING SERVICES, PLATING TECHNICIAN
[2021-10-01 11:45] LABS: Bedside Glucose 155 mg/dL (74-106)
[2021-10-01] MEDS: Cefazolin 2 GM in 0.9% Normal Saline 100 ML IV ×2 (11:49→19:45)
--- NOTE | 2021-10-01 11:49 | OP.PCM_ITS ---
Report of Operation Date of Procedure: 10/01/21 Description of Surgical Findings:: Preoperative diagnosis: Right in tertrochanteric proximal femur fracture Postoperative diagnosis: Right intertrochanteric proximal femur fracture Procedure: Treatment of intertrochanteric hip fracture with intramedullary nail right femur Surgeon: Beka Chapman DO Anesthesia: General endotracheal Irish Moss Bleacher: Ha Riojas CRNA Complications: None apparent Drains: None Estimated blood loss: 250 cc Urinary output: 100 cc IV fluids: 600 cc Specimens: None Surgical implants: Dorota Gamma3 Cephalomedullary Nail 125 degree 11 mm x 180 mm left, 10.5 mm x 90 mm lag screw, Interlocking screws size 5 mm x 35 mm Surgical indications: This is a 86-year-old male who presents presented to [facility] emergency department after a mechanical fall at home. He did hit his head but did not lose consciousness. EMS was called and brought the patient to the emergency department where x-rays revealed a right intertrochanteric proximal femur fracture. CT scan of his brain was negative for acute process. Denies any antecedent right hip or groin pain. Patient lives at home with his . Patient sustained a fall approximately 1 week ago and was diagnosed with T12 and L2 compression fractures which he has been doing well with in the last few days. Patient was admitted under the service of the hospitalist 09/28/2021. Orthopedics was consulted for surgical recommendations.I recommended cephalomedullary nail fixation of her right intertrochanteric proximal femur fracture. The risks, benefits, alternatives to procedure reviewed with the patient. The risks of the surgery included bleeding, infect ion, loss of life or limb, malunion, nonunion, damage to vital structures, neurovascular injury, failure of orthopedic hardware, need for additional surgery, persistent pain or disability, risk of anesthesia. The patient expressed understanding of these risks and agreed to proceed with surgery. Blood consent was also obtained. Patient had a INR of greater than 3 upon admission. He was seen by cardiology and cleared for surgery. INR was reversed starting 2 days ago. Surgery was scheduled yesterday but postponed due to INR over 3. INR was down to 1.7 this morning and felt safe for surgery. Description of procedure: Patient was seen in preoperative holding area. He was identified by name, medical record number, date of . The operative extremity was marked with a surgical marker. We confirmed informed consent with the patient and questions were answered to her satisfaction. Patient was brought to the operative suite, and general anesthesia was induced on his hospital bed. Endotracheal tube was secured. After adequate anesthesia, patient was transferred to a fracture table with all bony prominences being well-padded. A perineal post was placed to secure the patient on the table. We then applied a ski boot which was well-padded to the operative extremity. The well leg was dropped into extension and secured to the axial post of the fracture table with a pillow and Coban. The right arm was brought across patient's chest with a blanket on her chest. We then performed a closed reduction maneuver with external rotation, traction, internal rotation and adduction. Fluoroscopic images were obtained. Fracture appeared to be acceptably reduced following closed reduction. We then prepped and draped the right lower extremity in normal, sterile orthopedic fashion. A timeout was performed with all parties in attendance in agreement with the side, site, and operation be performed. 2 g Ancef was administered prior to incision. No concerns were voiced and we elected to proceed. I first used fluoroscopy to sheryl the level of the fracture and planned incision for insertion of the cephalomedullary nail device. In line with the long axis of the femur, 4 fingerbreadths proximal to the tip of the greater trochanter, a full-thickness skin incision was planned. Skin was sharply incised with 10 blade scalpel, carried into the subcutaneous tissues. The IT band was encountered and split and planned trajectory of the nail placement. The greater trochanter was then able to be palpated digitally. I then placed a threaded guidewire just medial to the tip of the greater trochanter and in the anterior third of it on the lateral. Opening reamer was then placed over top of the guidewire after placement was confirmed on C arm. Reduction was again confirm ed. I selected the nail to be 18 cm x 11 mm diameter. Reamers were removed. Nail was assembled on the back table. Nail was then placed in the forestry pilot hole and impacted to an appropriate depth. Rotation was confirmed on the lateral. Drill sleeve was placed through the targeting guide. We drilled the pin for the lag screw at an appropriate position and depth, tip to apex distance less than 25 mm on AP and lateral combined. Depth gauge was used to measure the length of the screw, 110 mm. We then used the cannulated drill to drill to an appropriate depth. Drill was removed, drill pin left in place. Lag screw was placed over top of the drill pin and tightened to an appropriate depth. Setscrew was then placed and tightened, and then turned back a quarter turn to allow the lag screw to slide. I then drilled for a static interlocking screw in the distal portion of the screw utilizing the outrigger. Skin was incised full-thickness down the level of the IT band which was also split in line with the skin incision. I drilled bicortically through the distal interlocking slot of the nail. I measured for a 37.5 mm interlocking screw which was placed by hand with excellent purchase. Instruments were removed as well as the outrigger for the nail. Final fluoroscopic images were obtained at the hip. Final fluoroscopic images were obtained. We irrigated the wounds copiously with normal saline solution. Hemostasis was excellent at this point. We then closed the deeper layers, IT band with 0 Vicryl. Intradermal buried stitches of 2-0 Vicryl were utilized and skin finally reapproximated with skin allan. Sterile compression dressing of Xeroform, 4 x 4's, and Tegaderm was applied. Patient tolerated procedure well without complication. He was transferred back to her hospital bed and subsequently to PACU in stable condition. Intraoperative medications: 2 g Ancef IV Post Operative Plan: Weightbearing: Weightbearing as tolerated right lower extremity with a walker Antibiotics: Ancef 2 g x 3 doses postoperatively, 1 dose given preoperatively DVT Prophylaxis: Plan to restart Coumadin, will defer to primary service about bridging Bui: Ok to d/c POD#1 from my standpoint Dressing: Dry sterile dressing changes daily and as needed for saturation X-Rays: 2 weeks postop in the office Follow-up: 2 weeks post-operatively with me in the office
[2021-10-01 13:40] LABS: Bedside Glucose 146 mg/dL (74-106)
[2021-10-01 16:45] LABS: Bedside Glucose 150 mg/dL (74-106)
--- NOTE | 2021-10-01 17:05 | PN.HOSP_ITS ---
Subjective Subjective Doing well, no issues overnight. Pending operative repair today as yesterday his INR was too elevated however today is around 1.7 Objective Data Objective Data Vital Signs: Vital Signs Temp Pulse Resp BP Pulse Ox 97.2 F L 71 22 H 107/77 93 10/01/21 15:50 10/01/21 15:50 10/01/21 15:50 10/01/21 15:50 10/01/21 15:50 Oxygen Flow Rate (L/min) 2 Oxygen Delivery Method Nasal Cannula Weight: 206 lb 12.697 oz Body Mass Index (BMI) 26.5 Intake & Output: Intake and Output for Last 24 Hours 09/30/21 10/01/21 10/02/21 03:59 03:59 03:59 Intake Total 1800 / 1800 1876.75 / 1876.75 945 / 945 Output Total 1850 / 1850 1080 / 1080 200 / 200 Balance -50 / -50 796.75 / 796.75 745 / 745 Lab / Micro Data Result Diagrams: 10/02/21 06:08 10/02/21 06:08 Labs: Laboratory Results - last 24 hr 09/29/21 11:15: Vitamin D 25-Hydroxy 16.2 09/30/21 21:40: POC Glucose 146 H 10/01/21 05:45: WBC 10.1, RBC 3.53 L, Hgb 10.8 L, Hct 33.0 L, MCV 93.5, MCH 30.6, MCHC 32.7, RDW Std Deviation 53.1 H, RDW Coeff of Dena 15.6 H, Plt Count 132 L, MPV 10.4, Immature Gran % (Auto) 0.400, Neut % (Auto) 70.5 H, Lymph % (Auto) 10.0 L, [place] % (Auto) 14.7 H, Eos % (Auto) 4.0, Baso % (Auto) 0.4, Absolute Neuts (auto) 7.1, Absolute Lymphs (auto) 1.01, Nucleated RBC % 0 10/01/21 05:45: PT 19.9 H, INR 1.7 10/01/21 05:45: Sodium 135 L, Potassium 4.4, Chloride 103, Carbon Dioxide 25.0, Anion Gap 7, BUN 44 H, Creatinine 1.64 H, Estim Creat Clear Calc 36.90, Est GFR (MDRD) Af Amer 51 L, Est GFR (MDRD) Non-Af 42 L, BUN/Creatinine Ratio 26.8 H, Gl ucose 170 H, Calcium 8.6 10/01/21 05:45: Blood Type A POSITIVE, Antibody Screen NEGATIVE 10/01/21 06:23: POC Glucose 166 H 10/01/21 10:55: POC Glucose 155 H 10/01/21 13:37: POC Glucose 146 H 10/01/21 16:33: POC Glucose 150 H Radiography Diagnostic Testing: Radiology Impression Hip/Pelvis X-Ray 10/01/21 06:38 IMPRESSION: Fluoroscopic assistance images were obtained. Dictation for documentation purposes only. Electronically Signed: Dov Graf MD at 15:44 EDT Reading Location ID and State: [facility] [place] / [place] , Service support , Physical Exam Const alert, oriented x3 and no apparent distress General Appearance: cooperative HEENT normocephalic and moist oral mucous membranes Eyes PERRL, EOMs intact bilaterally and conjunctivae normal Neck supple and no JVD Resp normal respiratory effort, no retractions, no use of accessory muscles and clear to auscultation bilaterally Auscultation: Negative for crackles, rales, rhonchi or wheezes Cardio regular rate, regular rhythm, S1 normal heart sound, S2 normal heart sound and no murmurs GI soft to palpation, non-tender and non-distended; Negative for hepatosplenomegaly Extremity no clubbing, cyanosis or edema Skin no rashes or lesions noted Neuro no focal motor deficits and no sensory deficits noted Psych affect normal Appearance: appropriate Assessment & Plan Assessment/Plan (1) Multiple falls: (2) Closed intertrochanteric fracture of right hip: QUALIFIERS: Encounter type: initial encounter Fracture alignment: nondisplaced Qualified Code(s): S72.144A - Nondisplaced intertrochanteric fracture of right femur, initial encounter for closed fracture PLAN: #1. Right acute Nondisplaced femoral neck/intertrochanteric fracture most likely due to osteoporosis as fracture after fall from standing height: Patient is admitted MedSurg floor. Perioperative medical optimization. NSQIP risk was high based on cardiac history and other comorbidities therefore respiratory therapist assistant was consulted. Discussed with respiratory therapist assistant. EF 25 to 30% unchanged from the previous echo with segmental wall motion abnormalities. Unrestrictive IV fluid administration. Continue cardiac medications. On last ICD interrogation no evidence of defibrillator discharge and unremarkable. Twelve-lead EKG shows paced rhythm. 09/30: INR 3.3. Vitamin K 5 mg IV given. Yesterday he had vitamin K 2.5 oral but he still INR elevated. Discussed with the surgeon. 10/01/2021: INR was elevated yesterday and he was given a second dose of vitamin K today is about 1.7 so we will proceed with surgery #2. 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 Creatinine was 1.12 on 03/2021. BUN/creatinine decreasing/improving 09/30: Creatinine 1.55 that is baseline. Stop after the completion of IV fluid bag. Monitor kidney function daily 10/01/2021: Creatinine today slightly elevated to 1.64 we will continue to monitor #3. CAD: Status post PCI, currently on Coumadin therapy with therapeutic INR, given mechanical fall with hip fracture we will plan to hold with INR trending, continue aspirin therapy, statin therapy, Coreg, not on RUDY inhibitor/ARB but given renal function would not be appropriate. #4. Chronic systolic heart failure status post AICD: Patient on INR, warfarin held due to elevated INR and patient going for surgery. 09/30: Repeat echo shows EF 35%, moderately severe segmental systolic dysfunction. LA severely enlarged, mild to moderate eccentric MR, AR with moderately dilated LV. RVSP 60 mmHg. No significant change in LV function from previous echo. continue aspirin therapy, statin therapy, Coreg. Lasix temporarily held but can be resumed if fluid overload or change in hemodynamics. Patient also not on RUDY and ARB suspected due to CKD. 04/03/2020 echocardiogram with normal LV size, EF 35%, moderate segmental systolic dysfunction, stage II diastolic dysfunction, severely enlarged LA, PASP 34 mmHg with no significant change noted since prior echocardiogram of note. #5. Hypertension: Blood pressure is on lower side therefore antihypertensive medication with holding parameters #6. Hyperlipidemia: continue patient on statin therapy. #7. History of sick sinus syndrome: Status post pacemaker/AICD placement #8. Recent Fall prior to current presentation with closed wedge compression fracture of T12 vertebra: Had been set-up with outpatient therapies, PCP follow- up and Dr. Lee evaluation per review of records. #9. Chronic normocytic anemia: Admission globin 12.1, baseline 11-12, 03/28: Hemoglobin 11.2 mildly decreased probably due to hemodilution. 10/01/2021: We will continue to monitor hemoglobin, I do anticipate a drop after surgery #10. Diabetes mellitus type II: Hold oral home regimen, ADA diet, accu checks w/ ISS. #11. BPH: We will continue Flomax home regimen. #12. Gout: We will continue patient on allopurinol regimen. DVT: SCDs Charges/Coding Visit Charges Inpatient E&M: 93965 Subs Hosp L2
[2021-10-01] MEDS: Tamsulosin HCl 0.4 MG Capsule PO (21:19)
[2021-10-01] MEDS: Senna/Docusate Sodium 1 Tablet 2 TABLET PO (21:19)
[2021-10-01 21:41] LABS: Bedside Glucose 136 mg/dL (74-106)
[2021-10-02] VITALS (12 sets, daily range): BP systolic 93–107; BP diastolic 58–68; PULSE 70–83; RESP 16–18; TEMP 36.4–36.7; O2SAT 95–100
[2021-10-02] MEDS: Cefazolin 2 GM in 0.9% Normal Saline 100 ML IV ×2 (03:56→11:42)
[2021-10-02 06:34] LABS: Absolute Lymphocyte Count 1.17 X10^3/uL (0.83-4.51); Absolute Neutrophil Count 6.7 X10^3/uL (2.0-7.7); Basophil# 0.03 X10^3/uL; Basophil% 0.3 % (0-1); Eosinophil# 0.23 X10^3/uL; Eosinophils% 2.6 % (0-5); Hemoglobin 10.5 g/dL (13.0-16.5); Lymphocyte # 1.17 X10^3/ul (0.83-4.51); Lymphocyte % 13.1 % (19-41); Mean Corp Hgb Conc 32.8 g/dL (32-36); Mean Corpuscular Hgb 31.2 pg (27.0-32.0); Mean Platelet Vol. 10.3 fl (6.2-12.0); Monocyte# 0.83 X10^3/uL; Monocyte% 9.3 % (0-10); NRBC Flagged by Analyzer 0 % (0-5); Neutrophil # 6.65 X10^3/uL (2.7-7.7); Neutrophil % 74.1 % (47-70); Platelet Count 128 K/mm3 (150-450); RBC Distribution Width CV 15.9 % (11.6-14.6); RBC Distribution Width SD 54.3 fl (35.1-43.9); Red Blood Count 3.37 M/mm3 (4.6-6.2)
[2021-10-02 06:48] LABS: International Normalized Ratio 1.7; Prothrombin Time (Protime)PT. 19.2 SECONDS (11.7-14.9)
[2021-10-02 06:56] LABS: Bedside Glucose 130 mg/dL (74-106)
[2021-10-02 06:57] LABS: Anion Gap 7 (5-15); BUN 49 mg/dL (7-18); BUN/Creat Ratio 27.8 RATIO (10-20); Calcium,Total 8.6 mg/dL (8.5-10.1); Chloride 103 mmol/L (98-107); Creatinine, Serum 1.76 mg/dL (0.70-1.30); EST Glomerular Filtration Rate 39 mL/min (>60); Est Glom Filt Rate - Afr Amer 47 mL/min (>60); Estimated Creatinine Clearance 34.38 ml/min; Glucose 145 mg/dL (74-106); Potassium 5.1 mmol/L (3.5-5.1); Sodium Level 133 mmol/L (136-145)
[2021-10-02] MEDS: Calcium Carbonate 500 MG Tablet PO ×3 (08:46→17:00)
[2021-10-02] MEDS: Aspirin 81 MG TAB.CHEW PO (08:46)
[2021-10-02] MEDS: Allopurinol 100 MG Tablet PO (08:46)
[2021-10-02] MEDS: Acetaminophen 325 MG Tablet 650 MG PO (09:37)
[2021-10-02] MEDS: Senna/Docusate Sodium 1 Tablet 2 TABLET PO ×2 (09:38→20:34)
[2021-10-02] MEDS: Docusate Sodium 100 MG Capsule PO (09:38)
[2021-10-02] MEDS: Atorvastatin Calcium 20 MG Tablet PO (09:38)
[2021-10-02] MEDS: Tamsulosin HCl 0.4 MG Capsule PO (09:47)
--- NOTE | 2021-10-02 10:29 | PN.HOSP_ITS ---
Subjective Subjective Doing well, he is on 2 L of oxygen and he does have some diminished lung sounds however will continue to hold Lasix at this time, kidney function is increased to 1.76. Pain is well controlled can resume Coumadin Objective Data Objective Data Vital Signs: Vital Signs Temp Pulse Resp BP Pulse Ox 97.5 F L 70 18 98/64 96 10/02/21 08:40 10/02/21 08:40 10/02/21 08:40 10/02/21 08:40 10/02/21 08:40 Oxygen Flow Rate (L/min) 2 Oxygen Delivery Method Nasal Cannula Weight: 205 lb 9.6 oz Body Mass Index (BMI) 26.5 Intake & Output: Intake and Output for Last 24 Hours 10/01/21 10/02/21 10/03/21 03:59 03:59 03:59 Intake Total 1876.75 / 1876.75 1155 / 1155 110 / 110 Output Total 1080 / 1080 650 / 650 225 / 225 Balance 796.75 / 796.75 505 / 505 -115 / -115 Lab / Micro Data Result Diagrams: 10/02/21 06:08 10/02/21 06:08 Labs: Laboratory Results - last 24 hr 10/01/21 10:55: POC Glucose 155 H 10/01/21 13:37: POC Glucose 146 H 10/01/21 16:33: POC Glucose 150 H 10/01/21 21:18: POC Glucose 136 H 10/02/21 06:08: PT 19.2 H, INR 1.7 10/02/21 06:08: WBC 9.0, RBC 3.37 L, Hgb 10.5 L, Hct 32.0 L, MCV 95.0 H, MCH 31.2, MCHC 32.8, RDW Std Deviation 54.3 H, RDW Coeff of Dena 15.9 H, Plt Count 128 L, MPV 10.3, Immature Gran % (Auto) 0.600, Neut % (Auto) 74.1 H, Lymph % (Auto) 13.1 L, [place] % (Auto) 9.3, Eos % (Auto) 2.6, Baso % (Auto) 0.3, Absolute Neuts (auto) 6.7, Absolute Lymphs (auto) 1.17, Nucleated RBC % 0 10/02/21 06:08: Sodium 133 L, Potassium 5.1, Chloride 103, Carbon Dioxide 23.0, Anion Gap 7, BUN 49 H, Creatinine 1.76 H, Estim Creat Clear Calc 34.38, Est GFR (MDRD) Af Amer 47 L, Est GFR (MDRD) Non-Af 39 L, BUN/Creatinine Ratio 27.8 H, Glucose 145 H, Calcium 8.6 10/02/21 06:50: POC Glucose 130 H Radiography Diagnostic Testing: Radiology Impression Hip/Pelvis X-Ray 10/01/21 06:38 IMPRESSION: Fluoroscopic assistance images were obtained. Dictation for documentation purposes only. Electronically Signed: Dov Graf MD at 15:44 EDT Reading Location ID and State: [facility] / [place] , Service support , Physical Exam Const alert, oriented x3 and no apparent distress General Appearance: cooperative HEENT normocephalic and moist oral mucous membranes Eyes PERRL, EOMs intact bilaterally and conjunctivae normal Neck supple and no JVD Resp normal respiratory effort, no retractions and no use of accessory muscles Auscultation: diminished lung sounds; Negative for crackles, rales, rhonchi or wheezes Cardio regular rate, regular rhythm, S1 normal heart sound, S2 normal heart sound and no murmurs GI soft to palpation, non-tender and non-distended; Negative for hepatosplenomegaly Extremity no clubbing, cyanosis or edema Skin no rashes or lesions noted Neuro no focal motor deficits and no sensory deficits noted Psych affect normal Appearance: appropriate Assessment & Plan Assessment/Plan (1) Multiple falls: (2) Closed intertrochanteric fracture of right hip: QUALIFIERS: Encounter type: initial encounter Fracture alignment: nondisplaced Qualified Code(s): S72.144A - Nondisplaced intertrochanteric fracture of right femur, initial encounter for closed fracture PLAN: #1. Right acute Nondisplaced femoral neck/intertrochanteric fracture most likely due to osteoporosis as fracture after fall from standing height: Patient is admitted MedSurg floor. Perioperative medical optimization. NSQIP risk was high based on cardiac history and other comorbidities therefore night order selector was consulted. Discussed with night order selector. EF 25 to 30% unchanged from the previous echo with segmental wall motion abnormalities. Unrestrictive IV fluid administration. Continue cardiac medications. On last ICD interrogation no evidence of defibrillator discharge and unremarkable. Twelve-lead EKG shows paced rhythm. 09/30: INR 3.3. Vitamin K 5 mg IV given. Yesterday he had vitamin K 2.5 oral but he still INR elevated. Discussed with the surgeon. 10/01/2021: INR was elevated yesterday and he was given a second dose of vitamin K today is about 1.7 so we will proceed with surgery 10/02/2021: Can resume Coumadin, INR today is 1.7. He did not need bridged as the Coumadin is for A. fib #2. 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 Creatinine was 1.12 on 03/2021. BUN/creatinine decreasing/improving 09/30: Creatinine 1.55 that is baseline. Stop after the completion of IV fluid bag. Monitor kidney function daily 10/01/2021: Creatinine today slightly elevated to 1.64 we will continue to monitor 10/02/2021: Creatinine is slightly elevated again today from yesterday we will continue to monitor continue to hold Lasix #3. CAD: Status post PCI, currently on Coumadin therapy with therapeutic INR, given mechanical fall with hip fracture we will plan to hold with INR trending, continue aspirin therapy, statin therapy, Coreg, not on RUDY inhibitor/ARB but given renal function would not be appropriate. #4. Chronic systolic heart failure status post AICD/A. fib/HTN/HLD/history of sick sinus syndrome: Patient on INR, warfarin held due to elevated INR and patient going for surgery. Continue with his statin and he does have a history of an AICD 09/30: Repeat echo shows EF 35%, moderately severe segmental systolic dysfunction. LA severely enlarged, mild to moderate eccentric MR, AR with moderately dilated LV. RVSP 60 mmHg. No significant change in LV function from previous echo. continue aspirin therapy, statin therapy, Coreg. Lasix temporarily held but can be resumed if fluid overload or change in hemodynamics. Patient also not on RUDY and ARB suspected due to CKD. 04/03/2020 echocardiogram with normal LV size, EF 35%, moderate segmental systolic dysfunction, stage II diastolic dysfunction, severely enlarged LA, PASP 34 mmHg with no significant change noted since prior echocardiogram of note. 10/02/2021: Blood pressures are still borderline, however maps are stable we will continue to hold Lasix at this time especially given his need for oxygen at this time #5. History of sick sinus syndrome: Status post pacemaker/AICD placement #6. Recent Fall prior to current presentation with closed wedge compression fracture of T12 vertebra: Had been set-up with outpatient therapies, PCP follow- up and Dr. Lee evaluation per review of records. #7. Chronic normocytic anemia: Admission globin 12.1, baseline 11-12, 12: Hemoglobin 11.2 mildly decreased probably due to hemodilution. 10/01/2021: We will continue to monitor hemoglobin, I do anticipate a drop after surgery #8. Diabetes mellitus type II: Hold oral home regimen, ADA diet, accu checks w/ ISS. #9. BPH: We will continue Flomax home regimen. #10. Gout: We will continue patient on allopurinol regimen. DVT: Coumadin Charges/Coding Visit Charges Inpatient E&M: 42345 Subs Hosp L2
--- NOTE | 2021-10-02 11:30 | CASEMGMT ---
Social Work Note NEETA updated that pt's Sofy is at [facility] and requesting to speak to SW. NEETA in to speak with Sofy. Sofy states she would like an update on SNF process. NEETA informed Sofy that pt has been accepted to TCU pending pre-cert and that pre-cert will be submitted. Sofy states understanding. Sofy asked how long pt will be at [facility]. NEETA informed Sofy that it depends on pt's progress and insurance. Sofy states she would like to take pt home from [facility] but states that she has a prison policy for SNF if pt needs it. Sofy states she will need to look in to that. Sofy states that she is moving into [facility] today. NEETA informed Sofy that SW will update her when pre-cert is obtained. Sofy states understanding. Plan: TCU pending pre-cert Agnes Eagle [employer]EV[employer] INSPECTOR, [employer]IM[employer] TRAINER
--- NOTE | 2021-10-02 11:34 | PN.ORTHO_ITS ---
Subjective Subjective Patient seen and examined. Denies any new complaints. States he felt very weak and fatigued very easily with attempted physical therapy today. Denies fevers, chills, nausea vomiting, chest pain or shortness of breath. Objective Data Objective Data Vital Signs: Vital Signs Temp Pulse Resp BP Pulse Ox 97.5 F L 70 18 98/64 96 10/02/21 08:40 10/02/21 08:40 10/02/21 08:40 10/02/21 08:40 10/02/21 08:40 Oxygen Flow Rate (L/min) 2 Oxygen Delivery Method Nasal Cannula Weight: 205 lb 9.6 oz Body Mass Index (BMI) 26.5 Intake & Output: Intake and Output for Last 24 Hours 09/30/21 10/01/21 10/02/21 23:59 23:59 23:59 Intake Total 1876.75 / 1876.75 1155 / 1155 110 / 110 Output Total 1280 / 1280 500 / 650 375 / 375 Balance 596.75 / 596.75 655 / 505 -265 / -265 Lab / Micro Data Result Diagrams: 10/02/21 06:08 10/02/21 06:08 Labs: Laboratory Results - last 24 hr 10/01/21 10:55: POC Glucose 155 H 10/01/21 13:37: POC Glucose 146 H 10/01/21 16:33: POC Glucose 150 H 10/01/21 21:18: POC Glucose 136 H 10/02/21 06:08: PT 19.2 H, INR 1.7 10/02/21 06:08: WBC 9.0, RBC 3.37 L, Hgb 10.5 L, Hct 32.0 L, MCV 95.0 H, MCH 31.2, MCHC 32.8, RDW Std Deviation 54.3 H, RDW Coeff of Dena 15.9 H, Plt Count 128 L, MPV 10.3, Immature Gran % (Auto) 0.600, Neut % (Auto) 74.1 H, Lymph % (Auto) 13.1 L, [place] % (Auto) 9.3, Eos % (Auto) 2.6, Baso % (Auto) 0.3, Absolute Neuts (auto) 6.7, Absolute Lymphs (auto) 1.17, Nucleated RBC % 0 10/02/21 06:08: Sodium 133 L, Potassium 5.1, Chloride 103, Carbon Dioxide 23.0, Anion Gap 7, BUN 49 H, Creatinine 1.76 H, Estim Creat Clear Calc 34.38, Est GFR (MDRD) Af Amer 47 L, Est GFR (MDRD) Non-Af 39 L, BUN/Creatinine Ratio 27.8 H, Glucose 145 H, Calcium 8.6 10/02/21 06:50: POC Glucose 130 H Radiography Diagnostic Testing: Radiology Impression Hip/Pelvis X-Ray 10/01/21 06:38 IMPRESSION: Fluoroscopic assistance images were obtained. Dictation for documentation purposes only. Electronically Signed: Dov Graf MD at 15:44 EDT Reading Location ID and State: [facility] / [place] , Service support , Physical Exam Narrative General - A&Ox3, NAD. VSS/AF Right lower extremity -incisional dressing shows minimal serosanguineous drainage. SILT Sural, Saphenous, SPN, DPN, Tibial N. distributions. DP, PT 2+. BCR. DF, PF, EHL 5/5. No calf TTP. Assessment & Plan Assessment/Plan (1) Closed intertrochanteric fracture of right hip: QUALIFIERS: Encounter type: initial encounter Fracture alignment: nondisplaced Qualified Code(s): S72.144A - Nondisplaced intertrochanteric fracture of right femur, initial encounter for closed fracture PLAN: POD#1 s/p right femur CMN - Pain control - Medicine following for medical management - PT/OT -weightbearing as tolerated right lower extremity - DVT PPX -restart home Coumadin today, SCDs, QAMAR noble, early mobilization. Hemoglobin stable today. - Case management - D/C planning, he will require placement
[2021-10-02] MEDS: 0.9% Normal Saline 1,000 ML 75 ML IV (11:41)
[2021-10-02] MEDS: Insulin Lispro 100 UNIT/ML INSULN.PEN SC ×3 (12:06→20:38)
[2021-10-02 12:31] LABS: Bedside Glucose 210 mg/dL (74-106)
--- NOTE | 2021-10-02 14:05 | PN.RENAL_ITS ---
Subjective Subjective hip pain improved. BP low on narcotics. Denies NV, SOB, edema. Tolerating diet. Urine dark genaro in mendoza Objective Data Objective Data Vital Signs: Vital Signs Temp Pulse Resp BP Pulse Ox 97.8 F 83 18 93/67 100 10/02/21 11:56 10/02/21 12:35 10/02/21 11:56 10/02/21 11:56 10/02/21 11:56 Oxygen Flow Rate (L/min) 3 Oxygen Delivery Method Nasal Cannula Weight: 93.259 kg Body Mass Index (BMI) 26.5 Intake & Output: Intake and Output for Last 24 Hours 09/30/21 10/01/21 10/02/21 23:59 23:59 23:59 Intake Total 1876.75 / 1876.75 1155 / 1155 410 / 410 Output Total 1280 / 1280 500 / 650 500 / 500 Balance 596.75 / 596.75 655 / 505 -90 / -90 Lab / Micro Data Result Diagrams: 10/02/21 06:08 10/02/21 06:08 Labs: Laboratory Results - last 24 hr 10/01/21 16:33: POC Glucose 150 H 10/01/21 21:18: POC Glucose 136 H 10/02/21 06:08: PT 19.2 H, INR 1.7 10/02/21 06:08: WBC 9.0, RBC 3.37 L, Hgb 10.5 L, Hct 32.0 L, MCV 95.0 H, MCH 31.2, MCHC 32.8, RDW Std Deviation 54.3 H, RDW Coeff of Dena 15.9 H, Plt Count 128 L, MPV 10.3, Immature Gran % (Auto) 0.600, Neut % (Auto) 74.1 H, Lymph % (Auto) 13.1 L, [place] % (Auto) 9.3, Eos % (Auto) 2.6, Baso % (Auto) 0.3, Absolute Neuts (auto) 6.7, Absolute Lymphs (auto) 1.17, Nucleated RBC % 0 10/02/21 06:08: Sodium 133 L, Potassium 5.1, Chloride 103, Carbon Dioxide 23.0, Anion Gap 7, BUN 49 H, Creatinine 1.76 H, Estim Creat Clear Calc 34.38, Est GFR (MDRD) Af Amer 47 L, Est GFR (MDRD) Non-Af 39 L, BUN/Creatinine Ratio 27.8 H, Glucose 145 H, Calcium 8.6 10/02/21 06:50: POC Glucose 130 H 10/02/21 11:47: POC Glucose 210 H Radiography Diagnostic Testing: Radiology Impression Hip/Pelvis X-Ray 10/01/21 06:38 IMPRESSION: Fluoroscopic assistance images were obtained. Dictation for documentation purposes only. Electronically Signed: Dov Graf MD at 15:44 EDT Reading Location ID and State: [facility] / [place] , Service support , Physical Exam Const alert and oriented x3 Constitutional Narrative: chronic debilitation General Appearance: cooperative, comfortable and ill appearing Orientation / Consciousness: awake Resp clear to auscultation bilaterally Cardio regular rate Cardio Narrative: ectopy GI non-tender and non-distended Palpation: soft Bladder / Kidney Exam: catheter in place Extremity no clubbing, cyanosis or edema Assessment & Plan Assessment/Plan (1) Acute kidney injury: PLAN: baseline creatinine 1.1 eGFR 28cc/min based on age, wt in March 2021. Creatinine 1.76 today. Continue with iv fluids. Potassium elevated at 5.1 follow low K diet (2) CKD (chronic kidney disease) stage 4, GFR 15-29 ml/min: PLAN: based on age, weight pt at CKD stage 4. Underlying diabetic, hypertensive nephropathy. (3) Closed intertrochanteric fracture of right hip: QUALIFIERS: Encounter type: initial encounter Fracture alignment: nondisplaced Qualified Code(s): S72.144A - Nondisplaced intertrochanteric fracture of right femur, initial encounter for closed fracture PLAN: ortho mgmt (4) Fall: (5) Essential (primary) hypertension: PLAN: stable (6) Type 2 diabetes mellitus with diabetic chronic kidney disease: PLAN: avoid metformin (7) Cardiomyopathy, ischemic: PLAN: volume status stable. Continue to hold diuretics
[2021-10-02 16:41] LABS: Bedside Glucose 174 mg/dL (74-106)
[2021-10-02 21:25] LABS: Bedside Glucose 191 mg/dL (74-106)
[2021-10-02 22:51] LABS: Bedside Glucose 177 mg/dL (74-106)
[2021-10-03] VITALS (11 sets, daily range): BP systolic 101–113; BP diastolic 66–75; PULSE 66–82; RESP 14–18; TEMP 35.8–36.6; O2SAT 90–100
[2021-10-03] MEDS: 0.9% Normal Saline 1,000 ML 75 ML IV ×2 (01:08→16:04)
[2021-10-03 06:45] LABS: Bedside Glucose 132 mg/dL (74-106)
[2021-10-03 06:45] LABS: Absolute Lymphocyte Count 1.54 X10^3/uL (0.83-4.51); Absolute Neutrophil Count 5.7 X10^3/uL (2.0-7.7); Basophil# 0.02 X10^3/uL; Basophil% 0.2 % (0-1); Eosinophil# 0.63 X10^3/uL; Eosinophils% 7.1 % (0-5); Hematocrit 30.6 % (40-54); Lymphocyte # 1.54 X10^3/ul (0.83-4.51); Lymphocyte % 17.3 % (19-41); Mean Corp Hgb Conc 32.7 g/dL (32-36); Mean Corpuscular Hgb 30.8 pg (27.0-32.0); Mean Corpuscular Volume 94.2 fL (80-94); Mean Platelet Vol. 10.4 fl (6.2-12.0); Monocyte# 0.97 X10^3/uL; Monocyte% 10.9 % (0-10); NRBC Flagged by Analyzer 0.2 % (0-5); Neutrophil # 5.69 X10^3/uL (2.7-7.7); Neutrophil % 64.2 % (47-70); Platelet Count 138 K/mm3 (150-450); RBC Distribution Width CV 15.8 % (11.6-14.6); RBC Distribution Width SD 53.8 fl (35.1-43.9); Red Blood Count 3.25 M/mm3 (4.6-6.2); White Blood Count 8.9 K/mm3 (4.4-11.0)
[2021-10-03 06:55] LABS: International Normalized Ratio 1.8; Prothrombin Time (Protime)PT. 20.8 SECONDS (11.7-14.9)
[2021-10-03 07:04] LABS: Anion Gap 8 (5-15); BUN 57 mg/dL (7-18); BUN/Creat Ratio 34.5 RATIO (10-20); Calcium,Total 8.3 mg/dL (8.5-10.1); Chloride 105 mmol/L (98-107); Creatinine, Serum 1.65 mg/dL (0.70-1.30); EST Glomerular Filtration Rate 42 mL/min (>60); Est Glom Filt Rate - Afr Amer 51 mL/min (>60); Estimated Creatinine Clearance 36.67 ml/min; Glucose 145 mg/dL (74-106); Potassium 4.7 mmol/L (3.5-5.1); Sodium Level 135 mmol/L (136-145)
[2021-10-03] MEDS: Allopurinol 100 MG Tablet PO (07:49)
[2021-10-03] MEDS: Calcium Carbonate 500 MG Tablet PO ×3 (07:49→16:56)
[2021-10-03] MEDS: Aspirin 81 MG TAB.CHEW PO (07:49)
[2021-10-03] MEDS: Docusate Sodium 100 MG Capsule PO (07:49)
[2021-10-03] MEDS: Tamsulosin HCl 0.4 MG Capsule PO (07:50)
[2021-10-03] MEDS: Senna/Docusate Sodium 1 Tablet 2 TABLET PO ×2 (07:50→21:44)
--- NOTE | 2021-10-03 10:51 | PCM.PN.HOSP ---
Subjective Subjective Doing well, still having some pain which limited his ability to work with PT yesterday. Still requiring some oxygen but hopefully with improved ambulation as well as being able to hopefully restart his home diuretics soon this will resolve Objective Data Objective Data Vital Signs: Vital Signs Temp Pulse Resp BP Pulse Ox 97.2 F L 72 18 101/70 95 10/03/21 08:10 10/03/21 08:10 10/03/21 08:10 10/03/21 08:10 10/03/21 09:00 Oxygen Flow Rate (L/min) 2 Oxygen Delivery Method Nasal Cannula Weight: 205 lb 11.06 oz Body Mass Index (BMI) 26.5 Intake & Output: Intake and Output for Last 24 Hours 10/02/21 10/03/21 10/04/21 03:59 03:59 03:59 Intake Total 1155 / 1155 1870 / 1870 Output Total 650 / 650 725 / 725 250 / 250 Balance 505 / 505 1145 / 1145 -250 / -250 Lab / Micro Data Result Diagrams: 10/03/21 06:10 10/03/21 06:10 Labs: Laboratory Results - last 24 hr 10/02/21 11:47: POC Glucose 210 H 10/02/21 16:27: POC Glucose 174 H 10/02/21 20:37: POC Glucose 177 H 10/02/21 21:17: POC Glucose 191 H 10/03/21 06:10: PT 20.8 H, INR 1.8 10/03/21 06:10: WBC 8.9, RBC 3.25 L, Hgb 10.0 L, Hct 30.6 L, MCV 94.2 H, MCH 30.8, MCHC 32.7, RDW Std Deviation 53.8 H, RDW Coeff of Dena 15.8 H, Plt Count 138 L, MPV 10.4, Immature Gran % (Auto) 0.300, Neut % (Auto) 64.2, Lymph % (Auto) 17.3 L, [place] % (Auto) 10.9 H, Eos % (Auto) 7.1 H, Baso % (Auto) 0.2, Absolute Neuts (auto) 5.7, Absolute Lymphs (auto) 1.54, Nucleated RBC % 0.2 10/03/21 06:10: Sodium 135 L, Potassium 4.7, Chloride 105, Carbon Dioxide 22.0, Anion Gap 8, BUN 57 H, Creatinine 1.65 H, Estim Creat Clear Calc 36.67, Est GFR (MDRD) Af Amer 51 L, Est GFR (MDRD) Non-Af 42 L, BUN/Creatinine Ratio 34.5 H, Glucose 145 H, Calcium 8.3 L 10/03/21 06:33: POC Glucose 132 H Physical Exam Const alert, oriented x3 and no apparent distress General Appearance: cooperative HEENT normocephalic and moist oral mucous membranes Eyes PERRL, EOMs intact bilaterally and conjunctivae normal Neck supple and no JVD Resp normal respiratory effort, no retractions and no use of accessory muscles Auscultation: diminished lung sounds; Negative for crackles, rales, rhonchi or wheezes Cardio regular rate, regular rhythm, S1 normal heart sound, S2 normal heart sound and no murmurs GI soft to palpation, non-tender and non-distended; Negative for hepatosplenomegaly Extremity no clubbing, cyanosis or edema Extremity Narrative: Some pain in his right hip from surgery Skin no rashes or lesions noted Skin Narrative: Dressing CDI Neuro no focal motor deficits and no sensory deficits noted Psych affect normal Appearance: appropriate Assessment & Plan Assessment/Plan (1) Multiple falls: (2) Closed intertrochanteric fracture of right hip: QUALIFIERS: Encounter type: initial encounter Fracture alignment: nondisplaced Qualified Code(s): S72.144A - Nondisplaced intertrochanteric fracture of right femur, initial encounter for closed fracture PLAN: #1. Right acute Nondisplaced femoral neck/intertrochanteric fracture most likely due to osteoporosis as fracture after fall from standing height: Patient is admitted MedSurg floor. Perioperative medical optimization. NSQIP risk was high based on cardiac history and other comorbidities therefore communications equipment installer was consulted. Discussed with communications equipment installer. EF 25 to 30% unchanged from the previous echo with segmental wall motion abnormalities. Unrestrictive IV fluid administration. Continue cardiac medications. On last ICD interrogation no evidence of defibrillator discharge and unremarkable. Twelve-lead EKG shows paced rhythm. 09/30: INR 3.3. Vitamin K 5 mg IV given. Yesterday he had vitamin K 2.5 oral but he still INR elevated. Discussed with the surgeon. 10/01/2021: INR was elevated yesterday and he was given a second dose of vitamin K today is about 1.7 so we will proceed with surgery 10/02/2021: Can resume Coumadin, INR today is 1.7. He did not need bridged as the Coumadin is for A. fib 10/03/2021: Continue to monitor INR and resume his Coumadin. We will likely plan for SNF placement for rehab postoperatively. #2. 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 Creatinine was 1.12 on 03/2021. BUN/creatinine decreasing/improving 09/30: Creatinine 1.55 that is baseline. Stop after the completion of IV fluid bag. Monitor kidney function daily 10/01/2021: Creatinine today slightly elevated to 1.64 we will continue to monitor 10/02/2021: Creatinine is slightly elevated again today from yesterday we will continue to monitor continue to hold Lasix 10/03/2021: Appreciate nephrology, restarted some IV fluids at a slower rate creatinine has improved. #3. CAD: Status post PCI, currently on Coumadin therapy with therapeutic INR, given mechanical fall with hip fracture we will plan to hold with INR trending, continue aspirin therapy, statin therapy, Coreg, not on RUDY inhibitor/ARB but given renal function would not be appropriate. #4. Chronic systolic heart failure status post AICD/A. fib/HTN/HLD/history of sick sinus syndrome: Patient on INR, warfarin held due to elevated INR and patient going for surgery. Continue with his statin and he does have a history of an AICD 09/30: Repeat echo shows EF 35%, moderately severe segmental systolic dysfunction. LA severely enlarged, mild to moderate eccentric MR, AR with moderately dilated LV. RVSP 60 mmHg. No significant change in LV function from previous echo. continue aspirin therapy, statin therapy, Coreg. Lasix temporarily held but can be resumed if fluid overload or change in hemodynamics. Patient also not on RUDY and ARB suspected due to CKD. 04/03/2020 echocardiogram with normal LV size, EF 35%, moderate segmental systolic dysfunction, stage II diastolic dysfunction, severely enlarged LA, PASP 34 mmHg with no significant change noted since prior echocardiogram of note. 10/02/2021: Blood pressures are still borderline, however maps are stable we will continue to hold Lasix at this time especially given his need for oxygen at this time #5. History of sick sinus syndrome: Status post pacemaker/AICD placement #6. Recent Fall prior to current presentation with closed wedge compression fracture of T12 vertebra: Had been set-up with outpatient therapies, PCP follow-up and Dr. Lee evaluation per review of records. #7. Chronic normocytic anemia: Admission globin 12.1, baseline 11-12, 03/28: Hemoglobin 11.2 mildly decreased probably due to hemodilution. 10/01/2021: We will continue to monitor hemoglobin, I do anticipate a drop after surgery #8. Diabetes mellitus type II: Hold oral home regimen, ADA diet, accu checks w/ ISS. #9. BPH: We will continue Flomax home regimen. #10. Gout: We will continue patient on allopurinol regimen. DVT: Coumadin Charges/Coding Visit Charges Inpatient E&M: 57804 Subs Hosp L2
[2021-10-03] MEDS: Insulin Lispro 100 UNIT/ML INSULN.PEN SC ×3 (11:40→21:44)
[2021-10-03 11:45] LABS: Bedside Glucose 165 mg/dL (74-106)
--- NOTE | 2021-10-03 12:11 | PCM.PN.ORT ---
Subjective Subjective Patient seen and examined. He states he feels much better today in terms of his mental clarity. Denies fevers or chills, nausea vomiting, chest pain or shortness of breath. Up with therapy to stand at bedside. He states he feels night and day better than yesterday in terms of his energy and mental clarity. Objective Data Objective Data Vital Signs: Vital Signs Temp Pulse Resp BP Pulse Ox 97.2 F L 77 18 101/70 94 10/03/21 08:10 10/03/21 11:00 10/03/21 08:10 10/03/21 08:10 10/03/21 11:49 Oxygen Flow Rate (L/min) 2 Oxygen Delivery Method Nasal Cannula Weight: 205 lb 11.06 oz Body Mass Index (BMI) 26.5 Intake & Output: Intake and Output for Last 24 Hours 10/01/21 10/02/21 10/03/21 23:59 23:59 23:59 Intake Total 1155 / 1155 770 / 870 1100 / 1100 Output Total 500 / 650 675 / 875 700 / 700 Balance 655 / 505 95 / -5 400 / 400 Lab / Micro Data Result Diagrams: 10/03/21 06:10 10/03/21 06:10 Labs: Laboratory Results - last 24 hr 10/02/21 11:47: POC Glucose 210 H 10/02/21 16:27: POC Glucose 174 H 10/02/21 20:37: POC Glucose 177 H 10/02/21 21:17: POC Glucose 191 H 10/03/21 06:10: PT 20.8 H, INR 1.8 10/03/21 06:10: WBC 8.9, RBC 3.25 L, Hgb 10.0 L, Hct 30.6 L, MCV 94.2 H, MCH 30.8, MCHC 32.7, RDW Std Deviation 53.8 H, RDW Coeff of Dena 15.8 H, Plt Count 138 L, MPV 10.4, Immature Gran % (Auto) 0.300, Neut % (Auto) 64.2, Lymph % (Auto) 17.3 L, [place] % (Auto) 10.9 H, Eos % (Auto) 7.1 H, Baso % (Auto) 0.2, Absolute Neuts (auto) 5.7, Absolute Lymphs (auto) 1.54, Nucleated RBC % 0.2 10/03/21 06:10: Sodium 135 L, Potassium 4.7, Chloride 105, Carbon Dioxide 22.0, Anion Gap 8, BUN 57 H, Creatinine 1.65 H, Estim Creat Clear Calc 36.67, Est GFR (MDRD) Af Amer 51 L, Est GFR (MDRD) Non-Af 42 L, BUN/Creatinine Ratio 34.5 H, Glucose 145 H, Calcium 8.3 L 10/03/21 06:33: POC Glucose 132 H 10/03/21 11:39: POC Glucose 165 H Physical Exam Narrative General - A&Ox3, NAD. VSS/AF Right lower extremity -incisional dressing shows minimal serosanguineous drainage. SILT Sural, Saphenous, SPN, DPN, Tibial N. distributions. DP, PT 2+. BCR. DF, PF, EHL 5/5. No calf TTP. Assessment & Plan Assessment/Plan (1) Closed intertrochanteric fracture of right hip: QUALIFIERS: Encounter type: initial encounter Fracture alignment: nondisplaced Qualified Code(s): S72.144A - Nondisplaced intertrochanteric fracture of right femur, initial encounter for closed fracture PLAN: POD#2 s/p right femur CMN - Pain control - Medicine following for medical management - PT/OT -weightbearing as tolerated right lower extremity - DVT PPX -restart home Coumadin today, SCDs, QAMAR chene, early mobilization. Hemoglobin stable today. - Case management -placement to see TCU pending. Stable for discharge from my standpoint. Follow-up in 2 weeks with x-rays.
--- NOTE | 2021-10-03 12:23 | PN.RENAL_ITS ---
Subjective Subjective doing well. Denied CP, SOB, edema. Appetite good Objective Data Objective Data Vital Signs: Vital Signs Temp Pulse Resp BP Pulse Ox 97.2 F L 77 18 101/70 94 10/03/21 08:10 10/03/21 11:00 10/03/21 08:10 10/03/21 08:10 10/03/21 11:49 Oxygen Flow Rate (L/min) 2 Oxygen Delivery Method Nasal Cannula Weight: 93.3 kg Body Mass Index (BMI) 26.5 Intake & Output: Intake and Output for Last 24 Hours 10/01/21 10/02/21 10/03/21 23:59 23:59 23:59 Intake Total 1155 / 1155 770 / 870 1100 / 1100 Output Total 500 / 650 675 / 875 700 / 700 Balance 655 / 505 95 / -5 400 / 400 Lab / Micro Data Result Diagrams: 10/03/21 06:10 10/03/21 06:10 Labs: Laboratory Results - last 24 hr 10/02/21 11:47: POC Glucose 210 H 10/02/21 16:27: POC Glucose 174 H 10/02/21 20:37: POC Glucose 177 H 10/02/21 21:17: POC Glucose 191 H 10/03/21 06:10: PT 20.8 H, INR 1.8 10/03/21 06:10: WBC 8.9, RBC 3.25 L, Hgb 10.0 L, Hct 30.6 L, MCV 94.2 H, MCH 30.8, MCHC 32.7, RDW Std Deviation 53.8 H, RDW Coeff of Dena 15.8 H, Plt Count 138 L, MPV 10.4, Immature Gran % (Auto) 0.300, Neut % (Auto) 64.2, Lymph % (Auto) 17.3 L, [place] % (Auto) 10.9 H, Eos % (Auto) 7.1 H, Baso % (Auto) 0.2, Absolute Neuts (auto) 5.7, Absolute Lymphs (auto) 1.54, Nucleated RBC % 0.2 10/03/21 06:10: Sodium 135 L, Potassium 4.7, Chloride 105, Carbon Dioxide 22.0, Anion Gap 8, BUN 57 H, Creatinine 1.65 H, Estim Creat Clear Calc 36.67, Est GFR (MDRD) Af Amer 51 L, Est GFR (MDRD) Non-Af 42 L, BUN/Creatinine Ratio 34.5 H, Gl ucose 145 H, Calcium 8.3 L 10/03/21 06:33: POC Glucose 132 H 10/03/21 11:39: POC Glucose 165 H Physical Exam Const alert Resp clear to auscultation bilaterally Cardio Cardio Narrative: irregular rhythm GI non-tender and non-distended Auscultation: normoactive bowel sounds Palpation: soft Bladder / Kidney Exam: catheter in place Extremity no clubbing, cyanosis or edema Extremity Narrative: left hand amputation Assessment & Plan Assessment/Plan (1) Acute kidney injury: PLAN: baseline creatinine 1.1 eGFR 28cc/min based on age, wt in March 2021. Creatinine improving with iv fluids. (2) CKD (chronic kidney disease) stage 4, GFR 15-29 ml/min: PLAN: based on age, weight pt at CKD stage 4. Underlying diabetic, hypertensive nephropathy. (3) Closed intertrochanteric fracture of right hip: QUALIFIERS: Encounter type: initial encounter Fracture alignment: nondisplaced Qualified Code(s): S72.144A - Nondisplaced intertrochanteric fracture of right femur, initial encounter for closed fracture PLAN: ortho mgmt (4) Fall: (5) Essential (primary) hypertension: PLAN: stable (6) Type 2 diabetes mellitus with diabetic chronic kidney disease: PLAN: avoid metformin (7) Cardiomyopathy, ischemic: PLAN: volume status stable. Continue to hold diuretics
[2021-10-03 17:26] LABS: Bedside Glucose 193 mg/dL (74-106)
[2021-10-03 23:51] LABS: Bedside Glucose 185 mg/dL (74-106)
[2021-10-04 02:30] VITALS: BP 121/85; PULSE 70; RESP 12; TEMP 36.2; O2SAT 96
[2021-10-04 05:57] LABS: International Normalized Ratio 1.9; Prothrombin Time (Protime)PT. 21.6 SECONDS (11.7-14.9)
[2021-10-04 06:18] LABS: Anion Gap 6 (5-15); BUN 52 mg/dL (7-18); BUN/Creat Ratio 39.1 RATIO (10-20); Calcium,Total 8.2 mg/dL (8.5-10.1); Chloride 106 mmol/L (98-107); Creatinine, Serum 1.33 mg/dL (0.70-1.30); EST Glomerular Filtration Rate 54 mL/min (>60); Est Glom Filt Rate - Afr Amer 65 mL/min (>60); Estimated Creatinine Clearance 45.49 ml/min; Glucose 151 mg/dL (74-106); Potassium 4.7 mmol/L (3.5-5.1); Sodium Level 134 mmol/L (136-145)
[2021-10-04] MEDS: 0.9% Normal Saline 1,000 ML 75 ML IV (06:45)
[2021-10-04] MEDS: Insulin Lispro 100 UNIT/ML INSULN.PEN SC ×2 (06:46→11:34)
[2021-10-04 07:00] LABS: Bedside Glucose 155 mg/dL (74-106)
[2021-10-04 09:10] VITALS: BP 119/70; PULSE 92; RESP 18; TEMP 36.3; O2SAT 98
[2021-10-04] MEDS: Atorvastatin Calcium 20 MG Tablet PO (09:16)
[2021-10-04] MEDS: Allopurinol 100 MG Tablet PO (09:16)
[2021-10-04] MEDS: Tamsulosin HCl 0.4 MG Capsule PO (09:16)
[2021-10-04] MEDS: Docusate Sodium 100 MG Capsule PO (09:16)
[2021-10-04] MEDS: Aspirin 81 MG TAB.CHEW PO (09:16)
[2021-10-04] MEDS: Calcium Carbonate 500 MG Tablet PO ×2 (09:16→11:37)
[2021-10-04] MEDS: Senna/Docusate Sodium 1 Tablet 2 TABLET PO (09:16)
--- NOTE | 2021-10-04 09:30 | CASEMGMT ---
Social Work Telephone call from Ayaka DONALD. Pre-cert obtained. This social services analyst notified Dr. Allen of above. TRE: SHABANA, skilled when medically cleared. Laura HORVATH, AMRIK
--- NOTE | 2021-10-04 09:31 | PN.HOSP_ITS ---
Subjective Subjective Doing well, feels much better today. Periodically between room air and 2 L nasal cannula, renal function is improved. Objective Data Objective Data Vital Signs: Vital Signs Temp Pulse Resp BP Pulse Ox 97.3 F L 92 18 119/70 98 10/04/21 09:10 10/04/21 09:10 10/04/21 09:10 10/04/21 09:10 10/04/21 09:10 Oxygen Flow Rate (L/min) 2 Oxygen Delivery Method Room Air Weight: 230 lb 6.129 oz Body Mass Index (BMI) 26.5 Intake & Output: Intake and Output for Last 24 Hours 10/03/21 10/04/21 10/05/21 03:59 03:59 03:59 Intake Total 1870 / 1870 1050 / 1050 1000 / 1000 Output Total 725 / 725 1100 / 1100 500 / 500 Balance 1145 / 1145 -50 / -50 500 / 500 Lab / Micro Data Result Diagrams: 10/03/21 06:10 10/04/21 05:08 Labs: Laboratory Results - last 24 hr 10/03/21 11:39: POC Glucose 165 H 10/03/21 16:55: POC Glucose 193 H 10/03/21 21:40: POC Glucose 185 H 10/04/21 05:08: PT 21.6 H, INR 1.9 10/04/21 05:08: Sodium 134 L, Potassium 4.7, Chloride 106, Carbon Dioxide 22.0, Anion Gap 6, BUN 52 H, Creatinine 1.33 H, Estim Creat Clear Calc 45.49, Est GFR (MDRD) Af Amer 65, Est GFR (MDRD) Non-Af 54 L, BUN/Creatinine Ratio 39.1 H, Glucose 151 H, Calcium 8.2 L 10/04/21 06:43: POC Glucose 155 H Physical Exam Const alert, oriented x3 and no apparent distress General Appearance: cooperative HEENT normocephalic and moist oral mucous membranes Eyes PERRL, EOMs intact bilaterally and conjunctivae normal Neck supple and no JVD Resp normal respiratory effort, no retractions and no use of accessory muscles Auscultation: diminished lung sounds; Negative for crackles, rales, rhonchi or wheezes Cardio regular rate, regular rhythm, S1 normal heart sound, S2 normal heart sound and no murmurs GI soft to palpation, non-tender and non-distended; Negative for hepatosplenomegaly Extremity no clubbing, cyanosis or edema Extremity Narrative: Some pain in his right hip from surgery Skin no rashes or lesions noted Skin Narrative: Dressing CDI Neuro no focal motor deficits and no sensory deficits noted Psych affect normal Appearance: appropriate Assessment & Plan Assessment/Plan (1) Multiple falls: (2) Closed intertrochanteric fracture of right hip: QUALIFIERS: Encounter type: initial encounter Fracture alignment: nondisplaced Qualified Code(s): S72.144A - Nondisplaced intertrochanteric fracture of right femur, initial encounter for closed fracture PLAN: #1. Right acute Nondisplaced femoral neck/intertrochanteric fracture most likely due to osteoporosis as fracture after fall from standing height: Patient is admitted Medr floor. Perioperative medical optimization. NSQIP risk was high based on cardiac history and other comorbidities therefore air route traffic controller was consulted. Discussed with air route traffic controller. EF 25 to 30% unchanged from the previous echo with segmental wall motion abnormalities. Unrestrictive IV fluid administration. Continue cardiac medications. On last ICD interrogation no evidence of defibrillator discharge and unremarkable. Twelve-lead EKG shows paced rhythm. 09/30: INR 3.3. Vitamin K 5 mg IV given. Yesterday he had vitamin K 2.5 oral but he still INR elevated. Discussed with the surgeon. 10/01/2021: INR was elevated yesterday and he was given a second dose of vitamin K today is about 1.7 so we will proceed with surgery 10/02/2021: Can resume Coumadin, INR today is 1.7. He did not need bridged as the Coumadin is for A. fib 10/03/2021: Continue to monitor INR and resume his Coumadin. We will likely plan for SNF placement for rehab postoperatively. #2. Acute kidney injury on CKD stage 4: Admission BUN/creatinine 51/1.85, increased creatinine 2.06 on 09/05/2021 and 09/25/2021. Creatinine was 1.12 on 03/2021. BUN/creatinine decreasing/improving 09/30: Creatinine 1.55 that is baseline. Stop after the completion of IV fluid bag. Monitor kidney function daily 10/01/2021: Creatinine today slightly elevated to 1.64 we will continue to monitor 10/02/2021: Creatinine is slightly elevated again today from yesterday we will continue to monitor continue to hold Lasix 10/03/2021: Appreciate nephrology, restarted some IV fluids at a slower rate creatinine has improved. 10/04/2021: Creatinine is down to 1.3, continue with gentle IV hydration, if he is able to go to SNF today would hold Lasix for several days prior to restarting and would monitor BMP and CBCs while at the custodial #3. CAD: Status post PCI, currently on Coumadin therapy with therapeutic INR, given mechanical fall with hip fracture we will plan to hold with INR trending, continue aspirin therapy, statin therapy, Coreg, not on RUDY inhibitor/ARB but given renal function would not be appropriate. #4. Chronic systolic heart failure status post AICD/A. fib/HTN/HLD/history of s ick sinus syndrome: Patient on INR, warfarin held due to elevated INR and patient going for surgery. Continue with his statin and he does have a history of an AICD 09/30: Repeat echo shows EF 35%, moderately severe segmental systolic dysfunction. LA severely enlarged, mild to moderate eccentric MR, AR with moderately dilated LV. RVSP 60 mmHg. No significant change in LV function from previous echo. continue aspirin therapy, statin therapy, Coreg. Lasix temporarily held but can be resumed if fluid overload or change in hemodynamics. Patient also not on RUDY and ARB suspected due to CKD. 04/03/2020 echocardiogram with normal LV size, EF 35%, moderate segmental systolic dysfunction, stage II diastolic dysfunction, severely enlarged LA, PASP 34 mmHg with no significant change noted since prior echocardiogram of note. 10/02/2021: Blood pressures are still borderline, however maps are stable we will continue to hold Lasix at this time especially given his need for oxygen at this time 10/04/2021: Blood pressures are stabilized in the low 100s to 110s #5. Recent Fall prior to current presentation with closed wedge compression fracture of T12 vertebra: Had been set-up with outpatient therapies, PCP follow- up and Dr. Lee evaluation per review of records. #6. Chronic normocytic anemia: Admission globin 12.1, baseline 11-12, 12: Hemoglobin 11.2 mildly decreased probably due to hemodilution. 10/01/2021: We will continue to monitor hemoglobin, I do anticipate a drop after surgery #7. Diabetes mellitus type II: Hold oral home regimen, ADA diet, accu checks w/ ISS. #8. BPH: We will continue Flomax home regimen. #9. Gout: We will continue patient on allopurinol regimen. DVT: Coumadin Charges/Coding Visit Charges Inpatient E&M: 38406 Subs Hosp L2
[2021-10-04 12:01] LABS: Bedside Glucose 178 mg/dL (74-106)
--- NOTE | 2021-10-04 12:30 | CASEMGMT ---
Social Work Per Dr. Allen, patient is medically cleared for discharge to TCU today. This social services coordinator updated patient and patient spouse on above information. Telephone call to TCHeather, Ayaka. Voicemail left that patient is medically cleared. PLAN: SHABANA, skilled. Laura HORVATH, AMRIK
--- NOTE | 2021-10-04 13:29 | PCM.TXEXTCAR ---
Diet 10/02/21 01:14 Diet: Cardiac: Calorie-Controlled Dietary Modifications:: Consistent Carbohydrate Sodium Restricted Is pt able to select menu?: Yes How many daily calories?: 1800 calorie Routine Orders/Code Status Routine Lab Work: CBC, BMP and INR Code Status: DNRCC-A Wound(s) left arm: Wound Type: Skin Tear rt elbow: Wound Type: Skin Tear back: Wound Type: Skin Tear right hip: Wound Type: Surgical Incision Therapies Weight Bearing: Weight bearing as tolerated Physical Therapy: Eval and Treat Occupational Therapy: Eval and Treat Problem/Diagnosis (1) Multiple falls: Status: Chronic (2) Closed intertrochanteric fracture of right hip: Status: Acute Allergies/Procedures Done in Hospital Allergies rofecoxib [From Vioxx] Adverse Reaction (Verified 09/28/21 22:52) Other Procedures: None Type of Care/Length of Stay Estimated LOS: Convalescent Care Less Than 30 days Type of Care Needed: Skilled Rehab Potential: Good Prognosis: Good Additional Orders/Day of Discharge Day of Discharge: 10/04/21 Dietary and Speech Recommendations Dietitian Recommendations/Changes: Will adjust diet to 1800 calorie/consistent carbohydrate; cardiac/sodium-restricted diet. Monitor need to restrict protein due to CKD stage 4. ONS as needed only if PO fails at meals; not indicated at this time. Discharge Plan Admission Admit Date/Time: 09/29/21 01:00 Attending Provider: Beka Allen Primary Care Provider: Gurjit Salomon Consulting Providers: Meri Shirley ; Yomi Ponce ; Иван Guzman ; Willow Zhou ; Beka Chapman Instructions Additional Instructions / Restrictions: Dry sterile dressing changes right hip daily Discharge Orders/Prescriptions Prescriptions: New sennosides-docusate sodium [Stool Softener-Stimulant Laxat] 8.6-50 mg Tablet 2 tab PO BID Qty: 0 RF: 0 calcium carbonate 200 mg calcium (500 mg) Tablet,Chewable 500 mg PO TIDCM Qty: 0 RF: 0 Continued tamsulosin 0.4 mg capsule 0.4 mg PO DAILY RF: 0 metformin 500 MG tablet 500 mg PO BIDCM RF: 0 aspirin 81 MG tablet,chewable 81 mg PO DAILY@0800 RF: 0 simvastatin 40 mg tablet 40 mg PO QODAY RF: 0 warfarin 3 mg tablet 3 mg PO DAILY RF: 0 oxycodone-acetaminophen [Percocet] 5-325 mg tablet 1 tab PO Q6H PRN (Reason: pain) 3 Days Qty: 12 RF: 0 allopurinol 100 mg tablet 100 mg PO DAILY RF: 0 docusate sodium [Colace] 100 mg capsule 100 mg PO DAILY RF: 0 Held furosemide 40 mg tablet 20 mg PO DAILY RF: 0 Hold Instructions: Resume on 10/08/21. carvedilol 6.25 mg tablet 6.25 mg PO BID Qty: 180 RF: 3 Hold Instructions: Resume on 10/08/21. Referrals / Follow Up: Beka Chapman DO [STAFF PHYSICIAN] - 10/15/21 Gurjit Salomon MD [Primary Care Provider] - Disposition Disposition (needs filled in before D/C Order can be placed): [facility]
--- NOTE | 2021-10-04 13:36 | PCM.DC.SUM ---
Providers Date of Admission: 09/29/21 Primary Care Physician: Dr. Gurjit Salomon MD Consultations 09/29/21 01:39 Consult: Cardiology Routine Consulting Provider: Иван Guzman Reason for Consult: Pre-operative clearance, fall w/ Hip fracture EMERGENT Consult: No MD Notified: Yes Date Notified: 09/29/21 Time Notified: 06:30 Method of Notification: Text Consult: Nephrology Routine Consulting Provider: Willow Zhou Reason for Consult: BERTA EMERGENT Consult: No MD Notified: Yes Date Notified: 09/29/21 Time Notified: 01:23 Method of Notification: Text Consult: Orthopedics Routine Consulting Provider: Beka Chapman Reason for Consult: Fall, right hip fracture EMERGENT Consult: No Notified: Yes Date Notified: 09/29/21 Time Notified: 01:07 Method of Notification: ED Physician Initiated Reason For Visit: FALL, R HIP FRACTURE Diagnosis Discharge Diagnosis (1) Multiple falls: Status: Chronic Code(s): R29.6 - Repeated falls (2) Closed intertrochanteric fracture of right hip: Status: Acute Code(s): S72.141A - Displaced intertrochanteric fracture of right femur, initial encounter for closed fracture Qualifiers: Encounter type: initial encounter Fracture alignment: nondisplaced Qualified Code(s): S72.144A - Nondisplaced intertrochanteric fracture of right femur, initial encounter for closed fracture Medications at Discharge Home Medications aspirin 81 mg PO DAILY@0800 12/02/13 metformin 500 mg PO BIDCM 12/02/13 tamsulosin 0.4 mg capsule 0.4 mg PO DAILY cap 03/21/20 carvedilol 6.25 mg tablet 6.25 mg PO BID #180 tab 04/23/21 oxycodone-acetaminophen [Percocet] 1 tab PO Q6H PRN 3 Days #12 tab 09/25/21 simvastatin 40 mg PO QODAY 09/25/21 warfarin 3 mg PO DAILY 09/25/21 allopurinol 100 mg PO DAILY 09/28/21 docusate sodium [Colace] 100 mg PO DAILY 09/28/21 furosemide 20 mg PO DAILY 09/29/21 calcium carbonate 500 mg PO TIDCM #0 tab 10/04/21 sennosides-docusate sodium [Stool Softener-Stimulant Laxat] 2 tab PO BID #0 tab 10/04/21 Hospital Course Operations - (intramedullary nail right femur) Procedures 2-D Echocardiogram Summary of Care Provided Minutes Spent on Discharge: 43 Hospital Course: Per HPI: The patient is an 86 y/o M w/ PMHx: CKD stage II, BPH, Chronic normocytic anemia, Sick sinus syndrome s/p pacemaker placement, HTN, HLD, CAD s/p PCI, Ischemic cardiomyopathy s/p AICD, PAF, BPH, Gout, Diabetes mellitus type II who presents to the [facility] ED on 09/29/21 with history of mechanical fall while using his Rollator noted to been backing up after getting off the couch while watching TV unfortunately losing his balance and falling with no prodrome prior to this landing on his buttocks and bumping his head on the dresser with no loss of consciousness nor any residual headache with significant right thigh and hip pain upon attempted movement prompting ED evaluation. He notes at rest with no movement pain 0-1/10 but with any movement pain 9/10. Work-up in the ED included T98.3, heart 77, BP 119/70, respiratory rate 15, 97% on room air, CBC with WC 7.5, hemoglobin 12.1, platelet 172 with increased immature granulocytes, coags with INR 3.1, BMP with sodium 135, BUN/creat 51/1.85, glucose 157, CT of the brain with no acute evidence of intracranial pathology, diffuse involutional changes and chronic ischemic small vessel white matter disease, plain film of the right femur with lucency along the base of the femoral neck/intertrochanteric region suspicious for acute nondisplaced fracture with plain film of the pelvis with similar findings with clinical evidence of fracture. Hospital Course: #1. Right acute Nondisplaced femoral neck/intertrochanteric fracture most likely due to osteoporosis as fracture after fall from standing height: Patient is admitted MedSurg floor. Perioperative medical optimization. NSQIP risk was high based on cardiac history and other comorbidities therefore tool design engineer was consulted. Discussed with tool design engineer. EF 25 to 30% unchanged from the previous echo with segmental wall motion abnormalities. Unrestrictive IV fluid administration. Continue cardiac medications. On last ICD interrogation no evidence of defibrillator discharge and unremarkable. Twelve-lead EKG shows paced rhythm. 09/30: INR 3.3. Vitamin K 5 mg IV given. Yesterday he had vitamin K 2.5 oral but he still INR elevated. Discussed with the surgeon. 10/01/2021: INR was elevated yesterday and he was given a second dose of vitamin K today is about 1.7 so we will proceed with surgery 10/02/2021: Can resume Coumadin, INR today is 1.7. He did not need bridged as the Coumadin is for A. fib 10/03/2021: Continue to monitor INR and resume his Coumadin. I discussed with him the plan for discharge today he expressed understanding of the risk benefits of going to SNF and would like to go today to start his rehab. He is feeling much better today. #2. Acute kidney injury on CKD stage 4: Admission BUN/creatinine 51/1.85, increased creatinine 2.06 on 09/05/2021 and 09/25/2021. Creatinine was 1.12 on 03/2021. BUN/creatinine decreasing/improving 09/30: Creatinine 1.55 that is baseline. Stop after the completion of IV fluid bag. Monitor kidney function daily 10/01/2021: Creatinine today slightly elevated to 1.64 we will continue to monitor 10/02/2021: Creatinine is slightly elevated again today from yesterday we will continue to monitor continue to hold Lasix 10/03/2021: Appreciate nephrology, restarted some IV fluids at a slower rate creatinine has improved. 10/04/2021: Creatinine is down to 1.3, will hold his Lasix to start until 10/08/2021. I do recommend following up his renal function while at [facility] facility. He does have an EF of 30 to 35% so I would be very cautious with any fluids given at the SNF. I also elected to hold his Coreg secondary to his borderline low blood pressures though if these do trend up obviously would restart these medications as well #3. CAD: Status post PCI, currently on Coumadin therapy with therapeutic INR, given mechanical fall with hip fracture we will plan to hold with INR trending, continue aspirin therapy, statin therapy, Coreg, not on RUDY inhibitor/ARB but given renal function would not be appropriate. #4. Chronic systolic heart failure status post AICD/A. fib/HTN/HLD/history of sick sinus syndrome: Patient on INR, warfarin held due to elevated INR and patient going for surgery. Continue with his statin and he does have a history of an AICD 09/30: Repeat echo shows EF 35%, moderately severe segmental systolic dysfunction. LA severely enlarged, mild to moderate eccentric MR, AR with moderately dilated LV. RVSP 60 mmHg. No significant change in LV function from previous echo. continue aspirin therapy, statin therapy, Coreg. Lasix temporarily held but can be resumed if fluid overload or change in hemodynamics. Patient also not on RUDY and ARB suspected due to CKD. 04/03/2020 echocardiogram with normal LV size, EF 35%, moderate segmental systolic dysfunction, stage II diastolic dysfunction, severely enlarged LA, PASP 34 mmHg with no significant change noted since prior echocardiogram of note. 10/02/2021: Blood pressures are still borderline, however maps are stable we will continue to hold Lasix at this time especially given his need for oxygen at this time 10/04/2021: Blood pressures are stabilized in the low 100s to 110s, as mentioned above we will continue to hold his Coreg until there is consistent stabilization of his blood pressures. #5. Recent Fall prior to current presentation with closed wedge compression fracture of T12 vertebra: Had been set-up with outpatient therapies, PCP follow-up and Dr. Lee evaluation per review of records. #6. Chronic normocytic anemia: Admission globin 12.1, baseline 11-, 03/28: Hemoglobin 11.2 mildly decreased probably due to hemodilution. 10/01/2021: We will continue to monitor hemoglobin, I do anticipate a drop after surgery #7. Diabetes mellitus type II: Restart home regimen, ADA diet #8. BPH: We will continue Flomax home regimen. #9. Gout: We will continue patient on allopurinol regimen. Weight / BMI Weight Weight: 230 lb 6.129 oz Body Mass Index (BMI) 26.5 ABG / Lab / Microbiology Data Result Diagrams: 10/03/21 06:10 10/04/21 05:08 Laboratory: Laboratory Results - last 24 hr 10/03/21 16:55: POC Glucose 193 H 10/03/21 21:40: POC Glucose 185 H 10/04/21 05:08: PT 21.6 H, INR 1.9 10/04/21 05:08: Sodium 134 L, Potassium 4.7, Chloride 106, Carbon Dioxide 22.0, Anion Gap 6, BUN 52 H, Creatinine 1.33 H, Estim Creat Clear Calc 45.49, Est GFR (MDRD) Af Amer 65, Est GFR (MDRD) Non-Af 54 L, BUN/Creatinine Ratio 39.1 H, Glucose 151 H, Calcium 8.2 L 10/04/21 06:43: POC Glucose 155 H 10/04/21 11:34: POC Glucose 178 H Meaningful Use Info Meaningful Use Diagnoses (Choose all that apply): None applicable Discharge Plan Admission Admit Date/Time: 09/29/21 01:00 Attending Provider: Beka Allen Primary Care Provider: Gurjit Salomon Consulting Providers: Meri Shirley ; Yomi Ponce ; Иван Guzman ; Willow Zhou ; Beka Chapman Instructions Additional Instructions / Restrictions: Dry sterile dressing changes right hip daily Discharge Orders/Prescriptions Prescriptions: New sennosides-docusate sodium [Stool Softener-Stimulant Laxat] 8.6-50 mg Tablet 2 tab PO BID Qty: 0 RF: 0 calcium carbonate 200 mg calcium (500 mg) Tablet,Chewable 500 mg PO TIDCM Qty: 0 RF: 0 Continued tamsulosin 0.4 mg capsule 0.4 mg PO DAILY RF: 0 metformin 500 MG tablet 500 mg PO BIDCM RF: 0 aspirin 81 MG tablet,chewable 81 mg PO DAILY@0800 RF: 0 simvastatin 40 mg tablet 40 mg PO QODAY RF: 0 warfarin 3 mg tablet 3 mg PO DAILY RF: 0 oxycodone-acetaminophen [Percocet] 5-325 mg tablet 1 tab PO Q6H PRN (Reason: pain) 3 Days Qty: 12 RF: 0 allopurinol 100 mg tablet 100 mg PO DAILY RF: 0 docusate sodium [Colace] 100 mg capsule 100 mg PO DAILY RF: 0 Held furosemide 40 mg tablet 20 mg PO DAILY RF: 0 Hold Instructions: Resume on 10/08/21. carvedilol 6.25 mg tablet 6.25 mg PO BID Qty: 180 RF: 3 Hold Instructions: Resume on 10/08/21. Referrals / Follow Up: Beka Chapman DO [STAFF PHYSICIAN] - 10/15/21 Gurjit Salomon MD [Primary Care Provider] - Disposition Disposition (needs filled in before D/C Order can be placed): Long Term Facility Charges/Coding Visit Charges Inpatient E&M: 16324 Disch Hosp
[2021-10-04] MEDS: Acetaminophen 325 MG Tablet 650 MG PO (13:40)
[2021-10-04 13:43] VITALS: BP 111/90; PULSE 80; RESP 18; TEMP 36.5; O2SAT 97
--- NOTE | 2021-10-04 13:58 | PCM.PN.REN ---
Subjective Subjective doing well, no complaints. Will stop iv fluids Objective Data Objective Data Vital Signs: Vital Signs Temp Pulse Resp BP Pulse Ox 97.7 F L 80 18 111/90 H 97 10/04/21 13:43 10/04/21 13:43 10/04/21 13:43 10/04/21 13:43 10/04/21 13:43 Oxygen Flow Rate (L/min) 2 Oxygen Delivery Method Room Air Weight: 104.5 kg Body Mass Index (BMI) 26.5 Intake & Output: Intake and Output for Last 24 Hours 10/02/21 10/03/21 10/04/21 23:59 23:59 23:59 Intake Total 770 / 870 2100 / 2150 1050 / 1050 Output Total 675 / 875 1300 / 1300 925 / 925 Balance 95 / -5 800 / 850 125 / 125 Lab / Micro Data Result Diagrams: 10/03/21 06:10 10/04/21 05:08 Labs: Laboratory Results - last 24 hr 10/03/21 16:55: POC Glucose 193 H 10/03/21 21:40: POC Glucose 185 H 10/04/21 05:08: PT 21.6 H, INR 1.9 10/04/21 05:08: Sodium 134 L, Potassium 4.7, Chloride 106, Carbon Dioxide 22.0, Anion Gap 6, BUN 52 H, Creatinine 1.33 H, Estim Creat Clear Calc 45.49, Est GFR (MDRD) Af Amer 65, Est GFR (MDRD) Non-Af 54 L, BUN/Creatinine Ratio 39.1 H, Glucose 151 H, Calcium 8.2 L 10/04/21 06:43: POC Glucose 155 H 10/04/21 11:34: POC Glucose 178 H Micro: Microbiology 10/04/21 12:35 Nasal Secretion SARS-CoV-2 Antigen (Rapid) - Final Physical Exam Const alert, oriented x3 and no apparent distress Resp clear to auscultation bilaterally Narrative: mendoza removed Extremity no clubbing, cyanosis or edema Assessment & Plan Assessment/Plan (1) Acute kidney injury: PLAN: baseline creatinine 1.1 eGFR 28cc/min based on age, wt in March 2021. Creatinine improved to 1.3 (2) CKD (chronic kidney disease) stage 4, GFR 15-29 ml/min: PLAN: based on age, weight pt at CKD stage 4. Underlying diabetic, hypertensive nephropathy. (3) Closed intertrochanteric fracture of right hip: QUALIFIERS: Encounter type: initial encounter Fracture alignment: nondisplaced Qualified Code(s): S72.144A - Nondisplaced intertrochanteric fracture of right femur, initial encounter for closed fracture PLAN: ortho mgmt s/p ORIF. Rehab pending (4) Fall: (5) Essential (primary) hypertension: PLAN: stable (6) Type 2 diabetes mellitus with diabetic chronic kidney disease: PLAN: avoid metformin (7) Cardiomyopathy, ischemic: PLAN: volume status stable. Continue to hold diuretics
[2021-10-04] MEDS: Menthol/Lanolin/Calamine/Znox 113 GM Tube 1 APPLIC TOPICAL (14:25)
--- NOTE | 2021-10-04 15:06 | NURSING ---
Report called to [facility] in TCU
== END 2021-10-04 15:34 | disposition skilled nursing facility (03) | DRG 481 ==
LOC: ED 09-29 00:34 → MS3 09-29 01:58
PROVIDERS: Anesthesiology; Internal Medicine; Student in an Organized Health Care Education/Training Program; Admitting Provider Family Medicine; Emergency Provider Emergency Medicine; PCP Family Medicine; Referring Provider Family Medicine; Visit Provider Family Medicine
PROC: 0QS636Z Reposition Right Upper Femur with Intramedullary Internal Fixation Device, Percutaneous Approach (ICD-10-PCS; CPT 27245; principal; 2021-10-01 11:00)
DX: M80.051A Age-related osteoporosis with current pathological fracture, right femur, initial encounter for fracture (principal); I13.0 Hypertensive heart and chronic kidney disease with heart failure and stage 1 through stage 4 chronic kidney disease, or unspecified chronic kidney disease; I48.19 Other persistent atrial fibrillation; N17.9 Acute kidney failure, unspecified; I50.22 Chronic systolic (congestive) heart failure; I48.92 Unspecified atrial flutter; N18.4 Chronic kidney disease, stage 4 (severe); I49.5 Sick sinus syndrome; E11.22 Type 2 diabetes mellitus with diabetic chronic kidney disease; D64.9 Anemia, unspecified; S09.90XA Unspecified injury of head, initial encounter; M10.9 Gout, unspecified; W10.9XXA Fall (on) (from) unspecified stairs and steps, initial encounter; I35.1 Nonrheumatic aortic (valve) insufficiency; E78.5 Hyperlipidemia, unspecified; I25.10 Atherosclerotic heart disease of native coronary artery without angina pectoris; I25.5 Ischemic cardiomyopathy; N40.0 Benign prostatic hyperplasia without lower urinary tract symptoms; R79.1 Abnormal coagulation profile; Z79.82 Long term (current) use of aspirin; Z79.01 Long term (current) use of anticoagulants; Z95.810 Presence of automatic (implantable) cardiac defibrillator; Z79.84 Long term (current) use of oral hypoglycemic drugs; N28.1 Cyst of kidney, acquired; Z51.5 Encounter for palliative care; Z66 Do not resuscitate; R29.6 Repeated falls
CPT/HCPCS: 36415; 70450; 72170; 73501; 73552; 73700; 76000; 76770; 80048; 80053; 81001; 82306; 82570; 82962; 83036; 84300; 85025; 85610; 86850; 86900; 86901; 87426; 93005; 93306; 97163; 97166; 97167; 97530; 99251; 99285; C1713; J7030; Q9957; A4216; C8929; G0463; J2405; J3490

== ENCOUNTER 2021-10-04 15:43 | Inpatient (IN) | payer MEDICARE, SELFPAY ==
[2021-10-04 16:06] VITALS: BP 112/74; PULSE 80; RESP 18; RESP 24; TEMP 35.9; O2SAT 97; BMI 29.5
[2021-10-04] MEDS: Calcium Carbonate 500 MG Tablet PO (18:23)
[2021-10-04] MEDS: Tamsulosin HCl 0.4 MG Capsule PO (18:23)
[2021-10-04] MEDS: metFORMIN HCl 500 MG Tablet PO (18:23)
[2021-10-04] MEDS: Senna/Docusate Sodium 1 Tablet 2 TABLET PO (18:23)
--- NOTE | 2021-10-04 21:17 | HP.PCM_ITS ---
HPI - General General Date of Admission: 10/04/21 HPI Narrative 09/28/2021 NANETTE RIVERA, is a 86 Male who presents to [facility] Emergency Department with fall. Walking with rollator at home, fell on buttocks, hit head. Severe right hip, right thigh pain. X-ray right hip showed right hip fracture. CT head negative. 09/29/2021 Admit to Hospital. Prepare for surgery. 09/29/2021 Echo EF 35%. Moderate severe segmental systolic dysfunction. PASP 60mm HG. LVSF unchanged from previous. 09/29/2021 Dr. Zhou recommended IV fluids, stop Metformin, avoid IV contrast, avoid NSAIDS, for acute kidney injury. 09/30/2021 INR 3.5, surgery postponed. 10/01/2021 Dr. Chapman performed right femur intramedullary nail. 10/01/2021 INR 1.7. 10/02/2021 Oxygen 2 liters per nasal cannula, Hold Lasix for acute kidney injury. 10/03/2021 Right hip pain with PT, wean oxygen. 10/04/2021 Feel much better, oxygen between room air and 2 liters per NC, renal function improved. 10/04/2021 Admit to TCU with debility, here for rehabilitation, strengthening, prior to discharge home with . [facility] Medical History Atherosclerotic heart disease of [place] coronary artery without angina pectoris Back pain BPH (benign prostatic hyperplasia) Cardiomyopathy, ischemic Debility Essential (primary) hypertension Gout HLD (hyperlipidemia) Longstanding persistent atrial fibrillation Paroxysmal atrial fibrillation Paroxysmal atrial flutter Secondary pulmonary arterial hypertension Sick sinus syndrome Syncope and collapse Type 2 diabetes mellitus Home Medications aspirin 81 mg PO DAILY@0800 12/02/13 [History Last Taken 09/28/21] metformin 500 mg PO BIDCM 12/02/13 [History Last Taken 09/28/21] tamsulosin 0.4 mg capsule 0.4 mg PO DAILY cap 03/21/20 [History Last Taken 09/28/21] carvedilol 6.25 mg tablet 6.25 mg PO BID #180 tab 04/23/21 [Rx Last Taken 09/28/21] oxycodone-acetaminophen [Percocet] 1 tab PO Q6H PRN 3 Days #12 tab 09/25/21 [Rx Last Taken 09/28/21] simvastatin 40 mg PO QODAY 09/25/21 [History Last Taken 09/28/21] warfarin 3 mg PO SUTUTHSA 09/25/21 [History Last Taken 09/28/21] allopurinol 100 mg PO DAILY 09/28/21 [History Last Taken 09/28/21] docusate sodium [Colace] 100 mg PO DAILY 09/28/21 [History Last Taken 09/28/21] furosemide 20 mg PO DAILY 09/29/21 [History Last Taken 09/28/21] calcium carbonate 500 mg PO TIDCM 10/04/21 [History Last Taken Unknown] sennosides-docusate sodium [Stool Softener-Stimulant Laxat] 2 tab PO BID 10/04/21 [History Last Taken Unknown] Allergy/AdvReac Type Severity Reaction Status Date / Time rofecoxib [From Vioxx] AdvReac Other Verified 09/28/21 22:52 Family History Father , age85 Parkinsons disease Mother Heart disease Valvular heart disease Surgical History Biventricular ICD (implantable cardioverter-defibrillator) in place (09/15/14) History of coronary artery stent placement (08/20/05) History of left heart catheterization (07/04/16) 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 Social History household members: spouse Smoking Status: Never smoker alcohol intake: never substance use type: does not use caffeine: Yes Type: carbonated beverages ROS Constitutional Constitutional: Denies chills, fever(s) or weight gain ENT HEENT: Denies headache(s), nasal congestion or nasal discharge Cardiovascular Cardiovascular: Denies chest pain or palpitations Respiratory/Chest Respiratory/Chest: Denies cough, excessive phlegm production or shortness of breath with exertion Gastrointestinal Gastrointestinal: Denies abdominal pain, nausea or vomiting Genitourinary Genitourinary: Denies dysuria Musculoskeletal Musculoskeletal: Denies joint pain or joint swelling Integumentary Integumentary: Denies rash or wounds Neurologic Neurologic: Denies focal weakness, numbness or tingling Psychiatric Psychiatric: Denies anxiety, auditory hallucinations, depression, homicidal ideation or suicidal ideation Vital Signs Vital Signs Vital Signs: 10/04/21 16:06 Temperature 96.6 F L Temperature Source Temporal Pulse Rate 80 Pulse Rhythm Irregular Pulse Strength Normal (2+) Respiratory Rate 24 H Respiratory Effort Normal Non-Labored Respiratory Depth Normal Respiratory Pattern Normal Blood Pressure 112/74 Blood Pressure Mean 86 Blood Pressure Source Monitor Blood Pressure Position Sitting Blood Pressure Location Right Arm Pulse Ox 97 Oxygen Delivery Method Room Air Weight Weight: 104.3 kg Body Mass Index (BMI) 29.5 Physical Exam Const alert General Appearance: cooperative HEENT normocephalic Eyes PERRL and EOMs intact bilaterally Neck supple, no JVD and no carotid bruits Resp normal respiratory effort, normal air movement and clear to auscultation bilaterally Cardio regular rate and regular rhythm GI normal to inspection, nondistended, normoactive bowel sounds, non-tender and non-distended Extremity normal capillary refill General Extremity: Negative for edema Skin no rashes or lesions noted General Skin Exam: no breakdown Psych affect normal Appearance: appropriate Assessment & Plan Assessment/Plan (1) Debility: (2) Closed intertrochanteric fracture of right hip: QUALIFIERS: Encounter type: initial encounter Fracture alignment: nondisplaced Qualified Code(s): S72.144A - Nondisplaced intertrochanteric fracture of right femur, initial encounter for closed fracture (3) Acute kidney injury: (4) Coronary artery disease: (5) Diabetes mellitus: (6) Benign prostate hyperplasia: (7) Chronic systolic (congestive) heart failure: (8) Hyperlipidemia: (9) Gout: (10) Atrial fibrillation: PLAN: 86 year old male with below past medical history hospitalized for right hip fracture, underwent right femur intramedullary nail 10/01/[address] Chapman, complicated by acute kidney injury, hypoxia, admitted to TCU with debility, here for rehabilitation, strengthening, prior to discharge home with . * Debility - PT/OT. * Pain - Tylenol 1000mg q6h prn pain (1-3), Oxycodone 5mg q4h prn pain (4-10). * Bowel - senna/colace 2 tablets bid, Dulcolax 10mg daily prn. * Adult immunization - Administer pneumonia vaccine, covid19 vaccine, flu vaccine as appropriate. * DVT prophylaxis - Not necessary, on warfarin. * Gout - Allopurinol 100mg daily. * Hyperlipidemia - Atorvastatin 20mg every other day. * Indigestion - TUMS 500mg tidcm. * Coronary artery disease - Coreg 6.25mg bid, Warfarin, stop aspirin which increases bleeding risk without further decreasing cardiovascular risk while on warfarin. * Chronic systolic congestive heart failure - Coreg 6.25mg bid, Furosemide 20mg daily, consider Entresto, consider SGLT2i, consider MRA. * Nutrition - Glucerna Shake 120ml po tidcm. * Diabetes Mellitus II - Metformin 500mg bidcm. * BPH - Tamsulosin 0.4mg daily. * Atrial fibrillation - Coreg 6.25mg bid, Warfarin 3mg 6 days/week, 1.5mg 1 day/week, monitor INR.
--- NOTE | 2021-10-04 22:12 | NURSING ---
Presents in bed, A&Ox3, watching baseball game, denies pain, denies requests. No distress observed or reported. Prefers to use urinal. Denies requests. Call light in reach.
[2021-10-05 05:56] LABS: Absolute Lymphocyte Count 0.89 X10^3/uL (0.83-4.51); Basophil# 0.03 X10^3/uL; Basophil% 0.4 % (0-1); Eosinophil# 0.55 X10^3/uL; Eosinophils% 7.5 % (0-5); Hematocrit 31.3 % (40-54); Hemoglobin 10.3 g/dL (13.0-16.5); Lymphocyte # 0.89 X10^3/ul (0.83-4.51); Lymphocyte % 12.1 % (19-41); Mean Corp Hgb Conc 32.9 g/dL (32-36); Mean Corpuscular Hgb 30.9 pg (27.0-32.0); Mean Platelet Vol. 9.7 fl (6.2-12.0); Monocyte# 0.89 X10^3/uL; Monocyte% 12.1 % (0-10); NRBC Flagged by Analyzer 0.3 % (0-5); Neutrophil # 4.98 X10^3/uL (2.7-7.7); Neutrophil % 67.5 % (47-70); Platelet Count 190 K/mm3 (150-450); RBC Distribution Width CV 16.1 % (11.6-14.6); RBC Distribution Width SD 53.8 fl (35.1-43.9); Red Blood Count 3.33 M/mm3 (4.6-6.2); White Blood Count 7.4 K/mm3 (4.4-11.0)
[2021-10-05 06:21] LABS: Anion Gap 4 (5-15); BUN 51 mg/dL (7-18); BUN/Creat Ratio 40.5 RATIO (10-20); Calcium,Total 8.4 mg/dL (8.5-10.1); Chloride 107 mmol/L (98-107); Creatinine, Serum 1.26 mg/dL (0.70-1.30); EST Glomerular Filtration Rate 58 mL/min (>60); Est Glom Filt Rate - Afr Amer 70 mL/min (>60); Estimated Creatinine Clearance 48.02 ml/min; Glucose 132 mg/dL (74-106); Potassium 4.9 mmol/L (3.5-5.1); Sodium Level 135 mmol/L (136-145)
--- NOTE | 2021-10-05 08:30 | RAD_ITS ---
STUDY: X-RAY CHEST REASON FOR EXAM: Male, 86 years old. SOB Cough TECHNIQUE: PA and lateral views of the chest. COMPARISON: 01/24/2021 FINDINGS: Left subclavian AICD which is unchanged. The lungs are clear and expanded. Small bilateral pleural effusions larger on the left than the right with some left lower lobe atelectasis. There is moderate cardiac enlargement. Normal mediastinum and kole. Normal visualized pulmonary arteries. Normal visualized aortic arch and descending thoracic aorta. Normal visualized thoracic spine. Normal visualized ribs, clavicles, and shoulders. There is no demonstrated abnormality of the visualized soft tissue structures of the upper abdomen. RAD/Chest PA and Lateral IMPRESSION: Small bilateral pleural effusions with left lower lobe atelectasis. Electronically Signed: Darien Fam MD at 8:46 EDT ,
[2021-10-05] MEDS: Allopurinol 100 MG Tablet PO (08:51)
[2021-10-05] MEDS: Calcium Carbonate 500 MG Tablet PO ×3 (08:52→18:16)
[2021-10-05] MEDS: Senna/Docusate Sodium 1 Tablet 2 TABLET PO ×2 (08:52→18:16)
[2021-10-05] MEDS: Glucerna Shake 120 ML LIQUID PO ×3 (08:55→18:15)
[2021-10-05 09:00] VITALS: PULSE 112; RESP 20; O2SAT 95
[2021-10-05] MEDS: Albuterol 2.5 MG/3 ML VIAL.NEB. INHALATION (09:00)
[2021-10-05 09:30] VITALS: BP 115/83; PULSE 95
[2021-10-05] MEDS: Furosemide 40 MG Tablet PO (09:32)
[2021-10-05] MEDS: Tuberculin,Purif.prot.deriv. 50 TU/ML Vial 0.1 ML ID (09:32)
--- NOTE | 2021-10-05 10:00 | NURSING ---
Dr. Arellano updated on pt's chest X-ray. N.O. for Lasixs x1 40mg then starting tomorrow 10/06 20mg Daily.
--- NOTE | 2021-10-05 14:46 | CASEMGMT ---
Social Work See attached assessment for complete details. This social science manager met with patient and patient spouse, Sofy in room. Introduced self and social science manager role. Patient agreeable to speak with this social science manager. Patient plans to return to home with spouse after strengthening and rehabilitation on the Transitional Care Unit. Patient completing MOLST form and wishes to be a DNRCCA. MOLST form placed on patient chart. Social work to continue to follow. Laura HORVATH, AMRIK
[2021-10-05 14:57] VITALS: BP 108/62; PULSE 78; RESP 18; TEMP 36.6; O2SAT 95
[2021-10-05] MEDS: Warfarin 0.5 MG Tablet 1.5 MG PO (18:15)
[2021-10-05] MEDS: Tamsulosin HCl 0.4 MG Capsule PO (18:16)
[2021-10-05 22:00] VITALS: PULSE 97; RESP 16; O2SAT 96
[2021-10-06] MEDS: Furosemide 20 MG Tablet PO (05:17)
[2021-10-06] MEDS: Senna/Docusate Sodium 1 Tablet 2 TABLET PO ×2 (07:54→16:10)
[2021-10-06] MEDS: Allopurinol 100 MG Tablet PO (07:54)
[2021-10-06] MEDS: Calcium Carbonate 500 MG Tablet PO ×3 (07:54→16:10)
[2021-10-06] MEDS: Glucerna Shake 120 ML LIQUID PO ×3 (07:58→16:12)
[2021-10-06 09:24] VITALS: BP 114/71; PULSE 78; RESP 20; TEMP 36.4; O2SAT 92
[2021-10-06 09:50] VITALS: PULSE 77; RESP 18; O2SAT 92
[2021-10-06] MEDS: Albuterol 2.5 MG/3 ML VIAL.NEB. INHALATION (09:50)
[2021-10-06 13:00] VITALS: O2SAT 96
[2021-10-06 15:56] VITALS: BP 142/80; PULSE 87; RESP 20; TEMP 36.3; O2SAT 93
[2021-10-06] MEDS: Tamsulosin HCl 0.4 MG Capsule PO (16:09)
[2021-10-06] MEDS: Atorvastatin Calcium 20 MG Tablet PO (22:13)
[2021-10-06 23:00] VITALS: PULSE 87; RESP 18; O2SAT 92
[2021-10-07] MEDS: Furosemide 20 MG Tablet PO (05:20)
--- NOTE | 2021-10-07 07:17 | PHA.CONS1_ITS ---
Progress Note - Pharmacy Subjective: [] TCU Admission Objective: Allergies rofecoxib [From Vioxx] Adverse Reaction (Verified 09/28/21 22:52) Other Current Medications Generic Name Dose Route Start Last Admin Trade Name Freq PRN Reason Stop Dose Admin Acetaminophen 1,000 mg 10/04/21 21:37 Acetaminophen 500 Mg Tablet PO Q6H PRN PRN Pain Score 1-3 Albuterol Sulfate 2.5 mg 10/05/21 08:08 10/06/21 09:50 Albuterol 2.5 Mg/3 Ml Vial.Neb. INHALATION 2.5 mg Q2H PRN PRN Administration SOB &/OR WHEEZING Allopurinol 100 mg 10/05/21 08:00 10/06/21 07:54 Allopurinol 100 Mg Tablet PO 100 mg 0800 TJ Administration Atorvastatin Calcium 20 mg 10/06/21 22:00 10/06/21 22:13 Atorvastatin Calcium 20 Mg Tablet PO 20 mg QODAY@2200 TJ Administration Bisacodyl 10 mg 10/04/21 21:37 Bisacodyl 5 Mg Tablet PO DAILY PRN Constipation Calcium Carbonate 500 mg 10/04/21 17:45 10/06/21 16:10 Calcium Carbonate 500 Mg Tablet PO 500 mg TIDCM TJ Administration Carvedilol 6.25 mg 10/08/21 06:00 Carvedilol 6.25 Mg Tablet PO BID TJ Furosemide 20 mg 10/06/21 06:00 10/07/21 05:20 Furosemide 20 Mg Tablet PO 20 mg DAILY TJ Administration Nutritional Formula (Lactose Free) 120 ml 10/04/21 17:45 10/06/21 16:12 Glucerna Shake 120 Ml Liquid PO 120 ml TIDCM TJ Administration Oxycodone HCl 5 mg 10/04/21 21:37 Oxycodone 5 Mg Tablet PO Q4H PRN PRN Pain Score 4-10 Senna/Docusate Sodium 2 tablet 10/05/21 08:00 10/06/21 16:10 Senna/Docusate Sodium 1 Tablet PO 2 tablet 0800,1800 TJ Administration Sodium Chloride 10 - 40 ml 10/04/21 16:26 0.9% Saline Lock 10 Ml Syringe IV UD PRN SALINE FLUSH Tamsulosin HCl 0.4 mg 10/04/21 17:30 10/06/21 16:09 Tamsulosin Hcl 0.4 Mg Capsule PO 0.4 mg DAILY@1730 [facility] Administration Tuberculin PPD 0.1 ml 10/12/21 10:00 Tuberculin,Purif.Prot.Deriv. 50 Tu/Ml Vial ID 10/12/21 10:01 X1 ONE Warfarin Sodium 1.5 mg 10/05/21 17:00 10/05/21 18:15 Warfarin 0.5 Mg Tablet PO 1.5 mg Fr@1700 [facility] Administration Warfarin Sodium 3 mg 10/04/21 17:00 10/06/21 16:09 Warfarin 3 Mg Tablet PO 3 mg SuMoTuWeThSa@1700 [facility] Administration Problem List (Last Reviewed 10/04/21 @ 21:[address] Bao Arellano MD) Atrial fibrillation (Acute) Gout (Acute) Hyperlipidemia (Acute) Chronic systolic (congestive) heart failure (Chronic) Benign prostate hyperplasia (Acute) Diabetes mellitus (Acute) Coronary artery disease (Acute) Debility (Acute) Acute kidney injury (Acute) Closed intertrochanteric fracture of right hip (Acute) Vital Signs Temp Pulse Resp BP Pulse Ox 97.4 F L 87 18 142/80 H 92 10/06/21 15:56 10/06/21 23:00 10/06/21 23:00 10/06/21 15:56 10/06/21 23:00 Oxygen Flow Rate (L/min) 1 Oxygen Delivery Method Nasal Cannula Weight: 104.3 kg Body Mass Index (BMI) 29.5 Sodium 135 mmol/L (136-145) L 10/05/21 05:33 Potassium 4.9 mmol/L (3.5-5.1) 10/05/21 05:33 Chloride 107 mmol/L (98-107) 10/05/21 05:33 Carbon Dioxide 24.0 mmol/L (21.0-32.0) 10/05/21 05:33 Anion Gap 4 (5-15) L 10/05/21 05:33 BUN 51 mg/dL (7-18) H 10/05/21 05:33 Creatinine 1.26 mg/dL (0.70-1.30) 10/05/21 05:33 Est GFR (MDRD) Af Amer 70 mL/min (>60) 10/05/21 05:33 Est GFR (MDRD) Non-Af 58 mL/min (>60) L 10/05/21 05:33 BUN/Creatinine Ratio 40.5 RATIO (10-20) H 10/05/21 05:33 Glucose 132 mg/dL (74-106) H 10/05/21 05:33 Assessment/Plan: 1) Pain: Acetaminophen 1000mg po q6h prn for pain 1-3, Oxycodone 5mg po q4h prn for pain 4-10. Please continue to monitor prn usage and for signs/symptoms of increased pain. Please monitor pt for constipation with opioid use. --PRN Note: There have been zero administrations of Acetaminophen or Oxycodone to date 2) Constipation/Bowel: Bisacodyl 10mg po daily prn for constipation, Senna/Docusate 2 tablets po bid. Please continue to monitor prn usage and for signs/symptoms of constipation/diarrhea. --PRN Note: There have been zero administrations of Bisacodyl to date. 3) Hyperlipidemia: Atorvastatin 20mg po qoday. Pt's LFTs and Lipid Panel are within normal limits. Please continue to monitor labs. 4) BPH: Tamsulosin 0.4mg po daily. Please continue to monitor for signs/symptoms of BPH. Orthostatic hypotension occurred more frequently in tamsulosin treated patients than in placebo treated, patients should be monitored for signs of orthostasis. 5) CAD, AFib: Carvedilol 6.25mg po bid, Warfarin 1.5mg po on Fridays, Warfarin 3mg po all other days. Pt's average blood pressure is 118.2/74. Please continue to monitor pt's blood pressure. Pt's average pulse rate is 87.1, pulse rhythm is regular (1 irregular), and pulse strength is normal (2+). Please continue to monitor pt's pulse. Pt's last INR was on 10/04/21 and was 1.9. Target INR for pt's with AFib is 2-3. Please continue to monitor pt's INR and adjust Warfarin dose as needed. Thanks 6) Diabetes: Metformin 500mg po bid with meals was recently discontinued on 10/05/21. Last blood sugar was 132 on 10/05/21. Please continue to monitor pt's blood sugars. Pt's A1c on 09/30/21 was 6.8. Please continue to monitor pt's A1c. Thanks 7) Chronic Systolic Congestive Heart Failure: Coreg 6.25mg po bid, Furosemide 20mg po daily. Pt's average blood pressure is 118.2/74. Please continue to monitor pt's blood pressures. Pt's Na is 135, K+ is 4.9, and SrCr is 1.26. Please continue to monitor pt's labs. *8) Gout: Allopurinol 100mg po daily with breakfast. Pt's LFTs are within normal limits. Please continue to monitor. I could not find a recent Uric Acid level in the pt's chart. Please consider a Uric Acid level while the pt is taking Allopurinol for gout. Thanks Date of Note:: 10/07/21
[2021-10-07] MEDS: Calcium Carbonate 500 MG Tablet PO ×3 (08:06→17:18)
[2021-10-07] MEDS: Allopurinol 100 MG Tablet PO (08:07)
[2021-10-07] MEDS: Glucerna Shake 120 ML LIQUID PO ×2 (11:49→17:18)
[2021-10-07 13:35] VITALS: PULSE 72; RESP 20; O2SAT 92
[2021-10-07 14:58] VITALS: BP 121/74; TEMP 35.9
[2021-10-07] MEDS: Tamsulosin HCl 0.4 MG Capsule PO (17:19)
[2021-10-07] MEDS: oxyCODONE 5 MG Tablet PO (19:42)
[2021-10-08] MEDS: oxyCODONE 5 MG Tablet PO (04:41)
[2021-10-08] MEDS: Furosemide 20 MG Tablet PO (04:42)
[2021-10-08] MEDS: Carvedilol 6.25 MG Tablet PO ×2 (04:42→17:40)
[2021-10-08 04:45] VITALS: PULSE 81; RESP 18; O2SAT 97
[2021-10-08] MEDS: Albuterol 2.5 MG/3 ML VIAL.NEB. INHALATION (04:45)
[2021-10-08 04:48] VITALS: BP 116/74; PULSE 81
[2021-10-08 05:53] LABS: International Normalized Ratio 1.9; Prothrombin Time (Protime)PT. 21.4 SECONDS (11.7-14.9)
[2021-10-08] MEDS: Senna/Docusate Sodium 1 Tablet 2 TABLET PO ×2 (08:26→17:40)
[2021-10-08] MEDS: Glucerna Shake 120 ML LIQUID PO ×3 (08:26→17:41)
[2021-10-08] MEDS: Allopurinol 100 MG Tablet PO (08:26)
[2021-10-08] MEDS: Calcium Carbonate 500 MG Tablet PO ×3 (08:27→17:40)
[2021-10-08 08:32] LABS: Anion Gap 5 (5-15); BUN 49 mg/dL (7-18); BUN/Creat Ratio 36.8 RATIO (10-20); Calcium,Total 8.3 mg/dL (8.5-10.1); Chloride 107 mmol/L (98-107); Creatinine, Serum 1.33 mg/dL (0.70-1.30); EST Glomerular Filtration Rate 54 mL/min (>60); Est Glom Filt Rate - Afr Amer 65 mL/min (>60); Estimated Creatinine Clearance 45.49 ml/min; Glucose 148 mg/dL (74-106); Potassium 4.7 mmol/L (3.5-5.1); Sodium Level 139 mmol/L (136-145)
[2021-10-08 08:35] LABS: Absolute Lymphocyte Count 1.32 X10^3/uL (0.83-4.51); Absolute Neutrophil Count 5.2 X10^3/uL (2.0-7.7); Basophil# 0.03 X10^3/uL; Basophil% 0.4 % (0-1); Eosinophil# 0.61 X10^3/uL; Eosinophils% 7.6 % (0-5); Hematocrit 30.6 % (40-54); Hemoglobin 10.1 g/dL (13.0-16.5); Lymphocyte # 1.32 X10^3/ul (0.83-4.51); Lymphocyte % 16.5 % (19-41); Mean Corpuscular Hgb 31.4 pg (27.0-32.0); Mean Platelet Vol. 9.3 fl (6.2-12.0); NRBC Flagged by Analyzer 0 % (0-5); Neutrophil # 5.21 X10^3/uL (2.7-7.7); Neutrophil % 65.1 % (47-70); Platelet Count 212 K/mm3 (150-450); RBC Distribution Width CV 17.1 % (11.6-14.6); RBC Distribution Width SD 57.1 fl (35.1-43.9); Red Blood Count 3.22 M/mm3 (4.6-6.2)
[2021-10-08 10:08] VITALS: O2SAT 98
[2021-10-08 15:56] VITALS: BP 101/61; PULSE 72; RESP 12; TEMP 36.2; O2SAT 98
--- NOTE | 2021-10-08 16:15 | CASEMGMT ---
Social Work Continued stay approved with next updated update due 10/16/2021. This licensed clinical social worker updated patient spouse, Sofy. Patient has been confused and was sleeping when this licensed clinical social worker stopped by the room. Laura HORVATH, AMRIK
[2021-10-08] MEDS: Tamsulosin HCl 0.4 MG Capsule PO (17:40)
[2021-10-08] MEDS: Menthol/Lanolin/Calamine/Znox 113 GM Tube 1 APPLIC TOPICAL (17:44)
[2021-10-08 20:37] LABS: Mucous, Urine 0 SEEN /hpf (<or=2+)
[2021-10-08 20:54] VITALS: PULSE 77; RESP 18; O2SAT 97
[2021-10-08] MEDS: Atorvastatin Calcium 20 MG Tablet PO (21:07)
[2021-10-08 21:39] LABS: Color, Urine Yellow (Yellow); Glucose, Dipstick Normal (Normal); Ketone-Dipstick Negative (Negative); Leukocyte Esterase-Dipstick 25 /ul (Negative); Nitrite-Dipstick Negative (Negative); Occult Blood-Urine 250 /ul (Negative); Protein-Dipstick Negative (Negative); Urine Bilirubin Dipstick Negative (Negative); Urine Clarity Clear (Clear); Urine Urobilinogen Normal (Normal)
[2021-10-08 22:04] LABS: Bacteria RARE /hpf (None Seen); Red Blood Cells-Urine 5-10 SEEN /hpf (0-5); Squamous Epithelial Cells - UA 0-5 SEEN /hpf (0-5); White Blood Cells 0-5 SEEN /hpf (0-5)
[2021-10-09] MEDS: Furosemide 20 MG Tablet PO (06:14)
[2021-10-09] MEDS: Carvedilol 6.25 MG Tablet PO ×2 (06:14→16:53)
[2021-10-09] MEDS: Menthol/Lanolin/Calamine/Znox 113 GM Tube 1 APPLIC TOPICAL ×2 (06:15→16:54)
[2021-10-09 06:16] VITALS: BP 114/60; PULSE 72
[2021-10-09 07:33] VITALS: O2SAT 95
[2021-10-09] MEDS: Senna/Docusate Sodium 1 Tablet 2 TABLET PO ×2 (08:26→16:53)
[2021-10-09] MEDS: Calcium Carbonate 500 MG Tablet PO ×3 (08:26→16:55)
[2021-10-09] MEDS: Allopurinol 100 MG Tablet PO (08:26)
[2021-10-09] MEDS: Glucerna Shake 120 ML LIQUID PO ×3 (08:26→16:53)
[2021-10-09 14:44] VITALS: BP 124/69; PULSE 73; RESP 18; TEMP 36.4; O2SAT 96
[2021-10-09] MEDS: Tamsulosin HCl 0.4 MG Capsule PO (16:53)
[2021-10-09 17:00] VITALS: BP 106/59; PULSE 72
[2021-10-09 21:14] VITALS: PULSE 70; RESP 16; O2SAT 98
[2021-10-10] MEDS: Bisacodyl 5 MG Tablet 10 MG PO (05:32)
[2021-10-10] MEDS: Menthol/Lanolin/Calamine/Znox 113 GM Tube 1 APPLIC TOPICAL ×2 (05:57→17:47)
[2021-10-10] MEDS: Carvedilol 6.25 MG Tablet PO ×2 (05:58→17:46)
[2021-10-10] MEDS: Furosemide 20 MG Tablet PO (05:58)
--- NOTE | 2021-10-10 05:59 | NURSING ---
06:00 Medications were administered during downtime.
[2021-10-10] MEDS: Calcium Carbonate 500 MG Tablet PO ×3 (07:58→17:47)
[2021-10-10] MEDS: Allopurinol 100 MG Tablet PO (07:58)
[2021-10-10] MEDS: Glucerna Shake 120 ML LIQUID PO (07:58)
[2021-10-10] MEDS: Senna/Docusate Sodium 1 Tablet 2 TABLET PO ×2 (07:58→17:47)
[2021-10-10 08:43] VITALS: O2SAT 95
[2021-10-10 10:22] VITALS: O2SAT 93
--- NOTE | 2021-10-10 10:39 | CASEMGMT ---
Social Work IDT met with and sister for care plan meeting. Discussed patient's progress in PT/OT/ST/SN. Explained [employer] insurance with NRD 10/15 and continued stay is not guaranteed with each review. Pt is scheduled for MBS today. Pt lives with at [facility]. is unable to assist and needs pt to be independent to return home. Broached topic of alternative DC plan, possibly DC to [facility] as pt is x2 assist or [facility] to transfer. Explained insurance will not cover room and board, thus it would be private pay, and pt would continue getting therapy under Part B. Pt and agreeable to [facility] first then [facility] second. Pt could pay privately or tap into long-term care insurance after the 90 day criteria window has been met. SW to continue to follow for discharge planning. YULIET MackW
[2021-10-10 14:43] VITALS: PULSE 94; O2SAT 93
--- NOTE | 2021-10-10 15:14 | SP.MBSS_ITS ---
Modified Barium Swallow - Patient Information Study Date: 10/10/21 Study Time: 13:30 Direct Billable Minutes: 120 Total Minutes procedure & reportin Diagnosis: Debility (R53.81) Referring Physician: Bao Arellano Chi Reason for Referral: Objectively assess swallow function, risk for aspiration, and determine recommendations for least restrictive diet textures and compensatory strategies to improve safety of swallow. Medical History: 09/28/2021 Roshan Ramos is a 86-year-old male with PMH including debility, HTN, HLD, A fib, syncope and collapse, and DM Type II (SEE full PMH in EMR) who presented to [facility] Emergency Department with fall. Walking with rollator at home, fell on buttocks, hit head. X-ray right hip showed right hip fracture. CT head negative. 09/29/2021 Admit to Hospital. 10/01/2021 Dr. Chapman performed right femur intramedullary nail. 10/02/2021 Oxygen 2 liters per nasal cannula, Hold Lasix for acute kidney injury. 10/03/2021 Right hip pain with PT, wean oxygen. 10/04/2021 Feel much better, oxygen between room air and 2 liters per NC, renal function improved. 10/04/2021 Admit to TCU with debility, here for rehabilitation, strengthening, prior to discharge home with . 10/08/[address] recommending Regular / Thin. Downgraded Easy to Chew / Thin 10/09/21 with recommendation for MBS study to objectively assess aspiration risk due to increased s/s of aspiration with thin liquid trials. Pt's reports history of coughing with food and drink for at least 2 years. Current Diet Ordered: Easy to Chew textures / Thin liquids Mental Status: WNL - Able to follow commands for evaluation Respiratory Status: Oxygenating on Room Air - Penetration-Aspiration Scale Penetration-Aspiration Scale: OBJECTIVE ASSESSMENT OF SWALLOW FUNCTION (QUANTITATIVE ? PER TRIAL): PENETRATION / ASPIRATION SCALE (GÓMEZ): 1 = does not enter airway 2 = enters airway/above vocal folds/ejected 3 = enters airway/above vocal folds/not ejected 4 = enters airway/contacts vocal folds/ejected 5 = enters airway/contacts vocal folds/not ejected 6 = enters airway/below vocal folds/ejected 7 = enters airway/below vocal folds/not ejected despite effort 8 = enters airway/below vocal folds/no effort VIDEOFLOROSCOPIC SCALE SCORE (GÓMEZ): Grade I = aspiration of material that has penetrated into the laryngeal vestibule, intact cough reflex Grade II = aspiration < 10 % of the bolus, intact cough reflex Grade III = aspiration of < 10 % of the bolus, reduced cough reflex or aspiration of > 10 % of the bolus, intact cough reflex Grade IV = aspiration of > 10 % of the bolus, reduced cough reflex - Penetration-Aspiration Scale Score Thin Liquid via teaspoon Result: 8= enters airway/below vocal folds/no effort Thin Liquid via teaspoon Trial 2 Result: 3= enters airways/above vocal folds/not ejected Thin Liquid via small single sip from cup Result: 7= enters airways/below vocal folds/not ejected despite effort Thin Liquid via small single sip from cup Effortful swallow Result: 8= enters airway/below vocal folds/no effort Thin Liquid via small single sip from cup Chin tuck Result: 2= enter airway/above vocal folds/ejected [place] Thick Liquid via teaspoon Result: 1= does not enter airway [place] Thick Liquid via small single sip from cup Result: 2= enter airway/above vocal folds/ejected [place] Thick Liquid via small single sip from cup Result: 1= does not enter airway Pudding via teaspoon with esophageal screen Result: 2= enter airway/above vocal folds/ejected Pudding via teaspoon Double effortful swallow Result: 1= does not enter airway Comment: Cannot rule out post prandial aspiration or laryngeal penetration of pharyngeal residue of previous trials - increased contrast lining the anterior wall of the laryngeal vestibule. 1/2 Cookie Result: 1= does not enter airway [place] Thick Liquid via small single sip from cup Double swallow Result: 2= enter airway/above vocal folds/ejected [place] Thick Liquid via small single sip from cup Effortful swallow Result: 1= does not enter airway - Oral Phase Labial Seal: No Labial Escape Tongue Control During Bolus Hold: Posterior escape of less than half of bolus Bolus Preparation/Mastication: Timely and efficient chewing and mashing Bolus Transport/Lingual Motion: Brisk tongue motion Oral Residue: Residue collection on oral structures - Pharyngeal Phase Initiation of Pharyngeal Swallow: Bolus head in pyriforms Soft Palate Elevation: No bolus between soft palate and pharyngeal wall Laryngeal Elevation: Partial superior movement thyroid cart/partial apprx aryt- epig petiole Anterior Hyoid Excursion: Complete anterior movement Epiglottic Movement: Partial inversion Laryngeal Vestibule Closure at Height of Swallow: Incomplete; narrow column of air/contrast in laryngeal vestibule Pharyngeal Stripping Wave: Present - diminished Pharyngoesophageal Segment Opening: Parital distension and partial duration; parital obstruction of flow Tongue Base Retraction: Wide column of contrast between tongue base & post. pharyngeal wall Pharyngeal Residue: Collection of residue within or on pharyngeal structures - Treatment Strategies Effects of treatment strategies attemped:: Effortful swallow = little to no impact observed. Double swallow = effective. Chin tuck = effective. - Diagnosis/Impression Diagnosis: Mild-moderate oropharyngeal phase dysphagia (R13.12) Impression: The oral phase is primarily marked by deficits in bolus control with premature posterior loss of certain liquid trials to the pyriforms resulting in suboptimal bolus placement upon swallow onset. He also presented with mild oral residues after the swallow, especially observed with cookie trial. The pharyngeal phase is primarily marked by decreased airway closure during the swallow and moderate pharyngeal residues. He presented with decreased laryngeal elevation resulting in decreased closure of the laryngeal vestibule during the swallow. He presented with decreased tongue base retraction and decreased pharyngeal contraction with moderate residues in the vallecula after the swallow. He demonstrated both overt and SILENT aspiration of thin liquid trials. With use of chin tuck, he achieved improved airway protection. SEE PAS scores above for full details regarding laryngeal penetration and aspiration occurring during the study. He is at increased risk to aspirate moderate pharyngeal residues after the swallow. WATERPROOF BAG CUTTING MACHINE OPERATOR suspected post prandial aspiration of honey thick or pudding residues during the second pudding trial. CP bar present at the level of C-5; however, it did not appear to impact bolus clearance through the UES. - Recommendations Diet: Thin Liquids - Easy to Chew textures (IDDSI Level 7) Compensatory Strategies: Small Bites, Small Sips, Slow Rate, Multiple Swallows - Encourage double swallows with bites/sips, Sitting upright Supervision: 1:1 Close Supervision - Direct supervision at meals Recommend Repeat Modified Barium Swallow: Yes Comment: Repeat MBS study in 2-4 weeks after implementation of oropharyngeal exercise program. Need for Skilled Speech Therapy Services: Yes Comment: Will recommend the patient for skilled dysphagia therapy to address deficits in oropharyngeal swallow function. Would consider the patient for oropharyngeal strengthening to improve laryngeal elevation, tongue base retraction, and pharyngeal contraction. The patient would benefit from thorough education regarding diet recommendations and recommended compensatory strategies. Will recommend the patient for implementation of [place] Free Water Protocol (FFWP) with use of chin tuck to encourage hydration and promote increased opportunities for swallowing throughout the patient?s day. Education Completed: 1. Described result of evaluation., 7. Pt requires further education on strategies & risks. - Status Active ST Patient: Active - Contact Information [facility] Speech Therapy:: Zuleima Goddard M.A. [facility] BAG CUTTING MACHINE OPERATOR Speech-Language Pathologist [facility] [address] [place] [address] [email or web address] [phone] 10/10/21 15:32
[2021-10-10 15:17] VITALS: BP 134/67; PULSE 59; RESP 18; TEMP 36.1; O2SAT 91
[2021-10-10] MEDS: Tamsulosin HCl 0.4 MG Capsule PO (17:47)
[2021-10-10] MEDS: Atorvastatin Calcium 20 MG Tablet PO (21:49)
[2021-10-11] MEDS: Carvedilol 6.25 MG Tablet PO ×2 (05:17→17:08)
[2021-10-11] MEDS: Furosemide 20 MG Tablet PO (05:17)
[2021-10-11] MEDS: Menthol/Lanolin/Calamine/Znox 113 GM Tube 1 APPLIC TOPICAL ×2 (05:17→17:08)
--- NOTE | 2021-10-11 06:39 | NURSING ---
Pt using accessory muscles to breath this morning. Denies shortness of breath. SpO2 at 0500 was 88%. NC applied at 3 L per minute. SpO2 at 0545 was 98% and O2 was decreased to 2 L per minute. At 0630, this nurse and the RN checked on pt; he was still using his accessory muscles to breath and his pulse ox was 96%. Crackles could be heard in posterior bilateral lung bases as well as diminished lung sounds throughout lungs. RT called for PRN nebulizer treatment. Pt denies discomfort or shortness of breath at this time.
[2021-10-11 07:23] VITALS: PULSE 73; RESP 18; O2SAT 97
[2021-10-11] MEDS: Albuterol 2.5 MG/3 ML VIAL.NEB. INHALATION (07:23)
[2021-10-11] MEDS: Senna/Docusate Sodium 1 Tablet 2 TABLET PO ×2 (07:46→17:08)
[2021-10-11] MEDS: Allopurinol 100 MG Tablet PO (07:46)
[2021-10-11] MEDS: Calcium Carbonate 500 MG Tablet PO ×3 (07:47→17:07)
[2021-10-11 09:16] LABS: International Normalized Ratio 1.8; Prothrombin Time (Protime)PT. 20.9 SECONDS (11.7-14.9)
--- NOTE | 2021-10-11 11:39 | CASEMGMT ---
Social Work BIMS and PHQ-9 completed for MDS assessment. Susan Mccullough, INVESTMENT BROKER BRAILLE TYPIST
[2021-10-11 14:46] VITALS: BP 119/69; PULSE 69; RESP 20; TEMP 36.1; O2SAT 96
--- NOTE | 2021-10-11 15:14 | NURSING ---
Family notified of covid positive employee.
[2021-10-11] MEDS: Tamsulosin HCl 0.4 MG Capsule PO (17:07)
[2021-10-11 20:00] VITALS: PULSE 73; RESP 18; O2SAT 93
[2021-10-12] MEDS: Menthol/Lanolin/Calamine/Znox 113 GM Tube 1 APPLIC TOPICAL ×2 (05:00→16:41)
[2021-10-12] MEDS: Furosemide 20 MG Tablet PO (05:02)
[2021-10-12] MEDS: Carvedilol 6.25 MG Tablet PO ×2 (05:02→16:40)
[2021-10-12 05:19] VITALS: BP 136/60; PULSE 69
[2021-10-12 06:10] LABS: Absolute Lymphocyte Count 1.11 X10^3/uL (0.83-4.51); Absolute Neutrophil Count 6.3 X10^3/uL (2.0-7.7); Basophil# 0.05 X10^3/uL; Basophil% 0.6 % (0-1); Eosinophil# 0.47 X10^3/uL; Eosinophils% 5.4 % (0-5); Hematocrit 35.6 % (40-54); Hemoglobin 11.3 g/dL (13.0-16.5); Lymphocyte # 1.11 X10^3/ul (0.83-4.51); Lymphocyte % 12.7 % (19-41); Mean Corp Hgb Conc 31.7 g/dL (32-36); Mean Corpuscular Hgb 31.5 pg (27.0-32.0); Mean Corpuscular Volume 99.2 fL (80-94); Mean Platelet Vol. 9.5 fl (6.2-12.0); Monocyte# 0.76 X10^3/uL; Monocyte% 8.7 % (0-10); NRBC Flagged by Analyzer 0 % (0-5); Neutrophil # 6.32 X10^3/uL (2.7-7.7); Neutrophil % 72.1 % (47-70); POSITIVE MORPHOLOGY YES; Platelet Count 254 K/mm3 (150-450); RBC Distribution Width CV 18.2 % (11.6-14.6); RBC Distribution Width SD 65.5 fl (35.1-43.9); Red Blood Count 3.59 M/mm3 (4.6-6.2); White Blood Count 8.8 K/mm3 (4.4-11.0)
[2021-10-12 06:20] LABS: Differential Indicated SCAN CRITERIA MET
[2021-10-12 06:37] LABS: Anisocytosis 2+; Macrocytosis 2+
[2021-10-12 06:38] LABS: Anion Gap 2 (5-15); BUN 45 mg/dL (7-18); BUN/Creat Ratio 37.5 RATIO (10-20); Calcium,Total 8.7 mg/dL (8.5-10.1); Chloride 106 mmol/L (98-107); EST Glomerular Filtration Rate 61 mL/min (>60); Est Glom Filt Rate - Afr Amer 74 mL/min (>60); Estimated Creatinine Clearance 50.42 ml/min; Glucose 158 mg/dL (74-106); Potassium 4.7 mmol/L (3.5-5.1); Sodium Level 139 mmol/L (136-145)
[2021-10-12] MEDS: Calcium Carbonate 500 MG Tablet PO ×3 (07:54→16:41)
[2021-10-12] MEDS: Senna/Docusate Sodium 1 Tablet 2 TABLET PO ×2 (07:55→16:41)
[2021-10-12] MEDS: Allopurinol 100 MG Tablet PO (07:55)
[2021-10-12 09:39] VITALS: RESP 16; O2SAT 97
[2021-10-12] MEDS: Tuberculin,Purif.prot.deriv. 50 TU/ML Vial 0.1 ML ID (11:47)
[2021-10-12 13:42] VITALS: BP 109/65; PULSE 74; RESP 18; TEMP 36.3; O2SAT 100
[2021-10-12] MEDS: Tamsulosin HCl 0.4 MG Capsule PO (16:40)
[2021-10-12] MEDS: Warfarin 0.5 MG Tablet 1.5 MG PO (16:40)
[2021-10-12] MEDS: Atorvastatin Calcium 20 MG Tablet PO (20:04)
[2021-10-13] MEDS: Menthol/Lanolin/Calamine/Znox 113 GM Tube 1 APPLIC TOPICAL ×2 (05:27→17:11)
[2021-10-13] MEDS: Furosemide 20 MG Tablet PO (05:27)
[2021-10-13] MEDS: Carvedilol 6.25 MG Tablet PO ×2 (05:27→17:10)
[2021-10-13 05:35] VITALS: BP 124/67; PULSE 73
[2021-10-13] MEDS: Calcium Carbonate 500 MG Tablet PO ×3 (08:01→17:10)
[2021-10-13] MEDS: Allopurinol 100 MG Tablet PO (08:01)
[2021-10-13] MEDS: Senna/Docusate Sodium 1 Tablet 2 TABLET PO ×2 (08:02→17:11)
[2021-10-13 15:47] VITALS: BP 128/65; PULSE 81; RESP 20; TEMP 36.2; O2SAT 100
[2021-10-13 16:52] VITALS: O2SAT 97
[2021-10-13] MEDS: Tamsulosin HCl 0.4 MG Capsule PO (17:10)
[2021-10-13 22:00] VITALS: PULSE 44; RESP 16; O2SAT 96
[2021-10-14] MEDS: Carvedilol 6.25 MG Tablet PO ×2 (06:16→18:17)
[2021-10-14] MEDS: Menthol/Lanolin/Calamine/Znox 113 GM Tube 1 APPLIC TOPICAL ×2 (06:20→18:17)
[2021-10-14] MEDS: Furosemide 20 MG Tablet PO (06:20)
[2021-10-14] MEDS: Senna/Docusate Sodium 1 Tablet 2 TABLET PO ×2 (08:04→18:17)
[2021-10-14] MEDS: Calcium Carbonate 500 MG Tablet PO ×3 (08:04→18:17)
[2021-10-14] MEDS: Allopurinol 100 MG Tablet PO (08:04)
[2021-10-14 10:00] VITALS: O2SAT 95
--- NOTE | 2021-10-14 12:10 | NURSING ---
Pt had appt scheduled for 10/15/[address] Chapman unable to find time of appt. and pt will need transportation set up.
[2021-10-14 15:15] VITALS: BP 129/69; PULSE 73; RESP 18; TEMP 36.3; O2SAT 93
[2021-10-14] MEDS: Tamsulosin HCl 0.4 MG Capsule PO (18:17)
[2021-10-14 18:21] VITALS: BP 111/47; PULSE 81
[2021-10-14] MEDS: Atorvastatin Calcium 20 MG Tablet PO (22:32)
[2021-10-14 22:35] VITALS: O2SAT 94
[2021-10-15] MEDS: Menthol/Lanolin/Calamine/Znox 113 GM Tube 1 APPLIC TOPICAL ×2 (05:24→17:12)
[2021-10-15] MEDS: Carvedilol 6.25 MG Tablet PO ×2 (05:28→17:11)
[2021-10-15] MEDS: Furosemide 20 MG Tablet PO (05:28)
[2021-10-15 05:32] VITALS: BP 118/78; PULSE 75
[2021-10-15 06:00] LABS: International Normalized Ratio 2.3
[2021-10-15 07:55] VITALS: O2SAT 98
[2021-10-15] MEDS: Calcium Carbonate 500 MG Tablet PO ×3 (07:57→17:12)
[2021-10-15] MEDS: Allopurinol 100 MG Tablet PO (07:57)
[2021-10-15] MEDS: Senna/Docusate Sodium 1 Tablet 2 TABLET PO ×2 (07:57→17:11)
[2021-10-15 10:15] VITALS: O2SAT 98
--- NOTE | 2021-10-15 13:19 | NURSING ---
Contacted Dr. Chapman's office for appt time. pt scheduled for 10/17/21 at 1315. [facility] scheduled cot p/u time is 1230.
[2021-10-15 15:09] VITALS: BP 124/73; PULSE 70; RESP 20; TEMP 36.1; O2SAT 93
[2021-10-15] MEDS: Tamsulosin HCl 0.4 MG Capsule PO (17:11)
[2021-10-15 20:14] VITALS: PULSE 70; RESP 18; O2SAT 94
[2021-10-16] MEDS: Menthol/Lanolin/Calamine/Znox 113 GM Tube 1 APPLIC TOPICAL (05:10)
[2021-10-16] MEDS: Carvedilol 6.25 MG Tablet PO ×2 (05:11→17:04)
[2021-10-16] MEDS: Furosemide 20 MG Tablet PO (05:11)
[2021-10-16 05:22] VITALS: BP 132/63; PULSE 74
[2021-10-16 07:05] VITALS: O2SAT 93
[2021-10-16] MEDS: Senna/Docusate Sodium 1 Tablet 2 TABLET PO (08:34)
[2021-10-16] MEDS: Calcium Carbonate 500 MG Tablet PO ×3 (08:34→17:03)
[2021-10-16] MEDS: Allopurinol 100 MG Tablet PO (08:34)
[2021-10-16 08:47] VITALS: RESP 18; O2SAT 99
--- NOTE | 2021-10-16 10:41 | CASEMGMT ---
Social Work Met with pt to follow up on DC plans as insurance update is 10/17. Pt states if he is cut he will not be able to return to [place] with the level of care needed. Pt stated his alt. plan is [facility]. Referral made to [facility]. Will continue to follow. Susan Mccullough, GAS OPERATIONS SUPERINTENDENT TALKING BOOKS LIBRARY CLERK
--- NOTE | 2021-10-16 12:11 | CASEMGMT ---
Addendum entered by Susan Mccullough 10/17/21 12:09: Updated pt that [facility] can accept pt and insurance approved with NRD 10/23. SW to continue to follow. Original Note: Social Work Spoke with pt about insurance NRD 10/17 and alternative DC plans. Pt requested [facility]. SW referred to [facility]. Pt accepted and will pay privately. Will await insurance outcome. SW to continue to follow. Susan Mccullough, CLOTH DOFFER SAFETY LAMP KEEPER
[2021-10-16 13:30] VITALS: BP 141/66; PULSE 69; RESP 16; TEMP 36.4; O2SAT 98
[2021-10-16] MEDS: Tamsulosin HCl 0.4 MG Capsule PO (17:03)
[2021-10-16] MEDS: Atorvastatin Calcium 20 MG Tablet PO (19:55)
[2021-10-17] MEDS: Carvedilol 6.25 MG Tablet PO ×2 (05:27→17:35)
[2021-10-17] MEDS: Furosemide 20 MG Tablet PO (05:27)
[2021-10-17] MEDS: Menthol/Lanolin/Calamine/Znox 113 GM Tube 1 APPLIC TOPICAL ×2 (05:32→17:36)
[2021-10-17 05:52] VITALS: BP 122/61; PULSE 70
[2021-10-17] MEDS: Calcium Carbonate 500 MG Tablet PO ×3 (08:03→17:35)
[2021-10-17] MEDS: Senna/Docusate Sodium 1 Tablet 2 TABLET PO ×2 (08:03→17:35)
[2021-10-17] MEDS: Allopurinol 100 MG Tablet PO (08:03)
--- NOTE | 2021-10-17 12:38 | MDS.RN ---
Information for the mds was obtained from review of the clinical record, interview of resident, staff, and direct observation of resident's care.
--- NOTE | 2021-10-17 12:50 | NURSING ---
Addendum entered by Maddi Brenner 10/17/21 15:23: Pt returned from appt with Dr. Chapman. F/U with Dr. Chapman in 4 weeks allan removed at appt. No other orders at this time. Original Note: Pt left for appt with Dr. Chapman.
--- NOTE | 2021-10-17 15:11 | NURSING ---
Pt and family updated on positive covid employee.
[2021-10-17 16:00] VITALS: BP 124/64; PULSE 72; RESP 18; TEMP 36.4; O2SAT 98
[2021-10-17 17:33] VITALS: BP 122/67; PULSE 74
[2021-10-17] MEDS: Tamsulosin HCl 0.4 MG Capsule PO (17:35)
[2021-10-17 19:31] VITALS: PULSE 74; RESP 16; O2SAT 95
[2021-10-18] MEDS: Menthol/Lanolin/Calamine/Znox 113 GM Tube 1 APPLIC TOPICAL ×2 (06:00→18:32)
[2021-10-18] MEDS: Furosemide 20 MG Tablet PO (06:00)
[2021-10-18] MEDS: Carvedilol 6.25 MG Tablet PO ×2 (06:00→18:31)
[2021-10-18 06:05] LABS: International Normalized Ratio 2.9; Prothrombin Time (Protime)PT. 30.1 SECONDS (11.7-14.9)
[2021-10-18 06:08] VITALS: BP 125/71; PULSE 74
[2021-10-18] MEDS: Senna/Docusate Sodium 1 Tablet 2 TABLET PO ×2 (07:51→18:32)
[2021-10-18] MEDS: Calcium Carbonate 500 MG Tablet PO ×3 (07:51→18:31)
[2021-10-18] MEDS: Allopurinol 100 MG Tablet PO (07:51)
[2021-10-18 10:32] VITALS: O2SAT 95
[2021-10-18 14:57] VITALS: BP 138/84; PULSE 74; RESP 18; TEMP 36.3; O2SAT 94
[2021-10-18 17:30] VITALS: BP 129/79; PULSE 74; TEMP 36.2; O2SAT 94
--- NOTE | 2021-10-18 18:25 | RAD_ITS ---
STUDY: X-RAY CHEST REASON FOR EXAM: Male, 86 years old. SOB TECHNIQUE: XR Chest 2 Views COMPARISON: 10.05.21 FINDINGS: There are bilateral pleural effusions. There are bilateral infiltrates. There is a left sided pacemaker batterypack. There is borderline cardiomegaly. Normal mediastinum and kole. Normal visualized pulmonary arteries. There is atherosclerotic calcification of the aortic arch with tortuosity. There are diffuse degenerative changes of the visualized thoracic spine. There is degenerative osteoarthritis of the bilateral shoulders. There is no demonstrated abnormality of the visualized soft tissue structures of the upper abdomen. RAD/Chest PA and Lateral IMPRESSION: Pulmonary findings appear worse. Electronically Signed: Dov Graf MD at 20:22 EDT ,
--- NOTE | 2021-10-18 18:26 | RAD_ITS ---
EXAM: XR ABDOMEN, 1 VIEW CLINICAL INDICATION: Increased Confusion, Nausea Patient unconscious, CONFUSION, NAUSEA TECHNIQUE: Frontal supine view of the abdomen/pelvis. This report was created using [employer] report generation technology. COMPARISON: None. FINDINGS: LOWER THORAX: No acute pathology. GASTROINTESTINAL TRACT: Residual oral contrast in the colon. Degenerative findings in the lumbar spine. Non-obstructive. No bowel or stomach distention. ORGANS: Unremarkable as visualized. No organomegaly. No abnormal calcifications. BONES/JOINTS: There is metallic hardware noted in the right hip. SOFT TISSUES: No acute pathology. VASCULATURE: There are atherosclerotic vascular calcifications.. RAD/Abdomen Single View IMPRESSION: No acute findings. Electronically Signed: Dov Graf MD at 20:23 EDT ,
--- NOTE | 2021-10-18 18:30 | NURSING ---
Pt very lethargic having difficulty keeping eyes open. Pt states he feels nauseated, confused and SOB. Spo2 94% 3L NC Bp 129/79 Pulse [address] Arellano updated new order for Chest X-ray, KUB, CBC, BMP, Covid test, and Urinalysis. Will continue to monitor.
[2021-10-18] MEDS: Tamsulosin HCl 0.4 MG Capsule PO (18:31)
[2021-10-18 19:06] LABS: Bedside Glucose 244 mg/dL (74-106)
[2021-10-18 19:52] LABS: Bacteria 0 SEEN /hpf (None Seen); Mucous, Urine 0 SEEN /hpf (<or=2+); Squamous Epithelial Cells - UA 0 SEEN /hpf (0-5)
[2021-10-18 19:54] LABS: Color, Urine Yellow (Yellow); Glucose, Dipstick Normal (Normal); Ketone-Dipstick Negative (Negative); Leukocyte Esterase-Dipstick 25 /ul (Negative); Nitrite-Dipstick Negative (Negative); Occult Blood-Urine 25 /ul (Negative); Protein-Dipstick 30 mg/dl (Negative); Specific Gravity, Urine 1.015 (1.002-1.030); Urine Bilirubin Dipstick Negative (Negative); Urine Clarity Clear (Clear); Urine Urobilinogen 1 mg/dl (Normal)
[2021-10-18 19:58] LABS: Absolute Lymphocyte Count 1.05 X10^3/uL (0.83-4.51); Absolute Neutrophil Count 6.8 X10^3/uL (2.0-7.7); Basophil# 0.03 X10^3/uL; Basophil% 0.3 % (0-1); Differential Indicated SCAN CRITERIA MET; Eosinophil# 0.08 X10^3/uL; Eosinophils% 0.9 % (0-5); Hematocrit 37.7 % (40-54); Hemoglobin 11.3 g/dL (13.0-16.5); Lymphocyte # 1.05 X10^3/ul (0.83-4.51); Lymphocyte % 12.2 % (19-41); Mean Corpuscular Hgb 30.6 pg (27.0-32.0); Mean Corpuscular Volume 102.2 fL (80-94); Mean Platelet Vol. 9.5 fl (6.2-12.0); Monocyte# 0.63 X10^3/uL; Monocyte% 7.3 % (0-10); NRBC Flagged by Analyzer 0 % (0-5); Neutrophil # 6.81 X10^3/uL (2.7-7.7); Neutrophil % 78.8 % (47-70); POSITIVE MORPHOLOGY YES; Platelet Count 260 K/mm3 (150-450); RBC Distribution Width CV 17.4 % (11.6-14.6); RBC Distribution Width SD 65.2 fl (35.1-43.9); Red Blood Count 3.69 M/mm3 (4.6-6.2); White Blood Count 8.6 K/mm3 (4.4-11.0)
[2021-10-18 20:18] LABS: Differential Comment SCANNED; Macrocytosis 1+
[2021-10-18 20:19] LABS: Anisocytosis 1+
[2021-10-18 20:33] LABS: Red Blood Cells-Urine 0-5 SEEN /hpf (0-5); White Blood Cells 0-5 SEEN /hpf (0-5)
[2021-10-18 20:34] LABS: Anion Gap 4 (5-15); BUN 39 mg/dL (7-18); BUN/Creat Ratio 27.9 RATIO (10-20); Calcium,Total 8.6 mg/dL (8.5-10.1); Chloride 106 mmol/L (98-107); EST Glomerular Filtration Rate 51 mL/min (>60); Est Glom Filt Rate - Afr Amer 62 mL/min (>60); Estimated Creatinine Clearance 43.22 ml/min; Glucose 263 mg/dL (74-106); Sodium Level 143 mmol/L (136-145)
[2021-10-18 20:54] VITALS: BP 114/67; PULSE 73; RESP 22; TEMP 36.9; O2SAT 98
[2021-10-18] MEDS: 0.9% Saline Lock 10 ML Syringe IV (21:02)
[2021-10-18] MEDS: Furosemide 40 MG/4 ML Vial IV (21:02)
[2021-10-18] MEDS: Lactulose 20 GM/30 ML UDC PO (21:07)
[2021-10-18] MEDS: Atorvastatin Calcium 20 MG Tablet PO (21:08)
--- NOTE | 2021-10-19 00:10 | NURSING ---
Pt sitting up in bed, awake and alert, states he feels better, able to state name and place. Pulled out IV, states he didn't realize it was there, pt also had O2 off per ENROUTE CONTROLLER when she entered room. Reapplied per ENROUTE CONTROLLER, POX 93 at this time. No distress noted, pt was incont of urine, ronald care given and dry attends applied. Will continue to monitor.
[2021-10-19] MEDS: Furosemide 40 MG/4 ML Vial IV ×2 (05:10→13:29)
[2021-10-19] MEDS: 0.9% Saline Lock 10 ML Syringe IV ×3 (05:10→21:34)
[2021-10-19] MEDS: Menthol/Lanolin/Calamine/Znox 113 GM Tube 1 APPLIC TOPICAL ×2 (05:16→16:51)
[2021-10-19 05:49] LABS: Absolute Neutrophil Count 7.3 X10^3/uL (2.0-7.7); Basophil# 0.06 X10^3/uL; Basophil% 0.6 % (0-1); Eosinophil# 0.17 X10^3/uL; Eosinophils% 1.8 % (0-5); Hematocrit 37.8 % (40-54); Hemoglobin 11.4 g/dL (13.0-16.5); Lymphocyte % 12.5 % (19-41); Mean Corp Hgb Conc 30.2 g/dL (32-36); Mean Corpuscular Hgb 30.8 pg (27.0-32.0); Mean Corpuscular Volume 102.2 fL (80-94); Mean Platelet Vol. 9.4 fl (6.2-12.0); Monocyte# 0.86 X10^3/uL; Monocyte% 8.9 % (0-10); NRBC Flagged by Analyzer 0 % (0-5); Neutrophil % 75.9 % (47-70); Platelet Count 251 K/mm3 (150-450); RBC Distribution Width CV 17.4 % (11.6-14.6); RBC Distribution Width SD 64.7 fl (35.1-43.9); White Blood Count 9.6 K/mm3 (4.4-11.0)
[2021-10-19 06:21] LABS: Anion Gap 4 (5-15); BUN 38 mg/dL (7-18); BUN/Creat Ratio 26.4 RATIO (10-20); Calcium,Total 8.9 mg/dL (8.5-10.1); Chloride 105 mmol/L (98-107); Creatinine, Serum 1.44 mg/dL (0.70-1.30); EST Glomerular Filtration Rate 49 mL/min (>60); Est Glom Filt Rate - Afr Amer 60 mL/min (>60); Estimated Creatinine Clearance 42.02 ml/min; Glucose 174 mg/dL (74-106); Sodium Level 143 mmol/L (136-145)
[2021-10-19] MEDS: Senna/Docusate Sodium 1 Tablet 2 TABLET PO ×2 (07:41→16:51)
[2021-10-19] MEDS: Allopurinol 100 MG Tablet PO (07:41)
[2021-10-19] MEDS: Carvedilol 6.25 MG Tablet PO ×2 (07:41→16:51)
[2021-10-19] MEDS: Calcium Carbonate 500 MG Tablet PO ×3 (07:41→16:51)
[2021-10-19 07:42] VITALS: BP 111/79; PULSE 77; TEMP 36.4; O2SAT 94
[2021-10-19 08:14] VITALS: O2SAT 95
[2021-10-19 13:37] VITALS: BP 114/72; PULSE 75; RESP 20; TEMP 36.4; O2SAT 97
[2021-10-19 14:08] VITALS: O2SAT 94
[2021-10-19] MEDS: Tamsulosin HCl 0.4 MG Capsule PO (16:50)
[2021-10-19] MEDS: Warfarin 0.5 MG Tablet 1.5 MG PO (16:51)
--- NOTE | 2021-10-19 18:10 | NURSING ---
pt noted to have oxygen off nares several times throughout shift, sat 88% at times without it. reapplied sat 92-96% on 3 liters, some labored breathing noted while resting in bed. pt states he feels better today than yesterday. notified resp therapy for aerosal tx. pt HOB elevated. call light in reach. repositioned on LT side. had been incont of urine, incont care provided. Triad cream applied open wound on buttocks. pleasant and cooperative with care. Alert and oriented at this time.
[2021-10-19 18:11] VITALS: PULSE 84; RESP 20
[2021-10-19 18:40] VITALS: PULSE 123; RESP 20; O2SAT 97
[2021-10-19] MEDS: Albuterol 2.5 MG/3 ML VIAL.NEB. INHALATION (18:40)
--- NOTE | 2021-10-20 01:08 | NURSING ---
Addendum entered by Amalia Santos 10/20/21 02:39: Patient resting with eyes closed at this time. Does not appear to be restless or anxious at this time. Addendum entered by Amalia Santos 10/20/21 01:16: 400mL more urine obtained. Original Note: Patient very anxious and restless up to this time. Patient attempted to crawl out of bed twice. Patient abdomen distended. Distended and firm in lower abdominal area. Painful for patient when palpated. Bladder scanned patient. Greater than 999mL read with scanner. Per Nursing judgement, 16F mendoza inserted for patient comfort. Balloon inflated with 10cc Normal Saline. Secured with Statlock to right inner thigh area. 1000mL clear, genaro color urine immediately obtained.
[2021-10-20] MEDS: 0.9% Saline Lock 10 ML Syringe IV (05:03)
[2021-10-20] MEDS: Furosemide 40 MG/4 ML Vial IV (05:03)
[2021-10-20] MEDS: Menthol/Lanolin/Calamine/Znox 113 GM Tube 1 APPLIC TOPICAL ×2 (05:11→17:17)
[2021-10-20 06:54] LABS: Anion Gap 2 (5-15); BUN 39 mg/dL (7-18); BUN/Creat Ratio 24.4 RATIO (10-20); Calcium,Total 8.2 mg/dL (8.5-10.1); Chloride 105 mmol/L (98-107); EST Glomerular Filtration Rate 44 mL/min (>60); Est Glom Filt Rate - Afr Amer 53 mL/min (>60); Estimated Creatinine Clearance 37.82 ml/min; Glucose 187 mg/dL (74-106); Potassium 4.8 mmol/L (3.5-5.1); Sodium Level 144 mmol/L (136-145)
[2021-10-20] MEDS: Calcium Carbonate 500 MG Tablet PO ×3 (08:57→17:17)
[2021-10-20] MEDS: Senna/Docusate Sodium 1 Tablet 2 TABLET PO ×2 (08:57→17:18)
[2021-10-20] MEDS: Allopurinol 100 MG Tablet PO (08:58)
[2021-10-20] MEDS: Carvedilol 6.25 MG Tablet PO ×2 (08:58→16:18)
[2021-10-20 09:59] VITALS: O2SAT 92
[2021-10-20 10:00] VITALS: RESP 16
[2021-10-20 14:03] VITALS: BP 122/59; PULSE 72; RESP 16; TEMP 36.1; O2SAT 95
--- NOTE | 2021-10-20 15:28 | NURSING ---
Bladder scanned at 0130 for >[address] Arellano notified and told this nurse to leave mendoza in place.
[2021-10-20] MEDS: Tamsulosin HCl 0.4 MG Capsule PO (17:18)
[2021-10-20] MEDS: Atorvastatin Calcium 20 MG Tablet PO (21:47)
[2021-10-21] MEDS: Menthol/Lanolin/Calamine/Znox 113 GM Tube 1 APPLIC TOPICAL (05:19)
[2021-10-21] MEDS: Furosemide 40 MG Tablet PO (05:20)
[2021-10-21] MEDS: Carvedilol 6.25 MG Tablet PO (09:03)
[2021-10-21] MEDS: Allopurinol 100 MG Tablet PO (09:03)
[2021-10-21] MEDS: Calcium Carbonate 500 MG Tablet PO ×2 (09:03→13:18)
[2021-10-21 09:04] VITALS: BP 105/60; PULSE 71
[2021-10-21 09:05] LABS: Anion Gap 4 (5-15); BUN 42 mg/dL (7-18); BUN/Creat Ratio 25.1 RATIO (10-20); Calcium,Total 8.5 mg/dL (8.5-10.1); Chloride 106 mmol/L (98-107); Creatinine, Serum 1.67 mg/dL (0.70-1.30); EST Glomerular Filtration Rate 42 mL/min (>60); Est Glom Filt Rate - Afr Amer 50 mL/min (>60); Estimated Creatinine Clearance 36.23 ml/min; Glucose 175 mg/dL (74-106); Potassium 4.8 mmol/L (3.5-5.1); Sodium Level 145 mmol/L (136-145)
[2021-10-21 13:49] VITALS: O2SAT 95
--- NOTE | 2021-10-21 13:50 | NURSING ---
Dr. Arellano notified that pt . Spouse in room.
--- NOTE | 2021-10-21 14:07 | NURSING ---
Barrel Burner notified.
--- NOTE | 2021-10-21 14:15 | NURSING ---
[facility] returned call, they released the patient. Reference # [id number]
--- NOTE | 2021-10-21 14:17 | DS.PCM_ITS ---
Providers Date of Admission: 10/04/21 Primary Care Physician: Dr. Gurjit Salomon MD Reason For Visit: FALL AND R HIP FRACTURE Diagnosis Discharge Diagnosis (1) Debility: Status: Acute Code(s): R53.81 - Other malaise (2) Closed intertrochanteric fracture of right hip: Status: Acute Code(s): S72.141A - Displaced intertrochanteric fracture of right femur, initial encounter for closed fracture Qualifiers: Encounter type: initial encounter Fracture alignment: nondisplaced Qualified Code(s): S72.144A - Nondisplaced intertrochanteric fracture of right femur, initial encounter for closed fracture (3) Acute kidney injury: Status: Acute Code(s): N17.9 - Acute kidney failure, unspecified (4) Coronary artery disease: Status: Acute Code(s): I25.10 - Atherosclerotic heart disease of [place] coronary artery without angina pectoris (5) Diabetes mellitus: Status: Acute Code(s): E11.9 - Type 2 diabetes mellitus without complications (6) Benign prostate hyperplasia: Status: Acute Code(s): N40.0 - Benign prostatic hyperplasia without lower urinary tract symptoms (7) Chronic systolic (congestive) heart failure: Status: Chronic Code(s): I50.22 - Chronic systolic (congestive) heart failure (8) Hyperlipidemia: Status: Acute Code(s): E78.5 - Hyperlipidemia, unspecified (9) Gout: Status: Acute Code(s): M10.9 - Gout, unspecified (10) Atrial fibrillation: Status: Acute Code(s): I48.91 - Unspecified atrial fibrillation Plan 86 year old male with below past medical history hospitalized for right hip fracture, underwent right femur intramedullary nail 10/01/[address] Chapman, complicated by acute kidney injury, hypoxia, admitted to TCU with debility, here for rehabilitation, strengthening, prior to discharge home with . * Debility - PT/OT. * Pain - Tylenol 1000mg q6h prn pain (1-3), Oxycodone 5mg q4h prn pain (4-10). * Bowel - senna/colace 2 tablets bid, Dulcolax 10mg daily prn. * Adult immunization - Administer pneumonia vaccine, covid19 vaccine, flu vaccine as appropriate. * DVT prophylaxis - Not necessary, on warfarin. * Gout - Allopurinol 100mg daily. * Hyperlipidemia - Atorvastatin 20mg every other day. * Indigestion - TUMS 500mg tidcm. * Coronary artery disease - Coreg 6.25mg bid, Warfarin, stop aspirin which increases bleeding risk without further decreasing cardiovascular risk while on warfarin. * Chronic systolic congestive heart failure - Coreg 6.25mg bid, Furosemide 20mg daily, consider Entresto, consider SGLT2i, consider MRA. * Nutrition - Glucerna Shake 120ml po tidcm. * Diabetes Mellitus II - Metformin 500mg bidcm. * BPH - Tamsulosin 0.4mg daily. * Atrial fibrillation - Coreg 6.25mg bid, Warfarin 3mg 6 days/week, 1.5mg 1 day/week, monitor INR. Medications at Discharge Home Medications aspirin 81 mg chewable tablet 81 mg PO DAILY@0800 Heart health 12/02/13 metformin 500 mg tablet 500 mg PO BIDCM Blood sugar 12/02/13 tamsulosin 0.4 mg capsule 0.4 mg PO DAILY Urinary retention 03/21/20 carvedilol 6.25 mg tablet 6.25 mg PO BID BP #180 tabs 04/23/21 oxycodone-acetaminophen 5 mg-325 mg tablet (Percocet) 1 tab PO Q6H PRN pain 3 days #12 tabs 09/25/21 simvastatin 40 mg tablet 40 mg PO QODAY Cholestrol 09/25/21 warfarin 3 mg tablet 3 mg PO SUTUTHSA blood thinner 09/25/21 allopurinol 100 mg tablet 100 mg PO DAILY gout 09/28/21 docusate sodium 100 mg capsule (Colace) 100 mg PO DAILY stool softener 09/28/21 furosemide 40 mg tablet 20 mg PO DAILY diuretic 09/29/21 calcium carbonate 200 mg calcium (500 mg) chewable tablet 500 mg PO TIDCM Supplement 10/04/21 sennosides 8.6 mg-docusate sodium 50 mg tablet (Stool Softener-Stimulant Laxative) 2 tab PO BID Stool softner 10/04/21 Hospital Course Operations - (Right hip intramedullary nail.) Procedures None Summary of Care Provided Minutes Spent on Discharge: 30 Hospital Course: 86 year old male with below past medical history hospitalized for right hip fracture, underwent right femur intramedullary nail 10/01/[address] Chapman, complicated by acute kidney injury, hypoxia, admitted to TCU with debility, here for rehabilitation, strengthening, prior to discharge home with . Resident treated for congestive heart failure, bilateral pneumonia. 10/21/2021 Resident at 13:50. Weight / BMI Weight Weight: 104.411 kg Body Mass Index (BMI) 29.5 ABG / Lab / Microbiology Data Result Diagrams: 10/19/21 05:35 10/21/21 08:08 Laboratory: Laboratory Results - last 24 hr 10/21/21 07:28: Sodium Cancelled, Potassium Cancelled, Chloride Cancelled, Carbon Dioxide Cancelled, Anion Gap Cancelled, BUN Cancelled, Creatinine Cancelled, Estim Creat Clear Calc Cancelled, Est GFR (MDRD) Af Amer Cancelled, Est GFR (MDRD) Non-Af Cancelled, BUN/Creatinine Ratio Cancelled, Glucose Cancelled, Calcium Cancelled 10/21/21 08:08: Sodium 145, Potassium 4.8, Chloride 106, Carbon Dioxide 35.0 H, Anion Gap 4 L, BUN 42 H, Creatinine 1.67 H, Estim Creat Clear Calc 36.23, Est GFR (MDRD) Af Amer 50 L, Est GFR (MDRD) Non-Af 42 L, BUN/Creatinine Ratio 25.1 H , Glucose 175 H, Calcium 8.5 Microbiology: Microbiology 10/18/21 18:54 Urine, Catheterized Urine Culture - Final Culture exhibits no growth. 10/18/21 19:50 Nasal Secretion SARS-CoV-2 Antigen (Rapid) - Final 10/15/21 09:20 Nasal Secretion SARS-CoV-2 Antigen (Rapid) - Final 10/11/21 13:30 Nasal Secretion SARS-CoV-2 Antigen (Rapid) - Final 10/08/21 09:39 Urine, Catheterized Urine Culture - Final Culture exhibits no growth. D/C Instructions Please Follow Up With: Beka Chapman DO When: N/A. Meaningful Use Info Meaningful Use Diagnoses (Choose all that apply): None applicable Discharge Plan Admission Admit Date/Time: 10/04/21 15:43 Primary Reason for Your Visit: Debility. Attending Provider: Bao Arellano Chi Primary Care Provider: Gurjit Salomon Instructions Additional Instructions / Restrictions: Resident 10/21/2021 at 13:50. Discharge Orders/Prescriptions Prescriptions: No Action tamsulosin 0.4 mg capsule 0.4 mg PO DAILY Label Comments: take 1 capsule by mouth once daily metformin 500 MG tablet 500 mg PO BIDCM Label Comments: diabetes aspirin 81 MG tablet,chewable 81 mg PO DAILY@0800 Label Comments: heart health simvastatin 40 mg tablet 40 mg PO QODAY warfarin 3 mg tablet 3 mg PO SUTUTH Protocol: Dose Management Condition: Friday Dose/Route: 3 mg Instruction: 1 x 3 mg tablet Condition: Friday Dose/Route: 3 mg Instruction: 1 x 3 mg tablet Condition: Friday Dose/Route: 3 mg Instruction: 1 x 3 mg tablet Condition: Friday Dose/Route: 3 mg Instruction: 1 x 3 mg tablet Condition: Dose/Route: 3 mg Instruction: 1 x 3 mg tablet Condition: Friday Dose/Route: 1.5 mg Instruction: 0.5 x 3 mg tablets Condition: Friday Dose/Route: 3 mg Instruction: 1 x 3 mg tablet Protocol Text: Adjustment Start Date: Friday08/27/21 INR Value: 2.7 INR Date: 08/27/21 Recheck Date: 09/26/21 oxycodone-acetaminophen [Percocet] 5-325 mg tablet 1 tab PO Q6H PRN (Reason: pain) 3 Days Qty: 12 0RF allopurinol 100 mg tablet 100 mg PO DAILY docusate sodium [Colace] 100 mg capsule 100 mg PO DAILY furosemide 40 mg tablet 20 mg PO DAILY Hold Instructions: Resume on 10/08/21. sennosides-docusate sodium [Stool Softener-Stimulant Laxat] 8.6-50 mg tablet 2 tab PO BID calcium carbonate 200 mg calcium (500 mg) tablet,chewable 500 mg PO TIDCM carvedilol 6.25 mg tablet 6.25 mg PO BID Qty: 180 3RF Hold Instructions: Resume on 10/08/21. Referrals / Follow Up: Gurjit Salomon MD [Primary Care Provider] - Disposition Disposition (needs filled in before D/C Order can be placed):
--- NOTE | 2021-10-21 14:17 | NURSING ---
Addendum entered by Paige Alexandra 10/21/21 14:44: pt at 1336 Original Note: This nurse called to patient's room, in room, pt taking last breaths. This nurse and nurse Amalia Hdez assessed pt. No heart beat or BP present. Dr Arellano and nursing supervisor tile and mottle notified.
--- NOTE | 2021-10-21 14:20 | NURSING ---
[facility] notified.
== END 2021-10-21 16:39 | DRG 560 ==
PROVIDERS: Admitting Provider Family Medicine Geriatric Medicine; PCP Family Medicine; Visit Provider Family Medicine Geriatric Medicine
DX: S72.144D Nondisplaced intertrochanteric fracture of right femur, subsequent encounter for closed fracture with routine healing (principal); N17.9 Acute kidney failure, unspecified; I50.22 Chronic systolic (congestive) heart failure; I27.21 Secondary pulmonary arterial hypertension; E11.9 Type 2 diabetes mellitus without complications; I48.0 Paroxysmal atrial fibrillation; E78.5 Hyperlipidemia, unspecified; N40.0 Benign prostatic hyperplasia without lower urinary tract symptoms; M10.9 Gout, unspecified; I25.10 Atherosclerotic heart disease of native coronary artery without angina pectoris; I25.5 Ischemic cardiomyopathy; Z79.899 Other long term (current) drug therapy; Z79.84 Long term (current) use of oral hypoglycemic drugs; Z79.01 Long term (current) use of anticoagulants; Z95.810 Presence of automatic (implantable) cardiac defibrillator; Z79.82 Long term (current) use of aspirin
CPT/HCPCS: 36415; 71046; 74018; 74230; 80048; 81001; 82962; 85025; 85610; 87086; 87426; 87811; 92507; 92526; 92610; 92611; 94640; 97110; 97162; 97166; 97530; 97535; 97802; J7050; A4216; J1940